=== PATIENT | female | born 1965 | race Caucasian/White ===

== ENCOUNTER 2017-05-19 14:23 | Emergency (ER) | payer MEDICAID, SELFPAY ==
[2017-05-19 14:25] VITALS: BP 160/91; PULSE 100; RESP 16; TEMP 36.6; O2SAT 95; BMI 36.3
--- NOTE | 2017-05-19 14:34 | CT_ITS ---
STUDY: CT ABDOMEN AND PELVIS WITHOUT CONTRAST REASON FOR EXAM: Female, 52 years old. Left flank pain RADIATION DOSAGE (If Supplied By Facility): CTDIvol = ( 21.59 ) mGy, DLP = ( 1208.35 ) mGycm TECHNIQUE: Transaxial images were obtained from the dome of the diaphragm to the symphysis pubis without oral contrast, and without intravenous contrast. Sagittal and coronal images were reconstructed. Individualized dose optimization techniques were used for this CT. COMPARISON: 12/04/2015 FINDINGS: The visualized lung bases are clear. The visualized portions of the heart and pericardium are within normal limits. Evaluation of the abdominal viscera is limited in the absence of intravenous contrast. The patient is status post cholecystectomy. The liver demonstrates an unremarkable unenhanced appearance. The spleen is normal in size. The pancreas demonstrates an unremarkable unenhanced appearance. The adrenal glands are within normal limits. There is a 6 mm stone in the left mid ureter with moderate left hydroureteronephrosis. There are additional bilateral subcentimeter nonobstructing collecting system stones, measuring up to 5 mm. There are no right ureteral stones. There is no hydronephrosis. Normal visualized stomach. There is no bowel obstruction or inflammation. The appendix is visualized and appears normal. The aorta is normal in caliber. There is no abdominal or pelvic free air, free fluid, fluid collection or lymphadenopathy. The patient is status post hysterectomy. There are no destructive osseous lesions. CT/Abdomen/Pelvis without Cont IMPRESSION: 6 mm stone in the left mid ureter with moderate left hydroureteronephrosis. Bilateral subcentimeter nonobstructing renal collecting system stones. No right ureteral stones. No right hydronephrosis. No bowel obstruction or inflammation. Normal appendix. Electronically Signed: José Barrera, at 15:31 EST Tel , Service support ,
[2017-05-19] MEDS: Ondansetron 4 MG/2 ML Vial IV (14:46)
--- NOTE | 2017-05-19 14:48 | ED.DCSUM_ITS ---
- ER Visit Summary Date of Service: 05/19/17 Chief Complaint: Left flank pain History of Present Illness: The patient is a 52 F presenting with left flank pain. She states she has a history of multiple kidney stones in the past and this feels similar. Pain started yesterday. She has had nausea vomiting. She has dysuria with no hematuria. Denies fever. She tried tramadol and Tylenol at home. He takes daily Macrodantin to suppress urine infections. She has had multiple procedures for kidney stone removal. Physical Examination: Vitals are stable. Patient is afebrile. Alert no acute distress. HEENT exam is unremarkable. Neck is supple. Lungs are clear and equal bilaterally. Heart is regular rate and rhythm. Abdomen is soft nontender nondistended. Back: left CVA tenderness Extremities are unremarkable. Skin is warm and dry. No focal neurologic deficit. Remainder of exam is unremarkable. Emergency Department Course and Treatment: Patient was given morphine, Zofran. CBC shows white count 16.7. Chemistries show BUN 36, creatinine 1.60. Urinalysis shows trace leukocytes, 5-10 white cells. Urine culture was sent. Lactic acid is 1.1. Patient was given Cipro IV. CT flank shows 6 mm stone left mid ureter with moderate left hydronephrosis. She continues to have pain despite multiple doses of pain medications. Patient states she is prone to sepsis. We currently have no urology coverage at [facility]. Patient's urologist is Dr. Alvarado at [facility]. Discussed with [facility] for transfer. Disposition: Transfer to [facility] Impression: Urolithiasis, leukocytosis This note was generated with [employer] dictation software. It may contain incorrect words, spelling, and punctuation that were not noted in review of the chart prior to signing ED Disposition - Plan for ED Patient: Chief Complaint: Flank Pain Referrals: Meg Meyer MD [Primary Care Provider] -
[2017-05-19 14:52] LABS: Mucous, Urine 0 SEEN /hpf (<or=2+); Red Blood Cells-Urine 0 SEEN /hpf (0-5)
[2017-05-19 15:01] LABS: Absolute Lymphocyte Count 2.15 X10^3/ul (0.83-4.51); Absolute Neutrophil Count 12.9 X10^3/uL (2.0-7.7); Basophil# 0.03 X10^3/uL; Basophil% 0.2 % (0-1); Hematocrit 43.5 % (37-47); Lymphocyte # 2.15 X10^3/ul (4.0); Lymphocyte % 12.9 % (19-41); Mean Corp Hgb Conc 34.5 g/gl (32-36); Mean Corpuscular Hgb 29.9 pg (27.0-32.0); Mean Corpuscular Volume 86.7 fL (81-99); Mean Platelet Vol. 8.9 fl (6.2-12.0); Monocyte# 1.61 X10^3/uL; Monocyte% 9.6 % (0-10); Neutrophil # 12.86 X10^3/uL (2.7-7.7); Neutrophil % 76.8 % (47-70); Platelet Count 346 K/mm3 (150-450); RBC Distribution Width CV 12.7 % (11.6-14.6); RBC Distribution Width SD 40.3 fl (35.1-43.9); Red Blood Count 5.02 M/mm3 (4.2-5.4); White Blood Count 16.7 K/mm3 (4.4-11.0)
[2017-05-19 15:02] LABS: Differential Indicated SCAN CRITERIA MET; POSITIVE COUNT NO; POSITIVE DIFFERENTIAL YES; POSITIVE MORPHOLOGY NO
[2017-05-19 15:04] LABS: Color, Urine Yellow (Yellow); Glucose, Dipstick Normal (Normal); Ketone-Dipstick Negative (Negative); Leukocyte Esterase-Dipstick 500 /ul (Negative); Nitrite-Dipstick Negative (Negative); Occult Blood-Urine 10 /ul (Negative); Protein-Dipstick 30 mg/dl (Negative); Specific Gravity, Urine 1.015 (1.002-1.030); Urine Bilirubin Dipstick Negative (Negative); Urine Clarity Clear (Clear); Urine Urobilinogen Normal (Normal)
[2017-05-19 15:10] LABS: Bacteria RARE /hpf (None Seen); Transitional Epithelial - Ur 0 SEEN /hpf (0-5); White Blood Cells 5-10 SEEN /hpf (0-5)
[2017-05-19 15:11] LABS: Squamous Epithelial Cells - UA 0-5 SEEN /hpf (5-10)
[2017-05-19 15:14] LABS: Anion Gap 10 (5-15); BUN 36 mg/dL (7-18); BUN/Creat Ratio 22.5 RATIO (10-20); Calcium,Total 8.8 mg/dL (8.5-10.1); Chloride 106 mmol/L (98-107); EST Glomerular Filtration Rate 36 mL/min (>60); Est Glom Filt Rate - Afr Amer 43 mL/min (>60); Estimated Creatinine Clearance 35.11 ml/min; Glucose 141 mg/dL (74-106); Sodium Level 137 mmol/L (136-145)
[2017-05-19 16:58] VITALS: BP 140/78; PULSE 77; RESP 17; O2SAT 98
[2017-05-19 16:59] LABS: Lactic Acid 1.1 mmol/L (0.4-2.0)
--- NOTE | 2017-05-19 17:25 | NURSING ---
CALLING [facility] FOR TRANSFER.
--- NOTE | 2017-05-19 18:10 | NURSING ---
[facility] 15 REPORT [phone]
[2017-05-19 18:37] VITALS: BP 146/92; PULSE 70; RESP 18; TEMP 36.6; O2SAT 96
[2017-05-19 18:50] VITALS: BP 146/92; PULSE 70; RESP 18; TEMP 36.6; O2SAT 96
== END 2017-05-19 19:30 | disposition short-term general hospital (02) ==
PROVIDERS: Emergency Provider Emergency Medicine; Family Provider Internal Medicine; PCP Internal Medicine
DX: N13.2 Hydronephrosis with renal and ureteral calculous obstruction (principal); R30.0 Dysuria; D72.829 Elevated white blood cell count, unspecified; Z79.82 Long term (current) use of aspirin; Z79.899 Other long term (current) drug therapy; Z87.442 Personal history of urinary calculi
CPT/HCPCS: 74176; 80048; 81001; 83605; 85025; 87086; 87088; 96365; 96375; 96376; 99284; J7030; J7050; A4216; J0744; J2405

== ENCOUNTER → 2017-07-25 06:17 | Outpatient (CLI) | payer MEDICAID, SELFPAY ==
--- NOTE | 2017-07-25 17:12 | STRESSREP ---
Stress Test Report Pharmacologic myocardial perfusion stress test. 52 year old lady with a history of tachycardia. Medications verapamil aspirin Vistaril and Demerol. Stress protocol: Resting EKG demonstrates normal sinus rhythm with a rate of 82 bpm normal intervals and noted resting blood pressure is 138/70 mmHg. 0.4 mg of regadenoson was infused per usual protocol followed by Intravenous saline flush injection. Continuous EKG monitoring was performed. The maximum heart rate attained was 112 bpm which was 67% of maximum predicted heart rate the maximum workload was 1 metabolic equivalent. At rest there were no ST or T-wave changes noted to suggest abnormal flow reserve at peak infusion no ST or T-wave changes were noted to suggest abnormal flow reserve. The resting blood pressure is 138/70 with a final blood pressure 122/82. Myocardial perfusion protocol. 12.0 mCi of technetium 99m sestamibi was injected at rest. 0.4 mg regadenoson was infused per usual protocol. At peak infusion 34.9 mCi of technetium 99m sestamibi was injected. Stress images were obtained stress and rest images were reconstructed and compared in the short axis vertical long and horizontal long axis. Gated images were also obtained. Perfusion SPECT analysis: Review of the stress images demonstrate normal uptake of tracer noted in all areas of the myocardium on the stress and resting images no areas of reversibility are noted and no previous infarct is noted. Gated SPECT analysis: The gated ejection fraction is noted to be 79%. Conclusion Normal pharmacologic myocardial perfusion stress test. Preserved ejection fraction.
== END ==
PROVIDERS: Family Provider Internal Medicine; PCP Internal Medicine; Visit Provider Internal Medicine Cardiovascular Disease
DX: I25.10 Atherosclerotic heart disease of native coronary artery without angina pectoris (principal); R06.09 Other forms of dyspnea
CPT/HCPCS: 78452; 93017; A9500; A4216; J2785

== ENCOUNTER 2017-08-07 14:08 | Emergency (ER) | payer MEDICAID, SELFPAY ==
[2017-08-07 14:09] VITALS: BP 159/97; PULSE 92; RESP 20; TEMP 36.5; O2SAT 97; BMI 38.0
[2017-08-07 15:33] LABS: Bacteria 0 SEEN /hpf (None Seen); Mucous, Urine 0 SEEN /hpf (<or=2+)
[2017-08-07 15:37] LABS: Color, Urine Yellow (Yellow); Glucose, Dipstick Normal (Normal); Ketone-Dipstick Negative (Negative); Leukocyte Esterase-Dipstick 25 /ul (Negative); Nitrite-Dipstick Negative (Negative); Occult Blood-Urine 25 /ul (Negative); Protein-Dipstick Negative (Negative); Specific Gravity, Urine 1.015 (1.002-1.030); Urine Bilirubin Dipstick Negative (Negative); Urine Clarity Sl. Cloudy (Clear); Urine Urobilinogen Normal (Normal)
--- NOTE | 2017-08-07 15:45 | CT_ITS ---
STUDY: CT ABDOMEN AND PELVIS WITHOUT CONTRAST REASON FOR EXAM: Female, 52 years old. Left flank pain RADIATION DOSAGE (If Supplied By Facility): CTDIvol = ( 20.72 ) mGy, DLP = ( 1097.27 ) mGycm TECHNIQUE: Transaxial images were obtained from the dome of the diaphragm to the symphysis pubis without oral contrast, and without intravenous contrast. Sagittal and coronal images were reconstructed. Individualized dose optimization techniques were used for this CT. COMPARISON: 05/19/2017 FINDINGS: Evaluation of the abdominal viscera is limited in the absence of intravenous contrast. The visualized lung bases are clear. The visualized portions of the heart and pericardium are within normal limits. The patient is status post cholecystectomy. The liver demonstrates an unremarkable unenhanced appearance. The spleen is normal in size. The pancreas demonstrates an unremarkable unenhanced appearance. The adrenal glands are within normal limits. There is a 3 mm stone in the left mid ureter with moderate left hydroureteronephrosis. There are additional bilateral subcentimeter nonobstructing renal collecting system stones, measuring up to 5 mm. There are no right ureteral stones. There is no right hydronephrosis. Normal visualized stomach. There is no bowel obstruction or inflammation. The appendix is visualized and appears normal. The aorta is normal in caliber. There is no abdominal or pelvic free air, free fluid, fluid collection or lymphadenopathy. There are no destructive osseous lesions. CT/Abdomen/Pelvis without Cont IMPRESSION: 3 mm stone in the left mid ureter with moderate left hydroureteronephrosis. Bilateral subcentimeter nonobstructing renal collecting system stones. No right ureteral stones. No right hydronephrosis. Electronically Signed: José Barrera, at 16:47 EDT Tel , Service support ,
[2017-08-07 15:50] LABS: Red Blood Cells-Urine 0-5 SEEN /hpf (0-5); Squamous Epithelial Cells - UA 0-5 SEEN /hpf (5-10); White Blood Cells 0-5 SEEN /hpf (0-5)
[2017-08-07] MEDS: 0.9% Normal Saline 1,000 ML 999 ML IV (16:05)
[2017-08-07] MEDS: Morphine 4 MG/ML Syringe IV (16:05)
[2017-08-07] MEDS: Ondansetron 4 MG/2 ML Vial IV (16:06)
[2017-08-07 16:21] LABS: Absolute Lymphocyte Count 2.16 X10^3/ul (0.83-4.51); Absolute Neutrophil Count 12.1 X10^3/uL (2.0-7.7); Basophil# 0.02 X10^3/uL; Basophil% 0.1 % (0-1); Eosinophil# 0.04 X10^3/uL; Eosinophils% 0.3 % (0-5); Hematocrit 43.3 % (37-47); Lymphocyte # 2.16 X10^3/ul (4.0); Mean Corp Hgb Conc 34.6 g/gl (32-36); Mean Corpuscular Hgb 30.5 pg (27.0-32.0); Mean Corpuscular Volume 88.2 fL (81-99); Mean Platelet Vol. 9.1 fl (6.2-12.0); Monocyte# 1.07 X10^3/uL; Monocyte% 6.9 % (0-10); Neutrophil # 12.07 X10^3/uL (2.7-7.7); Neutrophil % 78.1 % (47-70); Platelet Count 354 K/mm3 (150-450); RBC Distribution Width CV 14.2 % (11.6-14.6); RBC Distribution Width SD 45.1 fl (35.1-43.9); Red Blood Count 4.91 M/mm3 (4.2-5.4); White Blood Count 15.5 K/mm3 (4.4-11.0)
[2017-08-07 16:22] LABS: POSITIVE COUNT NO; POSITIVE DIFFERENTIAL NO; POSITIVE MORPHOLOGY NO
[2017-08-07 16:30] LABS: Anion Gap 10 (5-15); BUN 27 mg/dL (7-18); BUN/Creat Ratio 16.8 RATIO (10-20); Chloride 103 mmol/L (98-107); Creatinine, Serum 1.61 mg/dL (0.55-1.02); EST Glomerular Filtration Rate 36 mL/min (>60); Est Glom Filt Rate - Afr Amer 43 mL/min (>60); Glucose 112 mg/dL (74-106); Potassium 3.7 mmol/L (3.5-5.1); Sodium Level 138 mmol/L (136-145)
--- NOTE | 2017-08-07 17:07 | ED.DCSUM_ITS ---
- ER Visit Summary Date of Service: 08/07/17 Chief Complaint: Left flank pain History of Present Illness: The patient is a 52 F who presents with left flank pain. He began this morning. Sharp. It is severe. It does radiate to the left lower quadrant of the abdomen and has associated nausea. It feels similar to prior kidney stones. She went to the urgent care and was diagnosed with a UTI and put on Cipro. However she was still concern for kidney stone and ongoing pain so presented here. She denies vomiting. She denies fever. She has a history of multiple kidney stones requiring surgical intervention. She actually has an appointment with urology in 2 days as well. Physical Examination: Afebrile vitals are stable Moist mucous membranes Heart regular rate and rhythm Lungs are clear Abdomen soft nontender Alert Test Results: Laboratory studies notable for white blood cell count 15.5 BUN 27 creatinine 1.61. Urinalysis shows no pyuria hematuria or bacteria. CT of the flank shows a 3 mm mid left ureteral calculus with moderate hydroureteronephrosis. Emergency Department Course and Treatment: Patient was treated with IV fluids morphine Zofran here and does feel much better on reevaluation. She has an appointment with urology in 2 days. Although she does not have pyuria given leukocytosis I do feel continuing the antibiotics appropriate. She was also given a prescription for Percocet for pain control. She reports that she usually gets thrush when she is placed on antibiotics so she was given a prescription for nystatin. She understands to return for new or worsening symptoms and to otherwise follow-up with urology on her scheduled appointment was discharged home. Treatment Plan: [] Disposition: Discharge Impression: Ureterolithiasis This note was generated with [employer] dictation software. It may contain incorrect words, spelling, and punctuation that were not noted in review of the chart prior to signing ED Disposition - Plan for ED Patient: Chief Complaint: Flank Pain Referrals: Meg Meyer MD [Primary Care Provider] -
--- NOTE | 2017-08-07 17:07 | ED.DEP ---
ED Disposition - Plan for ED Patient: Chief Complaint: Flank Pain Instructions: ED Stone Renal W Colic Prescriptions: Oxycodone HCl/Acetaminophen [Percocet 5/325] 1 tab PO Q6H PRN PRN 3 Days #12 tab PRN Reason: Pain Nystatin 5 ml PO Q8H 5 Days oral.susp Referrals: Meg Meyer MD [Primary Care Provider] -
[2017-08-07 17:23] VITALS: BP 143/87; PULSE 76; RESP 16; O2SAT 96
== END 2017-08-07 17:23 | disposition home or self-care (01) ==
LOC: ED 15:54
PROVIDERS: Emergency Provider Emergency Medicine; Family Provider Internal Medicine; PCP Internal Medicine
DX: N13.2 Hydronephrosis with renal and ureteral calculous obstruction (principal); Z87.442 Personal history of urinary calculi; N39.0 Urinary tract infection, site not specified; Z79.899 Other long term (current) drug therapy; N18.9 Chronic kidney disease, unspecified; Z79.82 Long term (current) use of aspirin; F32.9 Major depressive disorder, single episode, unspecified
CPT/HCPCS: 74176; 80048; 81001; 85025; 96361; 96374; 96375; 99283; J7030; J2405

== ENCOUNTER → 2017-12-20 11:56 | Outpatient (CLI) | payer MEDICAID, SELFPAY ==
[2017-12-20 12:57] LABS: Amphetamine Urine VISTA NEGATIVE (<1000 ng/mL); Barbiturate Urine VISTA NEGATIVE (< 200 ng/mL); Benzodiazepine Urine VISTA POSITIVE (< 200 ng/mL); Cocaine Urine VISTA NEGATIVE (< 300 ng/mL); Ecstacy Urine VISTA POSITIVE (< 500 ng/mL); Methadone Urine VISTA NEGATIVE (< 300 ng/mL); PCP Urine VISTA NEGATIVE (< 25 ng/mL); THC Urine VISTA NEGATIVE (< 50 ng/mL); Vista UDS pH Range 5
== END ==
PROVIDERS: Family Provider Internal Medicine; PCP Internal Medicine; Referring Provider Anesthesiology Pain Medicine; Visit Provider Anesthesiology Pain Medicine
DX: F11.20 Opioid dependence, uncomplicated (principal)
CPT/HCPCS: 80307

== ENCOUNTER → 2018-07-30 10:59 | Outpatient (CLI) | payer MEDICAID, SELFPAY ==
--- NOTE | 2018-07-30 11:30 | MRI_ITS ---
STUDY: MRI LUMBAR SPINE WITHOUT CONTRAST REASON FOR EXAM: Female, 53 years old. Left flank pain. History of frequent kidney stones. TECHNIQUE: Standardized fat and water weighted pulse sequences were obtained in the sagittal and axial planes. COMPARISON: 07/16/2014. FINDINGS: T10-T11: (Sagittal only). Normal T10 inferior endplate. Minimal anterior wedging of T11 superior endplate without bone edematous presumably from remote injury. Minimal disc space height narrowing. No ventral extradural defect. Normal central canal and bilateral intervertebral neural foramina. T11-T12: (Sagittal only). Normal endplates. Minimal disc space height narrowing. Small posterior bulging disc. Normal central canal and bilateral intervertebral neural foramina. T12-L1: (Sagittal only). Normal endplates. Normal disc height and morphology. No ventral extradural defect. Normal central canal and bilateral intervertebral neural foramina. Normal lumbar lordosis. There is no substantial scoliosis. Normal conus medullaris that terminates at the lower T12 vertebral body level. L1-2: Normal endplates. Normal disc height, hydration and morphology. Normal bilateral facet joints. Normal central canal and bilateral lateral recesses. Normal bilateral intervertebral neural foramina. L2-3: Normal endplates. Normal disc height, hydration and morphology. Normal bilateral facet joints. Normal central canal and bilateral lateral recesses. Normal bilateral intervertebral neural foramina. L3-4: Normal endplates. Normal disc height and morphology. Mild central canal stenosis with an AP canal diameter of 10 mm. Mild dorsal epidural lipomatosis. Normal bilateral lateral recesses. Normal facet joints. Normal bilateral intervertebral neural foramina. L4-5: Normal endplates. Mild disc space height narrowing. Small left posterior disc protrusion (series 2 and 3, images 5-6; series 5, image 7). This is causing mild stenosis of the left lateral recess. Normal right lateral recess. Mild central canal stenosis with an AP canal diameter of 9 mm. Mild dorsal epidural lipomatosis. Normal facet joints. Normal bilateral intervertebral neural foramina. L5-S1: Normal endplates. Hypoplastic disc. Normal disc hydration and morphology. Mild central canal stenosis with an AP canal diameter of 9 mm. Normal hypoplastic facet joints. Normal bilateral intervertebral neural foramina. Normal visualized sacral ala. Normal visualized paraspinous soft tissue structures. MRI/Spine Lumbar (Routine) IMPRESSION: 1. Interval improvement of the previous severe central canal stenosis at L3 down to L5 due to interval resolution of the epidural air and or fluid possibly from previous epidural injection. 2. Small left L4-L5 posterior disc protrusion causing mild stenosis of the left lateral recess and mild central canal stenosis. 3. Mild central canal stenosis at L3-L4 and L5-S1 disc space levels. 4. No MRI evidence of lumbar extruded disc fragment. Electronically Signed: Venancio Zafar MD at 14:55 EDT , Service support ,
== END ==
PROVIDERS: Family Provider Internal Medicine; PCP Internal Medicine; Referring Provider Anesthesiology Pain Medicine; Visit Provider Anesthesiology Pain Medicine
DX: M54.9 Dorsalgia, unspecified (principal); M79.606 Pain in leg, unspecified
CPT/HCPCS: 72148

== ENCOUNTER → 2019-05-22 12:51 | Outpatient (CLI) | payer MEDICARE, MEDICAID, SELFPAY ==
[2019-05-22 13:45] LABS: Amphetamine Urine VISTA NEGATIVE (<1000 ng/mL); Barbiturate Urine VISTA NEGATIVE (< 200 ng/mL); Benzodiazepine Urine VISTA POSITIVE (< 200 ng/mL); Cocaine Urine VISTA NEGATIVE (< 300 ng/mL); Ecstacy Urine VISTA NEGATIVE (< 500 ng/mL); Methadone Urine VISTA NEGATIVE (< 300 ng/mL); PCP Urine VISTA NEGATIVE (< 25 ng/mL); THC Urine VISTA NEGATIVE (< 50 ng/mL); Vista UDS pH Range 6
== END ==
PROVIDERS: PCP Internal Medicine; Referring Provider Anesthesiology Pain Medicine; Visit Provider Anesthesiology Pain Medicine
DX: F11.20 Opioid dependence, uncomplicated (principal)
CPT/HCPCS: 80307

== ENCOUNTER → 2020-03-04 07:17 | Outpatient (CLI) | payer MEDICARE, MEDICAID, SELFPAY ==
--- NOTE | 2020-03-04 07:30 | MRI_ITS ---
STUDY: MRI LUMBAR SPINE WITHOUT CONTRAST REASON FOR EXAM: Female, 54 years old. low back pain radiates into L leg, no known trauma TECHNIQUE: Standardized fat and water weighted pulse sequences were obtained in the sagittal and axial planes. COMPARISON: 07/30/2018 FINDINGS: T12-L1: Normal endplates. Normal disc height, hydration and morphology. Normal bilateral facet joints. Normal central canal and bilateral lateral recesses. Normal bilateral intervertebral neural foramina. Normal lumbar lordosis. There is no substantial scoliosis. Normal conus medullaris that terminates at the T12/L1. L1-2: Normal endplates. Normal disc height, hydration and morphology. Normal bilateral facet joints. Normal central canal and bilateral lateral recesses. Normal bilateral intervertebral neural foramina. L2-3: Disc desiccation but no disc protrusion, spinal stenosis, or neural foraminal stenosis. L3-4: Mild bilateral facet hypertrophy and ligament flavum hypertrophy. No change in the mild bilobed disc protrusion which produces mild spinal stenosis and mild bilateral neural foraminal stenosis. L4-5: Mild bilateral facet hypertrophy and moderate ligament flavum hypertrophy. No change in the mild broad disc protrusion asymmetric to left which produces mild spinal stenosis, mild right lateral recess stenosis, moderate left lateral recess stenosis with abutment of the left L5 nerve root, mild right neural foraminal stenosis and and mild left neural foraminal stenosis. L5-S1: Normal endplates. Normal disc height, hydration and morphology. Normal bilateral facet joints. Normal central canal and bilateral lateral recesses. Normal bilateral intervertebral neural foramina. Normal visualized sacral ala. Normal visualized paraspinous soft tissue structures. MRI/Spine Lumbar (Routine) IMPRESSION: No change from 07/30/2018. Electronically Signed: Fernando Hill MD at 15:17 EST Tel , Service support ,
== END ==
PROVIDERS: PCP Internal Medicine; Referring Provider Anesthesiology Pain Medicine; Visit Provider Anesthesiology Pain Medicine
DX: M54.9 Dorsalgia, unspecified (principal); M79.606 Pain in leg, unspecified
CPT/HCPCS: 72148

== ENCOUNTER → 2020-07-01 11:57 | Outpatient (CLI) | payer MEDICARE, MEDICAID, SELFPAY ==
[2020-07-01 14:06] LABS: Amphetamine Urine VISTA NEGATIVE (<1000 ng/mL); Barbiturate Urine VISTA NEGATIVE (< 200 ng/mL); Benzodiazepine Urine VISTA NEGATIVE (< 200 ng/mL); Cocaine Urine VISTA NEGATIVE (< 300 ng/mL); Ecstacy Urine VISTA NEGATIVE (< 500 ng/mL); Methadone Urine VISTA NEGATIVE (< 300 ng/mL); PCP Urine VISTA NEGATIVE (< 25 ng/mL); THC Urine VISTA NEGATIVE (< 50 ng/mL); Vista UDS pH Range 7
== END ==
PROVIDERS: PCP Internal Medicine; Referring Provider Anesthesiology Pain Medicine; Visit Provider Anesthesiology Pain Medicine
DX: F11.20 Opioid dependence, uncomplicated (principal)
CPT/HCPCS: 80307

== ENCOUNTER 2020-11-21 18:44 | Emergency (ER) | payer MEDICARE, MEDICAID, SELFPAY ==
[2020-11-21 18:45] VITALS: BP 115/85; PULSE 132; RESP 16; TEMP 36.9; O2SAT 92; BMI 37.2
[2020-11-21 18:48] VITALS: BP 115/85; PULSE 132; RESP 16; TEMP 36.9; O2SAT 92
--- NOTE | 2020-11-21 19:11 | CT_ITS ---
INDICATION: left sided pain, ?abscess EXAMINATION: CT NECK WITH CONTRAST - CT Soft Tissue Neck W/ Contrast Injection TECHNIQUE: Helically acquired images were obtained of the neck following IV contrast. A radiation dose optimization technique was used for this scan. IV Contrast dosage and agent: 75 mL of [id number]. COMPARISON: Cervical spine x-rays 11/18/2014. FINDINGS: NASOPHARYNX: Unremarkable. SUPRAHYOID NECK: Unremarkable oropharynx, oral cavity, parapharyngeal space, and retropharyngeal space. INFRAHYOID NECK: Unremarkable larynx, hypopharynx, and supraglottis. THYROID: No focal lesions. SALIVARY GLANDS: Unremarkable. LYMPH NODES: There are 2, asymmetrically larger left, sided, level 2A lymph nodes measuring 6 and 7 mm in short axis. These are still within normal size limits. No other evidence of inflammatory changes. VASCULAR STRUCTURES: Unremarkable. VISUALIZED PORTIONS OF THE ORBITS, PARANASAL SINUSES, MASTOID AIR CELLS AND SKULL BASE: Unremarkable. BONES: Moderate degenerative changes cervical spine most also a C5-6 and C6-7 with associated uncovertebral joint arthropathy resulting in [id number] neural foraminal narrowing at these levels bilaterally. THORACIC INLET: Clear lung apices. CT/Soft Tissue Neck WITH Contrast IMPRESSION: Normal size, asymmetrically prominent, left-sided level 2A lymph nodes suggesting reactive lymph nodes. Normal pharyngeal mucosal space. No abscess. Electronically Signed: Luca Muniz DO at 21:13 EDT Tel , Service support ,
--- NOTE | 2020-11-21 19:12 | EKG12_ITS ---
Test Reason : DYSRYTHMIA Blood Pressure : / mmHG Vent. Rate : 109 BPM Atrial Rate : 109 BPM P-R Int : 142 ms QRS Dur : 086 ms QT Int : 324 ms P-R-T Axes : 020 004 005 degrees QTc Int : 436 ms Sinus tachycardia Nonspecific ST and T wave abnormality Abnormal ECG Confirmed by DESHAWN DOUGLAS, JAZMINE ([id number]), social media editor [facility] ([id number]) on 11/23/2020 8:39:07 AM Referred By: LINDSAY Confirmed By:JAZMINE HESS MD
--- NOTE | 2020-11-21 19:16 | EX.ED.DYSGE1 ---
HPI History of Present Illness Chief Complaint: Dental Informant: patient and spouse/S.O. Narrative Narrative: Patient presents with left-sided mouth and throat area pain. She states that for 5 days ago she started with some soreness in the ear. That got better. Over the last day or 2 she has developed more soreness in the left side of her mouth and into the throat. It hurts to swallow or drink. She is able to but it sore. She is still breathing well. She denies fevers or chills. She denies chest pain. She denies visible swelling. No trauma. Nothing makes her symptoms better. Swallowing makes it worse. She was treated for thrush recently but thought that has gotten better. Patient does have a history of breast cancer. She had surgery about 6 weeks ago. She got her first chemotherapy on Sunday. No other immune suppression. Past medical history is breast cancer, kidney stones, irritable bowel, fibromyalgia, tachycardia Medications include verapamil. She is due for verapamil in about 2-1/2 hours. She takes this to avoid tachycardia. Multiple allergies. She has about 26 listed. She states she is allergic to IVP dye. However, she had CTs with IV contrast for her breast cancer never had a problem. Surgeries include C-sections multiple kidney stone surgeries Lives with [facility] Medical History Breast cancer Home Medications diclofenac sodium [Voltaren] 2 g TP PRN PRN 05/02/15 [History Last Taken Unknown] albuterol sulfate [Ventolin HFA] 2 puff INHALATION Q6H PRN PRN 12/04/15 [History Last Taken Unknown] cholecalciferol (vitamin D3) [D3-2000] 2,000 unit PO DAILY 12/04/15 [History Last Taken Unknown] hydroxyzine pamoate 50 mg PO BID PRN 12/04/15 [History Last Taken 12/04/15 08:00] meclizine 12.5 mg PO TID PRN 12/04/15 [History Last Taken Unknown] melatonin-pyridoxine (vit B6) 10 mg PO QHS 12/04/15 [History Last Taken 12/03/15 22:00] oxybutynin chloride 5 mg PO TID PRN 12/04/15 [History Last Taken 12/04/15 09:00] aspirin 325 mg PO DAILY@0800 03/22/16 [History Last Taken Unknown] multivitamin [Multiple Vitamins] 1 ea PO DAILY 09/15/16 [History Last Taken Unknown] naphazoline-pheniramine [Naphcon-A Eye Drops] 1 drp OP DAILY 09/15/16 [History Last Taken Unknown] nitrofurantoin macrocrystal 50 mg PO QHS 09/15/16 [History Last Taken Unknown] ondansetron HCl [Zofran] 4 mg PO Q8 PRN 09/15/16 [History Last Taken Unknown] vilazodone [Viibryd] 40 mg PO DAILY 02/15/17 [History Last Taken Unknown] oxycodone-acetaminophen 1 tab PO Q6H PRN PRN 3 Days #12 tab 08/07/17 [Rx Last Taken Unknown] atorvastatin [Lipitor] 10 mg PO QHS 11/21/20 [History Last Taken Unknown] empagliflozin [Jardiance] 10 mg PO DAILY 11/21/20 [History Last Taken Unknown] lamotrigine [Lamictal] 150 mg PO DAILY 11/21/20 [History Last Taken Unknown] lurasidone [Latuda] 80 mg PO QHS 11/21/20 [History Last Taken Unknown] modafinil [Provigil] 250 mg PO DAILY 11/21/20 [History Last Taken Unknown] potassium citrate [Urocit-K 10] 10 meq PO TID 11/21/20 [History Last Taken Unknown] tramadol 50 mg PO BID 11/21/20 [History Last Taken Unknown] trihexyphenidyl [Artane] 2 mg PO BID 11/21/20 [History Last Taken Unknown] verapamil 120 mg PO BID 11/21/20 [History Last Taken Unknown] Allergy/AdvReac Type Severity Reaction Status Date / Time banana Allergy Hives Verified 11/21/20 18:49 brompheniramine Allergy Hives Verified 11/21/20 18:49 [From Dimetapp (brompheniramine-PPA)] cefuroxime Allergy Rash Verified 11/21/20 18:49 egg Allergy Itching Verified 11/21/20 18:49 kiwi Allergy Hives Verified 11/21/20 18:49 latex Allergy Anaphylaxis Verified 11/21/20 18:49 moxifloxacin HCl Allergy Hives Verified 11/21/20 18:49 [From Avelox] peach Allergy Hives Verified 11/21/20 18:49 phenylpropanolamine Allergy Hives Verified 11/21/20 18:49 [From Dimetapp (brompheniramine-PPA)] red dye Allergy Angioedema Verified 11/21/20 18:49 shellfish derived Allergy Anaphylaxis Verified 11/21/20 18:49 strawberry Allergy Hives Verified 11/21/20 18:49 Sulfa (Sulfonamide Allergy Rash Verified 11/21/20 18:49 Antibiotics) tetanus and diphtheria Allergy Anaphylaxis Verified 11/21/20 18:49 toxoids [tetanus & diphtheria toxoids] tetracycline Allergy Rash Verified 11/21/20 18:49 adhesive tape AdvReac Rash Verified 11/21/20 18:49 amoxicillin trihydrate AdvReac Nausea Verified 11/21/20 18:49 [From Augmentin] chlorpheniramine AdvReac Unknown Verified 11/21/20 18:49 doxycycline AdvReac Nausea Verified 11/21/20 18:49 eszopiclone [From Lunesta] AdvReac Unknown Verified 11/21/20 18:49 fluticasone [From Flonase] AdvReac Unknown Verified 11/21/20 18:49 paroxetine [From Paxil] AdvReac Nausea Verified 11/21/20 18:49 peanut AdvReac Nausea Verified 11/21/20 18:49 potassium clavulanate AdvReac Nausea Verified 11/21/20 18:49 [From Augmentin] procainamide AdvReac Unknown Verified 11/21/20 18:49 Social History Smoking Status: Never smoker ROS ROS ED Constitutional Constitutional ED: Denies chills, fever(s) or sweats Eyes Eyes: Denies blurry vision or diplopia ENT ENT ED: Reports ear pain and sore throat; Denies rhinorrhea Cardiovascular Cardiovascular: Reports palpitations; Denies chest pain Respiratory/Chest Respiratory/Chest: Denies cough or dyspnea Gastrointestinal Gastrointestinal: Denies nausea or vomiting Genitourinary Genitourinary ED: Denies dysuria or hematuria Musculoskeletal Musculoskeletal: Reports neck pain; Denies arthralgias or back pain Integumentary Denies abscess, Abrasions or rash Neurologic Neurologic: Denies headache(s) or weakness Psychiatric Psychiatric: Reports anxiety and depression Endocrine Endocrinology: Denies polyuria Allergic/Immunologic Allergic/Immunologic ED: Denies urticaria EXAM Physical Exam Const Vital Signs: 11/21/20 18:45 11/21/20 18:48 11/21/20 21:45 Temperature 98.5 F 98.5 F Temperature Source Oral Oral Pulse Rate 132 H 132 H 90 Respiratory Rate 16 16 28 H Blood Pressure 115/85 H 115/85 H 175/89 H Blood Pressure Mean 95 95 117 Pulse Ox 92 92 97 Oxygen Delivery Method Room Air Room Air Room Air Positive well nourished and well developed General Appearance ED: well developed and NAD HEENT HEENT Narrative: I do not see external swelling. She has many of the teeth missing in the back of the throat where she has discomfort. I do not see an abscess. She does not appear to have Ludewig's angina. I am not seeing elevation or asymmetry of the tongue. She has good motion preserved. I see no exudate. Clinically, I do not see a clear explanation for the symptoms she has. trauma Eyes PERRL and EOMs intact bilaterally Neck no lymphadenopathy and no JVD Neck Narrative: No mass. She does have some tenderness along the left side of the neck but I do not feel any abnormality. Resp normal respiratory effort and clear to auscultation bilaterally Cardio regular rhythm Rate: tachycardic GI normal to inspection, nondistended, normoactive bowel sounds and non-tender Palpation: soft Back/Spine no CVA tenderness Extremity normal to inspection Neuro oriented x3 Sensorium / Orientation: alert Psych mental status grossly normal Skin no rashes or lesions noted MDM MDM MDM Narrative Medical decision making narrative: Patient is labs show a very low white count and an essentially 0 absolute neutrophil count. Electrolytes are not showing any marked abnormalities. Troponin is negative. Lactate is negative. Her blood pressure is staying good. Her heart rate is come down to 90. She states her heart rate does go up and down she has a history of tachycardia. Normally the verapamil takes care of this for her. Her CT showed an enlarged lymph node on the left that was reactive but no sign of abscess or infection. I discussed the case with Dr. Moya. Patient does have an appointment tomorrow. He recommends antibiotic IV dose if we could. This patient has many allergies. She states she has taken Levaquin orally and IV without problems. She has an allergy to Avelox but it is only the pill and it something in the binder not the actual antibiotics. I will give her a dose of this. I will give her a few Percocet for pain. She will follow up in 12 hours. If she gets fevers chills or other concerning findings she should return. Lab Data Labs: Laboratory Results - last 24 hr 11/21/20 11/21/20 11/21/20 19:35 19:35 19:35 WBC 0.5 L* RBC 3.99 L Hgb 11.9 L Hct 37.2 MCV 93.2 MCH 29.8 MCHC 32.0 RDW Std Deviation 43.8 RDW Coeff of Maria Ines 12.8 Plt Count 264 MPV 9.5 Immature Gran % (Auto) 3.900 H Neut % (Auto) 5.9 L Lymph % (Auto) 66.7 H Granite % (Auto) 3.9 Eos % (Auto) 17.6 H Baso % (Auto) 2.0 H Absolute Neuts (auto) 0.0 L Absolute Lymphs (auto) 0.34 L Nucleated RBC % 0 Differential Comment SEE COMMENTS Diff Path Review May foll Platelet Estimate ADEQUATE RBC Morphology N CHROM Anisocytosis RARE Macrocytosis RARE Sodium 138 Potassium 4.0 Chloride 103 Carbon Dioxide 30.0 Anion Gap 5 BUN 12 Creatinine 1.23 H Estim Creat Clear Calc 44.10 Est GFR (MDRD) Af Amer 58 L Est GFR (MDRD) Non-Af 48 L BUN/Creatinine Ratio 9.8 L Glucose 129 H Lactic Acid 1.6 Calcium 9.7 Troponin I High Sens 4 Radiography Diagnostic Testing: Radiology Impression Soft Tissue Neck CT 11/21/20 19:11 IMPRESSION: Normal size, asymmetrically prominent, left-sided level 2A lymph nodes suggesting reactive lymph nodes. Normal pharyngeal mucosal space. No abscess. Electronically Signed: Luca Muniz DO at 21:13 EDT Tel , Service support , Discharge Plan Triage Chief Complaint: Dental ED Provider: Cedric Howard Dx/Rx/DC Orders Clinical Impression: Neck pain on left side, Neutropenia Instructions: Neutropenia Prescriptions: No Action diclofenac sodium [Voltaren] 100 GM gel 2 g TP PRN PRN (Reason: Mild-Mod Pain (1-5/10)) RF: 0 meclizine 12.5 MG tablet 12.5 mg PO TID PRN (Reason: Dizziness) RF: 0 melatonin-pyridoxine (vit B6) 1 EACH tablet 10 mg PO QHS RF: 0 albuterol sulfate [Ventolin HFA] 1 INHALER inhaler 2 puff inhalation Q6H PRN PRN (Reason: Shortness Of Breath) RF: 0 oxybutynin chloride 5 MG tablet 5 mg PO TID PRN (Reason: Pain) RF: 0 hydroxyzine pamoate 25 MG capsule 50 mg PO BID PRN (Reason: Allergies) RF: 0 cholecalciferol (vitamin D3) [D3-2000] 2,000 UNIT capsule 2,000 unit PO DAILY RF: 0 aspirin 325 MG tablet 325 mg PO DAILY@0800 RF: 0 multivitamin [Multiple Vitamins] 1 EACH tablet 1 ea PO DAILY RF: 0 nitrofurantoin macrocrystal 50 MG capsule 50 mg PO QHS RF: 0 ondansetron HCl [Zofran] 4 MG tablet 4 mg PO Q8 PRN (Reason: Nausea) RF: 0 Naphcon-A 15 ML drops 1 drp OP DAILY RF: 0 Viibryd 40 MG tablet 40 mg PO DAILY RF: 0 oxycodone-acetaminophen 1 TABLET tablet 1 tab PO Q6H PRN PRN (Reason: Pain) 3 Days Qty: 12 RF: 0 verapamil 120 mg Tablet 120 mg PO BID RF: 0 potassium citrate [Urocit-K 10] 10 mEq (1,080 mg) Tablet Extended Release 10 meq PO TID RF: 0 Latuda 80 mg Tablet 80 mg PO QHS RF: 0 Jardiance 10 mg Tablet 10 mg PO DAILY RF: 0 trihexyphenidyl [Artane] 2 mg Tablet 2 mg PO BID RF: 0 modafinil [Provigil] 100 mg Tablet 250 mg PO DAILY RF: 0 lamotrigine [Lamictal] 150 mg Tablet 150 mg PO DAILY RF: 0 atorvastatin [Lipitor] 10 mg Tablet 10 mg PO QHS RF: 0 tramadol 50 mg Tablet 50 mg PO BID RF: 0 Primary Care Provider: Meg Meyer Referrals: Mariam Coleman MD [STAFF PHYSICIAN] - 1 Day (tomorrow as scheduled) Meg Meyer MD [Primary Care Provider] - Disposition Disposition: Home, Self Care
[2020-11-21] MEDS: 0.9% Normal Saline 1,000 ML 1000 ML IV (19:41)
[2020-11-21] MEDS: HYDROmorphone 1 MG/ML Syringe 0.5 MG IV (19:42)
[2020-11-21 19:45] LABS: Absolute Lymphocyte Count 0.34 X10^3/uL (0.83-4.51); Basophil# 0.01 X10^3/uL; Eosinophil# 0.09 X10^3/uL; Eosinophils% 17.6 % (0-5); Hematocrit 37.2 % (37-47); Hemoglobin 11.9 g/dL (12.0-15.0); Lymphocyte # 0.34 X10^3/ul (0.83-4.51); Lymphocyte % 66.7 % (19-41); Mean Corpuscular Hgb 29.8 pg (27.0-32.0); Mean Corpuscular Volume 93.2 fL (81-99); Mean Platelet Vol. 9.5 fl (6.2-12.0); Monocyte# 0.02 X10^3/uL; Monocyte% 3.9 % (0-10); NRBC Flagged by Analyzer 0 % (0-5); Neutrophil # 0.03 X10^3/uL (2.7-7.7); Neutrophil % 5.9 % (47-70); POSITIVE COUNT YES; POSITIVE DIFFERENTIAL YES; POSITIVE MORPHOLOGY YES; Platelet Count 264 K/mm3 (150-450); RBC Distribution Width CV 12.8 % (11.6-14.6); RBC Distribution Width SD 43.8 fl (35.1-43.9); Red Blood Count 3.99 M/mm3 (4.2-5.4)
[2020-11-21 20:08] LABS: Anion Gap 5 (5-15); BUN 12 mg/dL (7-18); BUN/Creat Ratio 9.8 RATIO (10-20); Calcium,Total 9.7 mg/dL (8.5-10.1); Chloride 103 mmol/L (98-107); Creatinine, Serum 1.23 mg/dL (0.55-1.02); EST Glomerular Filtration Rate 48 mL/min (>60); Est Glom Filt Rate - Afr Amer 58 mL/min (>60); Glucose 129 mg/dL (74-106); Sodium Level 138 mmol/L (136-145); Troponin-I HS 4 pg/mL (3.0-54.0)
[2020-11-21 20:14] LABS: Lactic Acid 1.6 mmol/L (0.4-1.9)
[2020-11-21 20:53] LABS: White Blood Count 0.5 K/mm3 (4.4-11.0)
[2020-11-21 20:55] LABS: Anisocytosis RARE; Differential Comment SEE COMMENTS; Macrocytosis RARE; Platelet Estimate ADEQUATE (ADEQ); Red Cell Morphology N CHROM NORMAL (NORM C&C)
[2020-11-21 21:45] VITALS: BP 175/89; PULSE 90; RESP 28; O2SAT 97
[2020-11-21] MEDS: Ondansetron 4 MG/2 ML Vial IV (23:10)
[2020-11-21] MEDS: HYDROmorphone 0.5 MG/0.5 ML SYRINGE IV (23:13)
[2020-11-21] MEDS: levoFLOXacin IV 750 MG/150 ML BAG 100 MG IV (23:15)
[2020-11-21 23:20] VITALS: BP 153/84; PULSE 103; RESP 26; O2SAT 94
[2020-11-22 01:31] VITALS: PULSE 106; RESP 27; O2SAT 95
[2020-11-22 14:12] LABS: Pathologist Review Reviewed
== END 2020-11-22 01:32 | disposition home or self-care (01) ==
PROVIDERS: Emergency Provider Emergency Medicine; PCP Internal Medicine
DX: M54.2 Cervicalgia (principal); D70.9 Neutropenia, unspecified; R00.0 Tachycardia, unspecified; M79.7 Fibromyalgia; Z79.899 Other long term (current) drug therapy; Z79.82 Long term (current) use of aspirin
CPT/HCPCS: 70491; 80048; 83605; 84484; 85025; 87040; 87880; 93005; 96361; 96365; 96366; 96375; 96376; 99284; J7030; Q9967; A4216; J2405

== ENCOUNTER 2021-01-17 14:21 | Emergency (ER) | payer MEDICARE, MEDICAID, SELFPAY ==
[2021-01-17 14:22] VITALS: BP 129/84; PULSE 100; RESP 18; TEMP 36.3; O2SAT 100; BMI 35.5
--- NOTE | 2021-01-17 14:42 | EKG12_ITS ---
Test Reason : Blood Pressure : / mmHG Vent. Rate : 095 BPM Atrial Rate : 095 BPM P-R Int : 160 ms QRS Dur : 094 ms QT Int : 376 ms P-R-T Axes : 028 010 019 degrees QTc Int : 472 ms Normal sinus rhythm Normal ECG Confirmed by DESHAWN DOUGLAS, JAZMINE ([id number]), editor school photograph [employer] ([id number]) on 01/19/2021 1:51:44 PM Referred By: RALPH Confirmed By:JAZMINE HESS MD
--- NOTE | 2021-01-17 14:43 | EDS_ITS ---
HPI History of Present Illness Chief Complaint: General Illness Informant: patient and parent Onset/Context/Timing Onset: Weeks Context: Sudden Onset Timing: Continuous Quality: Generalized weakness, frequent falls, and orthostatic symptoms Location: Home Current Severity: Mild Maximum Severity: Severe Worsened by: According to she falls when she has a urinary tract infection. She Relieved by: Nothing Associated Symptoms Associated Symptoms: Per HPI Narrative Narrative: Patient is a 55-year-old woman with stage II breast cancer status postmastectomy on chemotherapy to start radiation therapy who presents with generalized weakness, diarrhea which may be due to the chemo or her IBS. She denies dysuria, frequency, urgency or hematuria. She denies fever or chills. She had several falls since last Sunday. She is not on an anticoagulant. She denies headache. Denies visual, ocular auditory symptoms. She denies cough or shortness of breath. She denies chest pain including pleuritic. She does report nausea without vomiting. She states she has several soft stools, which she calls diarrhea. Not watery. Patient denies any paresthesia, anesthesia me dics. Patient states her primary care physician is and her oncologist is Dr. Coleman Prior similar symptoms: Yes Recent Illness/Hospitalization: Yes PFSH [facility] Medical History Arthritis Asthma Breast cancer Hyperlipidemia IBS (irritable bowel syndrome) Kidney disease Home Medications diclofenac sodium [Voltaren] 2 g TP PRN PRN 05/02/15 [History Last Taken Unknow n] albuterol sulfate [Ventolin HFA] 2 puff INHALATION Q6H PRN PRN 12/04/15 [History Last Taken Unknown] cholecalciferol (vitamin D3) [D3-2000] 2,000 unit PO DAILY 12/04/15 [History Last Taken Unknown] hydroxyzine pamoate 50 mg PO BID PRN 12/04/15 [History Last Taken 12/04/15 08:00] meclizine 12.5 mg PO TID PRN 12/04/15 [History Last Taken Unknown] melatonin-pyridoxine (vit B6) 10 mg PO QHS 12/04/15 [History Last Taken 12/03/15 22:00] oxybutynin chloride 5 mg PO TID PRN 12/04/15 [History Last Taken 12/04/15 09:00] aspirin 325 mg PO DAILY@0800 03/22/16 [History Last Taken Unknown] multivitamin [Multiple Vitamins] 1 ea PO DAILY 09/15/16 [History Last Taken Unknown] naphazoline-pheniramine [Naphcon-A Eye Drops] 1 drp OP DAILY 09/15/16 [History Last Taken Unknown] nitrofurantoin macrocrystal 50 mg PO QHS 09/15/16 [History Last Taken Unknown] ondansetron HCl [Zofran] 4 mg PO Q8 PRN 09/15/16 [History Last Taken Unknown] vilazodone [Viibryd] 40 mg PO DAILY 02/15/17 [History Last Taken Unknown] oxycodone-acetaminophen 1 tab PO Q6H PRN PRN 3 Days #12 tab 08/07/17 [Rx Last Taken Unknown] atorvastatin [Lipitor] 10 mg PO QHS 11/21/20 [History Last Taken Unknown] empagliflozin [Jardiance] 10 mg PO DAILY 11/21/20 [History Last Taken Unknown] lamotrigine [Lamictal] 150 mg PO DAILY 11/21/20 [History Last Taken Unknown] lurasidone [Latuda] 80 mg PO QHS 11/21/20 [History Last Taken Unknown] modafinil [Provigil] 250 mg PO DAILY 11/21/20 [History Last Taken Unknown] oxycodone-acetaminophen [Percocet] 1 tab PO Q6H PRN 3 Days #12 tab 11/21/20 [Rx Last Taken Unknown] potassium citrate [Urocit-K 10] 10 meq PO TID 11/21/20 [History Last Taken Unknown] tramadol 50 mg PO BID 11/21/20 [History Last Taken Unknown] trihexyphenidyl [Artane] 2 mg PO BID 11/21/20 [History Last Taken Unknown] verapamil 120 mg PO BID 11/21/20 [History Last Taken Unknown] fluconazole [Diflucan] 200 mg PO DAILY #3 tab 01/17/21 [Rx Last Taken Unknown] Allergy/AdvReac Type Severity Reaction Status Date / Time banana Allergy Hives Verified 01/17/21 14:25 brompheniramine Allergy Hives Verified 01/17/21 14:25 [From Dimetapp (brompheniramine-PPA)] cefuroxime Allergy Rash Verified 10/25/21 14:25 kiwi Allergy Hives Verified 01/17/21 14:25 latex Allergy Anaphylaxis Verified 01/17/21 14:25 moxifloxacin HCl Allergy Hives Verified 01/17/21 14:25 [From Avelox] peach Allergy Hives Verified 01/17/21 14:25 phenylpropanolamine Allergy Hives Verified 01/17/21 14:25 [From Dimetapp (brompheniramine-PPA)] red dye Allergy Angioedema Verified 01/17/21 14:25 shellfish derived Allergy Anaphylaxis Verified 01/17/21 14:25 strawberry Allergy Hives Verified 01/17/21 14:25 Sulfa (Sulfonamide Allergy Rash Verified 01/17/21 14:25 Antibiotics) tetanus and diphtheria Allergy Anaphylaxis Verified 01/17/21 14:25 toxoids [tetanus & diphtheria toxoids] tetracycline Allergy Rash Verified 01/17/21 14:25 adhesive tape AdvReac Rash Verified 01/17/21 14:25 amoxicillin trihydrate AdvReac Nausea Verified 01/17/21 14:25 [From Augmentin] chlorpheniramine AdvReac Unknown Verified 01/17/21 14:25 doxycycline AdvReac Nausea Verified 01/17/21 14:25 eszopiclone [From Lunesta] AdvReac Unknown Verified 01/17/21 14:25 fluticasone [From Flonase] AdvReac Unknown Verified 01/17/21 14:25 paroxetine [From Paxil] AdvReac Nausea Verified 01/17/21 14:25 peanut AdvReac Nausea Verified 01/17/21 14:25 potassium clavulanate AdvReac Nausea Verified 01/17/21 14:25 [From Augmentin] procainamide AdvReac Unknown Verified 01/17/21 14:25 Surgical History History of cholecystectomy History of hysterectomy History of knee surgery History of lithotripsy Social History (Updated 01/17/21 @ 14:[address] Tashi Hartmann MD) household members: spouse housing: house Smoking Status: Never smoker alcohol intake: current alcohol intake frequency: other substance use type: does not use ROS ROS ED Constitutional Constitutional ED: Denies chills, fever(s), subjective, sweats or weight loss Eyes Eyes: Denies blurry vision, change in vision or diplopia ENT ENT ED: Denies ear pain, rhinorrhea or sore throat Cardiovascular Cardiovascular: Denies chest pain, orthopnea, palpitations, paroxysmal nocturnal dyspnea or racing heartbeat Respiratory/Chest Respiratory/Chest: Denies cough, dyspnea, dyspnea on exertion, orthopnea or paroxysmal nocturnal dyspnea Gastrointestinal Gastrointestinal: Reports diarrhea and nausea; Denies abdominal pain, constipation, melena or vomiting Genitourinary Genitourinary ED: Denies dysuria, hematuria or urinary frequency Musculoskeletal Musculoskeletal: Denies arthralgias, back pain, myalgias or neck pain Integumentary Reports other Details: Multiple bruises due to fall 1 week ago ; Denies abscess, Abrasions or rash Neurologic Neurologic: Reports weakness; Denies headache(s) or paresthesias Psychiatric Psychiatric: Reports depression Endocrine Endocrinology: Denies polydipsia, polyphagia or polyuria Allergic/Immunologic Allergic/Immunologic ED: Denies mouth swelling, tongue swelling or urticaria EXAM Physical Exam Const Vital Signs: 01/17/21 14:22 01/17/21 14:42 01/17/21 15:16 Temperature 97.4 F L Temperature Source Temporal Pulse Rate 100 Pulse Rate [Lying] 90 Pulse Rate [Sitting] 95 Pulse Rate [Standing] 114 H Respiratory Rate 18 Respiratory Effort Normal Respiratory Pattern Normal Blood Pressure 129/84 H Blood Pressure [Lying] 136/69 H Blood Pressure [Sitting] 137/79 H Blood Pressure [Standing] 149/114 H Blood Pressure Mean 99 Blood Pressure Mean [Lying] 91 Blood Pressure Mean [Sitting] 98 Blood Pressure Mean [Standing] 125 Pulse Ox 100 01/17/21 16:29 01/17/21 18:06 Temperature Temperature Source Pulse Rate 87 90 Pulse Rate [Lying] Pulse Rate [Sitting] Pulse Rate [Standing] Respiratory Rate 16 16 Respiratory Effort Respiratory Pattern Blood Pressure 133/78 H 130/71 H Blood Pressure [Lying] Blood Pressure [Sitting] Blood Pressure [Standing] Blood Pressure Mean 96 90 Blood Pressure Mean [Lying] Blood Pressure Mean [Sitting] Blood Pressure Mean [Standing] Pulse Ox 98 100 Positive well nourished, well developed and obese General Appearance ED: well developed and pallor; Negative for cyanotic, diaphoretic or NAD Nutritional Appearance: obese HEENT Reports moist mucous membranes HEENT Narrative: Uvula and line. No erythema or exudate. Head is atraumatic normocephalic. Eyes PERRL and EOMs intact bilaterally General Eye ED: Yes pale conjunctiva; Negative for scleral icterus Neck no lymphadenopathy, supple and no JVD General: Negative for tenderness Chest Wall inspection of chest normal Resp normal respiratory effort and clear to auscultation bilaterally Cardio regular rate, regular rhythm, S1 normal heart sound, S2 normal heart sound and no murmurs GI normal to inspection, nondistended, normoactive bowel sounds, non-tender and non-distended Palpation: soft Back/Spine General Back: CVA tenderness right Cervical Spine: Negative for cervical spine tenderness Thoracic Spine / Upper Back: Negative for thoracic spinal tenderness or paraspinal muscle tenderness Extremity normal to inspection Extremity Narrative: Bruises noted upper extremity General Extremety ED: Negative for edema or tenderness General Extremity: Negative for edema Neuro oriented x3 and CN's II-XII intact bilaterally Sensorium / Orientation: alert Motor Exam: strength 5/5 throughout Psych mental status grossly normal Skin no wounds General Skin Exam: pallor; Negative for jaundice MDM MDM MDM Narrative Medical decision making narrative: Patient does not appear well. She appears pale. This may be due to her chemo versus GI bleed. With her having frequent falls will assess for electrolyte normality, anemia, she has history of multiple urinary tract infections and apparently falls when she has urinary tract infections will obtain a UA. Also orthostatic vital signs were ordered. Patient states she is able to give a clean-catch specimen. Patient was reassessed at 1745. First liter of normal saline is still infusing. She states she feels better. 1 L of normal saline has infused. Patient does feel better. She is requesting Diflucan since she has throat pain. She got chemo today and develops esophageal candidiasis after chemo. Lab Data Attestation: I reviewed the patient's lab results. Lab results narrative: Patient is anemic compared to prior blood work. White count has improved. Lactate is normal. Creatinine is baseline for patient. Urine is remarkable ketones only. There is no evidence of infection. Labs: Laboratory Results - last 24 hr 01/17/21 01/17/21 01/17/21 14:48 14:48 14:48 WBC 5.2 RBC 3.09 L Hgb 9.2 L Hct 29.1 L MCV 94.2 MCH 29.8 MCHC 31.6 L RDW Std Deviation 66.4 H RDW Coeff of Maria Ines 20.3 H Plt Count 622 H MPV 8.2 Immature Gran % (Auto) 1.000 H Neut % (Auto) 92.8 H Lymph % (Auto) 5.4 L Bee % (Auto) 0.6 Eos % (Auto) 0.0 Baso % (Auto) 0.2 Absolute Neuts (auto) 4.9 Absolute Lymphs (auto) 0.28 L Nucleated RBC % 0 Differential Comment SCANNED Sodium 138 Potassium 4.8 Chloride 103 Carbon Dioxide 25.0 Anion Gap 10 BUN 20 H Creatinine 1.18 H Estim Creat Clear Calc 45.97 Est GFR (MDRD) Af Amer 61 Est GFR (MDRD) Non-Af 50 L BUN/Creatinine Ratio 16.9 Glucose 105 Lactic Acid 0.9 Calcium 9.2 Total Bilirubin 0.30 AST 13 L ALT 12 L Alkaline Phosphatase 103 Total Protein 6.1 L Albumin 2.5 L Globulin 3.6 Albumin/Globulin Ratio 0.7 L Urine Color Urine Clarity Urine pH Ur Specific [place] Urine Protein Urine Glucose (UA) Urine Ketones Urine Occult Blood Urine Nitrite Urine Bilirubin Urine Urobilinogen Ur Leukocyte Esterase Urine RBC Urine WBC Ur Squamous Epith Cells Urine Bacteria Urine Mucus 01/17/21 15:20 WBC RBC Hgb Hct MCV MCH MCHC RDW Std Deviation RDW Coeff of Maria Ines Plt Count MPV Immature Gran % (Auto) Neut % (Auto) Lymph % (Auto) Bee % (Auto) Eos % (Auto) Baso % (Auto) Absolute Neuts (auto) Absolute Lymphs (auto) Nucleated RBC % Differential Comment Sodium Potassium Chloride Carbon Dioxide Anion Gap BUN Creatinine Estim Creat Clear Calc Est GFR (MDRD) Af Amer Est GFR (MDRD) Non-Af BUN/Creatinine Ratio Glucose Lactic Acid Calcium Total Bilirubin AST ALT Alkaline Phosphatase Total Protein Albumin Globulin Albumin/Globulin Ratio Urine Color Yellow Urine Clarity Sl. Cloudy Urine pH 6.0 Ur Specific [place] 1.020 Urine Protein Negative Urine Glucose (UA) Normal Urine Ketones 150 A* Urine Occult Blood Negative Urine Nitrite Negative Urine Bilirubin Negative Urine Urobilinogen Normal Ur Leukocyte Esterase Negative Urine RBC 0 SEEN Urine WBC 0-5 SEEN Ur Squamous Epith Cells 5-10 SEEN Urine Bacteria 0 SEEN Urine Mucus 0 SEEN EKG Initial EKG: Attestation: I personally reviewed and interpreted this EKG as follows: Interpretation: Sinus Rhythm (Normal sinus rhythm with ventricular rate of 95. EKG is normal. NC interval 260 ms. QRS duration 94 ms. QT durations 176 ms. [place] is normal.) Discharge Plan Triage Chief Complaint: General Illness ED Provider: Tashi Hartmann Dx/Rx/DC Orders Clinical Impression: Falls frequently, Dehydration, moderate, Ketosis, Candidiasis of esophagus, Metastatic breast cancer Instructions: ED Dehydration (Adult), ED Esophagitis, Eleni Prescriptions: New fluconazole [Diflucan] 200 mg tablet 200 mg PO DAILY Qty: 3 RF: 0 No Action diclofenac sodium [Voltaren] 100 GM gel 2 g TP PRN PRN (Reason: Mild-Mod Pain (-08/02)) RF: 0 meclizine 12.5 MG tablet 12.5 mg PO TID PRN (Reason: Dizziness) RF: 0 melatonin-pyridoxine (vit B6) 1 EACH tablet 10 mg PO QHS RF: 0 albuterol sulfate [Ventolin HFA] 1 INHALER inhaler 2 puff inhalation Q6H PRN PRN (Reason: Shortness Of Breath) RF: 0 oxybutynin chloride 5 MG tablet 5 mg PO TID PRN (Reason: Pain) RF: 0 hydroxyzine pamoate 25 MG capsule 50 mg PO BID PRN (Reason: Allergies) RF: 0 cholecalciferol (vitamin D3) [D3-2000] 2,000 UNIT capsule 2,000 unit PO DAILY RF: 0 aspirin 325 MG tablet 325 mg PO DAILY@0800 RF: 0 multivitamin [Multiple Vitamins] 1 EACH tablet 1 ea PO DAILY RF: 0 nitrofurantoin macrocrystal 50 MG capsule 50 mg PO QHS RF: 0 ondansetron HCl [Zofran] 4 MG tablet 4 mg PO Q8 PRN (Reason: Nausea) RF: 0 Naphcon-A 15 ML drops 1 drp OP DAILY RF: 0 Viibryd 40 MG tablet 40 mg PO DAILY RF: 0 oxycodone-acetaminophen 1 TABLET tablet 1 tab PO Q6H PRN PRN (Reason: Pain) 3 Days Qty: 12 RF: 0 verapamil 120 mg Tablet 120 mg PO BID RF: 0 potassium citrate [Urocit-K 10] 10 mEq (1,080 mg) Tablet Extended Release 10 meq PO TID RF: 0 Latuda 80 mg Tablet 80 mg PO QHS RF: 0 Jardiance 10 mg Tablet 10 mg PO DAILY RF: 0 trihexyphenidyl [Artane] 2 mg Tablet 2 mg PO BID RF: 0 modafinil [Provigil] 100 mg Tablet 250 mg PO DAILY RF: 0 lamotrigine [Lamictal] 150 mg Tablet 150 mg PO DAILY RF: 0 atorvastatin [Lipitor] 10 mg Tablet 10 mg PO QHS RF: 0 tramadol 50 mg Tablet 50 mg PO BID RF: 0 oxycodone-acetaminophen [Percocet] 5-325 mg tablet 1 tab PO Q6H PRN (Reason: pain) 3 Days Qty: 12 RF: 0 Primary Care Provider: Meg Meyer Referrals: Meg Meyer MD [Primary Care Provider] - 3-5 Days if not improving Disposition Disposition: Home, Self Care
[2021-01-17 15:13] LABS: Absolute Lymphocyte Count 0.28 X10^3/uL (0.83-4.51); Absolute Neutrophil Count 4.9 X10^3/uL (2.0-7.7); Basophil# 0.01 X10^3/uL; Basophil% 0.2 % (0-1); Differential Indicated SCAN CRITERIA MET; Hematocrit 29.1 % (37-47); Hemoglobin 9.2 g/dL (12.0-15.0); Lymphocyte # 0.28 X10^3/ul (0.83-4.51); Lymphocyte % 5.4 % (19-41); Mean Corp Hgb Conc 31.6 g/dL (32-36); Mean Corpuscular Hgb 29.8 pg (27.0-32.0); Mean Corpuscular Volume 94.2 fL (81-99); Mean Platelet Vol. 8.2 fl (6.2-12.0); Monocyte# 0.03 X10^3/uL; Monocyte% 0.6 % (0-10); NRBC Flagged by Analyzer 0 % (0-5); Neutrophil # 4.86 X10^3/uL (2.7-7.7); Neutrophil % 92.8 % (47-70); POSITIVE DIFFERENTIAL YES; POSITIVE MORPHOLOGY YES; Platelet Count 622 K/mm3 (150-450); RBC Distribution Width CV 20.3 % (11.6-14.6); RBC Distribution Width SD 66.4 fl (35.1-43.9); Red Blood Count 3.09 M/mm3 (4.2-5.4); White Blood Count 5.2 K/mm3 (4.4-11.0)
[2021-01-17 15:16] VITALS: BP 136/69; BP 137/79; BP 149/114; PULSE 114; PULSE 90; PULSE 95
[2021-01-17 15:27] LABS: Bacteria 0 SEEN /hpf (None Seen); Mucous, Urine 0 SEEN /hpf (<or=2+); Red Blood Cells-Urine 0 SEEN /hpf (0-5)
[2021-01-17 15:30] LABS: ALB/GLOB Ratio 0.7 RATIO (0.9-2.4); AST(SGOT) 13 U/L (15-37); Alanine Aminotransfer ALT/SGPT 12 U/L (13-56); Albumin, Serum 2.5 g/dL (3.2-5.0); Alkaline Phosphatase 103 U/L (45-117); Anion Gap 10 (5-15); BUN 20 mg/dL (7-18); BUN/Creat Ratio 16.9 RATIO (10-20); Calcium,Total 9.2 mg/dL (8.5-10.1); Chloride 103 mmol/L (98-107); Creatinine, Serum 1.18 mg/dL (0.55-1.02); EST Glomerular Filtration Rate 50 mL/min (>60); Est Glom Filt Rate - Afr Amer 61 mL/min (>60); Estimated Creatinine Clearance 45.97 ml/min; Globulin 3.6 g/dL (2.2-4.2); Glucose 105 mg/dL (74-106); Potassium 4.8 mmol/L (3.5-5.1); Protein, Total 6.1 g/dL (6.4-8.2); Sodium Level 138 mmol/L (136-145)
[2021-01-17 15:32] LABS: Differential Comment SCANNED
[2021-01-17 15:33] LABS: Color, Urine Yellow (Yellow); Glucose, Dipstick Normal (Normal); Leukocyte Esterase-Dipstick Negative /ul (Negative); Nitrite-Dipstick Negative (Negative); Occult Blood-Urine Negative /ul (Negative); Protein-Dipstick Negative (Negative); Urine Bilirubin Dipstick Negative (Negative); Urine Clarity Sl. Cloudy (Clear); Urine Urobilinogen Normal (Normal)
[2021-01-17 15:37] LABS: Ketone-Dipstick 150 mg/dl (Negative)
[2021-01-17 15:46] LABS: Squamous Epithelial Cells - UA 5-10 SEEN /hpf (5-10); White Blood Cells 0-5 SEEN /hpf (0-5)
[2021-01-17 15:48] LABS: Lactic Acid 0.9 mmol/L (0.4-1.9)
[2021-01-17] MEDS: 0.9% Normal Saline 1,000 ML 1000 ML IV (16:28)
[2021-01-17 16:29] VITALS: BP 133/78; PULSE 87; RESP 16; O2SAT 98
[2021-01-17 18:06] VITALS: BP 130/71; PULSE 90; RESP 16; O2SAT 100
[2021-01-17] MEDS: oxyCODONE 5 MG Tablet PO (18:07)
[2021-01-17 20:15] VITALS: BP 131/72; PULSE 68; RESP 15; O2SAT 96
== END 2021-01-17 20:18 | disposition home or self-care (01) ==
PROVIDERS: Emergency Provider Emergency Medicine; PCP Internal Medicine
DX: E86.0 Dehydration (principal); E88.89 Other specified metabolic disorders; R29.6 Repeated falls; B37.81 Candidal esophagitis; C50.919 Malignant neoplasm of unspecified site of unspecified female breast; C79.9 Secondary malignant neoplasm of unspecified site; K58.0 Irritable bowel syndrome with diarrhea; J45.909 Unspecified asthma, uncomplicated; E78.5 Hyperlipidemia, unspecified; M19.90 Unspecified osteoarthritis, unspecified site; E66.9 Obesity, unspecified; Z79.82 Long term (current) use of aspirin; Z79.899 Other long term (current) drug therapy; Z87.440 Personal history of urinary (tract) infections
CPT/HCPCS: 36415; 80053; 81001; 83605; 85025; 87040; 93005; 96360; 96361; 99285; J7030; A4216

== ENCOUNTER 2021-01-20 16:43 | Inpatient (IN) | payer MEDICARE, MEDICAID, SELFPAY ==
[2021-01-20 16:48] VITALS: BP 140/66; PULSE 113; RESP 19; TEMP 36.6; O2SAT 94; BMI 37.0
--- NOTE | 2021-01-20 16:58 | RAD_ITS ---
STUDY: X-RAY CHEST REASON FOR EXAM: Female, 55 years old. Weakness TECHNIQUE: Single frontal view of the chest. COMPARISON: 08/22/2016. FINDINGS: The lungs are clear and expanded. There is no demonstrated pleural abnormality. Normal size heart. Normal mediastinum and breezy. Normal visualized pulmonary arteries. Normal visualized aortic arch and descending thoracic aorta. Normal visualized thoracic spine. Normal visualized ribs, clavicles, and shoulders. There is no demonstrated abnormality of the visualized soft tissue structures of the upper abdomen. RAD/Chest 1 View (Portable) IMPRESSION: Normal x-ray examination of the chest. Electronically Signed: Jasiel Puentes MD at 17:58 EDT Tel , Service support ,
--- NOTE | 2021-01-20 16:59 | EKG12_ITS ---
Test Reason : WEAKNESS Blood Pressure : / mmHG Vent. Rate : 105 BPM Atrial Rate : 105 BPM P-R Int : 150 ms QRS Dur : 088 ms QT Int : 322 ms P-R-T Axes : 032 014 023 degrees QTc Int : 425 ms Sinus tachycardia Otherwise normal ECG Confirmed by DONA DOUGLAS, MISAEL ([id number]), editor city [facility] ([id number]) on 01/21/2021 1:47:34 PM Referred By: [facility] Confirmed By:MISAEL CARCAMO MD
--- NOTE | 2021-01-20 17:09 | EX.ED.DYSGE1 ---
HPI History of Present Illness Chief Complaint: Weakness Narrative Narrative: 55-year-old female presenting for generalized weakness and inability to ambulate. Patient states she has stage II metastatic breast cancer status post mastectomy and is on chemotherapy. Her last chemotherapy was Sunday. She states she went on Sunday for Neulasta shot. She was seen in the ER a couple of days ago for generalized weakness and ultimately was discharged home. She states she was ambulatory until yesterday and now she cannot get up and walk around. She cannot care for herself. She denies chest pain, palpitations, shortness of breath, fever, chills, abdominal pain. She states she had diarrhea which has resolved. She denies urinary complaints. Patient had a lower hemoglobin than usual on her last visit but she denies any black or bloody stools. Patient does state that her lower extremities appeared more swollen than usual for her. She denies pain or trauma. [facility] Medical History Arthritis Asthma Breast cancer Hyperlipidemia IBS (irritable bowel syndrome) Kidney disease Home Medications diclofenac sodium [Voltaren] 2 g TP PRN PRN 05/02/15 [History Last Taken Unknown] albuterol sulfate [Ventolin HFA] 2 puff INHALATION Q6H PRN PRN 12/04/15 [History Last Taken Unknown] cholecalciferol (vitamin D3) [D3-2000] 2,000 unit PO DAILY 12/04/15 [History Last Taken Unknown] hydroxyzine pamoate 50 mg PO BID PRN 12/04/15 [History Last Taken 12/04/15 08:00] meclizine 12.5 mg PO TID PRN 12/04/15 [History Last Taken Unknown] melatonin-pyridoxine (vit B6) 10 mg PO QHS 12/04/15 [History Last Taken 12/03/15 22:00] oxybutynin chloride 5 mg PO TID PRN 12/04/15 [History Last Taken 12/04/15 09:00] aspirin 325 mg PO DAILY@0800 03/22/16 [History Last Taken Unknown] multivitamin [Multiple Vitamins] 1 ea PO DAILY 09/15/16 [History Last Taken Unknown] naphazoline-pheniramine [Naphcon-A Eye Drops] 1 drp OP DAILY 09/15/16 [History Last Taken Unknown] nitrofurantoin macrocrystal 50 mg PO QHS 09/15/16 [History Last Taken Unknown] ondansetron HCl [Zofran] 4 mg PO Q8 PRN 09/15/16 [History Last Taken Unknown] vilazodone [Viibryd] 40 mg PO DAILY 02/15/17 [History Last Taken Unknown] oxycodone-acetaminophen 1 tab PO Q6H PRN PRN 3 Days #12 tab 08/07/17 [Rx Last Taken Unknown] atorvastatin [Lipitor] 10 mg PO QHS 11/21/20 [History Last Taken Unknown] empagliflozin [Jardiance] 10 mg PO DAILY 11/21/20 [History Last Taken Unknown] lamotrigine [Lamictal] 150 mg PO DAILY 11/21/20 [History Last Taken Unknown] lurasidone [Latuda] 80 mg PO QHS 11/21/20 [History Last Taken Unknown] modafinil [Provigil] 250 mg PO DAILY 11/21/20 [History Last Taken Unknown] oxycodone-acetaminophen [Percocet] 1 tab PO Q6H PRN 3 Days #12 tab 11/21/20 [Rx Last Taken Unknown] potassium citrate [Urocit-K 10] 10 meq PO TID 11/21/20 [History Last Taken Unknown] tramadol 50 mg PO BID 11/21/20 [History Last Taken Unknown] trihexyphenidyl [Artane] 2 mg PO BID 11/21/20 [History Last Taken Unknown] verapamil 120 mg PO BID 11/21/20 [History Last Taken Unknown] fluconazole [Diflucan] 200 mg PO DAILY #3 tab 01/17/21 [Rx Last Taken Unknown] Allergy/AdvReac Type Severity Reaction Status Date / Time banana Allergy Hives Verified 01/17/21 14:25 brompheniramine Allergy Hives Verified 01/17/21 14:25 [From Dimetapp (brompheniramine-PPA)] cefuroxime Allergy Rash Verified 01/17/21 14:25 kiwi Allergy Hives Verified 01/17/21 14:25 latex Allergy Anaphylaxis Verified 01/17/21 14:25 moxifloxacin HCl Allergy Hives Verified 01/17/21 14:25 [From Avelox] peach Allergy Hives Verified 01/17/21 14:25 phenylpropanolamine Allergy Hives Verified 01/17/21 14:25 [From Dimetapp (brompheniramine-PPA)] red dye Allergy Angioedema Verified 01/17/21 14:25 shellfish derived Allergy Anaphylaxis Verified 01/17/21 14:25 strawberry Allergy Hives Verified 01/17/21 14:25 Sulfa (Sulfonamide Allergy Rash Verified 01/17/21 14:25 Antibiotics) tetanus and diphtheria Allergy Anaphylaxis Verified 01/17/21 14:25 toxoids [tetanus & diphtheria toxoids] tetracycline Allergy Rash Verified 01/17/21 14:25 adhesive tape AdvReac Rash Verified 01/17/21 14:25 amoxicillin trihydrate AdvReac Nausea Verified 01/17/21 14:25 [From Augmentin] chlorpheniramine AdvReac Unknown Verified 01/17/21 14:25 doxycycline AdvReac Nausea Verified 01/17/21 14:25 eszopiclone [From Lunesta] AdvReac Unknown Verified 01/17/21 14:25 fluticasone [From Flonase] AdvReac Unknown Verified 01/17/21 14:25 paroxetine [From Paxil] AdvReac Nausea Verified 01/17/21 14:25 peanut AdvReac Nausea Verified 01/17/21 14:25 potassium clavulanate AdvReac Nausea Verified 01/17/21 14:25 [From Augmentin] procainamide AdvReac Unknown Verified 01/17/21 14:25 Surgical History History of cholecystectomy History of hysterectomy History of knee surgery History of lithotripsy Social History (Updated 01/17/21 @ 14:[address] Tashi Hartmann MD) household members: spouse housing: house Smoking Status: Never smoker alcohol intake: current alcohol intake frequency: other substance use type: does not use ROS ROS ED Constitutional Constitutional ED: Denies chills or fever(s) Eyes Eyes: Denies blurry vision or diplopia ENT ENT ED: Reports sore throat; Denies rhinorrhea Cardiovascular Cardiovascular: Denies chest pain or palpitations Respiratory/Chest Respiratory/Chest: Denies cough or dyspnea Gastrointestinal Gastrointestinal: Denies abdominal pain, nausea or vomiting Genitourinary Genitourinary ED: Denies dysuria or hematuria Musculoskeletal Musculoskeletal: Denies arthralgias or myalgias Integumentary Denies rash Neurologic Neurologic: Denies headache(s) or paresthesias EXAM Physical Exam Const Vital Signs: 01/20/21 16:48 01/20/21 16:51 01/20/21 18:01 Temperature 98 F Temperature Source Oral Pulse Rate 113 H Pulse Rate [Lying] 106 H Pulse Rate [Sitting] 113 H Respiratory Rate 19 H Respiratory Effort Normal Non-Labored Respiratory Pattern Normal Blood Pressure 140/66 H Blood Pressure [Lying] 122/54 H Blood Pressure [Sitting] 118/70 Blood Pressure Mean 90 Blood Pressure Mean [Lying] 76 Blood Pressure Mean [Sitting] 86 Pulse Ox 94 Oxygen Delivery Method Room Air 01/20/21 18:05 01/20/21 19:40 01/20/21 19:41 Temperature 98.0 F Temperature Source Temporal Pulse Rate 107 H 98 Pulse Rate [Lying] Pulse Rate [Sitting] Respiratory Rate 23 H 17 Respiratory Effort Respiratory Pattern Blood Pressure 118/70 121/68 H 121/68 H Blood Pressure [Lying] Blood Pressure [Sitting] Blood Pressure Mean 86 85 85 Blood Pressure Mean [Lying] Blood Pressure Mean [Sitting] Pulse Ox 94 98 Oxygen Delivery Method Room Air Positive obese General Appearance ED: NAD and pallor Nutritional Appearance: obese HEENT Reports dry mucous membranes Negative for trauma Mouth ED: Yes dry mucous membranes Mouth: dry mucous membranes Eyes PERRL and EOMs intact bilaterally General Eye ED: Negative for pale conjunctiva or scleral icterus Neck No no lymphadenopathy and No supple Resp normal respiratory effort and clear to auscultation bilaterally Cardio regular rate and regular rhythm GI normal to inspection, nondistended, normoactive bowel sounds Extremity normal to inspection General Extremety ED: Negative for tenderness Neuro oriented x3 and CN's II-XII intact bilaterally Sensorium / Orientation: alert Psych mental status grossly normal Skin No no wounds General Skin Exam: pallor; Negative for jaundice MDM MDM MDM Narrative Medical decision making narrative: Patient presenting with generalized weakness that she is unable to care for herself. She has no new symptoms except for the inability to care for herself. Her vital signs are stable although she is a little tachycardic and tachypneic on her first set. Sepsis work-up was undergone. CBC shows a leukocytosis of 13.9. This may be due to her Neulasta shot. Hemoglobin is stable at 8.8 and is minimally changed. Patient denies any black or bloody stools. She is not on any blood thinners. Renal function and electrolytes are normal. LFTs are normal. Lactic acid is negative. Urinalysis is negative. Chest x-ray on my interpretation shows no acute cardiopulmonary process and the radiologist does agree. EKG on my interpretation shows a sinus tachycardia with a ventricular rate of 105 bpm without sign of ischemic change. Patient was pancultured. Patient given a liter of IV fluids and her heart rate is now 98. Since she is unable to care for herself at home I will admit her. I discussed this with the hospitalist. Impression: 1. Generalized weakness 2. History of stage II breast cancer Lab Data Labs: Laboratory Results - last 24 hr 01/20/21 01/20/21 01/20/21 17:00 17:00 17:00 WBC 13.9 H RBC 2.93 L Hgb 8.8 L Hct 27.6 L MCV 94.2 MCH 30.0 MCHC 31.9 L RDW Std Deviation 71.1 H RDW Coeff of Maria Ines 21.1 H Plt Count 371 MPV 8.5 Neut % (Auto) Not Reportable Absolute Neuts (auto) 13.7 H Absolute Lymphs (auto) 0.00 L Total Counted 100 Neutrophils % (Manual) 99 H Metamyelocytes % 1 Differential Comment MANUAL DIFF Diff Path Review May foll Anisocytosis 1+ Sodium 139 Potassium 4.2 Chloride 104 Carbon Dioxide 26.0 Anion Gap 9 BUN 22 H Creatinine 0.82 Estim Creat Clear Calc 66.15 Est GFR (MDRD) Af Amer 93 Est GFR (MDRD) Non-Af 77 BUN/Creatinine Ratio 27.0 H Glucose 83 Lactic Acid Calcium 8.6 Total Bilirubin 0.30 AST 11 L ALT 11 L Alkaline Phosphatase 106 Total Protein 5.9 L Albumin 2.6 L Globulin 3.3 Albumin/Globulin Ratio 0.8 L Urine Color Urine Clarity Urine pH Ur Specific [place] Urine Protein Urine Glucose (UA) Urine Ketones Urine Occult Blood Urine Nitrite Urine Bilirubin Urine Urobilinogen Ur Leukocyte Esterase Urine RBC Urine WBC Ur Squamous Epith Cells Urine Bacteria Urine Mucus Blood Type O POSITIVE Antibody Screen NEGATIVE 01/20/21 01/20/21 18:25 18:36 WBC RBC Hgb Hct MCV MCH MCHC RDW Std Deviation RDW Coeff of [place] Plt Count MPV Neut % (Auto) Absolute Neuts (auto) Absolute Lymphs (auto) Total Counted Neutrophils % (Manual) Metamyelocytes % Differential Comment Diff Path Review Anisocytosis Sodium Potassium Chloride Carbon Dioxide Anion Gap BUN Creatinine Estim Creat Clear Calc Est GFR (MDRD) Af Amer Est GFR (MDRD) Non-Af BUN/Creatinine Ratio Glucose Lactic Acid 0.8 Calcium Total Bilirubin AST ALT Alkaline Phosphatase Total Protein Albumin Globulin Albumin/Globulin Ratio Urine Color Yellow Urine Clarity Clear Urine pH 6.0 Ur Specific [place] 1.015 Urine Protein Negative Urine Glucose (UA) Normal Urine Ketones 15 H Urine Occult Blood Negative Urine Nitrite Negative Urine Bilirubin Negative Urine Urobilinogen Normal Ur Leukocyte Esterase Negative Urine RBC 0 SEEN Urine WBC 0-5 SEEN Ur Squamous Epith Cells 0 SEEN Urine Bacteria 0 SEEN Urine Mucus 0 SEEN Blood Type Antibody Screen Radiography Diagnostic Testing: Clinical Impression(s) from Imaging Studies Chest X-Ray 01/20/21 16:58 IMPRESSION: Normal x-ray examination of the chest. Electronically Signed: Jasiel Puentes MD at 17:58 EDT Tel , Service support , Discharge Plan Triage Chief Complaint: Weakness ED Provider: Elio Red Dx/Rx/DC Orders Prescriptions: No Action diclofenac sodium [Voltaren] 100 GM gel 2 g TP PRN PRN (Reason: Mild-Mod Pain (-08/02)) RF: 0 meclizine 12.5 MG tablet 12.5 mg PO TID PRN (Reason: Dizziness) RF: 0 melatonin-pyridoxine (vit B6) 1 EACH tablet 10 mg PO QHS RF: 0 albuterol sulfate [Ventolin HFA] 1 INHALER inhaler 2 puff inhalation Q6H PRN PRN (Reason: Shortness Of Breath) RF: 0 oxybutynin chloride 5 MG tablet 5 mg PO TID PRN (Reason: Pain) RF: 0 hydroxyzine pamoate 25 MG capsule 50 mg PO BID PRN (Reason: Allergies) RF: 0 cholecalciferol (vitamin D3) [D3-2000] 2,000 UNIT capsule 2,000 unit PO DAILY RF: 0 aspirin 325 MG tablet 325 mg PO DAILY@0800 RF: 0 multivitamin [Multiple Vitamins] 1 EACH tablet 1 ea PO DAILY RF: 0 nitrofurantoin macrocrystal 50 MG capsule 50 mg PO QHS RF: 0 ondansetron HCl [Zofran] 4 MG tablet 4 mg PO Q8 PRN (Reason: Nausea) RF: 0 Naphcon-A 15 ML drops 1 drp OP DAILY RF: 0 Viibryd 40 MG tablet 40 mg PO DAILY RF: 0 oxycodone-acetaminophen 1 TABLET tablet 1 tab PO Q6H PRN PRN (Reason: Pain) 3 Days Qty: 12 RF: 0 verapamil 120 mg Tablet 120 mg PO BID RF: 0 potassium citrate [Urocit-K 10] 10 mEq (1,080 mg) Tablet Extended Release 10 meq PO TID RF: 0 Latuda 80 mg Tablet 80 mg PO QHS RF: 0 Jardiance 10 mg Tablet 10 mg PO DAILY RF: 0 trihexyphenidyl [Artane] 2 mg Tablet 2 mg PO BID RF: 0 modafinil [Provigil] 100 mg Tablet 250 mg PO DAILY RF: 0 lamotrigine [Lamictal] 150 mg Tablet 150 mg PO DAILY RF: 0 atorvastatin [Lipitor] 10 mg Tablet 10 mg PO QHS RF: 0 tramadol 50 mg Tablet 50 mg PO BID RF: 0 oxycodone-acetaminophen [Percocet] 5-325 mg tablet 1 tab PO Q6H PRN (Reason: pain) 3 Days Qty: 12 RF: 0 fluconazole [Diflucan] 200 mg tablet 200 mg PO DAILY Qty: 3 RF: 0 Primary Care Provider: Meg Meyer
[2021-01-20 17:28] LABS: Hematocrit 27.6 % (37-47); Hemoglobin 8.8 g/dL (12.0-15.0); Mean Corp Hgb Conc 31.9 g/dL (32-36); Mean Corpuscular Volume 94.2 fL (81-99); Mean Platelet Vol. 8.5 fl (6.2-12.0); POSITIVE COUNT YES; POSITIVE DIFFERENTIAL YES; POSITIVE MORPHOLOGY YES; Platelet Count 371 K/mm3 (150-450); RBC Distribution Width CV 21.1 % (11.6-14.6); RBC Distribution Width SD 71.1 fl (35.1-43.9); Red Blood Count 2.93 M/mm3 (4.2-5.4); White Blood Count 13.9 K/mm3 (4.4-11.0)
[2021-01-20 17:41] LABS: Differential Indicated MANUAL DIFF
[2021-01-20 17:42] LABS: ALB/GLOB Ratio 0.8 RATIO (0.9-2.4); AST(SGOT) 11 U/L (15-37); Alanine Aminotransfer ALT/SGPT 11 U/L (13-56); Albumin, Serum 2.6 g/dL (3.2-5.0); Alkaline Phosphatase 106 U/L (45-117); Anion Gap 9 (5-15); BUN 22 mg/dL (7-18); Calcium,Total 8.6 mg/dL (8.5-10.1); Chloride 104 mmol/L (98-107); Creatinine, Serum 0.82 mg/dL (0.55-1.02); EST Glomerular Filtration Rate 77 mL/min (>60); Est Glom Filt Rate - Afr Amer 93 mL/min (>60); Estimated Creatinine Clearance 66.15 ml/min; Globulin 3.3 g/dL (2.2-4.2); Glucose 83 mg/dL (74-106); Potassium 4.2 mmol/L (3.5-5.1); Protein, Total 5.9 g/dL (6.4-8.2); Sodium Level 139 mmol/L (136-145)
[2021-01-20 18:01] VITALS: BP 118/70; BP 122/54; PULSE 106; PULSE 113
[2021-01-20 18:05] VITALS: BP 118/70; PULSE 107; RESP 23; O2SAT 94
[2021-01-20 18:16] LABS: Metamyelocyte 1 % (0-1); Neutrophil-Segmented 99 % (47-70); Total Cells Counted 100 (MANUAL DIFF)
[2021-01-20 18:21] LABS: Absolute Neutrophil Count 13.7 X10^3/uL (2.0-7.7); Differential Comment MANUAL DIFF
[2021-01-20 18:22] LABS: Anisocytosis 1+
[2021-01-20] MEDS: 0.9% Normal Saline 1,000 ML 999 ML IV (18:27)
[2021-01-20 18:44] LABS: Bacteria 0 SEEN /hpf (None Seen); Mucous, Urine 0 SEEN /hpf (<or=2+); Red Blood Cells-Urine 0 SEEN /hpf (0-5); Squamous Epithelial Cells - UA 0 SEEN /hpf (5-10)
[2021-01-20 19:04] LABS: Color, Urine Yellow (Yellow); Glucose, Dipstick Normal (Normal); Ketone-Dipstick 15 mg/dl (Negative); Leukocyte Esterase-Dipstick Negative /ul (Negative); Nitrite-Dipstick Negative (Negative); Occult Blood-Urine Negative /ul (Negative); Protein-Dipstick Negative (Negative); Specific Gravity, Urine 1.015 (1.002-1.030); Urine Bilirubin Dipstick Negative (Negative); Urine Clarity Clear (Clear); Urine Urobilinogen Normal (Normal)
[2021-01-20] MEDS: oxyCODONE 5 MG Tablet PO (19:04)
[2021-01-20 19:11] LABS: White Blood Cells 0-5 SEEN /hpf (0-5)
[2021-01-20 19:14] LABS: Lactic Acid 0.8 mmol/L (0.4-1.9)
[2021-01-20 19:40] VITALS: BP 121/68; PULSE 98; RESP 17; TEMP 36.7; O2SAT 98
[2021-01-20 19:41] VITALS: BP 121/68
--- NOTE | 2021-01-20 19:49 | PCM.HP.STD ---
HPI - General General Date of Admission: 01/20/21 Date of Service: 01/20/21 Chief Complaint: Weakness HPI Narrative KELLIE CORTÉS, is a 55 F with a significant history of chronic pain syndrome; stage II left breast cancer who presents at the emergency department with 6-week history of progressively worsening weakness. On the day of presentation patient was too weak that she could not stand or use the commode. Her last chemotherapy was 2 days ago. Also she received Neulasta 2 days ago. Associated with her symptoms is nausea and vomiting. Also she has anorexia and shortness of breath. She had diarrhea which has since resolved. Further she reports of a bilateral leg swelling that started 2 days ago. She was at a hospital 2 days ago because of multiple falls. Patient and reports that her oncology advised them that if patient continues to be weak she may need a blood transfusion. COVID-19 vaccination status: Patient received 2 doses of moderna vaccination in May and June 2020. [facility] Medical History Arthritis Asthma Breast cancer Hyperlipidemia IBS (irritable bowel syndrome) Kidney disease Home Medications diclofenac sodium [Voltaren] 2 g TP PRN PRN 05/02/15 [History Last Taken Unknown] albuterol sulfate [Ventolin HFA] 2 puff INHALATION Q6H PRN PRN 12/04/15 [History Last Taken Unknown] cholecalciferol (vitamin D3) [D3-2000] 2,000 unit PO DAILY 12/04/15 [History Last Taken Unknown] hydroxyzine pamoate 50 mg PO BID PRN 12/04/15 [History Last Taken 12/04/15 08:00] meclizine 12.5 mg PO TID PRN 12/04/15 [History Last Taken Unknown] melatonin-pyridoxine (vit B6) 10 mg PO QHS 12/04/15 [History Last Taken 12/03/15 22:00] oxybutynin chloride 5 mg PO TID PRN 12/04/15 [History Last Taken 12/04/15 09:00] aspirin 325 mg PO DAILY@0800 03/22/16 [History Last Taken Unknown] multivitamin [Multiple Vitamins] 1 ea PO DAILY 09/15/16 [History Last Taken Unknown] naphazoline-pheniramine [Naphcon-A Eye Drops] 1 drp OP DAILY 09/15/16 [History Last Taken Unknown] nitrofurantoin macrocrystal 50 mg PO QHS 09/15/16 [History Last Taken Unknown] ondansetron HCl [Zofran] 4 mg PO Q8 PRN 09/15/16 [History Last Taken Unknown] vilazodone [Viibryd] 40 mg PO DAILY 02/15/17 [History Last Taken Unknown] oxycodone-acetaminophen 1 tab PO Q6H PRN PRN 3 Days #12 tab 08/07/17 [Rx Last Taken Unknown] atorvastatin [Lipitor] 10 mg PO QHS 11/21/20 [History Last Taken Unknown] empagliflozin [Jardiance] 10 mg PO DAILY 11/21/20 [History Last Taken Unknown] lamotrigine [Lamictal] 150 mg PO DAILY 11/21/20 [History Last Taken Unknown] lurasidone [Latuda] 80 mg PO QHS 11/21/20 [History Last Taken Unknown] modafinil [Provigil] 250 mg PO DAILY 11/21/20 [History Last Taken Unknown] oxycodone-acetaminophen [Percocet] 1 tab PO Q6H PRN 3 Days #12 tab 11/21/20 [Rx Last Taken Unknown] potassium citrate [Urocit-K 10] 10 meq PO TID 11/21/20 [History Last Taken Unknown] tramadol 50 mg PO BID 11/21/20 [History Last Taken Unknown] trihexyphenidyl [Artane] 2 mg PO BID 11/21/20 [History Last Taken Unknown] verapamil 120 mg PO BID 11/21/20 [History Last Taken Unknown] fluconazole [Diflucan] 200 mg PO DAILY #3 tab 01/17/21 [Rx Last Taken Unknown] Allergy/AdvReac Type Severity Reaction Status Date / Time banana Allergy Hives Verified 01/17/21 14:25 brompheniramine Allergy Hives Verified 01/17/21 14:25 [From Dimetapp (brompheniramine-PPA)] cefuroxime Allergy Rash Verified 01/17/21 14:25 kiwi Allergy Hives Verified 01/17/21 14:25 latex Allergy Anaphylaxis Verified 01/17/21 14:25 moxifloxacin HCl Allergy Hives Verified 01/17/21 14:25 [From Avelox] peach Allergy Hives Verified 01/17/21 14:25 phenylpropanolamine Allergy Hives Verified 01/17/21 14:25 [From Dimetapp (brompheniramine-PPA)] red dye Allergy Angioedema Verified 01/17/21 14:25 shellfish derived Allergy Anaphylaxis Verified 01/17/21 14:25 strawberry Allergy Hives Verified 01/17/21 14:25 Sulfa (Sulfonamide Allergy Rash Verified 01/17/21 14:25 Antibiotics) tetanus and diphtheria Allergy Anaphylaxis Verified 01/17/21 14:25 toxoids [tetanus & diphtheria toxoids] tetracycline Allergy Rash Verified 01/17/21 14:25 adhesive tape AdvReac Rash Verified 01/17/21 14:25 amoxicillin trihydrate AdvReac Nausea Verified 01/17/21 14:25 [From Augmentin] chlorpheniramine AdvReac Unknown Verified 01/17/21 14:25 doxycycline AdvReac Nausea Verified 01/17/21 14:25 eszopiclone [From Lunesta] AdvReac Unknown Verified 01/17/21 14:25 fluticasone [From Flonase] AdvReac Unknown Verified 01/17/21 14:25 paroxetine [From Paxil] AdvReac Nausea Verified 01/17/21 14:25 peanut AdvReac Nausea Verified 01/17/21 14:25 potassium clavulanate AdvReac Nausea Verified 01/17/21 14:25 [From Augmentin] procainamide AdvReac Unknown Verified 01/17/21 14:25 Family History Other Cancer Surgical History History of cholecystectomy History of hysterectomy History of knee surgery History of lithotripsy Social History household members: spouse housing: house Smoking Status: Never smoker alcohol intake: current alcohol intake frequency: other substance use type: does not use ROS ROS Narrative Constitutional: Reports fatigue and anorexia. Denies fever, chills, and change in weight Eyes: Denies blurry vision, change in eye color, change in vision, discharge from eye(s), double vision, erythema, eye pain, loss of vision or other HEENT: Denies abnormal hearing, dysphagia, ear pain, epistaxis, headache(s), hearing loss, nasal congestion, nasal discharge, post nasal drip, sinus pressure, sore throat or other Cardiovascular: Denies chest pain or palpitations. Respiratory/Chest: Reports shortness of breath. Denies cough, excessive phlegm production, and wheezing Gastrointestinal: Reports nausea and vomiting. Denies abdominal pain, coffee ground emesis, constipation, dyspepsia, hematemesis, hematochezia, loose stools, melena, or other Genitourinary: Denies burning urination, difficulty urinating, dysuria, hematuria, nocturia, urinary frequency, urinary hesitancy, urinary incontinence, urinary urgency or other Musculoskeletal: Denies arthralgias, back pain, joint pain, joint stiffness, joint swelling, myalgias, neck pain or other Neurologic: Denies abnormal gait, abnormal speech, confusion, disequilibrium, dizziness, focal weakness, headache(s), numbness, paresthesias, seizure-like activity, seizures, syncope, tingling, tremor(s) or other Psychiatric: Denies anxiety, depression, homicidal ideation, suicidal ideation or other Endocrinology: Denies change in body appearance, cold intolerance, excessive sweating, heat intolerance, polydipsia, polyuria or other Hematologic/Lymphatic: Denies easy bleeding, easy bruising, lymphadenopathy or other Integumentary: Denies rashes Allergic/Immunologic: Denies rhinitis, hives, eczema, asthma or other Vital Signs Vital Signs Vital Signs: 01/20/21 16:48 01/20/21 16:51 01/20/21 18:01 Temperature 98 F Temperature Source Oral Pulse Rate 113 H Pulse Rate [Lying] 106 H Pulse Rate [Sitting] 113 H Respiratory Rate 19 H Respiratory Effort Normal Non-Labored Respiratory Pattern Normal Blood Pressure 140/66 H Blood Pressure [Lying] 122/54 H Blood Pressure [Sitting] 118/70 Blood Pressure Mean 90 Blood Pressure Mean [Lying] 76 Blood Pressure Mean [Sitting] 86 Pulse Ox 94 Oxygen Delivery Method Room Air 01/20/21 18:05 01/20/21 19:40 01/20/21 19:41 Temperature 98.0 F Temperature Source Temporal Pulse Rate 107 H 98 Pulse Rate [Lying] Pulse Rate [Sitting] Respiratory Rate 23 H 17 Respiratory Effort Respiratory Pattern Blood Pressure 118/70 121/68 H 121/68 H Blood Pressure [Lying] Blood Pressure [Sitting] Blood Pressure Mean 86 85 85 Blood Pressure Mean [Lying] Blood Pressure Mean [Sitting] Pulse Ox 94 98 Oxygen Delivery Method Room Air Weight Weight: 98 kg Body Mass Index (BMI) 37.0 Physical Exam Narrative Physical exam: General: Well-nourished, well-developed. Head: Normocephalic, atraumatic, no tenderness Eyes: PERRLA, EOMI ENT, no trauma, moist mucous membranes, no rhinorrhea Neck: Nontender, full range of motion, no spinal tenderness, deformities, step-off CVS: Regular rate and rhythm. S1-S2 present. No murmur, gallop or rub. Respiratory : clear to auscultation bilaterally, chest wall nontender, no wheezing Abdomen: Soft, nontender, nondistended, normal bowel sounds, no masses : Deferred Back: Nontender, no CVA tenderness, no midline spinal tenderness, deformities, step-offs Extremities: Bilateral legs and feet swelling. Nontender full range of motion, no trauma Skin: Pale, no trauma, abrasions Neuro: Alert, oriented, cranial nerves II through XII grossly intact. Psychiatry: Monotonic speech. Appears depressed. Not anxious. Results Lab / Micro Data Result Diagrams: 01/20/21 17:00 01/20/21 17:00 Labs: Laboratory Results - last 24 hr 01/20/21 17:00: WBC 13.9 H, RBC 2.93 L, Hgb 8.8 L, Hct 27.6 L, MCV 94.2, MCH 30.0, MCHC 31.9 L, RDW Std Deviation 71.1 H, RDW Coeff of Maria Ines 21.1 H, Plt Count 371, MPV 8.5, Neut % (Auto) Not Reportable, Absolute Neuts (auto) 13.7 H, Absolute Lymphs (auto) 0.00 L, Total Counted 100, Neutrophils % (Manual) 99 H, Metamyelocytes % 1, Differential Comment MANUAL DIFF, Diff Path Review May foll, Anisocytosis 1+ 01/20/21 17:00: Sodium 139, Potassium 4.2, Chloride 104, Carbon Dioxide 26.0, Anion Gap 9, BUN 22 H, Creatinine 0.82, Estim Creat Clear Calc 66.15, Est GFR (MDRD) Af Amer 93, Est GFR (MDRD) Non-Af 77, BUN/Creatinine Ratio 27.0 H, Glucose 83, Calcium 8.6, Total Bilirubin 0.30, AST 11 L, ALT 11 L, Alkaline Phosphatase 106, Total Protein 5.9 L, Albumin 2.6 L, Globulin 3.3, Albumin/Globulin Ratio 0.8 L 01/20/21 17:00: Blood Type O POSITIVE, Antibody Screen NEGATIVE 01/20/21 18:25: Lactic Acid 0.8 01/20/21 18:36: Urine Color Yellow, Urine Clarity Clear, Urine pH 6.0, Ur Specific [place] 1.015, Urine Protein Negative, Urine Glucose (UA) Normal, Urine Ketones 15 H, Urine Occult Blood Negative, Urine Nitrite Negative, Urine Bilirubin Negative, Urine Urobilinogen Normal, Ur Leukocyte Esterase Negative, Urine RBC 0 SEEN, Urine WBC 0-5 SEEN, Ur Squamous Epith Cells 0 SEEN, Urine Bacteria 0 SEEN, Urine Mucus 0 SEEN Radiology Impression Chest X-Ray 01/20/21 16:58 IMPRESSION: Normal x-ray examination of the chest. Electronically Signed: Jasiel Puentes MD at 17:58 EDT Tel , Service support , Assessment & Plan Assessment/Plan (1) Generalized weakness: PLAN: Generalized weakness Chest x-ray image was independently interpreted and I agree radiologist interpretation above. PT and OT to work with patient. Check vitamin D and TSH. Gentle IV hydration. Case management consult for disposition. Bilateral leg swelling: The setting of cancer and chemotherapy duplex ultrasound of bilateral legs ordered. Leukocytosis: Review of ED labs showed white count of 13.9. Like secondary to Neulasta use. Trend CBC. Acute normocytic anemia: Review of ED labs showed hemoglobin of 8.8 and a hematocrit of 27.6. MCV is normal. Likely secondary to chemotherapy, trend. DVT prophylaxis: SCD ordered. Charges/Coding Visit Charges OBSV E&M: 86228 Initial observation care L2
[2021-01-20 20:28] VITALS: BMI 35.4
[2021-01-20 20:29] VITALS: BP 120/50; PULSE 104; RESP 18; TEMP 36.9; O2SAT 95
--- NOTE | 2021-01-20 21:23 | VDLE_ITS ---
Reason For Study: Swelling RIGHT LEFT GSV is normal. GSV is normal. CFV is compressible, spontaneous, phasic, CFV is compressible, spontaneous, phasic, competent and demonstrates normal competent, and demonstrates normal augmentation. augmentation. FV is compressible, spontaneous, phasic, FV is compressible, spontaneous, phasic, competent and demonstrates normal competent and demonstrates normal augmentation. augmentation. POP V is compressible, spontaneous, phasic, POP V is compressible, spontaneous, phasic, competent and demonstrates normal competent and demonstrates normal augmentation. augmentation. T/P Trunk is compressible. T/P Trunk is compressible. PTV is compressible. PTV is compressible. RT PerV is compressible. LT PerV is compressible. Procedure This is a venous duplex using B-mode, color flow and spectral Doppler. Exam performed portable in patient room. A preliminary report was called and/or faxed to Judy KAHN. VL/Venous Duplex US - Natanael Extrem Interpretation Summary No evidence for acute deep venous thrombosis bilateral lower extremities with p atent and compressible bilateral great saphenous veins. Ordering Physician: Lennox Graff Referring Physician: Meg Fajardo Performed By: Opal Rodrigues, ABIGAIL, RVT
[2021-01-20] MEDS: 0.9% Saline Lock 10 ML Syringe IV (21:34)
[2021-01-20] MEDS: 0.9% Normal Saline 1,000 ML 75 ML IV (21:36)
[2021-01-20] MEDS: Ondansetron 4 MG/2 ML Vial IV (21:42)
--- NOTE | 2021-01-21 00:17 | PCS.PANDOC ---
PANDEMIC DOCUMENTATION INITIATED: Date: 01/20/21 Time: 2199
[2021-01-21] MEDS: MELATONIN 10 MG TABLET PO ×2 (00:50→21:25)
[2021-01-21] MEDS: Atorvastatin Calcium 10 MG Tablet PO ×2 (00:50→21:24)
[2021-01-21] MEDS: Nitrofurantoin Macrocrystals 100 MG Capsule PO ×2 (00:50→21:24)
--- NOTE | 2021-01-21 01:14 | NURSING ---
New prescribed medication of oxy 5mg q 6 PRN flagged medication reaction for red dye and diflucan. Called pharmacy and talked to Ang in and he clarified it was safe to administer medication.
[2021-01-21] MEDS: oxyCODONE 5 MG Tablet PO ×3 (01:20→15:18)
[2021-01-21 03:26] VITALS: BP 135/66; PULSE 101; RESP 18; TEMP 36.6; O2SAT 92
[2021-01-21 06:26] LABS: Absolute Lymphocyte Count 0.15 X10^3/uL (0.83-4.51); Absolute Neutrophil Count 4.2 X10^3/uL (2.0-7.7); Basophil% 1.8 % (0-1); Eosinophil# 0.02 X10^3/uL; Eosinophils% 0.4 % (0-5); Hematocrit 23.2 % (37-47); Hemoglobin 7.3 g/dL (12.0-15.0); Lymphocyte # 0.15 X10^3/ul (0.83-4.51); Lymphocyte % 2.7 % (19-41); Mean Corp Hgb Conc 31.5 g/dL (32-36); Mean Corpuscular Hgb 30.2 pg (27.0-32.0); Mean Corpuscular Volume 95.9 fL (81-99); Mean Platelet Vol. 8.7 fl (6.2-12.0); Monocyte# 0.04 X10^3/uL; Monocyte% 0.7 % (0-10); NRBC Flagged by Analyzer 0 % (0-5); Neutrophil # 4.22 X10^3/uL (2.7-7.7); Neutrophil % 75.3 % (47-70); POSITIVE COUNT YES; POSITIVE DIFFERENTIAL YES; POSITIVE MORPHOLOGY YES; Platelet Count 260 K/mm3 (150-450); RBC Distribution Width CV 21.1 % (11.6-14.6); Red Blood Count 2.42 M/mm3 (4.2-5.4); White Blood Count 5.6 K/mm3 (4.4-11.0)
[2021-01-21 06:35] LABS: Differential Indicated SCAN CRITERIA MET
[2021-01-21 07:06] LABS: Anion Gap 7 (5-15); BUN 19 mg/dL (7-18); BUN/Creat Ratio 27.9 RATIO (10-20); Chloride 107 mmol/L (98-107); Creatinine, Serum 0.68 mg/dL (0.55-1.02); EST Glomerular Filtration Rate 95 mL/min (>60); Est Glom Filt Rate - Afr Amer 115 mL/min (>60); Estimated Creatinine Clearance 79.77 ml/min; Glucose 93 mg/dL (74-106); Potassium 3.8 mmol/L (3.5-5.1); Sodium Level 139 mmol/L (136-145); Thyroid Stim Hormone (TSH) 0.83 uIU/mL (0.358-3.74)
[2021-01-21 07:20] LABS: Anisocytosis 2+; Differential Comment SCANNED
[2021-01-21 07:34] LABS: Vitamin D,25 Hydroxy 51.2 ng/mL
[2021-01-21 09:15] VITALS: BP 146/67; PULSE 95; RESP 18; TEMP 36.6; O2SAT 100
[2021-01-21] MEDS: Potassium Chloride Oral Tablet 20 MEQ PO ×2 (09:28→17:37)
[2021-01-21] MEDS: Verapamil 120 MG Tablet PO ×2 (09:28→21:23)
[2021-01-21] MEDS: lamoTRIgine 150 MG Tablet PO (09:29)
[2021-01-21] MEDS: Fluconazole 100 MG Tablet 200 MG PO (09:29)
[2021-01-21] MEDS: Enoxaparin 40 MG/0.4 ML Syringe SC (09:29)
[2021-01-21] MEDS: Cholecalciferol (VIT D3) 25 MCG TABLET (1,000 UNITS) 50 MCG PO (09:30)
[2021-01-21] MEDS: VILAZODONE HYDROCHLORIDE 10 MG TABLET 40 MG PO (09:30)
[2021-01-21] MEDS: 0.9% Normal Saline 1,000 ML 75 ML IV ×2 (09:40→21:22)
--- NOTE | 2021-01-21 10:45 | CASEMGMT ---
RN CM Face to Face with patient for initial transition planning/care coordination assessment. RN CM introduced self and role at [facility]. Patient lying in bed, alert and oriented. Patient willing to participate in assessment and is able to answer all questions appropriately. Care providers, pharmacy, and demographics verified. Patient wishes to discharge to TCU if therapy is recommended. Patient states he has no further needs or concerns at this time. DOMONIQUE Morales updated regarding request for TCU at discharge. CM to follow for discharge planning needs that may arise. PCP: Mitch Specialists: Jared, oncologist; Elio, Radiologist; Mihai, powdered sugar pulverizer operator Preferred Pharmacy: [facility] Insurance: [id number] Prescription Benefit: yes Living Will/HPOA: yes, Elvin Randolph LNOK: , MIL Living Arrangements: Patient lives with and mother in law in a basement with 9 steps to enter. Patient was independent at home but has gotten progressively weaker. Transportation: DME/HHC: Patient states she has shower chair, crutches, walker, and bipap at home. Patient denies previous HHC or SNF. Disposition Plan: TCU pending acceptance Concetta IBARRA, RN, CM
--- NOTE | 2021-01-21 11:47 | CASEMGMT ---
Social Work Received referral from BRYANT Sanchez that pt is requesting to go to TCU. Per pts, last Chemo treatment was 2 days ago and radiation will not start until pt gets stronger. RNCM updated pt that she cannot go to TCU while on Chemo and radiation and she is agreeable. SW left VM with Giselle in TCU regarding referral. Will await determination if they can accept pt. JOCELINE Laws
[2021-01-21 13:22] LABS: Pathologist Review Reviewed
[2021-01-21 13:46] LABS: Hematocrit 23.9 % (37-47); Hemoglobin 7.5 g/dL (12.0-15.0)
[2021-01-21] MEDS: Ondansetron 4 MG/2 ML Vial IV (14:26)
--- NOTE | 2021-01-21 14:51 | CASEMGMT ---
Addendum entered by Sravani Morales 01/21/21 15:12: Discharge Plan: Pt to be reassessed on Sunday by Rehab unit physician. If physician accepts pt at that time, pt can transfer to Inpatient Rehab and precert is not needed. JOCELINE Laws Original Note: Social Work Return call from Giselle in TCU. After review they are unable to accept pt. SW inquired about Inpatient Rehab. After consideration, pt will be reviewed again on Sunday for appropriateness for RU. SW met with pt and in room and explained that TCU cannot accept and the rehab would reconsider on Sunday. SW also provided list of SNFs and Rehab facilities including quality and resource use data and consistent with the patient's preferred geographic region, medical needs, and insurance network. SW explained difference between SNF and Rehab and need to participate in 3 hours of therapy a day in rehab. Pt and spouse would like to be considered for inpatient rehab. Dr. Denton updated on current status with discharge plan. DOMONIQUE will continue to follow for discharge planning. JOCELINE Laws
--- NOTE | 2021-01-21 16:00 | NURSING ---
Text sent to Dr. Denton wanted to speak to him.
[2021-01-21 16:51] VITALS: BP 129/62; PULSE 100; RESP 18; TEMP 36.9; O2SAT 97
--- NOTE | 2021-01-21 18:06 | PCM.PN.HOSP ---
Subjective Subjective Continues to be a little bit weak. No new issues overnight. She does have some sores in her mouth secondary to thrush and her hemoglobin is low at around 7.3, will recheck. Objective Data Objective Data Vital Signs: Vital Signs Temp Pulse Resp BP Pulse Ox 98.5 F 100 18 129/62 H 97 01/21/21 16:51 01/21/21 16:51 01/21/21 16:51 01/21/21 16:51 01/21/21 16:51 Oxygen Flow Rate (L/min) 2 Oxygen Delivery Method Room Air Weight: 206 lb 2.115 oz Body Mass Index (BMI) 35.4 Intake & Output: Intake and Output for Last 24 Hours 01/20/21 01/21/21 01/22/21 03:59 03:59 03:59 Intake Total 1800 / 1800 1665 / 1665 Output Total 1000 / 1000 0 / 0 Balance 800 / 800 1665 / 1665 Medical Nutrition Assessment Dietitian: Malnutrition Criteria Met Start: 01/21/21 15:40 Freq: Status: Active Protocol: Document 01/21/21 17:55 RMA (Rec: 01/21/21 17:55 RMA [id number]) Nutrition Malnutrition Evidence of Malnutrition Exists Yes Malnutrition (severe): Acute Illness/Injury Evidenced By Suboptimal Energy Intake ( Severe),Weight Loss (Severe) Clinical Problem Acute Disease or Injury Related Malnutrition Etiology Severe protein/calorie malnutrition in the context of acute illness related to inadequate oral intake, altered GI function (nausea/ vomiting) and difficulty swallowing/thrush Signs/Symptoms as evidenced by ~8% wt loss x past 8-9 weeks and PO meeting less than 50% estimated nutrition needs Status Active Problem Recommendation Dietitian Recommendations/Changes Continue regular diet as tolerated. Will add 1 eli ensure compact (120ml) and 240ml apple ensure clear TID w/ meals for additional calories/protein. Will continue ensure enlive 4 times per day w/medpass as ordered. Will adjust ONS as needed and continue regular diet to optimize oral intake as tolerated. Lab / Micro Data Result Diagrams: 01/22/21 07:18 01/22/21 07:18 Labs: Laboratory Results - last 24 hr 01/20/21 17:00: Absolute Neuts (auto) 13.7 H, Absolute Lymphs (auto) 0.00 L, Total Counted 100, Neutrophils % (Manual) 99 H, Metamyelocytes % 1, Differential Comment MANUAL DIFF, Diff Path Review Reviewed, Anisocytosis 1+ 01/20/21 17:00: Blood Type O POSITIVE, Antibody Screen NEGATIVE 01/20/21 18:25: Lactic Acid 0.8 01/20/21 18:36: Urine Color Yellow, Urine Clarity Clear, Urine pH 6.0, Ur Specific [place] 1.015, Urine Protein Negative, Urine Glucose (UA) Normal, Urine Ketones 15 H, Urine Occult Blood Negative, Urine Nitrite Negative, Urine Bilirubin Negative, Urine Urobilinogen Normal, Ur Leukocyte Esterase Negative, Urine RBC 0 SEEN, Urine WBC 0-5 SEEN, Ur Squamous Epith Cells 0 SEEN, Urine Bacteria 0 SEEN, Urine Mucus 0 SEEN 01/21/21 05:49: WBC 5.6, RBC 2.42 L, Hgb 7.3 L, Hct 23.2 L, MCV 95.9, MCH 30.2, MCHC 31.5 L, RDW Std Deviation 72.0 H, RDW Coeff of Maria Ines 21.1 H, Plt Count 260, MPV 8.7, Immature Gran % (Auto) 19.100 H, Neut % (Auto) 75.3 H, Lymph % (Auto) 2.7 L, [place] % (Auto) 0.7, Eos % (Auto) 0.4, Baso % (Auto) 1.8 H, Absolute Neuts (auto) 4.2, Absolute Lymphs (auto) 0.15 L, Nucleated RBC % 0, Differential Comment SCANNED, Anisocytosis 2+ 01/21/21 05:49: Sodium 139, Potassium 3.8, Chloride 107, Carbon Dioxide 25.0, Anion Gap 7, BUN 19 H, Creatinine 0.68, Estim Creat Clear Calc 79.77, Est GFR (MDRD) Af Amer 115, Est GFR (MDRD) Non-Af 95, BUN/Creatinine Ratio 27.9 H, Glucose 93, Calcium 8.0 L, TSH 0.83 01/21/21 05:49: Vitamin D 25-Hydroxy 51.2 01/21/21 13:30: Hgb 7.5 L, Hct 23.9 L Radiography Diagnostic Testing: Radiology Impression Venous Doppler Study 01/20/21 21:23 Interpretation Summary No evidence for acute deep venous thrombosis bilateral lower extremities with patent and compressible bilateral great saphenous veins. Ordering Physician: Lennox Graff Referring Physician: Meg Fajardo Performed By: Opal Rodrigues, ABIGAIL, RVT Physical Exam Const alert, oriented x3 and no apparent distress General Appearance: cooperative HEENT normocephalic HEENT Narrative: Thrush Mouth: dry mucous membranes Eyes PERRL, EOMs intact bilaterally and conjunctivae normal Neck supple and no JVD Resp normal respiratory effort, no retractions, no use of accessory muscles and clear to auscultation bilaterally Auscultation: Negative for crackles, rales, rhonchi or wheezes Cardio regular rate, regular rhythm, S1 normal heart sound, S2 normal heart sound and no murmurs GI soft to palpation, non-tender and non-distended; Negative for hepatosplenomegaly Extremity General Extremity: edema; Negative for clubbing or cyanosis Skin no rashes or lesions noted Neuro no focal motor deficits and no sensory deficits noted Psych affect normal Appearance: appropriate Assessment & Plan Assessment/Plan (1) Generalized weakness: PLAN: 1. Generalized weakness secondary to chemotherapy for stage II breast cancer/anemia/thrush 8 -Her dose of chemo was on Sunday and she had a Neulasta shot on Sunday -Currently her white blood cell count is stable we will continue with PT/OT -Anemia is likely secondary to her chemotherapy, will monitor but currently does not need a transfusion -Continue with IV fluids as well as medications to help with her thrush 2. Bilateral lower extremity edema -Duplex ordered and was negative 3. Anxiety/depression -She is on Viibryd and Latuda as well as Lamictal -These can be continued 4. HTN/HLD -Continue with verapamil and statin -Blood pressure stable DVT: SCDs Charges/Coding Visit Charges Inpatient E&M: 39263 Subs Hosp L2
[2021-01-21 20:53] VITALS: BP 115/63; PULSE 102; RESP 16; TEMP 36.6; O2SAT 98
[2021-01-21] MEDS: LURASIDONE HCL 80 MG TABLET PO (21:24)
[2021-01-21] MEDS: traMADol 50 MG Tablet PO (21:25)
[2021-01-21] MEDS: Diphenoxylate/Atrop 1 Tablet PO (21:25)
[2021-01-21] MEDS: TRIHEXYPHENIDYL HCL 2 MG TABLET 4 MG PO (21:25)
[2021-01-22] MEDS: oxyCODONE 5 MG Tablet PO ×4 (02:25→22:46)
[2021-01-22 02:30] VITALS: BP 153/72; PULSE 97; RESP 16; TEMP 36.1; O2SAT 95
[2021-01-22 07:46] LABS: Absolute Neutrophil Count 0.3 X10^3/uL (2.0-7.7); Basophil# 0.05 X10^3/uL; Basophil% 6.3 % (0-1); Eosinophil# 0.02 X10^3/uL; Eosinophils% 2.5 % (0-5); Hematocrit 24.2 % (37-47); Hemoglobin 7.6 g/dL (12.0-15.0); Lymphocyte % 12.7 % (19-41); Mean Corp Hgb Conc 31.4 g/dL (32-36); Mean Corpuscular Hgb 30.4 pg (27.0-32.0); Mean Corpuscular Volume 96.8 fL (81-99); Mean Platelet Vol. 9.1 fl (6.2-12.0); Monocyte# 0.01 X10^3/uL; Monocyte% 1.3 % (0-10); NRBC Flagged by Analyzer 0 % (0-5); Neutrophil # 0.32 X10^3/uL (2.7-7.7); Neutrophil % 40.5 % (47-70); POSITIVE COUNT YES; POSITIVE DIFFERENTIAL YES; POSITIVE MORPHOLOGY YES; Platelet Count 178 K/mm3 (150-450); RBC Distribution Width CV 20.9 % (11.6-14.6)
[2021-01-22 07:51] LABS: White Blood Count 0.8 K/mm3 (4.4-11.0)
[2021-01-22 07:52] LABS: Differential Indicated SCAN CRITERIA MET
[2021-01-22 08:04] VITALS: BP 145/72; PULSE 99; RESP 18; TEMP 36.7; O2SAT 98
[2021-01-22 08:04] LABS: Anion Gap 8 (5-15); BUN 14 mg/dL (7-18); BUN/Creat Ratio 22.8 RATIO (10-20); Calcium,Total 8.3 mg/dL (8.5-10.1); Chloride 108 mmol/L (98-107); Creatinine, Serum 0.61 mg/dL (0.55-1.02); EST Glomerular Filtration Rate 107 mL/min (>60); Est Glom Filt Rate - Afr Amer 129 mL/min (>60); Estimated Creatinine Clearance 88.92 ml/min; Glucose 106 mg/dL (74-106); Potassium 4.1 mmol/L (3.5-5.1); Sodium Level 143 mmol/L (136-145)
[2021-01-22 08:25] LABS: Anisocytosis 1+; Hypochromasia 2+; Platelet Estimate ADEQUATE (ADEQ)
[2021-01-22 08:26] LABS: Differential Comment SCANNED
--- NOTE | 2021-01-22 09:34 | PN.HOSP_ITS ---
Subjective Subjective Feels a little bit better today, unfortunately Viscous Lidocaine did not seem to help her sore mouth Objective Data Objective Data Vital Signs: Vital Signs Temp Pulse Resp BP Pulse Ox 98.0 F 99 18 145/72 H 98 01/22/21 08:04 01/22/21 08:04 01/22/21 08:04 01/22/21 08:04 01/22/21 08:04 Oxygen Flow Rate (L/min) 2 Oxygen Delivery Method Nasal Cannula Weight: 206 lb 2.115 oz Body Mass Index (BMI) 35.4 Intake & Output: Intake and Output for Last 24 Hours 01/21/21 01/22/21 01/23/21 03:59 03:59 03:59 Intake Total 1800 / 1800 2892.5 / 2892.5 Output Total 1000 / 1000 0 / 0 Balance 800 / 800 2892.5 / 2892.5 Medical Nutrition Assessment Dietitian: Malnutrition Criteria Met Start: 01/21/21 15:40 Freq: Status: Active Protocol: Document 01/21/21 17:55 RMA (Rec: 01/21/21 17:55 RMA [id number]) Nutrition Malnutrition Evidence of Malnutrition Exists Yes Malnutrition (severe): Acute Illness/Injury Evidenced By Suboptimal Energy Intake ( Severe),Weight Loss (Severe) Clinical Problem Acute Disease or Injury Related Malnutrition Etiology Severe protein/calorie malnutrition in the context of acute illness related to inadequate oral intake, altered GI function (nausea/ vomiting) and difficulty swallowing/thrush Signs/Symptoms as evidenced by ~8% wt loss x past 8-9 weeks and PO meeting less than 50% estimated nutrition needs Status Active Problem Recommendation Dietitian Recommendations/Changes Continue regular diet as tolerated. Will add 1 eli ensure compact (120ml) and 240ml apple ensure clear TID w/ meals for additional calories/protein. Will continue ensure enlive 4 times per day w/medpass as ordered. Will adjust ONS as needed and continue regular diet to optimize oral intake as tolerated. Lab / Micro Data Result Diagrams: 01/22/21 07:18 01/22/21 07:18 Labs: Laboratory Results - last 24 hr 01/20/21 17:00: Diff Path Review Reviewed 01/21/21 13:30: Hgb 7.5 L, Hct 23.9 L 01/22/21 07:18: WBC 0.8 L*, RBC 2.50 L, Hgb 7.6 L, Hct 24.2 L, MCV 96.8, MCH 30.4, MCHC 31.4 L, RDW Std Deviation 72.0 H, RDW Coeff of Maria Ines 20.9 H, Plt Count 178, MPV 9.1, Immature Gran % (Auto) 36.700 H, Neut % (Auto) 40.5 L, Lymph % (A uto) 12.7 L, [place] % (Auto) 1.3, Eos % (Auto) 2.5, Baso % (Auto) 6.3 H, Absolute Neuts (auto) 0.3 L, Absolute Lymphs (auto) 0.10 L, Nucleated RBC % 0, Differential Comment SCANNED, Diff Path Review July, Platelet Estimate ADEQUATE, Hypochromasia 2+, Anisocytosis 1+ 01/22/21 07:18: Sodium 143, Potassium 4.1, Chloride 108 H, Carbon Dioxide 27.0, Anion Gap 8, BUN 14, Creatinine 0.61, Estim Creat Clear Calc 88.92, Est GFR (MDRD) Af Amer 129, Est GFR (MDRD) Non-Af 107, BUN/Creatinine Ratio 22.8 H, Glucose 106, Calcium 8.3 L Radiography Diagnostic Testing: Radiology Impression Venous Doppler Study 01/20/21 21:23 Interpretation Summary No evidence for acute deep venous thrombosis bilateral lower extremities with patent and compressible bilateral great saphenous veins. Ordering Physician: Lennox Graff Referring Physician: Meg Fajardo Performed By: Opal Rodrigues, ABIGAIL, RVT Physical Exam Const alert, oriented x3 and no apparent distress General Appearance: cooperative HEENT normocephalic HEENT Narrative: Thrush Eyes PERRL, EOMs intact bilaterally and conjunctivae normal Neck supple and no JVD Resp normal respiratory effort, no retractions, no use of accessory muscles and clear to auscultation bilaterally Auscultation: Negative for crackles, rales, rhonchi or wheezes Cardio regular rate, regular rhythm, S1 normal heart sound, S2 normal heart sound and no murmurs GI soft to palpation, non-tender and non-distended; Negative for hepatosplenomegaly Extremity General Extremity: edema; Negative for clubbing or cyanosis Skin no rashes or lesions noted Neuro no focal motor deficits and no sensory deficits noted Psych affect normal Appearance: appropriate Assessment & Plan Assessment/Plan (1) Generalized weakness: PLAN: 1. Generalized weakness secondary to chemotherapy for stage II breast cancer/anemia and neutropenia/thrush -Her dose of chemo was on Sunday and she had a Neulasta shot on Sunday -Currently neutropenic, she did receive Neulasta however will start Granix -Anemia is likely secondary to her chemotherapy, will monitor but currently does not need a transfusion -Continue with IV fluids as well as medications to help with her thrush 2. Bilateral lower extremity edema -Duplex ordered and was negative 3. Anxiety/depression -She is on Viibryd and Latuda as well as Lamictal -These can be continued 4. HTN/HLD -Continue with verapamil and statin -Blood pressure stable DVT: SCDs Charges/Coding Visit Charges Inpatient E&M: 11275 Subs Hosp L2
[2021-01-22] MEDS: Enoxaparin 40 MG/0.4 ML Syringe SC (09:45)
[2021-01-22] MEDS: Verapamil 120 MG Tablet PO ×2 (09:46→21:17)
[2021-01-22] MEDS: lamoTRIgine 150 MG Tablet PO (09:46)
[2021-01-22] MEDS: Potassium Chloride Oral Tablet 20 MEQ PO ×2 (09:46→17:38)
[2021-01-22] MEDS: Cholecalciferol (VIT D3) 25 MCG TABLET (1,000 UNITS) 50 MCG PO (09:46)
[2021-01-22] MEDS: VILAZODONE HYDROCHLORIDE 10 MG TABLET 40 MG PO (09:46)
[2021-01-22] MEDS: TRIHEXYPHENIDYL HCL 2 MG TABLET 4 MG PO ×2 (09:47→21:18)
[2021-01-22] MEDS: 0.9% Normal Saline 1,000 ML 75 ML IV (09:47)
[2021-01-22] MEDS: Fluconazole 100 MG Tablet 200 MG PO (09:47)
[2021-01-22] MEDS: TBO-FILGRASTIM 300 MCG/0.5 ML ML SC (12:15)
[2021-01-22] MEDS: traMADol 50 MG Tablet PO (13:05)
[2021-01-22] MEDS: Acetaminophen 325 MG Tablet 650 MG PO ×2 (13:05→22:46)
[2021-01-22 14:01] VITALS: BP 130/57; PULSE 106; RESP 18; TEMP 36.8; O2SAT 94
[2021-01-22 21:00] VITALS: O2SAT 90
[2021-01-22 21:07] VITALS: BP 136/68; PULSE 111; RESP 18; TEMP 36.6; O2SAT 93
[2021-01-22] MEDS: LURASIDONE HCL 80 MG TABLET PO (21:16)
[2021-01-22] MEDS: Nitrofurantoin Macrocrystals 100 MG Capsule PO (21:17)
[2021-01-22] MEDS: MELATONIN 10 MG TABLET PO (21:17)
[2021-01-22] MEDS: Atorvastatin Calcium 10 MG Tablet PO (21:17)
[2021-01-22 22:42] VITALS: BP 131/68; PULSE 108; RESP 18; TEMP 37.1; O2SAT 93
[2021-01-23] VITALS (10 sets, daily range): BP systolic 112–139; BP diastolic 45–78; PULSE 97–107; RESP 15–19; TEMP 36.4–37.7; O2SAT 92–97
[2021-01-23] MEDS: 0.9% Normal Saline 1,000 ML 75 ML IV (00:53)
[2021-01-23] MEDS: traMADol 50 MG Tablet PO ×2 (04:27→15:19)
[2021-01-23 07:04] LABS: Absolute Lymphocyte Count 0.07 X10^3/uL (0.83-4.51); Basophil# 0.01 X10^3/uL; Basophil% 6.7 % (0-1); Eosinophil# 0.01 X10^3/uL; Eosinophils% 6.7 % (0-5); Lymphocyte # 0.07 X10^3/ul (0.83-4.51); Lymphocyte % 46.7 % (19-41); Mean Corp Hgb Conc 30.4 g/dL (32-36); Mean Corpuscular Hgb 29.3 pg (27.0-32.0); Mean Corpuscular Volume 96.2 fL (81-99); Mean Platelet Vol. 9.1 fl (6.2-12.0); Monocyte# 0.03 X10^3/uL; NRBC Flagged by Analyzer 0 % (0-5); Neutrophil # 0.02 X10^3/uL (2.7-7.7); Neutrophil % 13.2 % (47-70); POSITIVE COUNT YES; POSITIVE DIFFERENTIAL YES; POSITIVE MORPHOLOGY YES; Platelet Count 121 K/mm3 (150-450); RBC Distribution Width CV 20.7 % (11.6-14.6); RBC Distribution Width SD 71.8 fl (35.1-43.9); Red Blood Count 2.39 M/mm3 (4.2-5.4); White Blood Count 0.2 K/mm3 (4.4-11.0)
[2021-01-23 07:07] LABS: Differential Indicated SCAN CRITERIA MET
[2021-01-23 07:29] LABS: ALB/GLOB Ratio 0.5 RATIO (0.9-2.4); AST(SGOT) 6 U/L (15-37); Alanine Aminotransfer ALT/SGPT 8 U/L (13-56); Albumin, Serum 1.8 g/dL (3.2-5.0); Alkaline Phosphatase 72 U/L (45-117); Anion Gap 5 (5-15); BUN 9 mg/dL (7-18); BUN/Creat Ratio 15.8 RATIO (10-20); Calcium,Total 8.3 mg/dL (8.5-10.1); Chloride 108 mmol/L (98-107); Creatinine, Serum 0.57 mg/dL (0.55-1.02); EST Glomerular Filtration Rate 117 mL/min (>60); Est Glom Filt Rate - Afr Amer 141 mL/min (>60); Estimated Creatinine Clearance 95.17 ml/min; Globulin 3.3 g/dL (2.2-4.2); Glucose 103 mg/dL (74-106); Potassium 3.6 mmol/L (3.5-5.1); Protein, Total 5.1 g/dL (6.4-8.2); Sodium Level 141 mmol/L (136-145)
[2021-01-23 07:32] LABS: Anisocytosis 2+; Platelet Estimate SLT DEC (ADEQ); Tear Drop Cell 1+
[2021-01-23] MEDS: Enoxaparin 40 MG/0.4 ML Syringe SC (09:12)
[2021-01-23] MEDS: TBO-FILGRASTIM 300 MCG/0.5 ML ML SC (09:12)
[2021-01-23] MEDS: Verapamil 120 MG Tablet PO ×2 (10:16→21:07)
[2021-01-23] MEDS: Fluconazole 100 MG Tablet 200 MG PO (10:16)
[2021-01-23] MEDS: Cholecalciferol (VIT D3) 25 MCG TABLET (1,000 UNITS) 50 MCG PO (10:16)
[2021-01-23] MEDS: TRIHEXYPHENIDYL HCL 2 MG TABLET 4 MG PO ×2 (10:16→21:06)
[2021-01-23] MEDS: lamoTRIgine 150 MG Tablet PO (10:16)
[2021-01-23] MEDS: VILAZODONE HYDROCHLORIDE 10 MG TABLET 40 MG PO (10:16)
[2021-01-23] MEDS: Potassium Chloride Oral Tablet 20 MEQ PO ×2 (10:16→16:51)
[2021-01-23] MEDS: Acetaminophen 325 MG Tablet 650 MG PO ×2 (10:23→16:54)
[2021-01-23] MEDS: oxyCODONE 5 MG Tablet PO ×2 (10:23→16:55)
--- NOTE | 2021-01-23 11:28 | PCM.PN.HOSP ---
Subjective Subjective States that she is feeling a little bit better today. She is having worsening in her white blood cell count as well as her platelet count and her anemia. No issues overnight Objective Data Objective Data Vital Signs: Vital Signs Temp Pulse Resp BP Pulse Ox 97.6 F L 107 H 18 139/78 H 95 01/23/21 04:07 01/23/21 04:07 01/23/21 04:07 01/23/21 04:07 01/23/21 04:07 Oxygen Flow Rate (L/min) 3 Oxygen Delivery Method Venturi Mask Weight: 206 lb 2.115 oz Body Mass Index (BMI) 35.4 Intake & Output: Intake and Output for Last 24 Hours 01/22/21 01/23/21 01/24/21 03:59 03:59 03:59 Intake Total 2892.5 / 2892.5 2881.25 / 2881.25 676.25 / 676.25 Output Total 0 / 0 400 / 400 Balance 2892.5 / 2892.5 2481.25 / 2481.25 676.25 / 676.25 Medical Nutrition Assessment Dietitian: Malnutrition Criteria Met Start: 01/21/21 15:40 Freq: Status: Active Protocol: Document 01/21/21 17:55 RMA (Rec: 01/21/21 17:55 RMA [id number]) Nutrition Malnutrition Evidence of Malnutrition Exists Yes Malnutrition (severe): Acute Illness/Injury Evidenced By Suboptimal Energy Intake ( Severe),Weight Loss (Severe) Clinical Problem Acute Disease or Injury Related Malnutrition Etiology Severe protein/calorie malnutrition in the context of acute illness related to inadequate oral intake, altered GI function (nausea/ vomiting) and difficulty swallowing/thrush Signs/Symptoms as evidenced by ~8% wt loss x past 8-9 weeks and PO meeting less than 50% estimated nutrition needs Status Active Problem Recommendation Dietitian Recommendations/Changes Continue regular diet as tolerated. Will add 1 eli ensure compact (120ml) and 240ml apple ensure clear TID w/ meals for additional calories/protein. Will continue ensure enlive 4 times per day w/medpass as ordered. Will adjust ONS as needed and continue regular diet to optimize oral intake as tolerated. Lab / Micro Data Result Diagrams: 01/23/21 06:50 01/23/21 06:50 Labs: Laboratory Results - last 24 hr 01/23/21 06:50: WBC 0.2 L*, RBC 2.39 L, Hgb 7.0 L, Hct 23.0 L, MCV 96.2, MCH 29.3, MCHC 30.4 L, RDW Std Deviation 71.8 H, RDW Coeff of Maria Ines 20.7 H, Plt Count 121 L, MPV 9.1, Immature Gran % (Auto) 6.700 H, Neut % (Auto) 13.2 L, Lymph % (Auto) 46.7 H, [place] % (Auto) 20.0 H, Eos % (Auto) 6.7 H, Baso % (Auto) 6.7 H, Absolute Neuts (auto) 0.0 L, Absolute Lymphs (auto) 0.07 L, Nucleated RBC % 0, Diff Path Review July, Platelet Estimate SLT DEC, Anisocytosis 2+, Tear Drop Cells 1+ 01/23/21 06:50: Sodium 141, Potassium 3.6, Chloride 108 H, Carbon Dioxide 28.0, Anion Gap 5, BUN 9, Creatinine 0.57, Estim Creat Clear Calc 95.17, Est GFR (MDRD) Af Amer 141, Est GFR (MDRD) Non-Af 117, BUN/Creatinine Ratio 15.8, Glucose 103, Calcium 8.3 L, Total Bilirubin 0.20, AST 6 L, ALT 8 L, Alkaline Phosphatase 72, Total Protein 5.1 L, Albumin 1.8 L, Globulin 3.3, Albumin/Globulin Ratio 0.5 L Micro: Microbiology 01/20/21 18:36 Urine, Catheterized Urine Culture - Final Culture exhibits no growth. 01/20/21 18:50 Blood Culture (Wb) - Venous Blood Culture - Preliminary No growth in 48 hours. 01/20/21 18:25 Blood Culture (Wb) - Anticubital Right Blood Culture - Preliminary No growth in 48 hours. Physical Exam Narrative Const alert, oriented x3 and no apparent distress General Appearance: cooperative HEENT normocephalic HEENT Narrative: Thrush Mouth: dry mucous membranes Eyes PERRL, EOMs intact bilaterally and conjunctivae normal Neck supple and no JVD Resp normal respiratory effort, no retractions, no use of accessory muscles and clear to auscultation bilaterally Auscultation: Negative for crackles, rales, rhonchi or wheezes Cardio regular rate, regular rhythm, S1 normal heart sound, S2 normal heart sound and no murmurs GI soft to palpation, non-tender and non-distended; Negative for hepatosplenomegaly Extremity General Extremity: edema; Negative for clubbing or cyanosis Skin no rashes or lesions noted Neuro no focal motor deficits and no sensory deficits noted Psych Appearance: appropriate Mood & Affect: flat affect Assessment & Plan Assessment/Plan (1) Generalized weakness: PLAN: 1. Generalized weakness secondary to chemotherapy for stage II breast cancer/pancytopenia/thrush -Her dose of chemo was on Sunday and she had a Neulasta shot on Sunday -Currently neutropenic, she did receive Neulasta however will start Granix -Anemia is likely secondary to her chemotherapy, will monitor but currently does not need a transfusion -We will discontinue her IV fluids as she is currently on nonrebreather and will provide her with Lasix with her blood transfusion today -Highest temperature has been is 99.8, will continue with cefepime, blood cultures and urine cultures on admission were negative -Continue with PT/OT 2. Bilateral lower extremity edema -Duplex ordered and was negative 3. Anxiety/depression -She is on Viibryd and Latuda as well as Lamictal -These can be continued 4. HTN/HLD -Continue with verapamil and statin -Blood pressure stable DVT: SCDs Charges/Coding Visit Charges Inpatient E&M: 61509 Subs Hosp L2
[2021-01-23] MEDS: Ondansetron 4 MG/2 ML Vial IV (12:23)
[2021-01-23] MEDS: 0.9% Saline Lock 10 ML Syringe IV ×2 (12:23→16:51)
[2021-01-23] MEDS: LURASIDONE HCL 80 MG TABLET PO (21:06)
[2021-01-23] MEDS: MELATONIN 10 MG TABLET PO (21:07)
[2021-01-23] MEDS: Nitrofurantoin Macrocrystals 100 MG Capsule PO (21:08)
[2021-01-23] MEDS: Atorvastatin Calcium 10 MG Tablet PO (21:08)
[2021-01-23] MEDS: Diphenoxylate/Atrop 1 Tablet PO (21:10)
[2021-01-24] VITALS (7 sets, daily range): BP systolic 115–128; BP diastolic 52–72; PULSE 97–111; RESP 16–18; TEMP 36.6–36.8; O2SAT 94–98
[2021-01-24] MEDS: oxyCODONE 5 MG Tablet PO ×4 (00:06→23:30)
[2021-01-24] MEDS: Acetaminophen 325 MG Tablet 650 MG PO ×4 (00:06→23:30)
[2021-01-24 06:58] LABS: Absolute Lymphocyte Count 0.14 X10^3/uL (0.83-4.51); Absolute Neutrophil Count 0.1 X10^3/uL (2.0-7.7); Basophil# 0.01 X10^3/uL; Basophil% 2.9 % (0-1); Eosinophil# 0.01 X10^3/uL; Eosinophils% 2.9 % (0-5); Hematocrit 24.8 % (37-47); Hemoglobin 8.2 g/dL (12.0-15.0); Lymphocyte # 0.14 X10^3/ul (0.83-4.51); Lymphocyte % 41.2 % (19-41); Mean Corp Hgb Conc 33.1 g/dL (32-36); Mean Corpuscular Hgb 30.3 pg (27.0-32.0); Mean Corpuscular Volume 91.5 fL (81-99); Mean Platelet Vol. 9.5 fl (6.2-12.0); Monocyte# 0.13 X10^3/uL; Monocyte% 38.2 % (0-10); NRBC Flagged by Analyzer 0 % (0-5); Neutrophil # 0.05 X10^3/uL (2.7-7.7); Neutrophil % 14.8 % (47-70); POSITIVE COUNT YES; POSITIVE DIFFERENTIAL YES; POSITIVE MORPHOLOGY YES; Platelet Count 113 K/mm3 (150-450); RBC Distribution Width CV 19.9 % (11.6-14.6); RBC Distribution Width SD 65.3 fl (35.1-43.9); Red Blood Count 2.71 M/mm3 (4.2-5.4); White Blood Count 0.3 K/mm3 (4.4-11.0)
[2021-01-24 07:14] LABS: Differential Indicated SCAN CRITERIA MET
[2021-01-24 07:26] LABS: Anion Gap 3 (5-15); BUN 7 mg/dL (7-18); BUN/Creat Ratio 14.5 RATIO (10-20); Calcium,Total 8.4 mg/dL (8.5-10.1); Chloride 110 mmol/L (98-107); Creatinine, Serum 0.48 mg/dL (0.55-1.02); EST Glomerular Filtration Rate 140 mL/min (>60); Est Glom Filt Rate - Afr Amer 170 mL/min (>60); Estimated Creatinine Clearance 113.01 ml/min; Glucose 95 mg/dL (74-106); Potassium 3.6 mmol/L (3.5-5.1); Sodium Level 140 mmol/L (136-145)
[2021-01-24] MEDS: Ondansetron 4 MG/2 ML Vial IV (07:41)
[2021-01-24] MEDS: 0.9% Saline Lock 10 ML Syringe IV ×3 (07:41→12:15)
[2021-01-24 07:42] LABS: Anisocytosis 2+
--- NOTE | 2021-01-24 08:14 | PN.HOSP_ITS ---
Subjective Subjective Patient is a 55-year-old lady with history of stage III breast cancer admitted with progressive generalized weakness. Patient was found to be neutropenic and anemic with mild thrombocytopenia admitted to regular nursing floor for further management Objective Data Objective Data Vital Signs: Vital Signs Temp Pulse Resp BP Pulse Ox 98.2 F 108 H 18 118/61 95 01/24/21 07:33 01/24/21 07:33 01/24/21 07:33 01/24/21 07:33 01/24/21 07:33 Oxygen Flow Rate (L/min) 2 Oxygen Delivery Method Nasal Cannula Weight: 93.5 kg Body Mass Index (BMI) 35.4 Intake & Output: Intake and Output for Last 24 Hours 01/22/21 01/23/21 01/24/21 23:59 23:59 23:59 Intake Total 2701.25 / 2701.25 3194.75 / 3194.75 Output Total 400 / 400 450 / 450 Balance 2301.25 / 2301.25 2744.75 / 2744.75 Medical Nutrition Assessment Dietitian: Malnutrition Criteria Met Start: 01/21/21 15:40 Freq: Status: Active Protocol: Document 01/21/21 17:55 RMA (Rec: 01/21/21 17:55 RMA [id number]) Nutrition Malnutrition Evidence of Malnutrition Exists Yes Malnutrition (severe): Acute Illness/Injury Evidenced By Suboptimal Energy Intake ( Severe),Weight Loss (Severe) Clinical Problem Acute Disease or Injury Related Malnutrition Etiology Severe protein/calorie malnutrition in the context of acute illness related to inadequate oral intake, altered GI function (nausea/ vomiting) and difficulty swallowing/thrush Signs/Symptoms as evidenced by ~8% wt loss x past 8-9 weeks and PO meeting less than 50% estimated nutrition needs Status Active Problem Recommendation Dietitian Recommendations/Changes Continue regular diet as tolerated. Will add 1 eli ensure compact (120ml) and 240ml apple ensure clear TID w/ meals for additional calories/protein. Will continue ensure enlive 4 times per day w/medpass as ordered. Will adjust ONS as needed and continue regular diet to optimize oral intake as tolerated. Lab / Micro Data Result Diagrams: 01/24/21 06:30 01/24/21 06:30 Labs: Laboratory Results - last 24 hr 01/23/21 11:50: Blood Type O POSITIVE, Antibody Screen NEGATIVE, Crossmatch See Detail 01/24/21 06:30: WBC 0.3 L*, RBC 2.71 L, Hgb 8.2 L, Hct 24.8 L, MCV 91.5, MCH 30.3, MCHC 33.1 D, RDW Std Deviation 65.3 H, RDW Coeff of Maria Ines 19.9 H, Plt Count 113 L, MPV 9.5, Immature Gran % (Auto) 0.000, Neut % (Auto) 14.8 L, Lymph % (Auto) 41.2 H, [place] % (Auto) 38.2 H, Eos % (Auto) 2.9, Baso % (Auto) 2.9 H, Absolute Neuts (auto) 0.1 L, Absolute Lymphs (auto) 0.14 L, Nucleated RBC % 0, Diff Path Review May foll, Anisocytosis 2+ 01/24/21 06:30: Sodium 140, Potassium 3.6, Chloride 110 H, Carbon Dioxide 27.0, Anion Gap 3 L, BUN 7, Creatinine 0.48 L, Estim Creat Clear Calc 113.01, Est GFR (MDRD) Af Amer 170, Est GFR (MDRD) Non-Af 140, BUN/Creatinine Ratio 14.5, Glucose 95, Calcium 8.4 L Micro: Microbiology 01/20/21 18:36 Urine, Catheterized Urine Culture - Final Culture exhibits no growth. 01/20/21 18:50 Blood Culture (Wb) - Venous Blood Culture - Preliminary No growth in 48 hours. 01/20/21 18:25 Blood Culture (Wb) - Anticubital Right Blood Culture - Preliminary No growth in 48 hours. Physical Exam Narrative GENERAL: Patient appears ill looking HEENT: Atraumatic; EYES; Anicteric, Normal Conjunctiva NECK; supple, normal thyroid, RESPIRATORY: Diminished to auscultation CARDIOVASCULAR: Regular S1 S2, GI: soft, normoactive bowel sounds, : No Renal angle tenderness; EXTREMITIES: No edema, no clubbing, MUSCULOSKELETAL: no muscle waisting NEURO: Awake; no lateralizing signs. SKIN: No Rash PSYCH; Flat affect Assessment & Plan Assessment/Plan (1) Generalized weakness: PLAN: Patient is a 55-year-old lady with history of stage III breast cancer admitted with progressive generalized weakness. Patient was found to be neutropenic and anemic with mild thrombocytopenia admitted to regular nursing floor for further management 1. Physical deconditioning - Requested for PT OT eval and director of social media marketing to assist with discharge planning 2. Chemo induced pancytopenia ?Patient is currently anemic with hemoglobin of 8.2, WBC count is 0.3 with platelet count of 113. Currently being monitored with daily CBC with differential. Patient did receive Neulasta was started on Granix. Patient was found to have low-grade fever on admission with temperature of 99.8 was started on cefepime and blood cultures sent. Cultures have so far remained negative to date 3. Stage II Left breast CA ?Currently on chemo as outpatient 4. Depression with anxiety ?Patient is on Viibryd Latuda as well as Lamictal continue 5. Essential hypertension ?Patient is on verapamil continue 6. Dyslipidemia -Patient is on statin therapy, continued at home dose 7. Irritable bowel syndrome ?Per history 8. Obesity with BMI of 35.4 ?Weight loss advised 9. DVT prophylaxis ?SCDs for now Charges/Coding Visit Charges Inpatient E&M: 10445 Subs Hosp L3
--- NOTE | 2021-01-24 08:30 | CASEMGMT ---
Addendum entered by Concetta Calvin 01/24/21 11:13: SW received message from Giselle with [facility] stating [facility] is not able to accept. SW in to speak with pt. SW introduced self and role at [facility]. SW updated pt that [facility] is not able to accept. SW discussed SNF options with pt. Pt states her KEHINDE works as a cook at [employer], asked for a referral be sent there. SW asked for other options in the event [facility] is not able to accept, pt states she has none. SW reviewed SNF in [place] with pt. Pt unable to state additional SNF at this time. SW informed pt that this worker will send referral to [facility] and then let pt know their decision and go from there. Pt states understanding. SW placed a call to [facility] and spoke with Cristine in admissions and provided referral. SW faxed referral. SW is aware that pt is reporting to be depressed. SW will address this with pt too. Plan: SNF pending acceptance Original Note: Social Work Note DOMONIQUE placed a call to [facility] with [facility] to inquire if [facility] is able to accept pt. Giselle to discuss with [facility] physician then call this worker back. Plan: [facility] pending acceptance Concetta Calvin SERVICE CASHIER, MARINE SPECIALIST
[2021-01-24] MEDS: Potassium Chloride Oral Tablet 20 MEQ PO ×2 (09:58→16:39)
[2021-01-24] MEDS: Enoxaparin 40 MG/0.4 ML Syringe SC (09:58)
[2021-01-24] MEDS: Cholecalciferol (VIT D3) 25 MCG TABLET (1,000 UNITS) 50 MCG PO (09:58)
[2021-01-24] MEDS: Verapamil 120 MG Tablet PO ×2 (09:59→20:54)
[2021-01-24] MEDS: Fluconazole 100 MG Tablet 200 MG PO (09:59)
[2021-01-24] MEDS: TRIHEXYPHENIDYL HCL 2 MG TABLET 4 MG PO ×2 (10:00→20:50)
[2021-01-24] MEDS: lamoTRIgine 150 MG Tablet PO (10:00)
[2021-01-24] MEDS: TBO-FILGRASTIM 300 MCG/0.5 ML ML SC (10:07)
[2021-01-24] MEDS: VILAZODONE HYDROCHLORIDE 10 MG TABLET 40 MG PO (12:15)
--- NOTE | 2021-01-24 12:17 | NURSING ---
out of 250cc NS flush bags so had to use 500cc flush bag
[2021-01-24] MEDS: traMADol 50 MG Tablet PO ×2 (12:22→21:08)
[2021-01-24 12:27] LABS: Pathologist Review Reviewed
[2021-01-24 12:28] LABS: Pathologist Review Reviewed
[2021-01-24 12:45] LABS: Pathologist Review Reviewed
--- NOTE | 2021-01-24 14:56 | CASEMGMT ---
Addendum entered by Concetta Calvin 01/24/21 15:17: SW in to speak with pt. SW updated pt that [facility] is not able to accept pt, asked for other options. Pt states try any halfway in [place]. SW informed pt that this worker will start with the SNF rated 4 stars and go from there. Pt states that if no SNF in [place] can accept, this worker can try [facility] in [place]. SW asked pt about her depression. Pt states that her depression is currently well managed, states they found medications that work. Pt denied any history of suicidal thoughts/plans/ideations. Pt denied any current suicidal thoughts/plans/ideations. Pt states that she was in counseling about 6-7 months ago through the [facility]. Pt denied any current counseling. SW asked pt if she wanted any counseling resources and pt denied. DOMONIQUE placed a call to Mily at [facility] (both facilities are rated 4 stars) and provided referral. SW faxed referral to Mily. Plan: SNF pending acceptance Original Note: Social Work Note SW received message from Cristine at [facility] stating they are not able to accept pt. SW will speak with pt about different SNF options. PT currently in room will pt. Concetta Calvin COMMUNITY MUSIC THERAPIST, STATE INSPECTOR
[2021-01-24] MEDS: LURASIDONE HCL 80 MG TABLET PO (20:49)
[2021-01-24] MEDS: MELATONIN 10 MG TABLET PO (20:51)
[2021-01-24] MEDS: Atorvastatin Calcium 10 MG Tablet PO (20:52)
[2021-01-24] MEDS: Nitrofurantoin Macrocrystals 100 MG Capsule PO (20:52)
[2021-01-25 03:47] VITALS: BP 125/64; PULSE 91; RESP 18; TEMP 36.1; O2SAT 98
[2021-01-25] MEDS: Acetaminophen 325 MG Tablet 650 MG PO ×2 (06:44→13:45)
[2021-01-25] MEDS: oxyCODONE 5 MG Tablet PO ×2 (06:44→13:46)
[2021-01-25 07:26] LABS: Absolute Lymphocyte Count 0.29 X10^3/uL (0.83-4.51); Absolute Neutrophil Count 1.1 X10^3/uL (2.0-7.7); Basophil# 0.05 X10^3/uL; Basophil% 2.7 % (0-1); Eosinophil# 0.06 X10^3/uL; Eosinophils% 3.2 % (0-5); Hematocrit 27.9 % (37-47); Hemoglobin 8.8 g/dL (12.0-15.0); Lymphocyte # 0.29 X10^3/ul (0.83-4.51); Lymphocyte % 15.6 % (19-41); Mean Corp Hgb Conc 31.5 g/dL (32-36); Mean Corpuscular Hgb 29.7 pg (27.0-32.0); Mean Corpuscular Volume 94.3 fL (81-99); Mean Platelet Vol. 9.6 fl (6.2-12.0); Monocyte# 0.33 X10^3/uL; Monocyte% 17.7 % (0-10); NRBC Flagged by Analyzer 0 % (0-5); Neutrophil % 59.2 % (47-70); POSITIVE DIFFERENTIAL YES; POSITIVE MORPHOLOGY YES; Platelet Count 102 K/mm3 (150-450); RBC Distribution Width CV 19.9 % (11.6-14.6); RBC Distribution Width SD 68.1 fl (35.1-43.9); Red Blood Count 2.96 M/mm3 (4.2-5.4); White Blood Count 1.9 K/mm3 (4.4-11.0)
--- NOTE | 2021-01-25 07:28 | PCM.PN.HOSP ---
Subjective Subjective Patient seen improving clinically. Her WBC count is up. Plan is for patient to be DC to ECF pending insurance precertification Objective Data Objective Data Vital Signs: Vital Signs Temp Pulse Resp BP Pulse Ox 97.0 F L 91 18 125/64 H 98 01/25/21 03:47 01/25/21 03:47 01/25/21 03:47 01/25/21 03:47 01/25/21 03:47 Oxygen Flow Rate (L/min) 2 Oxygen Delivery Method Nasal Cannula Weight: 93.5 kg Body Mass Index (BMI) 35.4 Intake & Output: Intake and Output for Last 24 Hours 01/23/21 01/24/21 01/25/21 23:59 23:59 23:59 Intake Total 3194.75 / 3194.75 244.75 / 244.75 600 / 600 Output Total 450 / 450 Balance 2744.75 / 2744.75 244.75 / 244.75 600 / 600 Medical Nutrition Assessment Dietitian: Malnutrition Criteria Met Start: 01/21/21 15:40 Freq: Status: Active Protocol: Document 01/21/21 17:55 RMA (Rec: 01/21/21 17:55 RMA [id number]) Nutrition Malnutrition Evidence of Malnutrition Exists Yes Malnutrition (severe): Acute Illness/Injury Evidenced By Suboptimal Energy Intake ( Severe),Weight Loss (Severe) Clinical Problem Acute Disease or Injury Related Malnutrition Etiology Severe protein/calorie malnutrition in the context of acute illness related to inadequate oral intake, altered GI function (nausea/ vomiting) and difficulty swallowing/thrush Signs/Symptoms as evidenced by ~8% wt loss x past 8-9 weeks and PO meeting less than 50% estimated nutrition needs Status Active Problem Recommendation Dietitian Recommendations/Changes Continue regular diet as tolerated. Will add 1 eli ensure compact (120ml) and 240ml apple ensure clear TID w/ meals for additional calories/protein. Will continue ensure enlive 4 times per day w/medpass as ordered. Will adjust ONS as needed and continue regular diet to optimize oral intake as tolerated. Lab / Micro Data Result Diagrams: 01/25/21 06:45 01/25/21 06:45 Labs: Laboratory Results - last 24 hr 01/22/21 07:18: Diff Path Review Reviewed 01/23/21 06:50: Diff Path Review Reviewed 01/24/21 06:30: Diff Path Review Reviewed, Anisocytosis 2+ Micro: Microbiology 01/20/21 18:36 Urine, Catheterized Urine Culture - Final Culture exhibits no growth. 01/20/21 18:50 Blood Culture (Wb) - Venous Blood Culture - Preliminary No growth in 48 hours. 01/20/21 18:25 Blood Culture (Wb) - Anticubital Right Blood Culture - Preliminary No growth in 48 hours. Physical Exam Narrative GENERAL: Patient appears ill looking HEENT: Atraumatic; EYES; Anicteric, Normal Conjunctiva NECK; supple, normal thyroid, RESPIRATORY: Diminished to auscultation CARDIOVASCULAR: Regular S1 S2, GI: soft, normoactive bowel sounds, : No Renal angle tenderness; EXTREMITIES: No edema, no clubbing, MUSCULOSKELETAL: no muscle waisting NEURO: Awake; no lateralizing signs. SKIN: No Rash PSYCH; Flat affect Assessment & Plan Assessment/Plan (1) Generalized weakness: PLAN: Patient is a 55-year-old lady with history of stage III breast cancer admitted with progressive generalized weakness. Patient was found to be neutropenic and anemic with mild thrombocytopenia admitted to regular nursing floor for further management 1. Physical deconditioning - Requested for PT OT eval and psychosocial rehabilitation counselor to assist with discharge planning 2. Chemo induced pancytopenia ?Patient is currently anemic with hemoglobin of 8.2, WBC count is 0.3 with platelet count of 113. Currently being monitored with daily CBC with differential. Patient did receive Neulasta was started on Granix. Patient was found to have low-grade fever on admission with temperature of 99.8 was started on cefepime and blood cultures sent. Cultures have so far remained negative to date -01/25/2021; Patient seen improving clinically. Her WBC count is up. Plan is for patient to be DC to ECF pending insurance precertification 3. Stage II Left breast CA ?Currently on chemo as outpatient 4. Depression with anxiety ?Patient is on Viibryd Latuda as well as Lamictal continue 5. Essential hypertension ?Patient is on verapamil continue 6. Dyslipidemia -Patient is on statin therapy, continued at home dose 7. Irritable bowel syndrome ?Per history 8. Obesity with BMI of 35.4 ?Weight loss advised 9. DVT prophylaxis ?SCDs for now Charges/Coding Visit Charges Inpatient E&M: 43578 Subs Hosp L2
[2021-01-25 07:46] LABS: Differential Indicated SCAN CRITERIA MET
[2021-01-25 07:48] VITALS: BP 118/75; PULSE 94; RESP 18; TEMP 36.9; O2SAT 97
[2021-01-25 07:55] VITALS: O2SAT 96
[2021-01-25] MEDS: traMADol 50 MG Tablet PO (07:55)
[2021-01-25] MEDS: TBO-FILGRASTIM 300 MCG/0.5 ML ML SC (07:55)
[2021-01-25] MEDS: VILAZODONE HYDROCHLORIDE 10 MG TABLET 40 MG PO (07:56)
[2021-01-25] MEDS: Potassium Chloride Oral Tablet 20 MEQ PO (07:56)
[2021-01-25] MEDS: Cholecalciferol (VIT D3) 25 MCG TABLET (1,000 UNITS) 50 MCG PO (07:56)
[2021-01-25] MEDS: Fluconazole 100 MG Tablet 200 MG PO (07:57)
[2021-01-25] MEDS: Verapamil 120 MG Tablet PO (07:57)
[2021-01-25] MEDS: lamoTRIgine 150 MG Tablet PO (07:58)
[2021-01-25 07:59] LABS: Anion Gap 1 (5-15); BUN 5 mg/dL (7-18); Chloride 108 mmol/L (98-107); Creatinine, Serum 0.55 mg/dL (0.55-1.02); EST Glomerular Filtration Rate 120 mL/min (>60); Est Glom Filt Rate - Afr Amer 145 mL/min (>60); Estimated Creatinine Clearance 98.63 ml/min; Glucose 84 mg/dL (74-106); Magnesium 1.6 mg/dL (1.6-2.6); Potassium 3.6 mmol/L (3.5-5.1); Sodium Level 139 mmol/L (136-145)
[2021-01-25] MEDS: TRIHEXYPHENIDYL HCL 2 MG TABLET 4 MG PO (07:59)
[2021-01-25 09:15] LABS: Anisocytosis 2+; Differential Comment SCANNED; Macrocytosis 1+; Microcytosis 1+
--- NOTE | 2021-01-25 09:36 | CASEMGMT ---
Social Work Note DOMONIQUE received call from Mily at [facility] stating [facility] is able to accept pt. Pt likely ready for discharge today to SNF, DOMONIQUE updated Mily. DOMONIQUE in to speak with pt. DOMONIQUE updated pt that [facility], [facility] in [place], is able to accept pt. Pt states understanding. DOMONIQUE updated physician. Plan: [facility] when medically cleared. Concetta Calvin TOP STITCHER, SUPERVISOR PRINTING AND STAMPING
[2021-01-25] MEDS: Enoxaparin 40 MG/0.4 ML Syringe SC (09:38)
--- NOTE | 2021-01-25 12:09 | PCM.TXEXTCAR ---
Diet 01/20/21 21:23 Diet: Regular - General Food consistency:: Regular Liquid Consistency:: Regular/Thin Dietary Modifications:: Neutropenic Type of Dietary Supplement:: Ensure Clear Diet Comments: *apple ES clear & *eli ES compact both Q meal; multiple food allergies Routine Orders/Code Status Code Status: Full Code Wound(s) Right elbow: Wound Type: Abrasion Therapies Physical Therapy: Eval and Treat Occupational Therapy: Eval and Treat Problem/Diagnosis (1) Generalized weakness: Status: Acute Allergies/Procedures Done in Hospital Allergies banana Allergy (Verified 01/17/21 14:25) Hives brompheniramine [From Dimetapp (brompheniramine-PPA)] Allergy (Verified 01/17/21 14:25) Hives cefuroxime Allergy (Verified 01/17/21 14:25) Rash kiwi Allergy (Verified 01/17/21 14:25) Hives latex Allergy (Verified 01/17/21 14:25) Anaphylaxis moxifloxacin HCl [From Avelox] Allergy (Verified 01/17/21 14:25) Hives peach Allergy (Verified 01/17/21 14:25) Hives phenylpropanolamine [From Dimetapp (brompheniramine-PPA)] Allergy (Verified 01/17/21 14:25) Hives red dye Allergy (Verified 01/17/21 14:25) Angioedema shellfish derived Allergy (Verified 01/17/21 14:25) Anaphylaxis strawberry Allergy (Verified 01/17/21 14:25) Hives Sulfa (Sulfonamide Antibiotics) Allergy (Verified 01/17/21 14:25) Rash tetanus and diphtheria toxoids [tetanus & diphtheria toxoids] Allergy (Verified 01/17/21 14:25) Anaphylaxis tetracycline Allergy (Verified 01/17/21 14:25) Rash adhesive tape Adverse Reaction (Verified 01/17/21 14:25) Rash amoxicillin trihydrate [From Augmentin] Adverse Reaction (Verified 01/17/21 14:25) Nausea chlorpheniramine Adverse Reaction (Verified 01/17/21 14:25) Unknown doxycycline Adverse Reaction (Verified 01/17/21 14:25) Nausea eszopiclone [From Lunesta] Adverse Reaction (Verified 01/17/21 14:25) Unknown fluticasone [From Flonase] Adverse Reaction (Verified 01/17/21 14:25) Unknown paroxetine [From Paxil] Adverse Reaction (Verified 01/17/21 14:25) Nausea peanut Adverse Reaction (Verified 01/17/21 14:25) Nausea potassium clavulanate [From Augmentin] Adverse Reaction (Verified 01/17/21 14:25) Nausea procainamide Adverse Reaction (Verified 01/17/21 14:25) Unknown Type of Care/Length of Stay Estimated LOS: Convalescent Care Less Than 30 days Type of Care Needed: Skilled Rehab Potential: Good Prognosis: Good Additional Orders/Day of Discharge Day of Discharge: 01/25/21 Dietary and Speech Recommendations Dietitian Recommendations/Changes: Continue regular diet as tolerated. Will add 1 eli ensure compact (120ml) and 240ml apple ensure clear TID w/ meals for additional calories/protein. Will continue ensure enlive 4 times per day w/medpass as ordered. Will adjust ONS as needed and continue regular diet to optimize oral intake as tolerated. Discharge Plan Admission Admit Date/Time: 01/21/21 14:15 Attending Provider: Gary Owens Primary Care Provider: Meg Meyer Discharge Orders/Prescriptions Prescriptions: New acetaminophen [Tylenol] 325 mg Tablet 650 mg PO Q6H PRN PRN (Reason: Pain 1-10 Or Fever) Qty: 0 RF: 0 lidocaine HCl [Lidocaine Viscous] 2 % Solution 5 ml PO Q3H PRN (Reason: mouth/throat pain) Qty: 0 RF: 0 oxycodone 5 mg Tablet 5 mg PO Q6H PRN 3 Days Qty: 12 RF: 0 Continued diclofenac sodium [Voltaren] 100 GM gel 2 g TP PRN PRN (Reason: Mild-Mod Pain (1-5/10)) RF: 0 meclizine 12.5 MG tablet 12.5 mg PO TID PRN (Reason: Dizziness) RF: 0 albuterol sulfate [Ventolin HFA] 1 INHALER inhaler 2 puff inhalation Q6H PRN PRN (Reason: Shortness Of Breath) RF: 0 oxybutynin chloride 5 MG tablet 5 mg PO TID PRN (Reason: Pain) RF: 0 hydroxyzine pamoate 25 MG capsule 50 mg PO BID PRN (Reason: Allergies) RF: 0 cholecalciferol (vitamin D3) [D3-2000] 2,000 UNIT capsule 2,000 unit PO DAILY RF: 0 nitrofurantoin macrocrystal 50 MG capsule 50 mg PO QHS RF: 0 ondansetron HCl [Zofran] 4 MG tablet 4 mg PO Q8 PRN (Reason: Nausea) RF: 0 Naphcon-A 15 ML drops 1 drp OP PRN PRN (Reason: allergies) RF: 0 Viibryd 40 MG tablet 40 mg PO DAILY RF: 0 verapamil 120 mg Tablet 120 mg PO BID RF: 0 Latuda 80 mg Tablet 80 mg PO QHS RF: 0 trihexyphenidyl 2 mg Tablet 4 mg PO BID RF: 0 modafinil [Provigil] 100 mg Tablet 250 mg PO DAILY RF: 0 lamotrigine [Lamictal] 150 mg Tablet 150 mg PO DAILY RF: 0 atorvastatin [Lipitor] 10 mg Tablet 10 mg PO QHS RF: 0 fluconazole [Diflucan] 200 mg tablet 200 mg PO DAILY Qty: 3 RF: 0 potassium chloride 10 mEq capsule, extended release 20 meq PO BID RF: 0 melatonin 10 mg Tablet 10 mg PO QHS RF: 0 diphenoxylate-atropine 2.5-0.025 mg tablet 1 tab PO TID PRN (Reason: Diarrhea) RF: 0 Discontinued oxycodone-acetaminophen 1 TABLET tablet 1 tab PO Q6H PRN PRN (Reason: Pain) 3 Days Qty: 12 RF: 0 oxycodone-acetaminophen [Percocet] 5-325 mg tablet 1 tab PO Q6H PRN (Reason: pain) 3 Days Qty: 12 RF: 0 tramadol 50 mg tablet 50 mg PO BID PRN (Reason: Pain) RF: 0 Referrals / Follow Up: Meg Meyer MD [Primary Care Provider] - Within 2 Weeks Disposition Disposition (needs filled in before D/C Order can be placed): Senior Living Facility
--- NOTE | 2021-01-25 12:20 | PCM.DC.SUM ---
Providers Date of Admission: 01/21/21 Primary Care Physician: Dr. Meg Meyer MD Reason For Visit: GENERALIZED WEAKNESS Diagnosis Discharge Diagnosis (1) Generalized weakness: Status: Acute Code(s): R53.1 - Weakness Medications at Discharge Home Medications diclofenac sodium [Voltaren] 2 g TP PRN PRN 05/02/15 albuterol sulfate [Ventolin HFA] 2 puff INHALATION Q6H PRN PRN 12/04/15 cholecalciferol (vitamin D3) [D3-2000] 2,000 unit PO DAILY 12/04/15 hydroxyzine pamoate 50 mg PO BID PRN 12/04/15 meclizine 12.5 mg PO TID PRN 12/04/15 oxybutynin chloride 5 mg PO TID PRN 12/04/15 Naphcon-A 1 drp OP PRN PRN 09/15/16 nitrofurantoin macrocrystal 50 mg PO QHS 09/15/16 ondansetron HCl [Zofran] 4 mg PO Q8 PRN 09/15/16 Viibryd 40 mg PO DAILY 02/15/17 Latuda 80 mg PO QHS 11/21/20 atorvastatin [Lipitor] 10 mg PO QHS 11/21/20 lamotrigine [Lamictal] 150 mg PO DAILY 11/21/20 modafinil [Provigil] 250 mg PO DAILY 11/21/20 trihexyphenidyl 4 mg PO BID 11/21/20 verapamil 120 mg PO BID 11/21/20 fluconazole [Diflucan] 200 mg PO DAILY #3 tab 01/17/21 melatonin 10 mg PO QHS 01/20/21 potassium chloride 20 meq PO BID 01/20/21 diphenoxylate-atropine 1 tab PO TID PRN 01/21/21 acetaminophen [Tylenol] 650 mg PO Q6H PRN PRN #0 tab 01/25/21 lidocaine HCl [Lidocaine Viscous] 5 ml PO Q3H PRN #0 ml 01/25/21 oxycodone 5 mg PO Q6H PRN 3 Days #12 tab 01/25/21 Hospital Course Summary of Care Provided Minutes Spent on Discharge: 35 Hospital Course: Patient is a 55-year-old lady with history of stage III breast cancer admitted with progressive generalized weakness. Patient was found to be neutropenic and anemic with mild thrombocytopenia admitted to regular nursing floor for further management 1. Physical deconditioning - Requested for PT OT eval and social services technician to assist with discharge planning 2. Chemo induced pancytopenia ?Patient is currently anemic with hemoglobin of 8.2, WBC count is 0.3 with platelet count of 113. Currently being monitored with daily CBC with differential. Patient did receive Neulasta was started on Granix. Patient was found to have low-grade fever on admission with temperature of 99.8 was started on cefepime and blood cultures sent. Cultures have so far remained negative to date -01/25/2021; Patient seen improving clinically. Her WBC count is up. Plan is for patient to be DC to ECF pending insurance precertification 3. Stage II Left breast CA ?Currently on chemo as outpatient 4. Depression with anxiety ?Patient is on Viibryd Latuda as well as Lamictal continue 5. Essential hypertension ?Patient is on verapamil continue 6. Dyslipidemia -Patient is on statin therapy, continued at home dose 7. Irritable bowel syndrome ?Per history 8. Obesity with BMI of 35.4 ?Weight loss advised 9. DVT prophylaxis ?SCDs for now Physical Exam Narrative GENERAL: Cooperative HEENT: Atraumatic; EYES; Anicteric, Normal Conjunctiva NECK; supple, normal thyroid, RESPIRATORY: Diminished to auscultation CARDIOVASCULAR: Regular S1 S2, GI: soft, normoactive bowel sounds, : No Renal angle tenderness; EXTREMITIES: No edema, no clubbing, MUSCULOSKELETAL: no muscle waisting NEURO: Awake; no lateralizing signs. SKIN: No Rash PSYCH; Flat affect Medical Records Data Medical Nutrition Assessment Dietitian: Malnutrition Criteria Met Start: 01/21/21 15:40 Freq: Status: Active Protocol: Document 01/21/21 17:55 RMA (Rec: 01/21/21 17:55 RMA [id number]) Nutrition Malnutrition Evidence of Malnutrition Exists Yes Malnutrition (severe): Acute Illness/Injury Evidenced By Suboptimal Energy Intake ( Severe),Weight Loss (Severe) Clinical Problem Acute Disease or Injury Related Malnutrition Etiology Severe protein/calorie malnutrition in the context of acute illness related to inadequate oral intake, altered GI function (nausea/ vomiting) and difficulty swallowing/thrush Signs/Symptoms as evidenced by ~8% wt loss x past 8-9 weeks and PO meeting less than 50% estimated nutrition needs Status Active Problem Recommendation Dietitian Recommendations/Changes Continue regular diet as tolerated. Will add 1 eli ensure compact (120ml) and 240ml apple ensure clear TID w/ meals for additional calories/protein. Will continue ensure enlive 4 times per day w/medpass as ordered. Will adjust ONS as needed and continue regular diet to optimize oral intake as tolerated. Weight / BMI Weight Weight: 93.5 kg Body Mass Index (BMI) 35.4 ABG / Lab / Microbiology Data Result Diagrams: 01/25/21 06:45 01/25/21 06:45 Laboratory: Laboratory Results - last 24 hr 01/22/21 07:18: Diff Path Review Reviewed 01/23/21 06:50: Diff Path Review Reviewed 01/24/21 06:30: Diff Path Review Reviewed 01/25/21 06:45: WBC 1.9 L, RBC 2.96 L, Hgb 8.8 L, Hct 27.9 L, MCV 94.3, MCH 29.7, MCHC 31.5 L, RDW Std Deviation 68.1 H, RDW Coeff of Maria Ines 19.9 H, Plt Count 102 L, MPV 9.6, Immature Gran % (Auto) 1.600 H, Neut % (Auto) 59.2, Lymph % (Auto) 15.6 L, [place] % (Auto) 17.7 H, Eos % (Auto) 3.2, Baso % (Auto) 2.7 H, Absolute Neuts (auto) 1.1 L, Absolute Lymphs (auto) 0.29 L, Nucleated RBC % 0, Differential Comment SCANNED, Diff Path Review May foll, Anisocytosis 2+, Microcytosis 1+, Macrocytosis 1+ 01/25/21 06:45: Sodium 139, Potassium 3.6, Chloride 108 H, Carbon Dioxide 30.0, Anion Gap 1 L, BUN 5 L, Creatinine 0.55, Estim Creat Clear Calc 98.63, Est GFR (MDRD) Af Amer 145, Est GFR (MDRD) Non-Af 120, BUN/Creatinine Ratio 9.0 L, Glucose 84, Calcium 9.0, Magnesium 1.6 Microbiology: Microbiology 01/20/21 18:36 Urine, Catheterized Urine Culture - Final Culture exhibits no growth. 01/20/21 18:50 Blood Culture (Wb) - Venous Blood Culture - Preliminary No growth in 48 hours. 01/20/21 18:25 Blood Culture (Wb) - Anticubital Right Blood Culture - Preliminary No growth in 48 hours. D/C Instructions Discharge Diet: No restrictions Discharge Activity: Return to Normal Activity Call your doctor if you observe: Fever of 101 or Higher, Shortness of breath, Fainting spells and Chest pain Meaningful Use Info Meaningful Use Diagnoses (Choose all that apply): None applicable Discharge Plan Admission Admit Date/Time: 01/21/21 14:15 Attending Provider: Gary Owens Primary Care Provider: Meg Meyer Discharge Orders/Prescriptions Prescriptions: New acetaminophen [Tylenol] 325 mg Tablet 650 mg PO Q6H PRN PRN (Reason: Pain 1-10 Or Fever) Qty: 0 RF: 0 lidocaine HCl [Lidocaine Viscous] 2 % Solution 5 ml PO Q3H PRN (Reason: mouth/throat pain) Qty: 0 RF: 0 oxycodone 5 mg Tablet 5 mg PO Q6H PRN 3 Days Qty: 12 RF: 0 Continued diclofenac sodium [Voltaren] 100 GM gel 2 g TP PRN PRN (Reason: Mild-Mod Pain (1-510)) RF: 0 meclizine 12.5 MG tablet 12.5 mg PO TID PRN (Reason: Dizziness) RF: 0 albuterol sulfate [Ventolin HFA] 1 INHALER inhaler 2 puff inhalation Q6H PRN PRN (Reason: Shortness Of Breath) RF: 0 oxybutynin chloride 5 MG tablet 5 mg PO TID PRN (Reason: Pain) RF: 0 hydroxyzine pamoate 25 MG capsule 50 mg PO BID PRN (Reason: Allergies) RF: 0 cholecalciferol (vitamin D3) [D3-2000] 2,000 UNIT capsule 2,000 unit PO DAILY RF: 0 nitrofurantoin macrocrystal 50 MG capsule 50 mg PO QHS RF: 0 ondansetron HCl [Zofran] 4 MG tablet 4 mg PO Q8 PRN (Reason: Nausea) RF: 0 Naphcon-A 15 ML drops 1 drp OP PRN PRN (Reason: allergies) RF: 0 Viibryd 40 MG tablet 40 mg PO DAILY RF: 0 verapamil 120 mg Tablet 120 mg PO BID RF: 0 Latuda 80 mg Tablet 80 mg PO QHS RF: 0 trihexyphenidyl 2 mg Tablet 4 mg PO BID RF: 0 modafinil [Provigil] 100 mg Tablet 250 mg PO DAILY RF: 0 lamotrigine [Lamictal] 150 mg Tablet 150 mg PO DAILY RF: 0 atorvastatin [Lipitor] 10 mg Tablet 10 mg PO QHS RF: 0 fluconazole [Diflucan] 200 mg tablet 200 mg PO DAILY Qty: 3 RF: 0 potassium chloride 10 mEq capsule, extended release 20 meq PO BID RF: 0 melatonin 10 mg Tablet 10 mg PO QHS RF: 0 diphenoxylate-atropine 2.5-0.025 mg tablet 1 tab PO TID PRN (Reason: Diarrhea) RF: 0 Discontinued oxycodone-acetaminophen 1 TABLET tablet 1 tab PO Q6H PRN PRN (Reason: Pain) 3 Days Qty: 12 RF: 0 oxycodone-acetaminophen [Percocet] 5-325 mg tablet 1 tab PO Q6H PRN (Reason: pain) 3 Days Qty: 12 RF: 0 tramadol 50 mg tablet 50 mg PO BID PRN (Reason: Pain) RF: 0 Referrals / Follow Up: Meg Meyer MD [Primary Care Provider] - Within 2 Weeks Disposition Disposition (needs filled in before D/C Order can be placed): [facility] Facility Charges/Coding Visit Charges Inpatient E&M: 55627 Disch Hosp
[2021-01-25 13:44] VITALS: BP 118/62; PULSE 100; RESP 18; TEMP 36.7; O2SAT 99
[2021-01-25 13:46] LABS: Pathologist Review Reviewed
--- NOTE | 2021-01-25 14:00 | CASEMGMT ---
Social Work Note Pt to discharge to [facility] today. DOMONIQUE faxed completed discharge paperwork to [facility] including transfer to extended care facility, signed medication list, any scripts, COVID test/tool and [facility]. Original in SNF folder and copy on pt's chart. DOMONIQUE completed [facility] in [facility]. Original in SNF folder and copy on pt's chart. DOMONIQUE spoke with RN, pt to transport via wheelchair van. DOMONIQUE accessed trip assist and arranged transportation via wheelchair van for 3:00pm. Transportation form completed and placed on SNF folder and copy on pt's chart. DOMONIQUE updated RN on transportation time. DOMONIQUE placed a call to Mily at [facility] and updated her on transportation time. Plan: [facility] skilled under convalescent level of care with [facility] transporting pt via wheelchair van at 3:00pm Concetta Calvin MSW, [employer]
== END 2021-01-25 15:00 | disposition skilled nursing facility (03) | DRG 809 ==
LOC: ED 19:46 → MS2 19:58 → MS3 01-22 14:29
PROVIDERS: Family Medicine; Admitting Provider Hospitalist; Emergency Provider Student in an Organized Health Care Education/Training Program; PCP Internal Medicine; Visit Provider Internal Medicine
DX: D61.810 Antineoplastic chemotherapy induced pancytopenia (principal); B37.0 Candidal stomatitis; R53.1 Weakness; C50.912 Malignant neoplasm of unspecified site of left female breast; T45.1X5A Adverse effect of antineoplastic and immunosuppressive drugs, initial encounter; M79.89 Other specified soft tissue disorders; D70.9 Neutropenia, unspecified; M19.90 Unspecified osteoarthritis, unspecified site; R29.6 Repeated falls; I10 Essential (primary) hypertension; E78.5 Hyperlipidemia, unspecified; J45.909 Unspecified asthma, uncomplicated; K58.9 Irritable bowel syndrome, unspecified; G89.4 Chronic pain syndrome; F32.A Depression, unspecified; F41.9 Anxiety disorder, unspecified; E66.9 Obesity, unspecified; Z68.37 Body mass index [BMI] 37.0-37.9, adult; Z79.84 Long term (current) use of oral hypoglycemic drugs; Z79.899 Other long term (current) drug therapy; Z90.10 Acquired absence of unspecified breast and nipple
CPT/HCPCS: 36415; 71045; 80048; 80053; 81001; 82306; 83605; 83735; 84443; 85014; 85018; 85025; 86850; 86900; 86901; 86920; 86922; 87040; 87086; 87426; 93005; 93970; 97163; 97166; 97530; 97535; 97802; 99285; J7030; J7040; P9016; A4216; J1447; J2405

== ENCOUNTER 2021-04-04 18:22 | Emergency (ER) | payer MEDICARE, MEDICAID, SELFPAY ==
[2021-04-04 18:22] VITALS: BP 156/89; PULSE 99; RESP 18; TEMP 36; O2SAT 98; BMI 32.2
[2021-04-04 20:03] VITALS: BP 140/54; PULSE 98; RESP 24; TEMP 36.7; O2SAT 98
--- NOTE | 2021-04-04 20:16 | EKG12_ITS ---
Test Reason : N/V Blood Pressure : / mmHG Vent. Rate : 100 BPM Atrial Rate : 100 BPM P-R Int : 162 ms QRS Dur : 088 ms QT Int : 376 ms P-R-T Axes : 019 -01 018 degrees QTc Int : 485 ms Normal sinus rhythm Prolonged QT Abnormal ECG Confirmed by DONA DOUGLAS, MISAEL ([id number]), features editor BARBARA ODONNELL ([id number]) on 04/05/2021 2:15:53 PM Referred By: DILAN Confirmed By:MISAEL CARCAMO MD
--- NOTE | 2021-04-04 20:19 | EDS_ITS ---
HPI HPI - GI History of Present Illness Chief Complaint: Nausea/Vomiting Narrative Narrative: Patient with past medical history of nonmetastatic breast carcinoma, hysterectomy, chronic pain syndrome for which she sees pain management presents with 1 month of nausea, vomiting, and diarrhea. She states that she was not hospitalized for 5 days and went to [facility] for rehab for 6 weeks. She has been home for a month. She and her relate history that they think that she was exposed to something by her roommate which is causing her to have green, liquid stools along with vomiting. She can go days without vomiting, but over the last 30 hours has been unable to take any of her medications or keep any food or water down. She had a headache which is resolving. She denies any abdominal pain but states that she feels weak, and tired and is unable to eat anything. She vomited 6 or 7 times in the last 24 hours without any blood in her emesis. She denies fevers or chills. She is not currently on chemotherapy as she finished that, but is supposed to have radiation therapy this week. [facility] Medical History Arthritis Asthma BiPAP (biphasic positive airway pressure) dependence Breast cancer Cancer Chronic pain GERD (gastroesophageal reflux disease) Hyperlipidemia IBS (irritable bowel syndrome) Kidney disease Rheumatoid arthritis Schizo affective schizophrenia Sleep apnea Tardive dyskinesia Home Medications diclofenac sodium [Voltaren] 2 g TP PRN PRN 05/02/15 [History Last Taken Unknown] albuterol sulfate [Ventolin HFA] 2 puff INHALATION Q6H PRN PRN 12/04/15 [History Last Taken Unknown] hydroxyzine pamoate 50 mg PO BID PRN 12/04/15 [History Last Taken 12/04/15 08:00] meclizine 12.5 mg PO TID PRN 12/04/15 [History Last Taken Unknown] oxybutynin chloride 5 mg PO TID PRN 12/04/15 [History Last Taken 12/04/15 09:00] Naphcon-A 1 drp OP PRN PRN 09/15/16 [History Last Taken Unknown] nitrofurantoin macrocrystal 50 mg PO QHS 09/15/16 [History Last Taken 01/19/21] ondansetron HCl [Zofran] 4 mg PO Q8 PRN 09/15/16 [History Last Taken Unknown] Viibryd 40 mg PO DAILY 02/15/17 [History Last Taken 01/20/21] Latuda 80 mg PO QHS 11/21/20 [History Last Taken 01/19/21] atorvastatin [Lipitor] 10 mg PO QHS 11/21/20 [History Last Taken 01/19/21] lamotrigine [Lamictal] 150 mg PO BID 11/21/20 [History Last Taken 01/20/21] modafinil [Provigil] 250 mg PO DAILY 11/21/20 [History Last Taken 01/20/21] trihexyphenidyl 2 mg PO BID 11/21/20 [History Last Taken 01/20/21] verapamil 120 mg PO BID 11/21/20 [History Last Taken 01/20/21] melatonin 10 mg PO QHS 01/20/21 [History Last Taken 01/19/21] potassium chloride 20 meq PO BID 01/20/21 [History Last Taken 01/20/21] diphenoxylate-atropine 1 tab PO TID PRN 01/21/21 [History Last Taken Unknown] acetaminophen [Tylenol] 650 mg PO Q6H PRN PRN #0 tab 01/25/21 [Rx Last Taken Unknown] deutetrabenazine [Austedo] 9 mg PO BID 04/04/21 [History Last Taken Unknown] promethazine 25 mg OK Q6H PRN #6 ea 04/04/21 [Rx Last Taken Unknown] tramadol 50 mg PO TID 04/04/21 [History Last Taken Unknown] Allergy/AdvReac Type Severity Reaction Status Date / Time banana Allergy Hives Verified 04/04/21 18:25 brompheniramine Allergy Hives Verified 04/04/21 18:25 [From Dimetapp (brompheniramine-PPA)] cefuroxime Allergy Rash Verified 04/04/21 18:25 kiwi Allergy Hives Verified 04/04/21 18:25 latex Allergy Anaphylaxis Verified 04/04/21 18:25 moxifloxacin HCl Allergy Hives Verified 04/04/21 18:25 [From Avelox] peach Allergy Hives Verified 04/04/21 18:25 phenylpropanolamine Allergy Hives Verified 04/04/21 18:25 [From Dimetapp (brompheniramine-PPA)] red dye Allergy Angioedema Verified 04/04/21 18:25 shellfish derived Allergy Anaphylaxis Verified 04/04/21 18:25 strawberry Allergy Hives Verified 04/04/21 18:25 Sulfa (Sulfonamide Allergy Rash Verified 04/04/21 18:25 Antibiotics) tetanus and diphtheria Allergy Anaphylaxis Verified 04/04/21 18:25 toxoids [tetanus & diphtheria toxoids] tetracycline Allergy Rash Verified 04/04/21 18:25 adhesive tape AdvReac Rash Verified 04/04/21 18:25 amoxicillin trihydrate AdvReac Nausea Verified 04/04/21 18:25 [From Augmentin] chlorpheniramine AdvReac Unknown Verified 04/04/21 18:25 doxycycline AdvReac Nausea Verified 04/04/21 18:25 eszopiclone [From Lunesta] AdvReac Unknown Verified 04/04/21 18:25 fluticasone [From Flonase] AdvReac Unknown Verified 04/04/21 18:25 paroxetine [From Paxil] AdvReac Nausea Verified 04/04/21 18:25 peanut AdvReac Nausea Verified 04/04/21 18:25 potassium clavulanate AdvReac Nausea Verified 04/04/21 18:25 [From Augmentin] procainamide AdvReac Unknown Verified 04/04/21 18:25 Family History Other Cancer Surgical History History of cholecystectomy History of hysterectomy History of knee surgery History of lithotripsy Social History household members: spouse housing: house Smoking Status: Never smoker alcohol intake: current alcohol intake frequency: other substance use type: does not use ROS ROS ED ROS Narrative Constitutional: No fever, no chills. HEENT: No sore throat. No neck pain. No loss of vision. No rhinorrhea. Cardiovascular: No chest pain. No palpitations. No pedal edema. Respiratory: No cough, no shortness of breath. Abdominal: No abdominal pain. Positive nausea. Positive vomiting. Diarrhea, green in color. Genitourinary: No dysuria. No hematuria. Musculoskeletal: No myalgias. No arthralgias. Neurologic: No headaches. No dizziness. No lightheadedness. Skin: No rash. No change in color. Psychiatric: No depression. No anxiety. EXAM Physical Exam Narrative Exam Narrative: Afebrile. Vital signs noted. HEENT: Normocephalic. Atraumatic. PERRL, EOMI. Neck soft and supple. No point tenderness or step off. Cardiovascular: Regular rate and rhythm. No murmurs, rubs, or gallops appreciated. Respiratory: No tachypnea. Lungs clear to auscultation bilaterally. Gastrointestinal: Abdomen soft, nontender, with normoactive bowel sounds. No rebound or guarding. Neurological: Awake. Alert. Nonfocal, nonlateralizing. Skin: No rash. Normal color. No pallor. Musculoskeletal: No pedal edema. Full range of motion extremities. Const Vital Signs: 04/04/21 18:22 04/04/21 20:03 04/04/21 20:33 Temperature 96.8 F L 98.1 F Temperature Source Temporal Temporal Pulse Rate 99 98 92 Respiratory Rate 18 24 H 16 Blood Pressure 156/89 H 140/54 H 156/60 H Blood Pressure Mean 111 82 92 Pulse Ox 98 98 99 Oxygen Delivery Method Room Air Room Air Room Air MDM MDM MDM Narrative Medical decision making narrative: Comprehensive work-up was pursued. She was bolus normal saline 1 L intravenously. She was administered ondansetron for her nausea and reported vomiting. I am concerned about dehydration. Additionally, she has had prior surgeries, although she has history of irritable bowel syndrome. I will check a CBC, CMP, and lipase additionally. I do feel that imaging is indicated given her complex history. EKG demonstrates normal sinus rhythm at 100 bpm without ectopy or acute ST changes. She has a normal white count of 5.6, hemoglobin stable at 13.6. Platelet count normal at 329. CMP shows alk phos slightly elevated at 134 which I think is nonspecific. Creatinine elevated to 1.15 with a BUN of 18. Lipase is low at 58. Her urinalysis shows 5 ketones but 0-5 WBCs, negative nitrites. I do not feel antibiotics are indicated. CT of the abdomen and pelvis shows no evidence of colitis or obstruction. At this point in time, after a bolus of IV fluids and intravenous ondansetron, patient states that she feels mildly improved. She has oral Zofran and Phenergan at home. I am hesitant to add Reglan as she states that she has IBS-D and at times has to take Imodium and Lomotil. She was given a prescription for 6 Phenergan suppositories to use as needed. At this point in time, I feel she can be discharged safely home with follow-up. Return instructions to the emergency department were reviewed. Disposition is discharged home in stable condition. Lab Data Attestation: I reviewed the patient's lab results. Labs: Laboratory Results - last 24 hr 04/04/21 04/04/21 04/04/21 19:45 19:45 19:45 WBC 5.6 RBC 4.16 L Hgb 13.6 Hct 41.6 MCV 100.0 H MCH 32.7 H MCHC 32.7 RDW Std Deviation 48.1 H RDW Coeff of Maria Ines 13.1 Plt Count 329 MPV 8.8 Immature Gran % (Auto) 0.000 Neut % (Auto) 79.3 H Lymph % (Auto) 12.0 L [place] % (Auto) 7.0 Eos % (Auto) 1.3 Baso % (Auto) 0.4 Absolute Neuts (auto) 4.5 Absolute Lymphs (auto) 0.67 L Nucleated RBC % 0 Sodium 140 Potassium 4.2 Chloride 103 Carbon Dioxide 24.0 Anion Gap 13 BUN 18 Creatinine 1.15 H Estim Creat Clear Calc 47.17 Est GFR (MDRD) Af Amer 63 Est GFR (MDRD) Non-Af 52 L BUN/Creatinine Ratio 15.7 Glucose 88 Calcium 10.0 Total Bilirubin 0.20 AST 15 ALT 15 Alkaline Phosphatase 134 H Total Protein 7.3 Albumin 3.3 Globulin 4.0 Albumin/Globulin Ratio 0.8 L Lipase 58 L Urine Color Yellow Urine Clarity Clear Urine pH 6.5 Ur Specific [place] 1.015 Urine Protein 15 H Urine Glucose (UA) Normal Urine Ketones 5 H Urine Occult Blood 50 H Urine Nitrite Negative Urine Bilirubin Negative Urine Urobilinogen Normal Ur Leukocyte Esterase 100 H Urine RBC 10-25 SEEN Urine WBC 0-5 SEEN Ur Squamous Epith Cells 0 SEEN Urine Bacteria RARE Urine Mucus 0 SEEN Radiography Diagnostic Testing: Clinical Impression(s) from Imaging Studies Abdomen/Pelvis CT 04/04/21 21:00 Discharge Plan Triage Chief Complaint: Nausea/Vomiting ED Provider: Venancio Miller Dx/Rx/DC Orders Clinical Impression: Nausea vomiting and diarrhea, Dehydration Instructions: Nausea Vomit Control, ED Dehydration (Adult), ED Vomiting (Adult) Prescriptions: New promethazine 25 mg suppository 25 mg OK Q6H PRN (Reason: nausea and vomiting) Qty: 6 RF: 0 No Action diclofenac sodium [Voltaren] 100 GM gel 2 g TP PRN PRN (Reason: Mild-Mod Pain (1-510)) RF: 0 meclizine 12.5 MG tablet 12.5 mg PO TID PRN (Reason: Dizziness) RF: 0 albuterol sulfate [Ventolin HFA] 1 INHALER inhaler 2 puff inhalation Q6H PRN PRN (Reason: Shortness Of Breath) RF: 0 oxybutynin chloride 5 MG tablet 5 mg PO TID PRN (Reason: Pain) RF: 0 hydroxyzine pamoate 25 MG capsule 50 mg PO BID PRN (Reason: Allergies) RF: 0 nitrofurantoin macrocrystal 50 MG capsule 50 mg PO QHS RF: 0 ondansetron HCl [Zofran] 4 MG tablet 4 mg PO Q8 PRN (Reason: Nausea) RF: 0 Naphcon-A 15 ML drops 1 drp OP PRN PRN (Reason: allergies) RF: 0 Viibryd 40 MG tablet 40 mg PO DAILY RF: 0 verapamil 120 mg Tablet 120 mg PO BID RF: 0 Latuda 80 mg Tablet 80 mg PO QHS RF: 0 trihexyphenidyl 2 mg Tablet 2 mg PO BID RF: 0 modafinil [Provigil] 100 mg Tablet 250 mg PO DAILY RF: 0 lamotrigine [Lamictal] 150 mg Tablet 150 mg PO BID RF: 0 atorvastatin [Lipitor] 10 mg Tablet 10 mg PO QHS RF: 0 potassium chloride 10 mEq capsule, extended release 20 meq PO BID RF: 0 melatonin 10 mg Tablet 10 mg PO QHS RF: 0 diphenoxylate-atropine 2.5-0.025 mg tablet 1 tab PO TID PRN (Reason: Diarrhea) RF: 0 acetaminophen [Tylenol] 325 mg Tablet 650 mg PO Q6H PRN PRN (Reason: Pain 1-10 Or Fever) Qty: 0 RF: 0 tramadol 50 mg tablet 50 mg PO TID RF: 0 [place] 9 mg tablet 9 mg PO BID RF: 0 Primary Care Provider: Meg Meyer Referrals: Meg Meyer MD [Primary Care Provider] - 04/06/21 Disposition Disposition: Home, Self Care
[2021-04-04 20:28] LABS: Mucous, Urine 0 SEEN /hpf (<or=2+); Squamous Epithelial Cells - UA 0 SEEN /hpf (5-10)
[2021-04-04] MEDS: 0.9% Normal Saline 1,000 ML 1000 ML IV (20:30)
[2021-04-04] MEDS: Ondansetron 4 MG/2 ML Vial IV (20:30)
[2021-04-04 20:32] LABS: Absolute Lymphocyte Count 0.67 X10^3/uL (0.83-4.51); Absolute Neutrophil Count 4.5 X10^3/uL (2.0-7.7); Basophil# 0.02 X10^3/uL; Basophil% 0.4 % (0-1); Eosinophil# 0.07 X10^3/uL; Eosinophils% 1.3 % (0-5); Hematocrit 41.6 % (37-47); Hemoglobin 13.6 g/dL (12.0-15.0); Lymphocyte # 0.67 X10^3/ul (0.83-4.51); Mean Corp Hgb Conc 32.7 g/dL (32-36); Mean Corpuscular Hgb 32.7 pg (27.0-32.0); Mean Platelet Vol. 8.8 fl (6.2-12.0); Monocyte# 0.39 X10^3/uL; NRBC Flagged by Analyzer 0 % (0-5); Neutrophil # 4.45 X10^3/uL (2.7-7.7); Neutrophil % 79.3 % (47-70); Platelet Count 329 K/mm3 (150-450); RBC Distribution Width CV 13.1 % (11.6-14.6); RBC Distribution Width SD 48.1 fl (35.1-43.9); Red Blood Count 4.16 M/mm3 (4.2-5.4); White Blood Count 5.6 K/mm3 (4.4-11.0)
[2021-04-04 20:33] VITALS: BP 156/60; PULSE 92; RESP 16; O2SAT 99
[2021-04-04 20:37] LABS: Color, Urine Yellow (Yellow); Glucose, Dipstick Normal (Normal); Ketone-Dipstick 5 mg/dl (Negative); Leukocyte Esterase-Dipstick 100 /ul (Negative); Nitrite-Dipstick Negative (Negative); Occult Blood-Urine 50 /ul (Negative); Protein-Dipstick 15 mg/dl (Negative); Specific Gravity, Urine 1.015 (1.002-1.030); Urine Bilirubin Dipstick Negative (Negative); Urine Clarity Clear (Clear); Urine Urobilinogen Normal (Normal); Urine pH 6.5 (5.0 - 8.0)
[2021-04-04 20:46] LABS: ALB/GLOB Ratio 0.8 RATIO (0.9-2.4); AST(SGOT) 15 U/L (15-37); Alanine Aminotransfer ALT/SGPT 15 U/L (13-56); Albumin, Serum 3.3 g/dL (3.2-5.0); Alkaline Phosphatase 134 U/L (45-117); Anion Gap 13 (5-15); BUN 18 mg/dL (7-18); BUN/Creat Ratio 15.7 RATIO (10-20); Chloride 103 mmol/L (98-107); Creatinine, Serum 1.15 mg/dL (0.55-1.02); EST Glomerular Filtration Rate 52 mL/min (>60); Est Glom Filt Rate - Afr Amer 63 mL/min (>60); Estimated Creatinine Clearance 47.17 ml/min; Glucose 88 mg/dL (74-106); Lipase 58 U/L (73-393); Potassium 4.2 mmol/L (3.5-5.1); Protein, Total 7.3 g/dL (6.4-8.2); Sodium Level 140 mmol/L (136-145)
[2021-04-04 20:48] LABS: Red Blood Cells-Urine 10-25 SEEN /hpf (0-5); White Blood Cells 0-5 SEEN /hpf (0-5)
[2021-04-04 20:49] LABS: Bacteria RARE /hpf (None Seen)
--- NOTE | 2021-04-04 21:00 | CT_ITS ---
STUDY: CT Abdomen And Pelvis W/ Contrast Injection 04/04/2021 9:16 PM REASON FOR EXAM: Female, 55 years old. ABDOMINAL PAIN nausea and vomiting TECHNIQUE: Transaxial images were obtained without oral contrast, and with IV 100mL Isovue-370 intravenous contrast. Individualized dose optimization techniques were used for this CT. COMPARISON: 08.07.17 FINDINGS: The visualized lung bases are unremarkable. The visualized portions of the heart are within normal limits. Normal liver. There are surgical clips in the gallbladder fossa consistent with a prior cholecystectomy. Normal spleen. Normal pancreas. Normal bilateral adrenal glands. Non obstructive 1 to 2 mm right renal parenchymal stones. Non obstructive 4 to 6mm left renal parenchymal stones. Normal visualized stomach. Normal small intestine. Stool throughout the colon. The appendix is visualized and appears normal. There are no acute findings of the abdominal aorta. Normal inferior vena cava. Subcentimeter mesenteric lymph nodes. Normal urinary bladder. There is absence of the uterus consistent with a prior hysterectomy. There is an umbilical hernia containing fat. There are diffuse degenerative changes of the visualized lumbar spine. IMPRESSION: (NOT LISTED IN ORDER OF SIGNIFICANCE) There are bilateral renal calculi. There is no evidence for an obstruction. There is no hydronephrosis. Hysterectomy. Other findings as above. Electronically Signed: Christiano Skelton MD at 21:18 EST , Service support , CT/Abdomen/Pelvis W IV Cont ONLY
[2021-04-04 23:20] VITALS: BP 131/80; PULSE 102; RESP 19; O2SAT 96
== END 2021-04-04 23:21 | disposition home or self-care (01) ==
PROVIDERS: Emergency Provider Emergency Medicine; PCP Internal Medicine; Visit Provider Emergency Medicine
DX: R11.2 Nausea with vomiting, unspecified (principal); F25.9 Schizoaffective disorder, unspecified; M06.9 Rheumatoid arthritis, unspecified; C50.919 Malignant neoplasm of unspecified site of unspecified female breast; R19.7 Diarrhea, unspecified; E78.5 Hyperlipidemia, unspecified; E86.0 Dehydration; M19.90 Unspecified osteoarthritis, unspecified site; K58.0 Irritable bowel syndrome with diarrhea; G89.4 Chronic pain syndrome; K21.9 Gastro-esophageal reflux disease without esophagitis; Z79.899 Other long term (current) drug therapy
CPT/HCPCS: 74177; 80053; 81001; 83690; 85025; 93005; 96361; 96374; 99284; Q9967; J2405

== ENCOUNTER → 2021-10-24 | Outpatient (CLI) | payer MEDICARE, MEDICAID, SELFPAY ==
[2021-10-24 15:42] LABS: Amphetamine Urine VISTA NEGATIVE (<1000 ng/mL); Barbiturate Urine VISTA NEGATIVE (< 200 ng/mL); Benzodiazepine Urine VISTA NEGATIVE (< 200 ng/mL); Cocaine Urine VISTA NEGATIVE (< 300 ng/mL); Ecstacy Urine VISTA NEGATIVE (< 500 ng/mL); Methadone Urine VISTA NEGATIVE (< 300 ng/mL); PCP Urine VISTA NEGATIVE (< 25 ng/mL); THC Urine VISTA NEGATIVE (< 50 ng/mL); Vista UDS pH Range 4
== END | disposition home or self-care (01) ==
PROVIDERS: PCP Internal Medicine; Referring Provider Anesthesiology Pain Medicine; Visit Provider Anesthesiology Pain Medicine
DX: F11.20 Opioid dependence, uncomplicated (principal)
CPT/HCPCS: 80307

== ENCOUNTER 2022-07-10 10:30 | Outpatient (RCR) | payer MEDICARE, MEDICAID, SELFPAY ==
--- NOTE | 2022-03-23 15:35 | HP.OTEVAL ---
Patient's Visit Information KELLIE CORTÉS is a 56 year old F, referred to Occupational Therapy by Dr. Rell Sullivan DO, with a diagnosis of left UE lymphedema. Date of Evaluation: 03/23/22 Occupational Therapist: Bryanna Simon, WALTERR/Brandon, CHT - Subjective This 56 year old female was seen for OT eval with dx of left UE lymphedema. pt states she has struggled with lymphedema since Mar- 2021- started when she got radiation (25 session). 3 lymph node removed-. pt states she ordered her new compression sleeve and noticed more swelling. pt states she wears her compression garment for about 6-7 hours. pt states hand swelling in her arm in the mornings -swelling does not appear to move-. pt arrives with poorly placed compression sleeve with rolled ends both distal and proximal. pt had recent fall and could not get herself up- will get PT to help increase her leg strength. - Lymphedema (Circumferential Measure) MCP: right 18.5cm left 19.5cm Wrist: right 15.5cm left 16cm Lower forearm: right 22cm left 27cm Largest forearm: right 30cm left 32cm Elbow: right 30.5cm left 33cm Largest humerus: right 41cm left 43cm Axcillary: right 40cm left 42.5cm - Quick DASH-Disab of Arm,Shoulder& Hand Quick DASH Score: 43.1800 - Goals Demonstrate a 20% reduction in edema by d/c: Yes Demonstrate adequate knowledge of self-massage by 2nd week: Yes Demonstrate adequate knowledge skin care/prec by 2nd week: Yes Demonstrate adequate knowledge therapeutic exercises by d/c: Yes Select approp compression garment w/donning/care/wear by d/c: Yes Voice need to replace compression garment every 4-6mo by dc: Yes - Rehabilitation General Assessment: pt demo with stage II lymphedema in left UE. pt demo a need for skilled OT services 1x week for 3-4weeks to ed. pt on life long mtg of lymphedema. Pt ed. on lymph stim ex. and self manual lymph massage and use of compression garment. Therapist advised using velco closure compression garment to mtg flair in swelling to get compression sleeve on. pt demo understanding. pt has been using compression sleeve since August and no changes- as pt has struggled mtg. lymphedema with conservative method, pt would benefit from flexithouch vaso pneumatic pump with chest component to mt. lymphedema. pt demo understanding and agree to POC. Rehabilitation Potential: Good - Anticipated Interventions Education re assistive Equipment, Education re Diagnosis, Education re Life-long lymphedema Management, Education re Self-Bandaging Techniques, Education re Skin Care and Precautions, Education re Self Massage Techniques, Education re Correct Donning Tech,Care&Wearing Sched Comp Garments, Caregiver Training, Home Program - Visit Plan Frequency: 1x/Week Duration: 4 Weeks TEXT: Thank you for the opportunity to evaluate your patient. For Medicare and Medicare HMO plans, please review the plan of care and approve it. It will need to be FAXED BACK to us at [phone] for Medicare purposes. Please let me know if there are questions or concerns regarding this plan of care. Physician Signature: Date:
--- NOTE | 2022-03-30 13:41 | HP.PTEVAL ---
Patient's Visit Information KELLIE CORTÉS is a 56 year old F referred to Physical Therapy by Dr. Rell Sullivan DO with a diagnosis of frequent falls and weakness. Date of Evaluation: 03/30/22 Physical Therapist: MANUEL Bundy - Visit Plan Frequency: 2x /Week Duration: 2 Months Plan: 2X/ week for 8 weeks for LE strength, balance, weight bearing strength exercises to carry to [facility] for osteoporosis, with HEP - Subjective Pt reports that she had chemo over a year ago and it wiped her out and was in rehab at [facility] and then rehab at home and then [facility] PT for 6 months. She fell in [place] a week ago Sunday and it took her and another dre to get her back up cause her legs are weak. She also has osteoporosis as well and wants to do the weight bearing exercises. She did more balance stuff at [facility] instead of strength. She was in a WC, rollator and then a cane. Now she only used the cane when it is wet out or where there will be sidewalks. She reports that she does not have trouble getting out of a chair or out of bed.. (she has to go slow due to bad back). She sees Dr Madden for that. She drives. She is cancer free at this point. 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 She is not DM. Stairs: she has them at home with one railing and she goes up and down recip. [facility] - Pain Back pain Pain Intensity (Out of 10): 2 Comment: She took Tramadol before she came here today. - Objective Gait: Walks with decreased ability to leaf size picker her feet at times. LE MMT: R hip flex 7.2# and L hip flex 5.2#. R knee ext 9.5# and L 10.1#. R knee flex 7# and L 6.9#. FGA: 14. Standing heel and toe raises: pt is able to raise toes and heels with UE support about 1/2 the normal ROM. Tight B gastroc. Stairs: up and down recip with 2 hand rails with slow controlled motion. Sit to stand: Pt is able to stand up with much weakness noted without her UE X1 but it was a struggle for her. - Balance/Special Test Scores Functional Gait Assessment Score: 14 % Disability: 53.3400 Lower Extremity Functional Score: 30 - Goals Goal 1:: I HEP Goal Time Frame: 6-8 Weeks Goal 2:: Increase LE strength (at time of the eval: R hip flex 7.2# and L hip flex 5.2#. R knee ext 9.5# and L 10.1#. R knee flex 7# and L 6.9#). Goal Time Frame: 6-8 Weeks Goal 3:: Be able to get up out of a chair X 5 in a row without UE support or signs of weakness Goal Time Frame: 6-8 Weeks Goal 4:: Increase balance score on FGA (at time of the eval score was 14) Goal Time Frame: 6-8 Weeks - Rehabilitation Potential Rehabilitation Potential: Good - Anticipated Interventions Patient/Client Instruction: Educate patient on: Condition, Plan of Care For the Purpose of:: To improve muscle performance and motor function, To improve ability to perform ADL's, To increase tolerance to activity/condition/position, To improve performance and independence with ADL's, To decrease level of supervision to perform tasks, To improve ability of physical actions for home/community/work/leisure, To improve gait and locomotor functions, To improve health of tissue, To improve endurance, To improve balance, To improve safety with gait Therapeutic Exercise to Include: Strength training, Endurance training, Balance training, Body mechanics, Postural training, Gait and locomotor training, Neuromotor development, Passive ROM, Active ROM For the Purpose of:: To improve muscle performance and motor function, To improve ability to perform ADL's, To increase tolerance to activity/condition/position, To improve performance and independence with ADL's, To decrease level of supervision to perform tasks, To improve ability of physical actions for home/community/work/leisure, To improve gait and locomotor functions, To improve health of tissue, To increase flexibility/ROM, To improve endurance, To improve balance, To improve safety with gait Functional Training to Include: Gait training For the Purpose of:: To improve gait and locomotor functions, To improve safety with gait Manual Therapy Techniques to Include: Passive ROM For the Purpose of:: To increase ROM, To improve gait and locomotor functions, To improve health of tissue, To decrease soft tissue restriction, To increase flexibility/ROM Thank you for the opportunity to evaluate your patient. For Medicare and Medicare HMO plans, please review the plan of care and approve it. It will need to be FAXED BACK to us at [phone] for Medicare purposes. For Medicare only, by signing this I certify the plan of care. Please let me know if there are questions or concerns regarding this plan of care. Physician Signature: Date:
--- NOTE | 2022-04-05 11:38 | OTREVAL_ITS ---
Dr. Rell Sullivan, DO, It has been my pleasure to treat KELLIE CORTÉS over the last 2 visits for left UE lymphedema. Please see the progress note below for an update on the occupational therapy plan of care! Subjective: pt arrives 2 weeks from her initial eval. pt has been using a compression sleeve since June 2021 and has been faithfully wearing daily along with performing her HEP. pt did initiate self manual massage but feels she has not made good gains at this time. Arm still feels heavy and swelling continues as her sleeve is tighter on her arm. Objective/Function: MCP: right 18.5cm left 19.5cm current 20.5cm a increase. Wrist: right 15.5cm left 16cm current 16.5cm a increase. Lower forearm: right 22cm left 27cm current 26cm a decrease. Largest forearm: right 30cm left 32cm current 33cm a increase. Elbow: right 30.5cm left 33cm current 33cm same as eval. Largest humerus: right 41cm left 43cm current 41cm a decrease. Axcillary: right 40cm left 42.5cm current 41cm a decrease. with all pt is doing to assist herself in mtg. her left UE lymphedema pt continues to struggle with results- pt would benefit from a flexitouch compression devices with truncal portions to stimulate circulation and assist in decreasing pts lymphedema and supporting life long mtg. Plan Frequency: 1x/Week Duration: 4 Weeks Plan: Due to limited decrease in edema pt going to use vlecro closer compression device, as compression sleeve continues to roll down. Goals - Goals Demonstrate a 20% reduction in edema by d/c: Yes Demonstrate adequate knowledge of self-massage by 2nd week: Yes Demonstrate adequate knowledge skin care/prec by 2nd week: Yes Demonstrate adequate knowledge therapeutic exercises by d/c: Yes Select approp compression garment w/donning/care/wear by d/c: Yes Voice need to replace compression garment every 4-6mo by dc: Yes Patient Goals: Learn how to Manage Lymphedema, Learn how to Apply Compression Stockings Anticipated Interventions Anticipated Interventions: Education re assistive Equipment, Education re Diagnosis, Education re Life-long lymphedema Management, Education re Self- Bandaging Techniques, Education re Skin Care and Precautions, Education re Self Massage Techniques, Education re Correct Donning Tech,Care&Wearing Sched Comp Garments, Caregiver Training, Home Program Please do not hesitate to contact me at [phone] by phone or if you have questions or concerns regarding this new plan of care! Sincerely, Bryanna Simon, OTR/L, CHT
--- NOTE | 2022-05-05 10:19 | OTREVAL_ITS ---
Dr. Rell Sullivan, DO, It has been my pleasure to treat KELLIE CORTÉS over the last 3 visits for left UE lymphedema. Please see the progress note below for an update on the occupational therapy plan of care! Subjective: pt has been performing conservative treatment for left UE lymphedema- pt using elevation, lymph stimulation exercise, self manual lymph massage and using compression. pt states she is doing ok but feels arm continues to feel heavy. Objective/Function: left MCP from 20.5cm current 19cm. left wrist from 16.5 current 18cm. left lower forearm left 31cm increase from 27cm. left forearm 34cm increase from 27. left elbow 32cm increase from 33cm. left hum. 40cm decrease from 41cm. left axill 42cm increase from 41cm. pt continues to demo difficulty with mtg. left UE lymphedema and conservative methods have not made change in limb size. with all pt is doing to assist herself in mtg. her left UE lymphedema pt continues to struggle with results- pt would benefit from a flexitouch compression devices with truncal portions to stimulate circulation and assist in decreasing pts lymphedema and supporting life long mtg. Plan Plan: Due to limited decrease in edema pt going to use vlecro closer compression device, as compression sleeve continues to roll down. pts conservative treatment for lymphedema making limited gains pt demo need for home compression flexitouch unit for life long mtg. of lymphedema. will have pt call when she gets flexitouch unit Goals - Goals Demonstrate a 20% reduction in edema by d/c: Yes Demonstrate adequate knowledge of self-massage by 2nd week: Yes Demonstrate adequate knowledge skin care/prec by 2nd week: Yes Demonstrate adequate knowledge therapeutic exercises by d/c: Yes Select approp compression garment w/donning/care/wear by d/c: Yes Voice need to replace compression garment every 4-6mo by dc: Yes Patient Goals: Learn how to Manage Lymphedema, Learn how to Apply Compression Stockings Anticipated Interventions Anticipated Interventions: Education re assistive Equipment, Education re Diagnosis, Education re Life-long lymphedema Management, Education re Self- Bandaging Techniques, Education re Skin Care and Precautions, Education re Self Massage Techniques, Education re Correct Donning Tech,Care&Wearing Sched Comp Garments, Caregiver Training, Home Program Please do not hesitate to contact me at [phone] by phone or Fax: if you have questions or concerns regarding this new plan of care! Sincerely, Bryanna Simon OTR/L, CHT
--- NOTE | 2022-05-11 09:00 | HP.PTREVAL_ITS ---
Dr. Rell Sullivan, DO, It has been my pleasure to treat KELLIE CORTÉS over the last 10 visits for frequent falls and weakness. Please see the progress note below for an update on the physical therapy plan of care! Subjective: Pt feels tired today cause she hung all her clothes on the line cause she has no gas in her house until tomm. Pt feels that she has more endurance and strength. Pt would like to continue to see how much more improvement she can get. Objective/Function: FGA (at time of the eval score was 14) 19. Stairs: up and down recip with 2 hand rails with a lot of effort to go up the stairs (Pt reports it is an endurance issue but also looks to be a little weakness present as well). LE MMT: R hip flex 8.8# and L hip flex 9.5#. R knee ext 13.7# and L 16.1#. R knee flex 7.7# and L 9.9#). Sit to stand: X5 with the use of her arms on her thighs and not a smooth motion Plan Plan: Focus on slowly transitioning to the H&W machines as pt would like to begin a rountine when she is done with us here. May still do higher level // bars, sit to stand exercises. 2X/ week for 8 weeks for LE strength, balance, weight bearing strength exercises to carry to HEP for osteoporosis, with HEP Balance/Gait/Functional tests - Balance/Special Test Scores Functional Gait Assessment Score: 19 % Disability: 36.6700 Lower Extremity Functional Score: 41 Goals Goal 1:: I HEP Goal Time Frame: 6-8 Weeks Goal 2:: Increase LE strength (at time of the eval: R hip flex 7.2# and L hip flex 5.2#. R knee ext 9.5# and L 10.1#. R knee flex 7# and L 6.9#). Goal Time Frame: 6-8 Weeks Goal 3:: Be able to get up out of a chair X 5 in a row without UE support or signs of weakness Goal Time Frame: 6-8 Weeks Goal 4:: Increase balance score on FGA (at time of the eval score was 14) Goal Time Frame: 6-8 Weeks Goal 5:: Be able to get up from the floor with a chair or surface to push up on with SBA Goal Time Frame: 2-4 Weeks Anticipated Interventions Patient/Client Instruction: Educate patient on: Condition, Plan of Care For the Purpose of:: To improve muscle performance and motor function, To improve ability to perform ADL's, To increase tolerance to activity/condition/position, To improve performance and independence with ADL's, To decrease level of supervision to perform tasks, To improve ability of physical actions for home/community/work/leisure, To improve gait and locomotor functions, To improve health of tissue, To improve endurance, To improve balance, To improve safety with gait Therapeutic Exercise to Include: Strength training, Endurance training, Balance training, Body mechanics, Postural training, Gait and locomotor training, Neuromotor development, Passive ROM, Active ROM For the Purpose of:: To improve muscle performance and motor function, To impr ove ability to perform ADL's, To increase tolerance to activity/condition/position, To improve performance and independence with ADL's, To decrease level of supervision to perform tasks, To improve ability of physical actions for home/community/work/leisure, To improve gait and locomotor functions, To improve health of tissue, To increase flexibility/ROM, To improve endurance, To improve balance, To improve safety with gait Functional Training to Include: Gait training For the Purpose of:: To improve gait and locomotor functions, To improve safety with gait Manual Therapy Techniques to Include: Passive ROM For the Purpose of:: To increase ROM, To improve gait and locomotor functions, To improve health of tissue, To decrease soft tissue restriction, To increase flexibility/ROM Please do not hesitate to contact me at [phone] by phone or if you have questions or concerns regarding this new plan of care! Sincerely, Selene Pitts MPT
--- NOTE | 2022-06-12 10:57 | HP.PTREVAL ---
Dr. Rell Sullivan, DO, It has been my pleasure to treat KELLIE CORTÉS over the last 19 visits for frequent falls and weakness. Please see the progress note below for an update on the physical therapy plan of care! Subjective: She wants to continue working with PT for another month. She feels that going up and down the stairs does fatigue her for a while. She was able to get up off the floor yesterday using the coffee table. Objective/Function: Sit to stand: still uses arms on thighs to get up out of a chair. FGA:23. R hip flex 8.7# and L hip flex 7.4#. R knee ext 10.7# and L 11.5#. R knee flex 11.8# and L 11.3#). Plan Plan: 2X/ week for 3 weeks to Focus on slowly transitioning to the H&W machines as pt would like to begin a rountine when she is done with us here. May still do higher level // bars, sit to stand exercises. Balance/Gait/Functional tests - Balance/Special Test Scores Functional Gait Assessment Score: 24 % Disability: 20.0000 Lower Extremity Functional Score: 36 Goals Goal 1:: I HEP and gym routine Goal Time Frame: 6-8 Weeks Goal 2:: Increase LE strength (at time of the eval: R hip flex 7.2# and L hip flex 5.2#. R knee ext 9.5# and L 10.1#. R knee flex 7# and L 6.9#). Goal Time Frame: 6-8 Weeks Goal Progress: Goal Met Goal 3:: Be able to get up out of a chair X 5 in a row without UE support or signs of weakness Goal Time Frame: 6-8 Weeks Goal Progress: Progressing Goal 4:: Increase balance score on FGA (at time of the eval score was 14) Goal Time Frame: 6-8 Weeks Goal Progress: Goal Met Goal 5:: Be able to get up from the floor with a chair or surface to push up on with SBA Goal Time Frame: 2-4 Weeks Goal Progress: Goal Met Anticipated Interventions Patient/Client Instruction: Educate patient on: Condition, Plan of Care For the Purpose of:: To improve muscle performance and motor function, To improve ability to perform ADL's, To increase tolerance to activity/condition/position, To improve performance and independence with ADL's, To decrease level of supervision to perform tasks, To improve ability of physical actions for home/community/work/leisure, To improve gait and locomotor functions, To improve health of tissue, To improve endurance, To improve balance, To improve safety with gait Therapeutic Exercise to Include: Strength training, Endurance training, Balance training, Body mechanics, Postural training, Gait and locomotor training, Neuromotor development, Passive ROM, Active ROM For the Purpose of:: To improve muscle performance and motor function, To improve ability to perform ADL's, To increase tolerance to activity/condition/position, To improve performance and independence with ADL's, To decrease level of supervision to perform tasks, To improve ability of physical actions for home/community/work/leisure, To improve gait and locomotor functions, To improve health of tissue, To increase flexibility/ROM, To improve endurance, To improve balance, To improve safety with gait Functional Training to Include: Gait training For the Purpose of:: To improve gait and locomotor functions, To improve safety with gait Manual Therapy Techniques to Include: Passive ROM For the Purpose of:: To increase ROM, To improve gait and locomotor functions, To improve health of tissue, To decrease soft tissue restriction, To increase flexibility/ROM Please do not hesitate to contact me at [phone] by phone or if you have questions or concerns regarding this new plan of care! Sincerely, MANUEL Bundy
--- NOTE | 2022-07-04 11:07 | HP.PTDCSUM ---
It has been my pleasure to treat KELLIE CORTÉS referred by Dr. Rell Sullivan DO, with the diagnosis of frequent falls and weakness for a total of 24 visit(s). Discharge Date: 07/04/22 Please see the following information for a summary of their discharge status. Subjective: She is a little nervous about setting up the machines. She has a nodule on her thyroid and not sure if it is cancer or not and will find out August 03. Pt had a back injection last week but her back feels better. Back pain Pain Intensity (Out of 10): 4 R hip pain Pain Intensity (Out of 10): 4 % Improvement: 80 Objective/Function: Did well with exercises today. States she felt a workout today. Goal 1:: I HEP and gym routine Goal Progress: Goal Met Goal 2:: Increase LE strength (at time of the eval: R hip flex 7.2# and L hip flex 5.2#. R knee ext 9.5# and L 10.1#. R knee flex 7# and L 6.9#). Goal Progress: Goal Met Goal 3:: Be able to get up out of a chair X 5 in a row without UE support or signs of weakness Goal Progress: Goal Met Goal 4:: Increase balance score on FGA (at time of the eval score was 14) Goal Progress: Goal Met Goal 5:: Be able to get up from the floor with a chair or surface to push up on with SBA Goal Progress: Goal Met Plan: DC PT to I H&W routine Discharge Comments: DC PT to I gym routine If there are questions or concerns regarding this patient's physical therapy, please feel free to call me at [phone]. Thank you for the referral of this patient. Sincerely, Selene Pitts, MPT Balance/Gait/Functional tests - Balance/Special Test Scores Functional Gait Assessment Score: 24 % Disability: 20.0000 Lower Extremity Functional Score: 41
--- NOTE | 2022-07-10 10:56 | HP.OTDCSUM ---
It has been my pleasure to treat KELLIE CORTÉS under orders from Dr. Rell Sullivan DO, for the diagnosis of left UE lymphedema for a total of 4 visit(s). Please see the following information for a summary of their discharge status. % Improvement: 50 Objective/Function: left MCP from 20.5cm current 19cm. left wrist from 16.5 current 18cm. left lower forearm left 31cm increase from 27cm. left forearm 34cm increase from 27. left elbow 32cm increase from 33cm. left hum. 40cm decrease from 41cm. left axill 42cm increase from 41cm. pt continues to demo difficulty with mtg. left UE lymphedema and conservative methods have not made change in limb size. with all pt is doing to assist herself in mtg. her left UE lymphedema pt continues to struggle with results- pt would benefit from a flexitouch compression devices with truncal portions to stimulate circulation and assist in decreasing pts lymphedema and supporting life long mtg. Patient Goals: Learn how to Manage Lymphedema, Learn how to Apply Compression Stockings Demonstrate a 20% reduction in edema by d/c: Yes Demonstrate adequate knowledge of self-massage by 2nd week: Yes Demonstrate adequate knowledge skin care/prec by 2nd week: Yes Demonstrate adequate knowledge therapeutic exercises by d/c: Yes Select approp compression garment w/donning/care/wear by d/c: Yes Voice need to replace compression garment every 4-6mo by dc: Yes Plan: pt is mtg her left UE lymphedema on her own and his happy with the ability to purchase her compression sleeves online. Discharge Comments: pt has met OT goals and now has her home compression pump to assist with her Lymphedema mtg. pt is also initiating health and wellness program. pt agrees with d.c. If there are questions or concerns regarding this patient's occupational therapy, please fell free to call me at [phone]. Thank you for the referral of this patient. Sincerely, Bryanna Simon, OTR/L, CHT
== END 2022-07-10 13:36 | disposition home or self-care (01) ==
LOC: OT 10:30
PROVIDERS: PCP Internal Medicine; Referring Provider Student in an Organized Health Care Education/Training Program; Visit Provider Student in an Organized Health Care Education/Training Program
DX: I89.0 Lymphedema, not elsewhere classified (principal); M81.0 Age-related osteoporosis without current pathological fracture; R29.6 Repeated falls; R53.1 Weakness
CPT/HCPCS: 97110; 97161; 97166; 97530

== ENCOUNTER → 2022-07-31 | Outpatient (CLI) | payer MEDICARE, MEDICAID, SELFPAY ==
[2022-07-31 13:35] LABS: Amphetamine Urine VISTA NEGATIVE (<1000 ng/mL); Barbiturate Urine VISTA NEGATIVE (< 200 ng/mL); Benzodiazepine Urine VISTA NEGATIVE (< 200 ng/mL); Cocaine Urine VISTA NEGATIVE (< 300 ng/mL); Ecstacy Urine VISTA NEGATIVE (< 500 ng/mL); Methadone Urine VISTA NEGATIVE (< 300 ng/mL); PCP Urine VISTA NEGATIVE (< 25 ng/mL); THC Urine VISTA NEGATIVE (< 50 ng/mL); Vista UDS pH Range 5
== END | disposition home or self-care (01) ==
PROVIDERS: PCP Student in an Organized Health Care Education/Training Program; Referring Provider Anesthesiology Pain Medicine; Visit Provider Anesthesiology Pain Medicine
DX: F11.20 Opioid dependence, uncomplicated (principal)
CPT/HCPCS: 80307

== ENCOUNTER → 2022-09-30 | Outpatient (CLI) | payer MEDICARE, MEDICAID, SELFPAY ==
--- NOTE | 2022-09-30 09:57 | MRI_ITS ---
STUDY: MRI LUMBAR SPINE WITHOUT CONTRAST REASON FOR EXAM: Female, 57 years old. herniated disc L5/S1 Bertolotti syndrome, LBP TECHNIQUE: Standardized fat and water weighted pulse sequences were obtained in the sagittal and axial planes. COMPARISON: 03/04/2020 FINDINGS: T12-L1: Normal endplates. Normal disc height, hydration and morphology. Normal bilateral facet joints. Normal central canal and bilateral lateral recesses. Normal bilateral intervertebral neural foramina. Normal lumbar lordosis. There is no substantial scoliosis. Normal conus medullaris that terminates at the T12. L1-2: Normal endplates. Normal disc height, hydration and morphology. Normal bilateral facet joints. Normal central canal and bilateral lateral recesses. Normal bilateral intervertebral neural foramina. L2-3: Normal endplates. Normal disc height, hydration and morphology. Normal bilateral facet joints. Normal central canal and bilateral lateral recesses. Normal bilateral intervertebral neural foramina. L3-4: Mild bilateral facet hypertrophy and ligament flavum hypertrophy. No change in the mild bilobed disc protrusion produces mild spinal stenosis and mild bilateral neural foraminal stenosis. L4-5: Mild bilateral facet hypertrophy and moderate ligament flavum hypertrophy. No change in a mild broad disc protrusion asymmetric left which produces mild spinal stenosis, mild right lateral recess stenosis, moderate left lateral recess stenosis with abutment of the left L5 nerve root and mild bilateral neural foraminal stenosis. L5-S1: Normal endplates. Normal disc height, hydration and morphology. Normal bilateral facet joints. Normal central canal and bilateral lateral recesses. Normal bilateral intervertebral neural foramina. Normal visualized sacral ala. Mild fracture related edema in the posterior subcutaneous fat. MRI/Spine Lumbar (Routine) IMPRESSION: No change from 03/04/2020 Electronically Signed: Fernando Hill MD at 23:36 EDT ,
== END | disposition home or self-care (01) ==
PROVIDERS: PCP Student in an Organized Health Care Education/Training Program; Referring Provider Orthopaedic Surgery; Visit Provider Orthopaedic Surgery
DX: Q76.49 Other congenital malformations of spine, not associated with scoliosis (principal)
CPT/HCPCS: 72148

== ENCOUNTER 2023-04-24 09:57 | Day surgery (SDC) | payer MEDICARE, MEDICAID, SELFPAY ==
[2023-04-17 11:29] LABS: Absolute Lymphocyte Count 1.28 X10^3/uL (0.83-4.51); Absolute Neutrophil Count 3.8 X10^3/uL (2.0-7.7); Basophil# 0.05 X10^3/uL; Basophil% 0.9 % (0-1); Eosinophil# 0.19 X10^3/uL; Eosinophils% 3.3 % (0-5); Hematocrit 40.1 % (37-47); Hemoglobin 12.8 g/dL (12.0-15.0); Lymphocyte # 1.28 X10^3/ul (0.83-4.51); Mean Corp Hgb Conc 31.9 g/dL (32-36); Mean Corpuscular Hgb 30.5 pg (27.0-32.0); Mean Corpuscular Volume 95.5 fL (81-99); Mean Platelet Vol. 8.7 fl (6.2-12.0); Monocyte% 8.6 % (0-10); NRBC Flagged by Analyzer 0 % (0-5); Neutrophil # 3.75 X10^3/uL (2.7-7.7); Neutrophil % 64.5 % (47-70); Platelet Count 291 K/mm3 (150-450); RBC Distribution Width CV 13.7 % (11.6-14.6); RBC Distribution Width SD 48.1 fl (35.1-43.9); White Blood Count 5.8 K/mm3 (4.4-11.0)
[2023-04-17 11:52] LABS: Anion Gap 5 (5-15); BUN 22 mg/dL (7-18); BUN/Creat Ratio 15.5 RATIO (10-20); Calcium,Total 9.4 mg/dL (8.5-10.1); Chloride 108 mmol/L (98-107); Creatinine, Serum 1.42 mg/dL (0.55-1.02); EST Glomerular Filtration Rate 40 mL/min (>60); Est Glom Filt Rate - Afr Amer 49 mL/min (>60); Glucose 109 mg/dL (74-106); Sodium Level 142 mmol/L (136-145)
[2023-04-17 11:56] LABS: Magnesium 2.3 mg/dL (1.6-2.6)
[2023-04-17 12:32] LABS: HIV - WCH Non-Reactive (Nonreactive); Hepatitis B Surface Antibody Non-Reactive; Hepatitis C Antibody Non-Reactive (Nonreactive)
[2023-04-18 07:09] LABS: Hepatitis A AB, Total Negative (Negative)
[2023-04-24] VITALS (8 sets, daily range): BP systolic 133–154; BP diastolic 67–88; PULSE 75–91; RESP 14–18; TEMP 36–36.3; O2SAT 95–100; BMI 39.7
[2023-04-24] MEDS: Acetaminophen 500 MG Tablet 1000 MG PO (10:28)
[2023-04-24] MEDS: Lactated Ringers 1,000 ML 15 ML IV (10:28)
--- NOTE | 2023-04-24 10:30 | RAD_ITS ---
EXAM: XR THORACIC SPINE, 2 VIEWS CLINICAL INDICATION: LAMINOTOMY VS LAMINECTOMY TECHNIQUE: Frontal and lateral views of the thoracic spine. COMPARISON: No relevant prior studies available. FINDINGS: Frontal and lateral fluoroscopic images of the lower thoracic spine obtained in the OR. Subsequent placement of intraspinal stimulator wire at the lower thoracic level. See operative note for additional information. RAD/Thoracic Spine 2 Views IMPRESSION: As above. Electronically Signed: Sampson Moeller MD at 16:31 EST ,
--- OUTSIDE RECORDS SUMMARY | 2023-04-24 10:34 | XMS RPT_ITS | CCD ---
Author Name Unknown Address [address] [place] [address] Organization [facility] Care Team Providers Care Leather Tacker Name Role Phone HAILEE GAINES Unavailable Unavailable TALAMPAS, JUAN M Unavailable Unavailable TALAMPAS, JUAN M Unavailable Unavailable HAILEE GAINES Unavailable Unavailable HAILEE GAINES Unavailable Unavailable TALAMPAS, JUAN M Unavailable Unavailable YASMINE DOUGLAS, DR MCGOWAN Primary Care Physician ROMAR DO, DR VALIENTE Primary Care Physician [phone] STEFFANIE SULLIVAN Primary Care Unavailable SELMA HAWK Attending Unavailable BRANDEN MILLIGAN Attending Unavailable STEFFANIE SULLIVAN Primary Care Unavailable STEFFANIE SULLIVAN Primary Care Unavailable SELMA HAWK Attending Unavailable ROMSTEFFANIE KONG Primary Care Unavailable SELMA HAWK Attending Unavailable STEFFANIE SULLIVAN Primary Care Unavailable JAK MEDINA Attending Unavailabl e SIMONAARSTEFFANIE Primary Care Unavailable SELMA HAWK Attending Unavailable STEFFANIE SULLIVAN Primary Care Unavailable SELMA HAWK Attending Unavailable ROMAR DO, DR VALIENTE Attending Unavailable ROMAR DO, DR VALIENTE Primary Care Unavailable ROMAR DO, DR VALIENTE Primary Care Unavailable ROMAR DO, DR VALIENTE Attending Unavailable ROMAR DO, DR VALIENTE Primary Care Unavailable ROMAR DO, DR VALIENTE Attending Unavailable ROMAR DO, DR VALIENTE Primary Care Unavailable ROMAR DO, DR VALIENTE Attending Unavailable ROMAR DO, DR VALIENTE Primary Care Unavailable CHRISTIAN DOUGLAS, DR GOTTI Attending Unavailab caden GONZALES MD, DR GOTTI Attending Unavailab le ROMAR DO, DR VALIENTE Primary Care Unavailable ROMAR DO, DR VALIENTE Primary Care Unavailable CHRISTIAN DOUGLAS, DR GOTTI Attending Unavailab le ROMAR DO, DR VALIENTE Attending Unavailable ROMAR DO, DR VALIENTE Primary Care Unavailable ROMAR DO, DR VALIENTE Attending Unavailable ROMAR DO, DR VALIENTE Primary Care Unavailable ROMAR DO, DR VALIENTE Primary Care Unavailable CHRISTIAN DOUGLAS, DR GOTTI Attending Unavailab le ROMAR, STEFFANIE Primary Care Unavailable OLVIN BILLINGSLEY Referring Unavailable ROMAR, STEFFANIE Primary Care Unavailable HOLM, AMITKUMAR Referring Unavailable HOSCHEIT, BRITTANY Referring Unavailable ROMAR, STEFFANIE Primary Care Unavailable HOSCHEIT, BRITTANY Referring Unavailable ROMAR, STEFFANIE Primary Care Unavailable CHRISTINA RODRIGUEZ Attending Unavailable ROMAR, STEFFANIE Primary Care Unavailable ROMAR, STEFFANIE Referring Unavailable ROMAR, STEFFANIE Primary Care Unavailable MONIKA, NANCYMAN Referring Unavailable ROMAR, STEFFANIE Primary Care Unavailable HOLM, ROGELIO Referring Unavailable ROMAR, STEFFANIE Primary Care Unavailable QUINTON DIAZ Attending Unavailable ROMAR, STEFFANIE Primary Care Unavailable NAVIN GORDON Attending Unavailable ROMAR, STEFFANIE Primary Care Unavailable MONIKA, ISMAEL Referring Unavailable ROMAR, STEFFANIE Primary Care Unavailable QUINTON DIAZ Attending Unavailable ROMAR, STEFFANIE Primary Care Unavailable ROMAR, STEFFANIE Primary Care Unavailable ROMAR, STEFFANIE Referring Unavailable GHANY, SHIRLENEMED Referring Unavailable ROMAR, STEFFANIE Primary Care Unavailable ROMAR, STEFFANIE Primary Care Unavailable BRANDEN MILLIGAN Referring Unavailable BRANDEN MILLIGAN Attending Unavailable ROMAR, STEFFANIE Primary Care Unavailable MONIKA, NANCYMAN Referring Unavailable ROMAR, STEFFANIE Primary Care Unavailable GHANY, SHIRLENEMED Referring Unavailable ROMAR, STEFFANIE Primary Care Unavailable ROMAR, STEFFANIE Primary Care Unavailable JAK MEDINA Referring Unavailabl e ROMAR, STEFFANIE Primary Care Unavailable HEIDI, NAVIN Referring Unavailable AURELIA GEORGE Attending Unavailable ROMAR, STEFFANIE Primary Care Unavailable MONIKA, NANCYMAN Referring Unavailable ROMAR, STEFFANIE Primary Care Unavailable HOLM, ROGELIO Referring Unavailable ROMAR, STEFFANIE Primary Care Unavailable BRANDEN MILLIGAN Attending Unavailable Allergies Allergy Classification Reported Allergen(s) Allergy Type Date of Onset Reaction(s) Facility (3 sources) Adhesive agent; Translations: [ADHESIVE] Propensity to adverse reactions (disorder) 1 [facility] Repository (3 sources) Adhesive Tape; Translations: [ADHESIVE TAPE (ROSINS)] Propensity to adverse reactions (disorder) 4 [facility] Repository (12 sources) cefuroxime; Translations: [CEFUROXIME] Drug Allergy 3 Eruption of skin (disorder) [facility] Repository (3 sources) Contrast media; Translations: [CONTRAST DYE] Propensity to adverse reactions (disorder) 1 [facility] Repository (12 sources) Contrast media; Translations: [RED DYE] Propensity to adverse reactions (disorder) 4 [facility] Repository (12 sources) doxycycline; Translations: [DOXYCYCLINE] Drug Allergy 3 Abdominal pain (finding) [facility] Repository (1 source) egg extract; Translations: [EGG] Drug Allergy [facility] Repository (12 sources) eszopiclone; Translations: [ESZOPICLONE] Drug Allergy 2 Unknown [facility] Repository Medications Current Medications Medication Drug Class(es) Dates Sig (Normalized) Sig (Original) Tylenol (1 source) Start: 01-09-2023 Tylenol Oral, PRN as needed for pain, 0 Refill(s) Start Date: 01/09/23 Status: Ordered Albuterol (7 sources) beta2-Adrenergic Agonist Start: 2023 End: 10-09-2023 take 2 puff(s) by inhalation every four hours as needed for wheezing Ventolin HFA MDI (90 mcg/inh) inhalation aerosol 2 puff(s), Inhalation, q4h, PRN Shortness of breath or wheezing, use with spacer chamber. PHARMACY PLEASE DISPENSE SPACER. Okay to substitute alternative brand if needed for insurance., # 1 EA, 5 Refill(s), [facility]: [id number], 165, cm, 04/12/23 13:37:00 EST, Height, kg, 04/12/23 13:37:00 EST, Dosing Weight Start Date: 04/12/23 Stop Date: 10/09/23 Status: Ordered Completed/Discontinued Medications Medication Drug Class(es) Dates Sig (Normalized) Sig (Original) modafinil (9 sources) Sympathomimetic-lik e Agent Start: 01-20-2022 modafinil Dose : 100 mg =, Oral, qAM, 0 Refill(s), 85.7 Start Date: 01/20/22 Status: Ordered Problems Active Problems Problem Classification Problem Date Documented Da te Episodic/Chronic Abdominal hernia (7 sources) Hernia of anterior abdominal wall 02-21-2022 Episodic Acquired foot deformities (3 sources) Toeing-in 10-06-2022 Episodic Allergic reactions (1 source) Allergy to drug 01-09-2023 Episodic Anxiety disorders (1 source) Generalized anxiety disorder; Translations: [DYLAN (generalized anxiety disorder)] Onset: 06-27-2022 Chronic Cancer of breast (3 sources) Malignant neoplasm of unspecified site of left female breast; Translations: [Intraductal carcinoma in situ of left breast] Onset: 10-21-2020 Chronic Cancer of breast (7 sources) History of malignant neoplasm of breast 05-04-2022 Episodic Cardiac dysrhythmias (16 sources) Tachycardia; Translations: [Palpitations] 05-04-2020 Episodic Past or Other Problems Problem Classification Problem Date Documented Da te Episodic/Chronic Calculus of urinary tract (8 sources) Recurrent kidney stone; Translations: [Calculus of kidney] Onset: 03-21-2005 02-21-2022 Episodic Deficiency and other anemia (1 source) Anemia, unspecified; Translations: [Anemia, unspecified type] Onset: 05-17-2022 Episodic Genitourinary symptoms and ill-defined conditions (5 sources) Blood in urine; Translations: [Other proteinuria] Onset: 11-10-2022 11-09-2022 Episodic Malaise and fatigue (1 source) Other fatigue; Translations: [Fatigue due to depression] Onset: 06-27-2022 Episodic Other bone disease and musculoskeletal deformities (1 source) Disorder of bone, unspecified; Translations: [Chronic kidney disease-mineral and bone disorder] Onset: 11-20-2022 Episodic Other hereditary and degenerative nervous system conditions (2 sources) Drug induced subacute dyskinesia; Translations: [Dyskinesia, tardive] Onset: 06-27-2022 Episodic Other screening for suspected conditions (not mental disorders or infectious disease) (1 source) Encounter for screening mammogram for malignant neoplasm of breast; Translations: [Encounter for screening mammogram for malignant neoplasm of breast] Onset: 08-23-2022 Episodic Residual codes; unclassified (1 source) Estrogen receptor positive status [ER+]; Translations: [Malignant neoplasm of areola of left breast in female, estrogen receptor positive (HCC)] Onset: 05-17-2022 Episodic Substance-related disorders (1 source) Other psychoactive substance use, unspecified with psychoactive substance-induced sleep disorder; Translations: [Drug-induced insomnia (HCC)] Onset: 11-16-2005 Episodic Urinary tract infections (3 sources) Urinary tract infection, site not specified; Translations: [Urinary tract infection, site not specified] Onset: 11-09-2022 Episodic Results Test Name Value Interpretation Reference Range Facil ity Encounters Encounter Date Encounter Type Care Provider Facility Start: 04-20-2023 End: 04-20-2023 ambulatory STEFFANIE SULLIVAN Facility:[facility] Start: 2023 End: 04-13-[address] STEFFANIE SULLIVAN DO Facility: Start: 2023 End: [address] STEFFANIE SULLIVAN DO [facility] Start: 2023 End: 04-13-2023 ambulatory STEFFANIE SULLIVAN Facility:[facility] Start: 04-02-2023 End: 04-02-2023 ambulatory STEFFANIE SULLIVAN [facility] Start: 03-09-2023 End: 03-09-2023 ambulatory STEFFANIE SULLIVAN Facility:[facility] Start: 02-12-2023 End: 02-12-2023 ambulatory STEFFANIE SULLIVAN [facility] Start: 02-07-2023 End: 02-07-2023 ambulatory STEFFANIE SULLIVAN Facility:[facility] Start: 01-22-2023 End: 01-23-2023 ambulatory STEFFANIE SULLIVAN Facility:[facility] Start: 01-10-2023 End: 01-10-2023 ambulatory STEFFANIE SULLIVAN Facility:[facility] Start: 01-08-2023 End: 01-09-2023 ambulatory AURELIA GEORGE Facility:[facility] Start: 01-04-2023 End: 01-05-2023 ambulatory STEFFANIE SULLIVAN Facility:[facility] Start: 12-25-2022 End: 12-25-2022 ambulatory STEFFANIE SULLIVAN [facility] Start: 12-15-2022 End: 12-15-2022 ambulatory STEFFANIE SULLIVAN Facility:[facility] Start: 12-13-2022 End: 12-14-2022 ambulatory STEFFANEI SULLIVAN Facility:[facility] Start: 11-29-2022 End: 11-30-[address] STEFFANIE SULLIVAN DO Facility:A Start: 11-29-2022 End: 11-29-[address] STEFFANIE SULLIVAN DO [facility] Start: 11-22-2022 End: 11-22-2022 ambulatory STEFFANIE SULLIVAN Facility:[facility] Start: 11-20-2022 End: 11-21-2022 ambulatory STEFFANIE SULLIVAN Facility:[facility] Start: 11-10-2022 End: 11-11-2022 ambulatory STEFFANIE SULLIVAN Facility:[facility] Start: 11-09-2022 End: 11-14-[address] STEFFANIE SULLIVAN DO Facility:[facility] Start: 11-09-2022 End: 11-13-[address] STEFFANIE SULLIVAN DO [facility] Start: 11-04-2022 End: 11-04-2022 ambulatory STEFFANIE SULLIVAN Facility:[facility] Start: 10-02-2022 End: 10-03-2022 ambulatory STEFFANIE SULLIVAN Facility:[facility] Start: 08-23-2022 End: 08-24-[address] STEFFANIE SULLIVAN DO Facility:[facility] Start: 08-23-2022 End: 08-23-[address] ANA MARÍA GONZALES MD [facility] Start: 08-23-2022 End: 08-23-2022 ambulatory AURELIA GEORGE Facility:[facility] Start: 08-17-2022 End: 08-18-[address] ANA MARÍA GONZALES MD Facility:[facility] Start: 08-04-2022 End: 08-05-2022 ambulatory BRTITANY MASON Facility:[facility] Start: 08-03-2022 End: 08-03-2022 ambulatory CHRISTINA RODRIGUEZ Facility:[facility] Start: 07-26-2022 End: 07-27-[address] STEFFANIE SULLIVAN DO Facility:[facility] Start: 07-26-2022 End: 07-26-[address] ANA MARÍA GONZALES MD [facility] Start: 07-10-[address] STEFFANIE Fitzgeraldi ty:B Start: 07-07-2022 End: 07-08-2022 ambulatory STEFFANIE SULLIVAN Facility:[facility] Start: 06-27-2022 End: 06-28-2022 ambulatory STEFFANIE SULLIVAN Facility:[facility] Start: 06-14-2022 End: 06-14-2022 ambulatory BRANDEN MILLIGAN Facility:[facility] Start: 06-08-2022 End: 06-09-[address] STEFFANIE SULLIVAN DO Facility:[facility] Start: 05-20-2022 End: 05-21-[address] STEFFANIE SULLIVAN DO Facility:[facility] Start: 05-20-2022 End: 05-20-[address] STEFFANIE SULLIVAN DO [facility] Start: 05-18-2022 End: 05-19-[address] STEFFANIE SULLIVAN DO Facility:[facility] Start: 05-18-2022 End: 05-18-[address] STEFFANIE SULLIVAN DO [facility] Start: 05-18-2022 End: 05-18-2022 Well adult monitoring check done DR STEFFANIE SULLIVAN DO [facility] Start: 05-17-2022 End: 05-18-2022 ambulatory STEFFANIE SULLIVAN Facility:[facility] Start: 05-02-2022 End: 05-02-2022 ambulatory STEFFANIE SULLIVAN Facility:[facility] Start: 05-25-2021 End: 05-25-[address] ANA MARÍA GONZALES MD [facility] Start: 05-13-2021 End: 05-13-[address] ANA MARÍA GONZALES MD [facility] Start: 11-08-2017 Ambulatory [facility] Facility :[facility] Start: 04-25-2017 End: 04-25-2017 Ambulatory [facility] Facility:[facility] Procedures Date Procedure Procedure Detail Performing Clinician Start: 07-26-[address] SHLOMO GONZALES MD Immunizations Immunization Date Immunization Notes Care Provider [facility] 01-08-2023 SARS-CoV-2 (COVID-19 ) [id number] DR STEFFANIE SULLIVAN DO [facility] 12-12-2022 influenza virus vaccine, unspecified formulation DR STEFFANIE SULLIVAN DO [facility] 07-07-[address] STEFFANIE SULLIVAN DO [facility] 03-10-[address] STEFFANIE SULLIVAN DO [facility] 01-03-2022 influenza virus vaccine, unspecified formulation DR STEFFANIE SULLIVAN DO [facility] 09-29-2021 SARS-CoV-2 (COVID-19 ) mRNA-[address] STEFFANIE SULLIVAN DO [facility] 03-21-2021 SARS-CoV-2 (COVID-19 ) mRNA-[address] STEFFANIE SULLIVAN DO [facility] 01-14-2021 influenza virus vaccine, unspecified formulation DR STEFFANIE SULLIVAN DO [facility] 07-21-2020 SARS-CoV-2 (COVID-19 ) [id number] STEFFANIE SULLIVAN DO [facility] Payers Date Payer Category Payer Private Health Insurance [id number] 2021 Medicaid [id number] 2017 Medicare [id number] 1965 Unknown [id number] 2.16.8 [id number] 1965 Unknown [id number] 2.16.8 [id number] 1964 Unknown [id number] 2.16.8 [id number] 1964 Unknown [id number] 2.16.8 [id number] 1964 Unknown [id number] 2.16.8 [id number] 1964 Unknown [id number] 2.16.8 [id number] 1964 Unknown [id number] 2.16.8 [id number] 1964 Unknown [id number] 2.16.8 [id number] 1964 Unknown [id number] 2.16.8 [id number] 1965 Unknown [id number] 2.16.8 [id number] Medicaid [id number] Social History Date Type Detail Facility Start: 05-04-2020 Never smoked t obacco (finding) [facility] Sex Assigned At [facility] Clinical Notes 11-04-2020 to 04-02-2023 LaboratoryLaboratoryLaboratoryRadiologyLaboratoryRadiologyLaboratoryLaboratoryLa boratoryLaboratoryRadiologyLaboratoryRadiology Note Date & Type Note Facility 04-02-2023 Note HNO ID: [id number] Author: SELMA HAWK APRN.TREY Service: ? Author Type: Nurse Practitioner Type: Progress Notes Filed: 04/04/2023 11:29 Note Text: [facility] (Green Office) PROGRESS NOTE-VIRTUAL VISIT PATIENT: Clare Randolph MRD: [id number] DATE: April 02, 2023 IDENTIFYING INFORMATION: Patient was first identified by full name AND date of . This is a virtual visit. It required patient/provider interaction for medical decision-making as documented below. This visit was performed via EVault video.AND/or phone conversation, in the event that there are technical difficulties or patient does not have access to tele-health technology. I have communicated my name and active licensure. The patient's identity and physical location were verified at the time of this visit. Either the patient or their legal wire rope sales representative has been informed of the risks and benefits of -- and alternatives to -- treatment through a remote evaluation and consents to proceed with the evaluation remotely. CHIEF COMPLAINT: I am doing good. SUBJECTIVE: Patient is available on video platform at time of visit. States her son got at Halloween time and it was very fun. She reports mood is good without depression. Her anxiety is improved with the increase of Austedo and now is getting used to the higher dose. Her neurologist increased it due to some increase tongue movements noted. States those have stopped. States that since the increase of Latuda, that she is no longer seeing shadows or hearing the buzzing that she gets with her hallucinations. She has been approved for the back stimulator for her low back pain, not sure when she will get it inserted. Is still waiting on decision for parathyroid surgery. Sees endocrine soon for follow up. Reports her sleep is good and she sometimes takes the 0.5 mg Klonopin in the day for anxiety while getting used to the increased dose of Austedo. Denies napping during the day AND feels rested. adds that she seems to be doing things that she has not done in a long time, like cross stitch and waiting on him with snacks, etc. He notices that she is feeling better. Denies SI/HI. Screening Tools: Generalized Anxiety Disorder Scale (DYLAN-7) DYLAN - 7 SCORES 12/12/2022 03/07/2023 03/31/2023 DYLAN-7 Score 0 2 4 (0-4) minimal anxiety, (5-9) mild anxiety, (10-14) moderate anxiety, (15-21) severe anxiety Patient Health Questionnaire (PHQ-9) PHQ-9 12/22/2022 03/07/2023 03/31/2023 Score 2 3 2 (0-4) minimal depression, (5-9) mild depression, (10-14) moderate depression, (15-19) moderately severe depression, (20-27) severe depression ROS: Review of Systems Constitutional: Negative for chills, fatigue and fever. HENT: Negative for congestion and sore throat. Respiratory: Negative for cough, chest tightness and shortness of breath. Cardiovascular: Negative for chest pain. Musculoskeletal: Negative. Neurological: Negative for dizziness and headaches. All other systems reviewed and are negative. VITAL SIGNS: Unable to do due to current Covid 19 precautions/policies. Last menstrual period: post-menopausal ALLERGIES Allergen Reactions Latex Rash, Swelling swelling of throat Adhesive Rash Adhesive Tape (Love* Other: See Comments Band-aid adhesive Amoxicillin Trihydr* Rash Avelox [Moxifloxaci* Hives Received Cipro 03/22/2012. dizziness and some shortness of breath Cefuroxime Rash Chlorpheniramine Al* Other: See Comments sneeze Dimetapp [Brompheni* Hives Diphtheria-Tetanus-* Anaphylaxis Almost as a child can only have tetnus part Doxycycline GI Upset Flonase [Fluticason* Other: See Comments Soreness inside nose. Hair [place] Shortness of Breath Tongue swelling and numbness, plus throat swells. Iodine [Contrast Dy* Hives Lunesta [Eszopiclon* Other: See Comments Had odd dreams and bad taste in her mouth Neurontin [Gabapent* Intolerance Novacaine [Procaina* hypersensitive Paxil [Paroxetine H* GI Upset Nausea Peanuts GI Upset Red Dye Other: See Comments AND pink dye Seasonal Allergies Other: See Comments Specifically, environmental: Cats, Dogs, Dust Mites, Trees, Grass, [place], Ragweed Shellfish Hives Sulfa (Sulfonamide * Rash Tetracycline Rash Zoloft [Sertraline * Intolerance Dizzy, Lightheaded Current Outpatient Medications on File Prior to Visit Medication Sig oxybutynin ER (DITROPAN XL) 10 mg 24 hr tablet Take 1 tablet by mouth once daily. clonazePAM orally disintegrating (KLONOPIN WAFER) 0.5 mg disintegrating tablet Take 1 tablet by mouth two times a day as needed for up to 30 days. deutetrabenazine (AUSTEDO) 9 mg tab Take 1 tablet (9 mg) by mouth two times a day with meals. deutetrabenazine (AUSTEDO) 6 mg tab Take 1 tablet (6 mg) by mouth two times a day with meals. vilazodone (VIIBRYD) 40 mg tablet Take 1 tablet by mouth daily with breakfast. (more content not included)... [facility] 02-12-2023 Note HNO ID: [id number] Author: Jak Medina MD Service: ? Author Type: Physician Type: Progress Notes Filed: 02/12/2023 5:49 PM Note Text: PATIENT OFFICE VISIT/virtual visit Consent for this telehealth visit obtained from the patient prior to initiation of the encounter. The patient acknowledges the limitations of telehealth and agrees to proceed. The patient understands that this visit will be documented in the medical record as any other patient encounter. PATIENT INFO: Clare Randolph 57 year old HPI 02/12/2023 ----VV Pt CC: stone Has the oxybutynin but just takes as needed and remains on Urocit-K 2 tablets twice daily; still follows with nephrology Has history of many stone surgeries Saw endocrinology and blood calciums have gone high occasionally and they plan on parathyroid surgery in the future KUB shows some stone and in retrospect present KUB consistent with what is seen on CT in 2020 She will watch those Follow-up with virtual visit with KUB prior in 12 months per patient Refilled Urocit-K Past Uology History: 02/13/2022 ----VV Pt CC: stone VOIDING SYMPTOMS: Still with some overactive bladder and needs refill of oxybutynin which I sent in KUB shows no significant change and has not been passing any stones or flank pain and doing well She is just on potassium now and I see prescribed in October and she thinks from petrography teacher Not taking Urocit-K and discussed the fact that that also has potassium and could be good to keep stones weight Sent in prescription for Urocit-K and she will approve with petrography teacher when she sees him in about 2-3 weeks She just wants follow-up with KUB 12 months December 13, 2022-seen by endocrinology- hypercalcemia and intermittently elevated PTH level. Unclear from previous workup whether hypercalcemia primarily driven by supplementation vs. If she may truly have primary hyperparathyroidism. We did also discuss that a mildly elevated PTH is often seen in CKD and is considered a compensatory finding rather than true parathyroid overactivity. I did clarify with pt and her that hyperparathyroidism is usually unrelated to any history of malignancy and that parathyroid carcinoma is exceedingly rare. Thyroid nodules are usually also benign, though we will keep her radiation history in mind when interpreting ultrasound monitoring findings and deciding whether or not she requires an FNA. E83.52 Hypercalcemia (primary encounter diagnosis) E04.2 Multiple thyroid nodules - Asked her to have her PCP send us records of recent scan- unsure if this was a CT scan that would have simply visualized her known thyroid nodules, vs. If this would have been a Sestamibi scan specifically looking at parathyroid overactivity - Repeat bloodwork ordered today to get a better sense of baseline off of any supplements and further out from Prolia injection as this can also affect levels - I will advise them based on review of updated scan from PCP and bloodwork today regarding next steps, I.e. need for an FNA or urine calcium studies 04/18/2021 ----VV Pt CC: stone Patient in the process of chemotherapy treatments Remains on Urocit-K and just takes oxybutynin if needed KUB does not show obvious evidence of left kidney stones but suspect probably sitting over the left rib and just a few small right kidney stones noted previously on CAT scan so no obvious growth She will just watch the stones with KUB 6 months and virtual visit in 6 months 07/20/2020 CC: stone Patient has chronic right back pain and sciatic nerve pain Had CAT scan which showed no obstructing ureteral stones or hydronephrosis so pain would not be urologic cause There is upper pole left renal calculus and she just wants to follow that She has history of bilateral ureteral strictures she says and has had the longest interval since seeing Dr. Alvarado of not having intervention for stones Urinalysis today-negative She is on Urocit-K and sees nephrology/Dr. Holm who manages medication She needs refill of oxybutynin which she takes as needed for occasional urgency frequency issues She is comfortable just following up 6 months with KUB to monitor/evaluate upper pole left renal calculus for growth July 13, 2020-saw Tracey Marie- 55 year old female who presents today for a follow up for Patient presents with: Kidney Stones: possible UTI Flank Pain: right side CC: right kidney hurts, urinating all the time 55 year old female with a history of recurrent nephrolithiasis presents today for complaints of right kidney pain 6/10 that began about 3 weeks ago, she is taking tramadol and Tylenol that is prescribed pain management that is prescribed for sciatic nerve pain. She reports voiding hourly during the day, this began 2 weeks ago, +urgency in the morning. NTF 0 Denies fever, chills, nausea. dysuria Currently taking macrodantin 50 mg daily (more content not included)... [facility] 01-31-2023 Note HNO ID: [id number] Author: Selma Hawk APRN.CLEANING TECHNICIAN Service: ? Author Type: Nurse Practitioner Type: Progress Notes Filed: 01/31/2023 2:04 PM Note Text: Patient's Latuda increased to 120 mg/day. Insurance was not wanting to pay for the 1.5 tablets of 20 mgs to be taken with the 80 mg dose. Patient states she is still having some mild ear buzzing, which is how her hallucinations have begun in the past. [facility] 01-10-2023 Note HNO ID: [id number] Author: Shanika Bocanegra RT(R) Service: Radiology Author Type: Technologist Type: Progress Notes Filed: 01/10/2023 2:15 PM Note Text: Radiology Service Progress Note PATIENT NAME: Clare Randolph DATE OF SERVICE: January 10, 2023 TIME: 2:05 PM PATIENT IDENTITY VERIFICATION COMPLETED USING TWO (2) IDENTIFIERS: Name and Date of confirmed by patient verbally. FALL SCREENING: Has the patient had 2 falls in the last year or 1 fall with injury or currently using an Ambulatory Assistive Device (Walker, Cane, Wheelchair, Crutches, etc.)? No PATIENT GENDER DATA: Female. status: : No status: NO. PATIENT RELEVANT IMPLANT DATA REVIEWED: Yes RADIOLOGY DEPARTMENT: General X-ray: Exam(s) Completed: Abdomen X-Ray: Abdomen PERIPHERAL IV DATA: Not applicable SIGNED BY: Shanika Bocanegra RT(R) January 10, 2023 2:05 PM [facility] 01-09-2023 Note HNO ID: [id number] Author: Erica Leal Service: ? Author Type: ? Type: Progress Notes Filed: 01/11/2023 3:40 PM Note Text: [facility] Specialty Refill Assessment Medication(s): Austedo Patient's current medication list and adherence status to current therapy were reviewed by Specialty Pharmacy clinical pharmacist to identify any new drug interactions or non-compliance to therapy. Therapy continues to be appropriate for disease, patient response, and medical condition. Verification of therapeutic benefit and effectiveness with current therapy was completed. Adverse events, barriers in adherence, and side effects were assessed and addressed if applicable. Will proceed with refill with no changes in therapy - patient progressing towards achieving therapeutic goals based on medication-specific laboratory parameters, disease state markers and outcomes. Christiano Benavides, SergioD Pharmacist, [facility] Specialty Hydrogeology Professor Assessment Patient confirmed: Yes Med/dose confirmed: Yes Supplies needed: No supplies needed Missed doses: No Estimated days supply on hand: 8 Copay amount: 0 Payment confirmed: Yes Delivery method: FedEx Signature required: Waived on patient request Delivery address: [address] [place] [address], [id number] Delivery date: 01/15/23 Questions or concerns for the pharmacist?: No [facility] Specialty Pharmacy Visit Assessment - Neurology: Assessment to use: Refill Vaccination Assessment: Date of influenza vaccination reminder: 12/13/2022 Date of most recent vaccination assessment: 12/13/2022 Refill Assessment: Assessment of injection issues or necrosis at injection sites: N/A Screening for infection: Yes Adverse reactions and mitigation: Yes Drug specific assessments, as appropriate: Yes Erica Leal [facility] 12-25-2022 Note HNO ID: [id number] Author: Selma Hawk APRN.CLEANING TECHNICIAN Service: ? Author Type: Nurse Practitioner Type: Progress Notes Filed: 12/27/2022 2:48 PM Note Text: [facility] ([facility]) PROGRESS NOTE-VIRTUAL VISIT PATIENT: Clare Randolph MRD: [id number] DATE: December 25, 2022 IDENTIFYING INFORMATION: Patient was first identified by full name AND date of . This is a virtual visit. It required patient/provider interaction for medical decision-making as documented below. This visit was performed via EVault video.AND/or phone conversation, in the event that there are technical difficulties or patient does not have access to tele-health technology. I have communicated my name and active licensure. The patient's identity and physical location were verified at the time of this visit. Either the patient or their legal wire rope sales representative has been informed of the risks and benefits of -- and alternatives to -- treatment through a remote evaluation and consents to proceed with the evaluation remotely. CHIEF COMPLAINT: My mood is good. The increase in the medicine has helped. SUBJECTIVE: Patient is available on video platform at time of visit. She is in the car with her at his doctors office. States that she is now taking the Latuda 130 mg/day, since the EVault message about the ear buzzing was sent. Reports that her hallucinations start with ear buzzing and then typically, she has then started seeing shadows AND gets more agitated. This have not happened since the Latuda was increased. She has not noticed any increase facial or extremities movements with this increase. Recently saw her neurologist and informed him of the dose increase. States her mood is good and her sleep in better and gets 7-8 hours/night. Denies any brain fog , from tito chemo treatment and states she feels like she is shaper. Her also endorses this. States she was recently told that she has a small parathyroid mass AND is seeing oncology. Her weight is down to 221 lbs. Is excited for her son's wedding at the end of the month. Is seeing pain management and is to have a stimulator implanted for her low back pain. Denies mood concerns at this time. Denies SI/HI. Screening Tools: Generalized Anxiety Disorder Scale (DYLAN-7) DYLAN - 7 SCORES 06/24/2022 09/30/2022 12/12/2022 DYLAN-7 Score 0 1 0 (0-4) minimal anxiety, (5-9) mild anxiety, (10-14) moderate anxiety, (15-21) severe anxiety Patient Health Questionnaire (PHQ-9) PHQ-9 09/30/2022 12/12/2022 12/22/2022 Score 3 3 2 (0-4) minimal depression, (5-9) mild depression, (10-14) moderate depression, (15-19) moderately severe depression, (20-27) severe depression ROS: Review of Systems Constitutional: Negative for chills, fatigue and fever. HENT: Negative. Negative for congestion and sore throat. Respiratory: Negative for cough, chest tightness and shortness of breath. Cardiovascular: Negative for chest pain. Musculoskeletal: Positive for back pain. Neurological: Negative for dizziness and headaches. All other systems reviewed and are negative. VITAL SIGNS: Unable to do due to current Covid 19 precautions/policies. Reported weight: 221 lbs, was 233 lbs Last menstrual period: post-menopausal AIMS: no noted oral, facial or upper extremitiy movement noted on video. ALLERGIES Allergen Reactions Latex Rash, Swelling swelling of throat Adhesive Rash Adhesive Tape (Love* Other: See Comments Band-aid adhesive Amoxicillin Trihydr* Rash Avelox [Moxifloxaci* Hives Received Cipro 03/22/2012. dizziness and some shortness of breath Cefuroxime Rash Chlorpheniramine Al* Other: See Comments sneeze Dimetapp [Brompheni* Hives Diphtheria-Tetanus-* Anaphylaxis Almost as a child can only have tetnus part Doxycycline GI Upset Flonase [Fluticason* Other: See Comments Soreness inside nose. Hair [place] Shortness of Breath Tongue swelling and numbness, plus throat swells. Iodine [Contrast Dy* Hives Lunesta [Eszopiclon* Other: See Comments Had odd dreams and bad taste in her mouth Neurontin [Gabapent* Intolerance Novacaine [Procaina* hypersensitive Paxil [Paroxetine H* GI Upset Nausea Peanuts GI Upset Red Dye Other: See Comments AND pink dye Seasonal Allergies Other: See Comments Specifically, environmental: Cats, Dogs, Dust Mites, Trees, Grass, [place], Ragweed Shellfish Hives Sulfa (Sulfonamide * Rash Tetracycline Rash Zoloft [Sertraline * Intolerance Dizzy, Lightheaded Current Outpatient Medications on File Prior to Visit Medication Sig lurasidone (LATUDA) 20 mg tablet Take 1.5 tablets by mouth once daily. Take with Latuda 80mg/day JARDIANCE 10 mg tablet take 1 tablet by mouth daily every morning WITH BREAKFAST clonazePAM orally disintegrating (KLONOPIN WAFER) 1 mg disintegrating tablet Take 1 tablet by mouth at bedtime as needed for up to 60 days. modafin (more content not included)... [facility] 12-19-2022 Note HNO ID: [id number] Author: Lisa Nickerson RN Service: ? Author Type: Registered Nurse Type: Progress Notes Filed: 12/19/2022 1:14 PM Note Text: LVM to check the medical centert or to call us back [facility] 12-19-2022 Note HNO ID: [id number] Author: Navin Gordon MD Service: ? Author Type: Physician Type: Progress Notes Filed: 12/19/2022 1:00 PM Note Text: Would you mind calling Ms. Randolph to let her know that I am currently reviewing her scan results with some of my colleagues and will get back to her with recommendations. I do think it would be helpful for her to do a 24 hour urine collection to help us figure out if she's having parathyroid overactivity. I have just placed these orders, and she can curing pickling packer the collection kit from any [facility] lab. I had also placed follow up labwork orders to be done 01/13 or later (can be done at her nephrology appt on 01/17). I'd like her to get the urine collection done the day before and then get her blood drawn the day after when she drops off the collection kit. The instructions for a 24hr urine collection are below and we can also forward them to her on [facility], I'd just appreciate if we could also give her a call so there's no confusion about the timing of the urine and bloodwork. Thanks! The following are the instructions for a 24 hr urine collection 1.Please urinate before 8 a.m. on the day you want to start the urine collection.Discard/flush any urine prior to 8AM. 2.Starting at 8AM onwards collect every drop of urine after that in the container which you can get from the lab. Collect urine throughout the day and overnight 3.Keep the jar in the refrigerator in summer and outside the backdoor in winter. 4.The next day, continue collecting urine in the morning before 8AM. STOP your urine collection at 8AM. 5.Drop off the jar that day at the lab and then get bloodwork done. [facility] 12-15-2022 Note HNO ID: [id number] Author: Branden Milligan MD Service: ? Author Type: Physician Type: Progress Notes Filed: 12/15/2022 1:10 PM Note Text: [facility] - FOLLOW UP EVALUATION - VIRTUAL VISIT Steffanie Sullivan DO [address] [facility] [address] Dear Steffanie Sullivan DO: I had the pleasure of seeing Ms. Randolph for follow-up today. As you know she is a 57 year old right-handed female with a history of tardive dyskinesia and jaw dystonia since 2020. We had a visit using: [facility] I have communicated my name and active licensure. The patient's identity and physical location were verified at the time of this visit. Either the patient or their legal wire rope sales representative has been informed of the risks and benefits of -- and alternatives to -- treatment through a remote evaluation and consents to proceed with the evaluation remotely. Subjective During her previous visit the following plan was made: Previous plan-06/14/2022 Visit: tardive dyskinesia - Stable. Continue Austedo as below. Interval History Movement Disorders Medications Schedule - as of the start of the visit: Medications AM PM Austedo 12 mg 1 1 ALLERGIES Allergen Reactions Latex Rash, Swelling swelling of throat Adhesive Rash Adhesive Tape (Love* Other: See Comments Band-aid adhesive Amoxicillin Trihydr* Rash Avelox [Moxifloxaci* Hives Received Cipro 03/22/2012. dizziness and some shortness of breath Cefuroxime Rash Chlorpheniramine Al* Other: See Comments sneeze Dimetapp [Brompheni* Hives Diphtheria-Tetanus-* Anaphylaxis Almost as a child can only have tetnus part Doxycycline GI Upset Flonase [Fluticason* Other: See Comments Soreness inside nose. Hair [place] Shortness of Breath Tongue swelling and numbness, plus throat swells. Iodine [Contrast Dy* Hives Lunesta [Eszopiclon* Other: See Comments Had odd dreams and bad taste in her mouth Neurontin [Gabapent* Intolerance Novacaine [Procaina* hypersensitive Paxil [Paroxetine H* GI Upset Nausea Peanuts GI Upset Red Dye Other: See Comments AND pink dye Seasonal Allergies Other: See Comments Specifically, environmental: Cats, Dogs, Dust Mites, Trees, Grass, [place], Ragweed Shellfish Hives Sulfa (Sulfonamide * Rash Tetracycline Rash Zoloft [Sertraline * Intolerance Dizzy, Lightheaded Current Outpatient Medications Medication Sig lurasidone (LATUDA) 20 mg tablet Take 1.5 tablets by mouth once daily. Take with Latuda 80mg/day JARDIANCE 10 mg tablet take 1 tablet by mouth daily every morning WITH BREAKFAST clonazePAM orally disintegrating (KLONOPIN WAFER) 1 mg disintegrating tablet Take 1 tablet by mouth at bedtime as needed for up to 60 days. modafinil (PROVIGIL) 100 mg tablet Take 1.5 tablets by mouth once daily for 90 days. deutetrabenazine (AUSTEDO) 12 mg tab Take 1 tablet (12 mg) by mouth twice daily with meals. clonazePAM (KLONOPIN) 0.5 mg tablet Take 0.5 mg as needed during the day for severe anxiety lamoTRIgine (LAMICTAL) 25 mg tablet Take 3 tablets by mouth once daily. lurasidone (LATUDA) 80 mg tablet Take 1 tablet by mouth once daily. Take with Latuda 20 mg/day vilazodone (VIIBRYD) 40 mg tablet Take 1 tablet by mouth daily with breakfast. anastrozole (ARIMIDEX) 1 mg tablet take 1 tablet by mouth once daily nitrofurantoin macrocrystal (MACRODANTIN) 50 mg capsule Take 1 capsule by mouth daily at bedtime. cyclobenzaprine (FLEXERIL) 10 mg tablet Take 10 mg by mouth twice daily as needed. VENTOLIN HFA 90 mcg/actuation inhaler inhale 2 puffs every 4 hours if needed for shortness of breath or wheezing oxybutynin ER (DITROPAN XL) 10 mg 24 hr tablet Take 1 tablet by mouth once daily. potassium citrate ER (UROCIT-K) 10 mEq (1,080 mg) Take 2 tablets by mouth twice daily. hydrOXYzine pamoate (VISTARIL) 50 mg capsule Take 1 capsule by mouth three times daily. aspirin 325 mg tablet Take 325 mg by mouth once daily. L.acidoph,plant/B.animal,long (PROBIOTIC ACIDOPHILUS BEADS ORAL) Take 1 tablet by mouth once daily. EPINEPHrine (EPIPEN) 0.3 mg/0.3 mL auto-injector Use as directed for allergic reaction to latex and associated food allergies atorvastatin (LIPITOR) 40 mg tablet Take 1 tablet by mouth daily at bedtime. For cholesterol. diclofenac (VOLTAREN) 1 % topical gel Apply 2 g to affected area four times daily as needed. For shoulder pain traMADol (ULTRAM) 50 mg tablet Take 50 mg by mouth every 6 hours as needed for pain. melatonin 10 mg tab Take 1 tablet by mouth daily at bedtime. CPAP Mask refit, Lifetime supplies, opt [place], G47.33. CPAP Supplies: suitable mask per pt preference, chin strap, head gear, humidity, tubing, lifetime supplies. G47.33 YAHAIRA Please send 30 day download on 06/06/18 to [phone] attn: Sweta verapamil SR (CALAN SR, ISOPTIN SR) 120 mg CR tablet Take 1 tablet by mouth twice daily. No current facility-administered medications for this visit. Qu (more content not included)... [facility] 12-13-2022 Note HNO ID: [id number] Author: Navin Gordon MD Service: ? Author Type: Physician Type: Progress Notes Filed: 12/13/2022 2:12 PM Note Text: Endocrinology Clinic Visit Clinical Care Team: -Referring Provider for today's visit: Self -Primary Care Provider: Steffanie Sullivan DO History of Present Illness: Patient presents with: Thyroid Nodule: Parathyroid tumor Clare Randolph is a 57 year old female with breast cancer s/p mastectomy and chemoradiation (2020), osteoporosis, chronic diastolic CHF, HTN, HLD, CKD stage 3a, recurrent nephrolithiasis, diabetes, who presents today for evaluation of possible parathyroid adenoma. Patient presents as a new consultation from Self. Last seen by Dr. Mason 07/2022. My final recommendations will be communicated back to the PCP by way of a copy of today's office notes. Here today with her . Her PCP palpated a nodule in neck area and obtained neck US. Initially when seen in endocrinology clinic July 2022 they did not have the ultrasound results available. A follow up US was ordered at [facility] noting two thyroid nodules, which were benign appearing and did not meet size criteria for FNA. Ms. Randolph doesn't recall having seen [facility] notification regarding the ultrasound results and recommendation. In the meantime her other evaluating physicians had been concerned about ongoing hypercalcemia and abnormalities in kidney labs, as well as potential relationship of hyperparathyroidism with her breast cancer history. She recalls having a neck scan done with an injection very recently locally (?Sestamibi vs. A different scan), had asked that results be sent to us however we have not received anything yet. Overall And Mrs. Randolph have been very concerned regarding potential parathyroid/thyroid malignancy risk based on her imaging and the risk of further kidney damage. Has history of recurrent nephrolithiasis since age 19 needing multiple procedures, kidney disease has been attributed to this as well as NSAID use in the past. History of osteoporosis on Prolia since 2011, last shot 07/2022. Was put on calcium supplements originally as part of treatment several years ago. History of hospitalization for hypercalcemia in 2019 requiring IVF, workup at the time was concerning for hypercalcemia from supplements so calcium was stopped at that time. Chlorthalidone and calcitriol recently stopped by her petrography teacher due to hypercalcemia and SORAYA. Fh notable for hypothyroidism and kidney stones in her son. She has had radiation to the chest. Review of Systems: As per HPI No neck lump sensation or dysphagia No confusion or other mental status changes All other systems reviewed and found to be negative except those mentioned in HPI I have reviewed her medical, surgical, family and social history and have updated medication and allergy information in the computerized patient record. PAST MEDICAL HISTORY Diagnosis Date Allergic rhinitis, cause unspecified 03/21/2005 Asthma 03/21/2005 Benign neoplasm of scalp and skin of neck 01/20/2014 Cardiomegaly as a child. None with imaging as an adult Chronic diastolic heart failure (HCC) 07/19/2022 Degeneration of intervertebral disc, site unspecified Depressive disorder, not elsewhere classified 04/08/2007 She has a provider, and is currently taking medication Diabetes mellitus with nephropathy (HCC) 07/19/2022 Displacement of lumbar intervertebral disc without myelopathy Esophageal reflux 03/21/2005 Essential hypertension 02/08/2017 Feeling of incomplete bladder emptying 04/15/2015 Fibromyalgia 03/21/2005 History of recurrent kidney stones 03/21/2005 since 1985. Mainly Ca Ox, but Ca Phos at least once. Hyperlipidemia Irritable bowel syndrome 03/21/2005 Malignant neoplasm of lower-outer quadrant of left female breast (HCC) 09/23/2020 Myalgia and myositis 03/21/2005 Myalgia and myositis, unspecified currently working with pain management Obstructive sleep apnea DME DASCO for AutoPAP Oral mass salivary stone, benign Other abnormal heart sounds Stable she has it her whole life. Functional murmur, asymptomatic Renal insufficiency Ulcerative colitis (HCC) Ulcerative colitis, she has had clear colonoscopys without signs of colitis and is not treated for irritable bowel Ventral hernia 06/24/2009 PAST SURGICAL HISTORY Procedure Laterality Date ARTHROSCOPY KNEE DIAGNOSTIC W/WO SYNOVIAL BX SPX 03/26/1982 Arthroscopy, knee, right patellar tendon repair CHOLECYSTECTOMY 03/26/1993 Dr. Parra COLONOSCOPY FLX DX W/COLLJ SPEC WHEN PFRMD 1996 2001 Colonoscopy COLONOSCOPY FLX DX W/COLLJ SPEC WHEN PFRMD 05/06/2014 Colonoscopy COLONOSCOPY SCREENING 11/02/2021 repeat colonoscopy in 3 years in 2024 COLONOSCOPY W/BIOPSY SINGLE/MULTIPLE 05/17/2011 Repeat in 2 years CURETTAGE 03/26/1995 CYSTOURETHROSCOPY 04/03/2012 Cystoscopy procedure; Dr. Rick Harley- (more content not included)... [facility] 12-05-2022 Note HNO ID: [id number] Author: Romaine (Violin Maker Hand)Fartun Service: ? Author Type: ? Type: Progress Notes Filed: 12/13/2022 12:27 PM Note Text: [facility] Specialty Refill Assessment Medication(s): Austedo Patient's current medication list and adherence status to current therapy were reviewed by Specialty Pharmacy clinical pharmacist to identify any new drug interactions or non-compliance to therapy. Therapy continues to be appropriate for disease, patient response, and medical condition. Verification of therapeutic benefit and effectiveness with current therapy was completed. Adverse events, barriers in adherence, and side effects were assessed and addressed if applicable. Will proceed with refill with no changes in therapy - patient progressing towards achieving therapeutic goals based on medication-specific laboratory parameters, disease state markers and outcomes. Truck Driver Helper Assessment Patient confirmed: Yes Med/dose confirmed: Yes Supplies needed: No supplies needed Missed doses: No Estimated days supply on hand: 14 Copay amount: 0 Payment confirmed: Yes Delivery method: FedEx Signature required: No Delivery address: [address] [place] [address] [id number] Delivery date: 12/15/22 Questions or concerns for the pharmacist?: No [facility] Specialty Pharmacy Visit Assessment - Neurology: Assessment to use: Refill Vaccination Assessment: Annual influenza vaccination reminder: Yes Date of influenza vaccination reminder: 12/13/2022 Vaccination assessment completed: Yes Date of most recent vaccination assessment: 12/13/2022 Refill Assessment: Assessment of injection issues or necrosis at injection sites: N/A Screening for infection: Yes Adverse reactions and mitigation: Yes Drug specific assessments, as appropriate: Yes Fartun Gavin (Violin Maker Hand) Paolo Myrick, SergioD, DEVIN - Turret Lathe Operator, Specialty Pharmacy [facility] - [address] [facility] [place] [address] - Email: [facility] 11-29-2022 Note ORIGINAL EXAMINATION: PARATHYROID SCINTIGRAPHY11/29/2022 3:42 pm TECHNIQUE: The patient received an intravenous injection of 33.2 mCi of Tc-99m sestamibi. Early and delayed high resolution images of the anterior neck and upper thorax were then acquired. Emission tomographic (SPECT) images were also acquired in the delayed phase. Low dose CT was acquired for attenuation correction and localization. COMPARISON: Thyroid ultrasound 06/08/2022 HISTORY: ORDERING SYSTEM PROVIDED HISTORY: Reason for Exam: hyperparathyroidism, hypercalcemia, parathyroid neoplasm on ultrasound FINDINGS: There is a focal region of radiopharmaceutical accumulation abutting the inferior pole of the left thyroid lobe. This persists on delayed phase imaging. This can be questionably correlated with a 0.8 cm hypodense soft tissue density inferior to the left thyroid lobe. Coronary artery atherosclerosis. Regions of pleuroparenchymal scarring and atelectasis in the lungs bilaterally. Degenerative changes are seen in the visualized spine. IMPRESSION: Focal delayed radiopharmaceutical accumulation inferior to the left thyroid lobe is suspicious for a parathyroid adenoma. This can be questionably correlated with a 0.8 cm hypodense soft tissue density. I have personally reviewed the images of this examination and agree with the resident's findings and interpretation. Interpreted by: Gary Ruiz DO Preliminary Report By: Jacoby Zamudio Electronically signed By Gary Ruiz DO Dictated Date: 11/29/2022 3:59:02 PM Prelim Date: 11/29/2022 4:20:35 PM Sign Date: 11/29/2022 4:20:35 PM Ordering Provider: [facility] [place] 11-22-2022 Note HNO ID: [id number] Author: Quinton Diaz MD Service: ? Author Type: Physician Type: Progress Notes Filed: 11/24/2022 2:43 PM Note Text: HISTORY OF PRESENT ILLNESS: Clare Randolph is a 57 year old female had an abnormal screening mammogram on 08/16/20. There was possible asymmetry in the right breast anterior depth superior region. The possible architectural distortion in the left breast upper inner aspect anterior depth is indeterminate. Diagnostic bilateral mammogram on 08/25/20 showed, area of interest in the right breast on prior exam is not reproduced and presumably represents superimposed breast tissue . But there was an irregular mass in the left breast and US of the left breast showed a 4.2 cm x 1.5 cm x 1.2 cm irregular mass with an angular margin in the left breast at 12 o'clock anterior depth. No abnormalities were seen sonographically in the left axilla. US guided core biopsy of the left breast lesion on 09/07/20 showed grade 2 invasive ductal carcinoma and focal DCIS. It's ER positive (>95%, strong), CO positive (80%) and Her2/romel 2+, FISH negative. MRI breasts on 09/29/20 showed a 3.7 x 1.7 x 2.2 cm irregular mass in the superior aspect of the left central breast. There is enhancement seen extending to the left nipple with associated nipple retraction. There is a left axillary lymph node showing focal cortical thickening of 8mm. She underwent left breast simple mastectomy and sentinel node biopsy on 10/08/20. 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 The closest margin was 4 mm from the superior radial margin. Skin and nipple were not involved. Equivocal LVI. There was grade 2 DCIS. Two out of three sentinel nodes were positive for macrometastases measuring 10 mm with extranodal extension <= 2mm. Her staging PET CT scan showed no evidence of metastatic disease. Adjuvant chemotherapy: docetaxel /cyclophosphamide ( 11/15/2020 - 02/06/2021 ) Radiation therapy: Left chest wall/IM/SC/axilla 5000 cGy in 25 fractions ( 04/05/21 - 05/11/21 ) Current treatment: Anastrozole 1mg once daily since May 2021 Also prolia every 6 months, next due January 2023 CLINICAL IMPRESSION: Breast cancer as above RECOMMENDATION/PLAN: 1. Dxa as scheduled 2. Mammogram as scheduled 3. Anastrozole through May 2026 Written and verbal health teaching given to patient, patient verbalizes understanding and agrees with treatment plan. PAST MEDICAL HISTORY Diagnosis Date Allergic rhinitis, cause unspecified 03/21/2005 Asthma 03/21/2005 Benign neoplasm of scalp and skin of neck 01/20/2014 Cardiomegaly as a child. None with imaging as an adult Chronic diastolic heart failure (HCC) 07/19/2022 Degeneration of intervertebral disc, site unspecified Depressive disorder, not elsewhere classified 04/08/2007 She has a provider, and is currently taking medication Diabetes mellitus with nephropathy (HCC) 07/19/2022 Displacement of lumbar intervertebral disc without myelopathy Esophageal reflux 03/21/2005 Essential hypertension 02/08/2017 Feeling of incomplete bladder emptying 04/15/2015 Fibromyalgia 03/21/2005 History of recurrent kidney stones 03/21/2005 since 1985. Mainly Ca Ox, but Ca Phos at least once. Hyperlipidemia Irritable bowel syndrome 03/21/2005 Malignant neoplasm of lower-outer quadrant of left female breast (HCC) 09/23/2020 Myalgia and myositis 03/21/2005 Myalgia and myositis, unspecified currently working with pain management Obstructive sleep apnea DME DASCO for AutoPAP Oral mass salivary stone, benign Other abnormal heart sounds Stable she has it her whole life. Functional murmur, asymptomatic Renal insufficiency Ulcerative colitis (HCC) Ulcerative colitis, she has had clear colonoscopys without signs of colitis and is not treated for irritable bowel Ventral hernia 06/24/2009 PAST SURGICAL HISTORY Procedure Laterality Date ARTHROSCOPY KNEE DIAGNOSTIC W/WO SYNOVIAL BX SPX 03/26/1982 Arthroscopy, knee, right patellar tendon repair CHOLECYSTECTOMY 03/26/1993 Dr. Parra COLONOSCOPY FLX DX W/COLLJ SPEC WHEN PFRMD 1996 2001 Colonoscopy COLONOSCOPY FLX DX W/COLLJ SPEC WHEN PFRMD 05/06/2014 Colonoscopy COLONOSCOPY SCREENING 11/02/2021 repeat colonoscopy in 3 years in 2024 COLONOSCOPY W/BIOPSY SINGLE/MULTIPLE 05/17/2011 Repeat in 2 years CURETTAGE 03/26/1995 CYSTOURETHROSCOPY 04/03/2012 Cystoscopy procedure; Dr. Rick Caballero. CYSTOURETHROSCOPY 05/08/2012 Cystoscopy with J-Stent Removal. Dr. Rick Caballero. CYSTOURETHROSCOPY 08/28/2013 Cystoscopy/Stent Removal; Dr. Harley EXC/DSTRJ LINGUAL TONSIL ANY METHOD SPX 12/24/1970 LAPS SURG CHOLECYSTECTOMY W/CHOLANGIOGRAPHY 03/26/2002 at [facility] LIG/TRNSXJ FLP TUBE ABDL/VAG APPR UNI/BI Tubal ligation LITHOTRIPSY XTRCORP SHOCK WAVE 11/28,09/26,08/26, Lithotripsy OOPHOREC (more content not included)... [facility] 11-11-2022 Note . MICRO - Microbiology PROCEDURE: Urine Culture [*1] SOURCE: Urine BODY SITE: COLLECTED DATE/TIME: 11/09/2022 16:24 EDT RECEIVED DATE/TIME: 11/09/2022 19:20 EDT START DATE/TIME: 11/09/2022 19:21 EDT FREE TEXT SOURCE: FINAL REPORTS Final Report [] Verified Date/Time/Personnel: 11/11/2022 07:45 EDT <10,000 cfu/ml. No Significant growth. Sensitivity not indicated. PRELIMINARY REPORTS Preliminary Report [] Verified Date/Time/Personnel: 11/10/2022 09:56 EDT No growth to date Performing Locations *1: This test was performed at: [facility], [address] [place] [address], [facility] , [facility] ([place]) 11-04-2022 Note HNO ID: [id number] Author: Chandrakant Rodriguez APRN.CLEANING TECHNICIAN Service: ? Author Type: Nurse Practitioner Type: Progress Notes Filed: 11/04/2022 12:02 PM Note Text: Subjective HPI Nontoxic-appearing female presents urgent care chief complaint finger infection. Duration of symptoms 1 day. Associated symptoms pain and swelling. Additionally wants to be checked for UTI. Has had urinary frequency last 4 days. Has not used any OTC medications. Denies any significant pain currently. States she does have some pain if she pushes over her finger. Overall feels well. Denies any fever body aches chills productive cough chest pain shortness of breath pleuritic pain hemoptysis nausea vomiting abdominal pain change in bowel or bladder habits. Past medical history prescription medication use and allergies reviewed. .Patient presents with: Derm Problem: L ring finger infection x1 day Low Back Pain: With urinary urgency, possible UTI x4 days PAST MEDICAL HISTORY Diagnosis Date Allergic rhinitis, cause unspecified 03/21/2005 Asthma 03/21/2005 Benign neoplasm of scalp and skin of neck 01/20/2014 Cardiomegaly as a child. None with imaging as an adult Chronic diastolic heart failure (HCC) 07/19/2022 Degeneration of intervertebral disc, site unspecified Depressive disorder, not elsewhere classified 04/08/2007 She has a provider, and is currently taking medication Diabetes mellitus with nephropathy ([facility]) 07/19/2022 Displacement of lumbar intervertebral disc without myelopathy Esophageal reflux 03/21/2005 Essential hypertension 02/08/2017 Feeling of incomplete bladder emptying 04/15/2015 Fibromyalgia 03/21/2005 History of recurrent kidney stones 03/21/2005 since 1985. Mainly Ca Ox, but Ca Phos at least once. Hyperlipidemia Irritable bowel syndrome 03/21/2005 Malignant neoplasm of lower-outer quadrant of left female breast (HCC) 09/23/2020 Myalgia and myositis 03/21/2005 Myalgia and myositis, unspecified currently working with pain management Obstructive sleep apnea DME DASCO for AutoPAP Oral mass salivary stone, benign Other abnormal heart sounds Stable she has it her whole life. Functional murmur, asymptomatic Renal insufficiency Ulcerative colitis (HCC) Ulcerative colitis, she has had clear colonoscopys without signs of colitis and is not treated for irritable bowel Ventral hernia 06/24/2009 PAST SURGICAL HISTORY Procedure Laterality Date ARTHROSCOPY KNEE DIAGNOSTIC W/WO SYNOVIAL BX SPX 03/26/1982 Arthroscopy, knee, right patellar tendon repair CHOLECYSTECTOMY 03/26/1993 Dr. Parra COLONOSCOPY FLX DX W/COLLJ SPEC WHEN PFRMD 1996 2001 Colonoscopy COLONOSCOPY FLX DX W/COLLJ SPEC WHEN PFRMD 05/06/2014 Colonoscopy COLONOSCOPY SCREENING 11/02/2021 repeat colonoscopy in 3 years in 2024 COLONOSCOPY W/BIOPSY SINGLE/MULTIPLE 05/17/2011 Repeat in 2 years CURETTAGE 03/26/1995 CYSTOURETHROSCOPY 04/03/2012 Cystoscopy procedure; Dr. Rick Caballero. CYSTOURETHROSCOPY 05/08/2012 Cystoscopy with J-Stent Removal. Dr. Rick Caballero. CYSTOURETHROSCOPY 08/28/2013 Cystoscopy/Stent Removal; Dr. Harley EXC/DSTRJ LINGUAL TONSIL ANY METHOD SPX 12/24/1970 LAPS SURG CHOLECYSTECTOMY W/CHOLANGIOGRAPHY 03/26/2002 at [facility] LIG/TRNSXJ FLP TUBE ABDL/VAG APPR UNI/BI Tubal ligation LITHOTRIPSY XTRCORP SHOCK WAVE 11/28,09/26,08/26, Lithotripsy OOPHORECTOMY PARTIAL/TOTAL UNI/BI 01/26/2003 Dr. Burrows PAST SURGICAL HISTORY OF 06/22/2004 lithotripsy left kidney stent PAST SURGICAL HISTORY OF 09/23/1984 basket extraction kidney stone PAST SURGICAL HISTORY OF 08/24/2010 right kidney stones laser fragmentation, stent PAST SURGICAL HISTORY OF 09/23/2010 Laser Lithotripsy x 3 PAST SURGICAL HISTORY OF lumbar and cervical pain injections- many PAST SURGICAL HISTORY OF last bilateral URS 05/2015 SALPINGO-OOPHORECTOMY COMPL/PRTL UNI/BI SPX 03/26/2002 BREAST NEEDLE CORE BIOPSY LT Left 08/2020 VAGINAL HYSTERECTOMY 03/26/1997 VAGINAL HYSTERECTOMY UTERUS 250 GM/< 03/11/1998 Dr. Saba ALLERGIES Latex, Adhesive, Adhesive Tape (Rosins), Amoxicillin Trihydrate, Avelox [Moxifloxacin Hcl], Cefuroxime, Chlorpheniramine Allergy, Dimetapp [Brompheniramine-Pseudoephedrin], Dfzzftdwaq-Nortrnt-Iqghggm Vac, Doxycycline, Flonase [Fluticasone Propionate], Hair [place], Iodine [Contrast Dye], Lunesta [Eszopiclone], Neurontin [Gabapentin], Novacaine [Procainamide], Paxil [Paroxetine Hcl], Peanuts, Red Dye, Seasonal Allergies, Shellfish, Sulfa (Sulfonamide Antibiotics), Tetracycline, and Zoloft [Sertraline Hcl] MEDICATIONS clonazePAM orally disintegrating (KLONOPIN WAFER) 1 mg disintegrating tablet Take 1 tablet by mouth at bedtime as needed for up to 60 days. modafinil (PROVIGIL) 100 mg tablet Take 1.5 tablets by mouth once daily for 90 days. deutetrabenazine (AUSTEDO) 12 mg tab Take 1 tablet (12 mg) by mouth twice daily with meals. clon (more content not included)... [facility] 10-31-2022 Note HNO ID: [id number] Author: Romaine PadillaLicenseStream)Fartun Service: ? Author Type: ? Type: Progress Notes Filed: 11/08/2022 3:39 PM Note Text: [facility] Specialty Refill Assessment Medication(s): Austedo Patient's current medication list and adherence status to current therapy were reviewed by Specialty Pharmacy clinical pharmacist to identify any new drug interactions or non-compliance to therapy. Therapy continues to be appropriate for disease, patient response, and medical condition. Verification of therapeutic benefit and effectiveness with current therapy was completed. Adverse events, barriers in adherence, and side effects were assessed and addressed if applicable. Will proceed with refill with no changes in therapy - patient progressing towards achieving therapeutic goals based on medication-specific laboratory parameters, disease state markers and outcomes. Christiano Benavides, SergioD Pharmacist, [facility] Specialty Hydrogeology Professor Assessment Patient confirmed: Yes Med/dose confirmed: Yes Supplies needed: No supplies needed Missed doses: No Estimated days supply on hand: 12 Copay amount: 0 Payment confirmed: Yes Delivery method: FedEx Signature required: No Delivery address: [address] [place] [id number] Delivery date: 11/10/22 [facility] Specialty Pharmacy Visit Assessment - Neurology: Assessment to use: Refill Vaccination Assessment: Date of influenza vaccination reminder: 12/01/2021 Date of most recent vaccination assessment: 12/01/2021 Refill Assessment: Assessment of injection issues or necrosis at injection sites: N/A Screening for infection: Yes Adverse reactions and mitigation: Yes Drug specific assessments, as appropriate: Yes Fartun PadillaLicenseStream) [facility] 10-02-2022 Note HNO ID: [id number] Author: Selma Hawk APRN.TREY Service: ? Author Type: Nurse Practitioner Type: Progress Notes Filed: 10/02/2022 2:48 PM Note Text: [facility] ([facility]) PROGRESS NOTE-VIRTUAL VISIT PATIENT: Clare Randolph MRD: [id number] DATE: October 02, 2022 IDENTIFYING INFORMATION: Patient was first identified by full name AND date of . This is a virtual visit. It required patient/provider interaction for medical decision-making as documented below. This visit was performed via EVault video.AND/or phone conversation, in the event that there are technical difficulties or patient does not have access to tele-health technology. I have communicated my name and active licensure. The patient's identity and physical location were verified at the time of this visit. Either the patient or their legal wire rope sales representative has been informed of the risks and benefits of -- and alternatives to -- treatment through a remote evaluation and consents to proceed with the evaluation remotely. CHIEF COMPLAINT: Mentally things are going really well. SUBJECTIVE: Patient unable to connect to video, so assessment performed over the telephone. Patient talkative and cooperative. Denies feelings of anxiety, depression or irritability. Denies feelings of highs/lows. States her appetite is adequate, losing weight by following a low/no sugar diet. Reports a 7# weight loss over the past month. Reports current weight at 227 #. States she is sleeping well since taking Klonopin 1mg every night. Taking medications as directed and states I'm in a good place now, I feel very stable . Denies any TD movements and agreed. Seeing neurologist for management and patient reports she is doing well. Denies falls recently. Denies alcohol/drug use. Denies stressors except for today's situational stressor with the qa tester fixing her toilet today. Patient reports physically she is having low back pain, because of a spine deterioration. Seeing surgeon next week, and is taking Tramadol for pain relief. Will follow up in 3 months, on 12/25/22 at 1:00 pm virtually. Patient stable on current medication regimen. Denies SI/HI/AVH. Screening Tools: Generalized Anxiety Disorder Scale (DYLAN-7) DYLAN - 7 SCORES 06/08/2022 06/24/2022 09/30/2022 DYLAN-7 Score 1 0 1 (0-4) minimal anxiety, (5-9) mild anxiety, (10-14) moderate anxiety, (15-21) severe anxiety Patient Health Questionnaire (PHQ-9) PHQ-9 06/08/2022 06/24/2022 09/30/2022 Score 4 3 3 (0-4) minimal depression, (5-9) mild depression, (10-14) moderate depression, (15-19) moderately severe depression, (20-27) severe depression ROS: Review of Systems Constitutional: Negative for chills, fatigue and fever. HENT: Negative. Negative for congestion and sore throat. Respiratory: Negative for cough, chest tightness and shortness of breath. Cardiovascular: Negative for chest pain. Musculoskeletal: Positive for back pain. Neurological: Negative for dizziness and headaches. All other systems reviewed and are negative. VITAL SIGNS: Unable to do due to virtual assessment. Reported weight: 227# Reported height: Last menstrual period: post-menopausal ALLERGIES Allergen Reactions Latex Rash, Swelling swelling of throat Adhesive Rash Adhesive Tape (Love* Other: See Comments Band-aid adhesive Amoxicillin Trihydr* Rash Avelox [Moxifloxaci* Hives Received Cipro 03/22/2012. dizziness and some shortness of breath Cefuroxime Rash Chlorpheniramine Al* Other: See Comments sneeze Dimetapp [Brompheni* Hives Diphtheria-Tetanus-* Anaphylaxis Almost as a child can only have tetnus part Doxycycline GI Upset Flonase [Fluticason* Other: See Comments Soreness inside nose. Hair [place] Shortness of Breath Tongue swelling and numbness, plus throat swells. Iodine [Contrast Dy* Hives Lunesta [Eszopiclon* Other: See Comments Had odd dreams and bad taste in her mouth Neurontin [Gabapent* Intolerance Novacaine [Procaina* hypersensitive Paxil [Paroxetine H* GI Upset Nausea Peanuts GI Upset Red Dye Other: See Comments AND pink dye Seasonal Allergies Other: See Comments Specifically, environmental: Cats, Dogs, Dust Mites, Trees, Grass, [place], Ragweed Shellfish Hives Sulfa (Sulfonamide * Rash Tetracycline Rash Zoloft [Sertraline * Intolerance Dizzy, Lightheaded Current Outpatient Medications on File Prior to Visit Medication Sig calcitriol (ROCALTROL) 0.25 mcg capsule take 1 capsule by mouth every Sunday, Sunday, and Sunday clonazePAM orally disintegrating (KLONOPIN WAFER) 0.5 mg disintegrating tablet Take 1-2 tablets at bedtime, as needed for sleep. Do not start before September 22, 2022. lamoTRIgine (LAMICTAL) 25 mg tablet Take 3 tablets by mouth once daily. chlorthalidone (HYGROTON) 25 mg tablet Take 1 tablet by mouth once daily. modafinil (PROVIGIL) 100 mg tablet Take 1.5 tablets b (more content not included)... [facility] 10-02-2022 Note HNO ID: [id number] Author: Romaine (LicenseStream)Fartun Service: ? Author Type: ? Type: Progress Notes Filed: 10/11/2022 5:02 PM Note Text: [facility] Specialty Refill Assessment Medication(s): Austedo Patient's current medication list and adherence status to current therapy were reviewed by Specialty Pharmacy clinical pharmacist to identify any new drug interactions or non-compliance to therapy. Therapy continues to be appropriate for disease, patient response, and medical condition. Verification of therapeutic benefit and effectiveness with current therapy was completed. Adverse events, barriers in adherence, and side effects were assessed and addressed if applicable. Will proceed with refill with no changes in therapy - patient progressing towards achieving therapeutic goals based on medication-specific laboratory parameters, disease state markers and outcomes. Christiano Bneavides, PharmD Pharmacist, [facility] Specialty Hydrogeology Professor Assessment Patient confirmed: Yes Med/dose confirmed: Yes Supplies needed: No supplies needed Missed doses: No Estimated days supply on hand: 12 Copay amount: 0 Payment confirmed: Yes Delivery method: FedEx Signature required: No Delivery address: [address] [place] [id number] Delivery date: 10/13/22 Questions or concerns for the pharmacist?: No [facility] Specialty Pharmacy Visit Assessment - Neurology: Assessment to use: Refill Vaccination Assessment: Date of influenza vaccination reminder: 12/01/2021 Date of most recent vaccination assessment: 12/01/2021 Refill Assessment: Assessment of injection issues or necrosis at injection sites: N/A Screening for infection: Yes Adverse reactions and mitigation: Yes Drug specific assessments, as appropriate: Yes Fartun Gavin (LicenseStream) [facility] 08-23-2022 Note HNO ID: [id number] Author: Tessie Ortiz RT(R) Service: ? Author Type: Truck Driver Helper Type: Progress Notes Filed: 08/23/2022 11:17 AM Note Text: Radiology Service Progress Note PATIENT NAME: Clare Randolph DATE OF SERVICE: August 23, 2022 TIME: 11:16 AM PATIENT IDENTITY VERIFICATION COMPLETED USING TWO (2) IDENTIFIERS: Name and Date of confirmed by patient verbally. FALL SCREENING: Has the patient had 2 falls in the last year or 1 fall with injury or currently using an Ambulatory Assistive Device (Walker, Cane, Wheelchair, Crutches, etc.)? No PATIENT GENDER DATA: Female. status: : No status: NO. PATIENT RELEVANT IMPLANT DATA REVIEWED: Not Applicable RADIOLOGY DEPARTMENT: Mammography PERIPHERAL IV DATA: Not applicable SIGNED BY: RT Juan(R) August 23, 2022 11:16 AM [facility] 08-17-2022 Note HNO ID: [id number] Author: Fartun Gavin (Violin Maker Hand) Service: ? Author Type: ? Type: Progress Notes Filed: 09/06/2022 11:58 AM Note Text: [facility] Specialty Refill Assessment Medication(s): Austedo Patient's current medication list and adherence status to current therapy were reviewed by Specialty Pharmacy clinical pharmacist to identify any new drug interactions or non-compliance to therapy. Therapy continues to be appropriate for disease, patient response, and medical condition. Verification of therapeutic benefit and effectiveness with current therapy was completed. Adverse events, barriers in adherence, and side effects were assessed and addressed if applicable. Will proceed with refill with no changes in therapy - patient progressing towards achieving therapeutic goals based on medication-specific laboratory parameters, disease state markers and outcomes. Christiano Benavides, PharmD Pharmacist, [facility] Specialty Hydrogeology Professor Assessment Patient confirmed: Yes Med/dose confirmed: Yes Supplies needed: No supplies needed Missed doses: No Estimated days supply on hand: 7 Copay amount: 0 Payment confirmed: Yes Delivery method: FedEx Signature required: No Delivery address: [address] [place] [id number] Delivery date: 09/07/22 Questions or concerns for the pharmacist?: No [facility] Specialty Pharmacy Visit Assessment - Neurology: Assessment to use: Refill Vaccination Assessment: Date of influenza vaccination reminder: 12/01/2021 Date of most recent vaccination assessment: 12/01/2021 Refill Assessment: Assessment of injection issues or necrosis at injection sites: N/A Screening for infection: Yes Adverse reactions and mitigation: Yes Drug specific assessments, as appropriate: Yes Fartun Gavin (Violin Maker Hand) [facility] 08-04-2022 Note HNO ID: [id number] Author: Lauren Dolan RDMS Service: ? Author Type: Mail Opener Type: Progress Notes Filed: 08/04/2022 3:35 PM Note Text: Radiology Service Progress Note PATIENT NAME: Clare Randolph DATE OF SERVICE: August 04, 2022 TIME: 3:35 PM PATIENT IDENTITY VERIFICATION COMPLETED USING TWO (2) IDENTIFIERS: Name and Date of confirmed by patient verbally. FALL SCREENING: Has the patient had 2 falls in the last year or 1 fall with injury or currently using an Ambulatory Assistive Device (Walker, Cane, Wheelchair, Crutches, etc.)? No PATIENT GENDER DATA: Female. status: : No status: NO. PATIENT RELEVANT IMPLANT DATA REVIEWED: Not Applicable RADIOLOGY DEPARTMENT: Ultrasound PERIPHERAL IV DATA: Not applicable SIGNED BY: Lauren Dolan RDMS RVT August 04, 2022 3:35 PM [facility] [facility] 08-03-2022 Note HNO ID: [id number] Author: Brittany Mason MD Service: ? Author Type: Physician Type: Progress Notes Filed: 08/03/2022 12:46 PM Note Text: [facility] CC: Thyroid nodules HISTORY OF PRESENT ILLNESS: Clare Randolph is a 57 year old female with a medical history of breast cancer s/p mastectomy and chemo/radiation (2020), CKD stage III with nephrolithiasis, depression, APLS, presenting today for evaluation of possibly thyroid nodules. Her PCP was doing a physical exam and felt a nodule in the neck. Ordered an ultrasound, however the radiologist was unsure if they saw a thyroid nodule or a parathyroid nodule. She did not remember to bring the exam with her today. Of note 3 years ago, she had an episode of hypercalcemia requiring hospitalization for IVF, after taking calcium supplementation. She says this is when she was diagnosed with kidney disease, but that she also has a very long history of nephrolithiasis (s/p 17 urological interventions since age 19). She follows with urology and nephrology. She is on calcitriol 0.25 mcg MWF. Her last elevated calcium was 11.4 while she was on 2 calcium tabs a day. She has since stopped this. No PTH checked at that time, but calcium has since normalized. She broke her leg in 2011, without any trauma (fall from standing height). At this time she was diagnosed with osteopenia, but was not started on any medications. No other fractures. 1 year ago she was diagnosed with osteoporosis. She was started on Prolia last year, and has her 3rd injection due soon. 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 None with imaging as an adult Chronic diastolic heart failure (HCC) 07/19/2022 Degeneration of intervertebral disc, site unspecified Depressive disorder, not elsewhere classified 04/08/2007 She has a provider, and is currently taking medication Diabetes mellitus with nephropathy (HCC) 07/19/2022 Displacement of lumbar intervertebral disc without myelopathy Esophageal reflux 03/21/2005 Essential hypertension 02/08/2017 Feeling of incomplete bladder emptying 04/15/2015 Fibromyalgia 03/21/2005 History of recurrent kidney stones 03/21/2005 since 1985. Mainly Ca Ox, but Ca Phos at least once. Hyperlipidemia Irritable bowel syndrome 03/21/2005 Malignant neoplasm of lower-outer quadrant of left female breast (HCC) 09/23/2020 Myalgia and myositis 03/21/2005 Myalgia and myositis, unspecified currently working with pain management Obstructive sleep apnea DME DASCO for AutoPAP Oral mass salivary stone, benign Other abnormal heart sounds Stable she has it her whole life. Functional murmur, asymptomatic Renal insufficiency Ulcerative colitis (HCC) Ulcerative colitis, she has had clear colonoscopys without signs of colitis and is not treated for irritable bowel Ventral hernia 06/24/2009 PAST SURGICAL HISTORY Procedure Laterality Date ARTHROSCOPY KNEE DIAGNOSTIC W/WO SYNOVIAL BX SPX 03/26/1982 Arthroscopy, knee, right patellar tendon repair CHOLECYSTECTOMY 03/26/1993 Dr. Parra COLONOSCOPY FLX DX W/COLLJ SPEC WHEN PFRMD 1996 2001 Colonoscopy COLONOSCOPY FLX DX W/COLLJ SPEC WHEN PFRMD 05/06/2014 Colonoscopy COLONOSCOPY SCREENING 11/02/2021 repeat colonoscopy in 3 years in 2024 COLONOSCOPY W/BIOPSY SINGLE/MULTIPLE 05/17/2011 Repeat in 2 years CURETTAGE 03/26/1995 CYSTOURETHROSCOPY 04/03/2012 Cystoscopy procedure; Dr. Rick Caballero. CYSTOURETHROSCOPY 05/08/2012 Cystoscopy with J-Stent Removal. Dr. Rick Caballero. CYSTOURETHROSCOPY 08/28/2013 Cystoscopy/Stent Removal; Dr. Harley EXC/DSTRJ LINGUAL TONSIL ANY METHOD SPX 12/24/1970 LAPS SURG CHOLECYSTECTOMY W/CHOLANGIOGRAPHY 03/26/2002 at [facility] LIG/TRNSXJ FLP TUBE ABDL/VAG APPR UNI/BI Tubal ligation LITHOTRIPSY XTRCORP SHOCK WAVE 11/28,09/26,08/26, Lithotripsy OOPHORECTOMY PARTIAL/TOTAL UNI/BI 01/26/2003 Dr. Burrows PAST SURGICAL HISTORY OF 06/22/2004 lithotripsy left kidney stent PAST SURGICAL HISTORY OF 09/23/1984 basket extraction kidney stone PAST SURGICAL HISTORY OF 08/24/2010 right kidney stones laser fragmentation, stent PAST SURGICAL HISTORY OF 09/23/2010 Laser Lithotripsy x 3 PAST SURGICAL HISTORY OF lumbar and cervical pain injections- many PAST SURGICAL HISTORY OF last bilateral URS 05/2015 SALPINGO-OOPHORECTOMY COMPL/PRTL UNI/BI SPX 01 (more content not included)... [facility] 07-18-2022 Note HNO ID: [id number] Author: Fartun Gavin (Violin Maker Hand) Service: ? Author Type: ? Type: Progress Notes Filed: 07/26/2022 1:40 PM Note Text: [facility] Specialty Refill Assessment Medication(s): Austedo Patient's current medication list and adherence status to current therapy were reviewed by Specialty Pharmacy clinical pharmacist to identify any new drug interactions or non-compliance to therapy. Therapy continues to be appropriate for disease, patient response, and medical condition. Verification of therapeutic benefit and effectiveness with current therapy was completed. Adverse events, barriers in adherence, and side effects were assessed and addressed if applicable. Will proceed with refill with no changes in therapy - patient progressing towards achieving therapeutic goals based on medication-specific laboratory parameters, disease state markers and outcomes. Sergio MotleyD Pharmacist, [facility] Specialty Hydrogeology Professor Assessment Patient confirmed: Yes Med/dose confirmed: Yes Supplies needed: No supplies needed Missed doses: No Estimated days supply on hand: 14 Copay amount: 0 Payment confirmed: Yes Delivery method: FedEx Signature required: No Delivery address: [address] [place] [id number] Delivery date: 07/28/22 Questions or concerns for the pharmacist?: No [facility] Specialty Pharmacy Visit Assessment - Neurology: Ivent complete: No Assessment to use: Refill Vaccination Assessment: Date of influenza vaccination reminder: 12/01/2021 Date of most recent vaccination assessment: 12/01/2021 Refill Assessment: Assessment of injection issues or necrosis at injection sites: N/A Screening for infection: Yes Adverse reactions and mitigation: Yes Drug specific assessments, as appropriate: Yes Additional Assessment: S/Sx of relapse: N/A S/Sx of progression to secondary progressive disease: N/A Assessment of disease effect on daily activities: N/A Fartun Gavin (Violin Maker Hand) [facility] 06-27-2022 Note HNO ID: [id number] Author: Selma Hawk APRN.CLEANING TECHNICIAN Service: ? Author Type: Nurse Practitioner Type: Progress Notes Filed: 06/27/2022 3:54 PM Note Text: [facility] FOLLOW UP VIRTUAL VISIT PROGRESS NOTE PATIENT: Clare Randolph MRD: [id number] DATE: June 27, 2022 IDENTIFYING INFORMATION: Patient was first identified by full name AND date of . This is a virtual visit. It required patient/provider interaction for medical decision-making as documented below. This visit was performed via American Board of Addiction Medicine (ABAM)t video.AND/or phone conversation, in the event that there are technical difficulties or patient does not have access to tele-health technology. I have communicated my name and active licensure. The patient's identity and physical location were verified at the time of this visit. Either the patient or their legal wire rope sales representative has been informed of the risks and benefits of -- and alternatives to -- treatment through a remote evaluation and consents to proceed with the evaluation remotely. CHIEF COMPLAINT: Presents today for a follow up for chemical dependency. SUBJECTIVE: Called patient due to not showing up on [employer]. States she was signed in and was ready. Instructed that from my end it is showing her not on, so will conduct this visit by phone call. Patient reports her mood is good and denies any high/lows or anxiety symptoms. States she was recently told that she has a thyroid nodule and may be on her parathyroid. Is waiting to see upcoming hot bread baker. Sleep is good at 8-9 hours/night and the Armidex does not seem to be interfering as it was before. States she feels rested during the day and suggested that we decrease to Modafinil more, she wished to wait until she sees what is going on with her thyroid. Has been having back pain and due for an injection. Takes both Clonopin before bedtime each night. Denies noticing any abnormal facial/extremity movements and recently saw Dr. Andre. Still on Austedo. Denies any SI/HI/AVH. Screening Tools: Generalized Anxiety Disorder Scale (DYLAN-7) DYLAN - 7 SCORES 04/27/2022 06/08/2022 06/24/2022 DYLAN-7 Score 2 1 0 (0-4) minimal anxiety, (5-9) mild anxiety, (10-14) moderate anxiety, (15-21) severe anxiety Patient Health Questionnaire (PHQ-9) PHQ-9 04/25/2022 06/08/2022 06/24/2022 Score 4 4 3 (0-4) minimal depression, (5-9) mild depression, (10-14) moderate depression, (15-19) moderately severe depression, (20-27) severe depression OBJECTIVE: Vital Signs: Unable to do due to current Covid 19 precautions/policies. Last menstrual period: post-menopausal Review of Systems: Review of Systems Constitutional: Negative for chills, fatigue and fever. HENT: Negative. Negative for congestion and sore throat. Respiratory: Negative for cough, chest tightness and shortness of breath. Cardiovascular: Negative for chest pain. Musculoskeletal: Negative. Neurological: Negative for dizziness and headaches. All other systems reviewed and are negative. Medication review: done. Side effects: as above Medical concerns/ changes: as above PHYSICAL EXAMINATION: Video Examination: if completed/performed via video-enabled technology Voice is clear without noted cough throughout interview. No audible wheezing. Speaking in full sentences. MENTAL STATUS EXAMINATION: (may be limited due to virtual platform) Mental Status Exam: General/Sensorium: Alert and AND interactive - Demeanor: Appropriately interactive and Cooperative - Speech: Appropriate and Articulate with appropriate rhythm and volume - Mood: Denies mood concerns - Affect: Euthymic and Congruent with mood - Thought Process: Linear, logical, and goal-directed - Associations: Normal - Thought Content: Appropriate with no SI/HI/AVH and Talking about future goals or plans - Perceptions: The patient does not appear internally stimulated - Cognition: Appears intact in regards to memory, attention/concentration, fund of knowledge and language skills - Insight: Good - Judgment: Good - Suicide Risk Assessment: Patient's suicide risk has been evaluated. He is currently judged to be at low suicide risk, after weighing his risk factors (none) against his protective factors (no current SI, no current suicide plan, no recent initiation or increase in substance ue, good insight about condition, good support system, no isolation at home, presence of dependents, presence of meaningful daily activities, active [employer]ar[employer] pear[employer], belief that treatment can help with negative feelings, and medication compliance in the past) and also reviewing his age (highest risk > 65 yrs), gender (higher risk in males), marital status, ethnicity (highest risk in Caucasians) and sexual orientation. ALLERGIES Allergen Reactions Latex Rash, Swelling swelling of throat Adhesive Rash Adhesive Tape (Love* Other: See Comments Band-aid adhesive Amoxicill (more content not included)... [facility] 06-20-2022 Note HNO ID: [id number] Author: Fartun Gavin (Violin Maker Hand) Service: ? Author Type: ? Type: Progress Notes Filed: 06/23/2022 4:48 PM Note Text: [facility] Specialty Refill Assessment Medication(s): Austedo Patient's current medication list and adherence status to current therapy were reviewed by Specialty Pharmacy clinical pharmacist to identify any new drug interactions or non-compliance to therapy. Therapy continues to be appropriate for disease, patient response, and medical condition. Verification of therapeutic benefit and effectiveness with current therapy was completed. Adverse events, barriers in adherence, and side effects were assessed and addressed if applicable. Will proceed with refill with no changes in therapy - patient progressing towards achieving therapeutic goals based on medication-specific laboratory parameters, disease state markers and outcomes. Christiano Benavides, PharmD Pharmacist, [facility] Specialty Hydrogeology Professor Assessment Patient confirmed: Yes Med/dose confirmed: Yes Supplies needed: No supplies needed Missed doses: No Estimated days supply on hand: 12 Copay amount: 0 Payment confirmed: Yes Delivery method: FedEx Signature required: No Delivery address: [address] [place] [id number] Delivery date: 06/27/22 Questions or concerns for the pharmacist?: No [facility] Specialty Pharmacy Visit Assessment - Neurology: Ivent complete: No Assessment to use: Refill Vaccination Assessment: Date of influenza vaccination reminder: 12/01/2021 Date of most recent vaccination assessment: 12/01/2021 Refill Assessment: Assessment of injection issues or necrosis at injection sites: N/A Screening for infection: Yes Adverse reactions and mitigation: Yes Drug specific assessments, as appropriate: Yes Additional Assessment: S/Sx of relapse: N/A S/Sx of progression to secondary progressive disease: N/A Assessment of disease effect on daily activities: N/A Fartun Gavin (Violin Maker Hand) [facility] 06-14-2022 Note HNO ID: [id number] Author: Branden Milligan MD Service: ? Author Type: Physician Type: Progress Notes Filed: 06/14/2022 4:08 PM Note Text: [facility] - FOLLOW UP EVALUATION - VIRTUAL VISIT Steffanie Sullivan DO [address] [facility] [address] Dear Steffanie Sullivan DO: I had the pleasure of seeing Ms. Randolph for follow-up today. As you know she is a 57 year old right-handed female with a history of tardive dyskinesia and jaw dystonia since 2020. She is seen alone. We had a visit using: [facility] I received consent from the patient to perform the visit using this platform. Subjective During her previous visit the following plan was made: Previous plan-Stage II left breast infiltrating ductal carcinoma status postmastectomy followed by TC chemotherapy. Currently on Arimidex. Significant risk with osteoporosis. Discussed tamoxifen; however with documented phospholipid antibody syndrome I would not recommend tamoxifen unless we add an anticoagulant which would be too much for the patient. I believe continuing with Arimidex with the hope for protection from Prolia is extremely adequate. She will need bone density in 2023. We will schedule her for mammogram in July 2022 and see her in 6 months. We will continue with Prolia every 6 months The patient was able to ask questions and these were answered in detail. Aurelia George MD cc: Ismael Sullivan, DO Interval History She has been doing well. She has a little tongue movement but not much. Her mental health is good as well. She has not tremors or fatigue. She has a thyroid nodule and will be evaluated for that, otherwise no new medical problems. Movement Disorders Medications Schedule - as of the start of the visit: Medications AM PM Austedo 12 mg 1 1 ALLERGIES Allergen Reactions - Latex Rash, Swelling swelling of throat - Adhesive Rash - Adhesive Tape (Love* Other: See Comments Band-aid adhesive - Amoxicillin Trihydr* Rash - Avelox [Moxifloxaci* Hives Received Cipro 03/22/2012. dizziness and some shortness of breath - Cefuroxime Rash - Chlorpheniramine Al* Other: See Comments sneeze - Dimetapp [Brompheni* Hives - Diphtheria-Tetanus-* Anaphylaxis Almost as a child can only have tetnus part - Doxycycline GI Upset - Flonase [Fluticason* Other: See Comments Soreness inside nose. - Hair [place] Shortness of Breath Tongue swelling and numbness, plus throat swells. - Iodine [Contrast Dy* Hives - Lunesta [Eszopiclon* Other: See Comments Had odd dreams and bad taste in her mouth - Neurontin [Gabapent* Intolerance - Novacaine [Procaina* hypersensitive - Paxil [Paroxetine H* GI Upset Nausea - Peanuts GI Upset - Red Dye Other: See Comments AND pink dye - Seasonal Allergies Other: See Comments Specifically, environmental: Cats, Dogs, Dust Mites, Trees, Grass, [place], Ragweed - Shellfish Hives - Sulfa (Sulfonamide * Rash - Tetracycline Rash - Zoloft [Sertraline * Intolerance Dizzy, Lightheaded Current Outpatient Medications Medication Sig - vilazodone (VIIBRYD) 40 mg tablet take 1 tablet by mouth EVERY MORNING WITH BREAKFAST - anastrozole (ARIMIDEX) 1 mg tablet take 1 tablet by mouth once daily - clonazePAM orally disintegrating (KLONOPIN WAFER) 0.5 mg disintegrating tablet Take 1-2 tablets at bedtime, as needed for sleep. - lurasidone (LATUDA) 20 mg tablet Take 1 tablet by mouth once daily. Total daily dose is 100 mg/day. - lurasidone (LATUDA) 80 mg tablet Take 1 tablet by mouth once daily. Total daily dose is 100 mg/day. - modafinil (PROVIGIL) 100 mg tablet Take 1.5 tablets by mouth once daily for 90 days. - nitrofurantoin macrocrystal (MACRODANTIN) 50 mg capsule Take 1 capsule by mouth daily at bedtime. - JARDIANCE 10 mg tablet take 1 tablet by mouth daily every morning WITH BREAKFAST - cyclobenzaprine (FLEXERIL) 10 mg tablet Take 10 mg by mouth twice daily as needed. - calcitriol (ROCALTROL) 0.25 mcg capsule Take 1 capsule by mouth every Sunday,Sunday,Sunday. - VENTOLIN HFA 90 mcg/actuation inhaler inhale 2 puffs every 4 hours if needed for shortness of breath or wheezing - lamoTRIgine (LAMICTAL) 150 mg tablet Take 0.5 tablets by mouth once daily. - oxybutynin ER (DITROPAN XL) 10 mg 24 hr tablet Take 1 tablet by mouth once daily. - potassium citrate ER (UROCIT-K) 10 mEq (1,080 mg) Take 2 tablets by mouth twice daily. - deutetrabenazine (AUSTEDO) 12 mg tab Take 1 tablet (12 mg) by mouth twice daily with meals. - hydrOXYzine pamoate (VISTARIL) 50 mg capsule Take 1 capsule by mouth three times daily. - aspirin 325 mg tablet Take 325 mg by mouth once daily. - L.acidoph,plant/B.animal,long (PROBIOTIC ACIDOPHILUS BEADS ORAL) Take 1 tablet by mouth once daily. - potassium chloride SR (MICRO-K) 10 mEq CR capsule START WITH 2 capsules by mouth twice a day , THEN INCREASE TO three times a day - EPINEPHrine (EPIPEN) 0.3 mg/0.3 mL (more content not included)... [facility] 05-29-2022 Note HNO ID: [id number] Author: Unique Pascal Service: ? Author Type: ? Type: Progress Notes Filed: 05/30/2022 3:31 PM Note Text: [facility] Specialty Refill Assessment Medication(s): Kvngtedo Patient's current medication list and adherence status to current therapy were reviewed by Specialty Pharmacy clinical pharmacist to identify any new drug interactions or non-compliance to therapy. Therapy continues to be appropriate for disease, patient response, and medical condition. Verification of therapeutic benefit and effectiveness with current therapy was completed. Adverse events, barriers in adherence, and side effects were assessed and addressed if applicable. Will proceed with refill with no changes in therapy - patient progressing towards achieving therapeutic goals based on medication-specific laboratory parameters, disease state markers and outcomes. Christiano Benavides, PharmD Pharmacist, [facility] Specialty Hydrogeology Professor Assessment Patient confirmed: Yes Med/dose confirmed: Yes Supplies needed: No supplies needed Missed doses: No Estimated days supply on hand: 7 Next cycle/dose due: 05/29/22 Copay amount: 0 Payment confirmed: Yes Delivery method: FedEx Signature required: No Delivery address: [address] [place] [address] Delivery date: 06/01/22 Questions or concerns for the pharmacist?: No [facility] Specialty Pharmacy Visit Assessment - Neurology: Ivent complete: No Assessment to use: Refill Vaccination Assessment: Date of influenza vaccination reminder: 12/01/2021 Date of most recent vaccination assessment: 12/01/2021 Refill Assessment: Assessment of injection issues or necrosis at injection sites: N/A Screening for infection: Yes Adverse reactions and mitigation: Yes Drug specific assessments, as appropriate: Yes Additional Assessment: S/Sx of relapse: N/A S/Sx of progression to secondary progressive disease: N/A Assessment of disease effect on daily activities: N/A Unique Pascal CPhT [facility] Pharm[facility] 05-17-2022 Note HNO ID: [id number] Author: Aurelia George MD Service: ? Author Type: Physician Type: Progress Notes Filed: 05/17/2022 5:26 PM Note Text: SERVICE DATE: May 17, 2022 CHIEF COMPLAINT: Claer Randolph is a 57 year old female returning today for follow up of her left breast cancer INTERVAL HISTORY: Very pleasant 57-year-old white lady with left breast cancer with lymph node metastasis and extracapsular extension. Was strongly positive ER/CO and no overexpression of HER2/romel oncogene. She had TC adjuvant chemotherapy following mastectomy and has been on Arimidex. She has osteoporosis but has been receiving Prolia thus far 2 doses Diagnostic Studies: Reviewed CURRENT MEDICATIONS: clonazePAM orally disintegrating (KLONOPIN WAFER) 0.5 mg disintegrating tablet Take 1-2 tablets at bedtime, as needed for sleep. vilazodone (VIIBRYD) 40 mg tablet Take 1 tablet by mouth daily with breakfast. lurasidone (LATUDA) 20 mg tablet Take 1 tablet by mouth once daily. Total daily dose is 100 mg/day. lurasidone (LATUDA) 80 mg tablet Take 1 tablet by mouth once daily. Total daily dose is 100 mg/day. modafinil (PROVIGIL) 100 mg tablet Take 1.5 tablets by mouth once daily for 90 days. nitrofurantoin macrocrystal (MACRODANTIN) 50 mg capsule Take 1 capsule by mouth daily at bedtime. JARDIANCE 10 mg tablet take 1 tablet by mouth daily every morning WITH BREAKFAST cyclobenzaprine (FLEXERIL) 10 mg tablet Take 10 mg by mouth twice daily as needed. calcitriol (ROCALTROL) 0.25 mcg capsule Take 1 capsule by mouth every Sunday,Sunday,Sunday. VENTOLIN HFA 90 mcg/actuation inhaler inhale 2 puffs every 4 hours if needed for shortness of breath or wheezing lamoTRIgine (LAMICTAL) 150 mg tablet Take 0.5 tablets by mouth once daily. oxybutynin ER (DITROPAN XL) 10 mg 24 hr tablet Take 1 tablet by mouth once daily. potassium citrate ER (UROCIT-K) 10 mEq (1,080 mg) Take 2 tablets by mouth twice daily. anastrozole (ARIMIDEX) 1 mg tablet take 1 tablet by mouth once daily deutetrabenazine (AUSTEDO) 12 mg tab Take 1 tablet (12 mg) by mouth twice daily with meals. hydrOXYzine pamoate (VISTARIL) 50 mg capsule Take 1 capsule by mouth three times daily. aspirin 325 mg tablet Take 325 mg by mouth once daily. LAndersacidoscar,plant/B.animal,long (PROBIOTIC ACIDOPHILUS BEADS ORAL) Take 1 tablet by mouth once daily. EPINEPHrine (EPIPEN) 0.3 mg/0.3 mL auto-injector Use as directed for allergic reaction to latex and associated food allergies atorvastatin (LIPITOR) 40 mg tablet Take 1 tablet by mouth daily at bedtime. For cholesterol. diclofenac (VOLTAREN) 1 % topical gel Apply 2 g to affected area four times daily as needed. For shoulder pain traMADol (ULTRAM) 50 mg tablet Take 50 mg by mouth every 8 hours as needed for pain. melatonin 10 mg tab Take 1 tablet by mouth daily at bedtime. niacin (NIACIN) 100 mg tablet Take 100 mg by mouth daily with breakfast. CPAP Mask refit, [employer] supplies, opt [employer], G47.33. CPAP Supplies: suitable mask per pt preference, chin strap, head gear, humidity, tubing, lifetime supplies. G47.33 YAHAIRA Please send 30 day download on 06/06/18 to [phone] attn: Sweta verapamil SR (CALAN SR, ISOPTIN SR) 120 mg CR tablet Take 1 tablet by mouth twice daily. potassium chloride SR (MICRO-K) 10 mEq CR capsule START WITH 2 capsules by mouth twice a day , THEN INCREASE TO three times a day ALLERGIES/INTOLERANCES: ALLERGIES Allergen Reactions Latex Rash, Swelling swelling of throat Adhesive Rash Adhesive Tape (Love* Other: See Comments Band-aid adhesive Amoxicillin Trihydr* Rash Avelox [Moxifloxaci* Hives Received Cipro 03/22/2012. dizziness and some shortness of breath Cefuroxime Rash Chlorpheniramine Al* Other: See Comments sneeze Dimetapp [Brompheni* Hives Diphtheria-Tetanus-* Anaphylaxis Almost as a child can only have tetnus part Doxycycline GI Upset Flonase [Fluticason* Other: See Comments Soreness inside nose. Hair [place] Shortness of Breath Tongue swelling and numbness, plus throat swells. Iodine [Contrast Dy* Hives Lunesta [Eszopiclon* Other: See Comments Had odd dreams and bad taste in her mouth Neurontin [Gabapent* Intolerance Novacaine [Procaina* hypersensitive Paxil [Paroxetine H* GI Upset Nausea Peanuts GI Upset Red Dye Other: See Comments AND pink dye Seasonal Allergies Other: See Comments Specifically, environmental: Cats, Dogs, Dust Mites, Trees, Grass, [place], Ragweed Shellfish Hives Sulfa (Sulfonamide * Rash Tetracycline Rash Zoloft [Sertraline * Intolerance Dizzy, Lightheaded ROS: Denies increased hot flashes and no fever night sweats or weight loss Denies bone pain or symptoms that suggest impending cord compression Denies unusual headaches diplopia ataxia or symptoms that suggest BOOK RETAILER metastasis Denies abdominal pain nausea vomiting hematochezia melena or significant alteration of bowel hab (more content not included)... [facility] 05-02-2022 Note HNO ID: [id number] Author: Selma Hawk APRN.CLEANING TECHNICIAN Service: ? Author Type: Nurse Practitioner Type: Progress Notes Filed: 05/03/2022 12:40 PM Note Text: [facility] PROGRESS NOTE-VIRTUAL VISIT PATIENT: Clare Randolph MRD: [id number] DATE: May 02, 2022 This is a virtual visit. It requires patient/provider interaction for medical decision-making as documented below. The patient is first identified by full name and date of . Visit was done per [employer]ault video platform. Patient states they are currently at home in [place]. They are accompanied by in the room. IDENTIFYING INFORMATION: Clare is a 57 year old white female . CHIEF COMPLAINT: here for medication managment SUBJECTIVE: Patient is available on video platform at time of visit. She states that things are going pretty good . States that she has restarted physical therapy due to needing to strengthen her legs. Reports she recently had a fall at the grocery store. She slipped on ice in the parking lot. Did not hit her head or break anything. Reports she is working on weight bearing also do her to her osteoporosis. She states her appetite is good and she has gained some weight. Reports she has not noticed a change in her mood or behavior with the lower dose of Lamictal. Patient agrees to wean to DC this medication. Reports she is sleeping better at night. She has an appointment with her primary care provider to evaluate her CPAP. Reports she wears it nightly and sleeps approximately 8 hours. She takes the Klonopin x2, 1 mg total, prior to going to bed. Reports that she did use the good Rx coupon for her modafinil refill and feels this is helping her stay awake during the day. Discussed that many of her medications can be sedating and this may be contributing to her daytime fatigue. Discussed needing to decrease some of her medications. Patient states she does not want to decrease the Viibryd as she had not taking it for several days and notices a difference in her mood. Denies any SI/HI/AVH. Denies any delusions. Screening Tools: Generalized Anxiety Disorder Scale (DYLAN-7) DYLAN - 7 SCORES 12/19/2021 02/10/2022 04/27/2022 DYLAN-7 Score 4 2 2 (0-4) minimal anxiety, (5-9) mild anxiety, (10-14) moderate anxiety, (15-21) severe anxiety Patient Health Questionnaire (PHQ-9) PHQ-9 12/19/2021 02/10/2022 04/25/2022 Score 5 4 4 (0-4) minimal depression, (5-9) mild depression, (10-14) moderate depression, (15-19) moderately severe depression, (20-27) severe depression ROS: Review of Systems Constitutional: Negative for chills, fatigue and fever. HENT: Negative. Negative for congestion and sore throat. Respiratory: Negative for cough, chest tightness and shortness of breath. Cardiovascular: Negative for chest pain. Musculoskeletal: Negative. Neurological: Negative for dizziness and headaches. All other systems reviewed and are negative. VITAL SIGNS: Unable to do due to current Covid 19 precautions/policies. Last menstrual period: post-menopausal ALLERGIES Allergen Reactions Latex Rash, Swelling swelling of throat Adhesive Rash Adhesive Tape (Love* Other: See Comments Band-aid adhesive Amoxicillin Trihydr* Rash Avelox [Moxifloxaci* Hives Received Cipro 03/22/2012. dizziness and some shortness of breath Cefuroxime Rash Chlorpheniramine Al* Other: See Comments sneeze Dimetapp [Brompheni* Hives Diphtheria-Tetanus-* Anaphylaxis Almost as a child can only have tetnus part Doxycycline GI Upset Flonase [Fluticason* Other: See Comments Soreness inside nose. Hair [place] Shortness of Breath Tongue swelling and numbness, plus throat swells. Iodine [Contrast Dy* Hives Lunesta [Eszopiclon* Other: See Comments Had odd dreams and bad taste in her mouth Neurontin [Gabapent* Intolerance Novacaine [Procaina* hypersensitive Paxil [Paroxetine H* GI Upset Nausea Peanuts GI Upset Red Dye Other: See Comments AND pink dye Seasonal Allergies Other: See Comments Specifically, environmental: Cats, Dogs, Dust Mites, Trees, Grass, [place], Ragweed Shellfish Hives Sulfa (Sulfonamide * Rash Tetracycline Rash Zoloft [Sertraline * Intolerance Dizzy, Lightheaded Current Outpatient Medications on File Prior to Visit Medication Sig modafinil (PROVIGIL) 100 mg tablet Take 1.5 tablets by mouth once daily for 90 days. nitrofurantoin macrocrystal (MACRODANTIN) 50 mg capsule Take 1 capsule by mouth daily at bedtime. JARDIANCE 10 mg tablet take 1 tablet by mouth daily every morning WITH BREAKFAST cyclobenzaprine (FLEXERIL) 10 mg tablet Take 10 mg by mouth twice daily as needed. calcitriol (ROCALTROL) 0.25 mcg capsule Take 1 capsule by mouth every Sunday,Sunday,Sunday. VENTOLIN HFA 90 mcg/actuation inhaler inhale 2 puffs every 4 hours if needed for shortness of breath or wheezing clonazePAM orally disintegrating (KLONOPIN WAFER) 0.5 m (more content not included)... [facility] 04-24-2022 Note HNO ID: [id number] Author: Fartun Gavin (LicenseStream) Service: ? Author Type: ? Type: Progress Notes Filed: 04/27/2022 4:28 PM Note Text: PA was approved with details listed below. Plan Name [facility] Medication Name: Dex TERRY reference number: [id number] Approval Dates: 04/24/22 until further notice Prescriptions will now be processed through [facility] for determination of next steps. Fartun Gavin CPhT (Dee) [facility], Neurology/Cardiology/Hepatology/In flammatory P: F: [facility] 04-24-2022 Note HNO ID: [id number] Author: Fartun Gavin (Violin Maker Hand) Service: ? Author Type: ? Type: Progress Notes Filed: 04/24/2022 5:49 PM Note Text: Benefits investigation was conducted, indicating that a prior authorization renewal is required for [place] by pt's new plan with [facility]. Note will be updated once prior authorization has been submitted. Fartun Gavin CPhT (Dee) [facility], Neurology/Cardiology/Hepatology/In flammatory P: F: [facility] 04-24-2022 Note HNO ID: [id number] Author: Fartun Gavin (Violin Maker Hand) Service: ? Author Type: ? Type: Progress Notes Filed: 04/26/2022 3:58 PM Note Text: [facility] Refill Assessment Medication(s): [place] Patient's current medication list and adherence status to current therapy were reviewed by Specialty Pharmacy clinical pharmacist to identify any new drug interactions or non-compliance to therapy. Therapy continues to be appropriate for disease, patient response, and medical condition. Verification of therapeutic benefit and effectiveness with current therapy was completed. Adverse events, barriers in adherence, and side effects were assessed and addressed if applicable. Will proceed with refill with no changes in therapy - patient progressing towards achieving therapeutic goals based on medication-specific laboratory parameters, disease state markers and outcomes. Christiano Benavides, PharmD Pharmacist, [facility] Hydrogeology Professor Assessment Patient confirmed: Yes Med/dose confirmed: Yes Supplies needed: No supplies needed Estimated days supply on hand: 8 Copay amount: 10.35 (ok to use cc on file) Copay form of payment: Credit card on file Payment confirmed: Yes Delivery method: FedEx Signature required: No Delivery address: [address] [place] [address] Delivery date: 04/28/22 [facility] Visit Assessment - Neurology: Ivent complete: No Assessment to use: Refill Vaccination Assessment: Date of influenza vaccination reminder: 12/01/2021 Date of most recent vaccination assessment: 12/01/2021 Refill Assessment: Assessment of injection issues or necrosis at injection sites: N/A Screening for infection: Yes Adverse reactions and mitigation: Yes Drug specific assessments, as appropriate: Yes Additional Assessment: S/Sx of relapse: N/A S/Sx of progression to secondary progressive disease: N/A Assessment of disease effect on daily activities: N/A Fartun Gavin (Violin Maker Hand) [facility] 11-04-2020 Evaluation + Plan note Future Scheduled TestsBasic Metabolic Panel 8/03/15N-Terminal proBNP 8/18/22N-Terminal proBNP 11/04/20Lipid Profile 11/04/20 [facility] Evaluation + Plan note Future Appointments Appointment Date:05/25/2021 09:00:00 AM Scheduled Provider: Location:[facility] Appointment Type:CV Procedure - AOH Echo Future Scheduled TestsBasic Metabolic Panel 11/04/20N-Terminal proBNP 8/18/22N-Terminal proBNP 11/04/20Lipid Profile 11/04/20 [facility] Evaluation + Plan note Future Appointments Appointment Date:06/08/2022 01:30:00 PM Scheduled Provider: Location:[facility] Appointment Type:US Thyroid Appointment Date:11/09/2022 01:30:00 PM Scheduled Provider:STEFFANIE SULLIVAN DO Location:[facility] Appointment Type:PC OV Diagnostic Tests PendingHepatitis C Antibody IgG 05/18/22 Future Scheduled TestsHepatic Function Panel 02/21/22Thyroid Stimulating Hormone 02/22/22N-Terminal proBNP 8/18/22N-Terminal proBNP 07/21/US Thyroid 06/08/22 [facility] Evaluation + Plan note Future Appointments Appointment Date:06/08/2022 01:30:00 PM Scheduled Provider: Location:[facility] Appointment Type:US Thyroid Appointment Date:11/09/2022 01:30:00 PM Scheduled Provider:STEFFANIE SULLIVAN DO Location:[facility] Appointment Type:PC OV Future Scheduled TestsN-Terminal proBNP 8/18/22N-Terminal proBNP 07/21/22US Thyroid 06/08/22 [facility] Evaluation + Plan note Future Appointments Appointment Date:08/09/2022 10:45:00 AM Scheduled Provider: Location:[facility] Appointment Type:CV OV Appointment Date:11/09/2022 01:30:00 PM Scheduled Provider:STEFFANIE SULLIVAN DO Location:[facility] Appointment Type:PC OV Future Scheduled TestsUrine Culture 07/18/22N-Terminal proBNP 8/18/22N-Terminal proBNP 07/21/22 [facility] Evaluation + Plan note Future Appointments Appointment Date:11/09/2022 01:30:00 PM Scheduled Provider:STEFFANIE SULLIVAN DO Location:[facility] Appointment Type:PC OV Future Scheduled TestsUrine Culture 07/18/N-Terminal proBNP 11/10/N-Terminal proBNP 07/21/22 [facility] Evaluation + Plan note Future Appointments Appointment Date:01/09/2023 02:00:00 PM Scheduled Provider:STEFFANIE SULLIVAN DO Location:[facility] Appointment Type:PC OV Future Scheduled TestsBasic Metabolic Panel 11/09/22Helicobacter Pylori Antibody 8/PTH, Intact 8/17/23N-Terminal proBNP 07/21/22 [facility] Evaluation + Plan note Future Appointments Appointment Date:01/09/2023 02:00:00 PM Scheduled Provider:STEFFANIE SULLIVAN DO Location:[facility] Appointment Type:PC OV Future Scheduled TestsBasic Metabolic Panel 11/09/22Helicobacter Pylori Antibody 11/09/PTH, Intact 8/17/23N-Terminal proBNP 07/21/NM Parathyroid Study 11/22/22 [facility] Evaluation + Plan note Future Appointments Appointment Date:06/12/2023 01:30:00 PM Scheduled Provider:STEFFANIE SULLIVAN DO Location:[facility] Appointment Type:PC OV Future Scheduled TestsBasic Metabolic Panel 11/09/22Helicobacter Pylori Antibody 01/09/23Helicobacter Pylori Antibody 8/23PTH, Intact 8/17/23N-Terminal proBNP 07/21/22NM Parathyroid Study 11/22/22 [facility] Hospital course Narrative No data available for this section [facility] Hospital Discharge instructions No data available for this section [facility] Note JOHN GONZALES MD: SIGN, VERIFY Event Display: Echocardiogram Complete w/Strain (AOH) Authored Date: [id number] [facility] Progress note No data available for this section [facility] Summary Purpose Family History No Family History Records FoundNo Family History Records Found No data available for this section No data available for this section No Family History Records Found No data available for this section No Family History Records FoundNo Family History Records Found Advance Directives No Advanced Directives Records FoundNo Advanced Directives Records FoundNo Advanced Directives Records FoundNo Advanced Directives Records FoundNo Advanced Directives Records Found Additional Source Comments INFORMATION SOURCE (unrecogn ized section and content) DATE CREATED AUTHOR AUTHOR'S ORGANIZ ATION 11/18/2021 [facility] DATE CREATED AUTHOR AUTHOR'S ORGANIZ ATION 04/05/2023 [facility] DATE CREATED AUTHOR AUTHOR'S ORGANIZ ATION 04/14/2023 [facility] ([place] DATE CREATED AUTHOR AUTHOR'S ORGANIZ ATION 04/21/2023 [facility] Care Team (unrecognized sect ion and content) Care Team Personnel Name: STEFFANIE SULLIVAN DO Position: P4 Physician - Primary Care Member Role: Primary Care Physician Address: Address: [address] [place] [address]- Care Team Related Persons Name: FIORELLA RANDOLPH Care Team Personnel Name: Rogelio Holm Member Role: Carton Maker Name: STEFFANIE SULLIVAN DO Position: P4 Physician - Primary Care Member Role: Primary Care Physician Address: Address: [address] [place] [address]- Care Team Related Persons Name: FIORELLA RANDOLPH Patient Care team informatio n (unrecognized section and content) Care Team Personnel Name: Rogelio Holm Member Role: Carton Maker Name: STEFFANIE SULLIVAN DO Position: P4 Physician - Primary Care Member Role: Primary Care Physician Address: Address: [address] [place] [address]- Care Team Related Persons Name: FIORELLA RANDOLPH Care Team Personnel Name: Rogelio Holm Member Role: Carton Maker Name: STEFFANIE SULLIVAN DO Position: P4 Physician - Primary Care Member Role: Primary Care Physician Address: Address: [address] [place] [address] Care Team Related Persons Name: FIORELLA RANDOLPH Care Team Personnel Name: Rogelio Holm Member Role: Carton Maker Name: STEFFANIE SULLIVAN DO Position: P4 Physician - Primary Care Member Role: Primary Care Physician Address: Address: [address] [place] [address] Care Team Related Persons Name: FIORELLA RANDOLPH Care Team Personnel Name: Rogelio Holm Member Role: Carton Maker Name: STEFFANIE SULLIVAN DO Position: P4 Physician - Primary Care Member Role: Primary Care Physician Address: Address: [address] [place] [address] Care Team Related Persons Name: FIORELLA RANDOLPH Care Team Personnel Name: Rogelio Holm Member Role: Carton Maker Name: STEFFANIE SULLIVAN DO Position: P4 Physician - Primary Care Member Role: Primary Care Physician Address: Address: [address] [place] [address] Care Team Related Persons Name: FIORELLA RANDOLPH FOR RECORDS PERTAINING TO PATIENTS WHO ARE OR HAVE BEEN ENROLLED IN A CHEMICAL DEPENDENCY/SUBSTANCEABUSE PROGRAM, SOME INFORMATION MAY BE OMITTED. This clinical summary was aggregated from multiple sources. Caution should be exercised in using it in the provision of clinical care. This summary normalizes information from multiple sources, and as a consequence, information in this document may materially change the coding, format and clinical context of patient data. In addition, data may be omitted in some cases. CLINICAL DECISIONS SHOULD BE BASED ON THE PRIMARY CLINICAL RECORDS. [facility] [employer] provides no warranty or guarantee of the accuracy or completeness of information in this document.
[2023-04-24] MEDS: Magnesium 1 GM over 15 mins IV (10:36)
--- NOTE | 2023-04-24 11:17 | HP.PCM_ITS ---
History and Physical MR#: [id number] Acct: [id number] Name: KELLIE CORTÉS Rep #: [id number] : 1965 Provider: Dr. Hayes Browne MD Age/Sex: 58/F Location: [facility] – [place], [place] Status: Signed Intake Vital Signs 03/29/2413:09 Height 5 ft 4 in Weight: 232 lb 4 oz BMI 39.9 Intake Visit Reasons: thoracic spine Chief Complaint: low back pain Is patient in pain?: Yes Pain scale (1-10): 9 Allergies cephalexin [From Keflex] Allergy (Mild, Verified 04/17/23 13:09) Itchingbanana Allergy (Verified 04/17/23 13:09) Hivesbrompheniramine [From Dimetapp (brompheniramine-PPA)] Allergy (Verified 04/17/23 13:09) Hivescefuroxime Allergy (Verified 04/17/23 13:09) Rashkiwi Allergy (Verified 04/17/23 13:09) Hiveslatex Allergy (Verified 04/17/23 13:09) Anaphylaxismoxifloxacin HCl [From Avelox] Allergy (Verified 04/17/23 13:09) Hivespeach Allergy (Verified 04/17/23 13:09) Hivesphenylpropanolamine [From Dimetapp (brompheniramine-PPA)] Allergy (Verified 04/17/23 13:09) Hivesred dye Allergy (Verified 04/17/23 13:09) Angioedemashellfish derived Allergy (Verified 04/17/23 13:09) Anaphylaxisstrawberry Allergy (Verified 04/17/23 13:09) HivesSulfa (Sulfonamide Antibiotics) Allergy (Verified 04/17/23 13:09) Rashtetanus and diphtheria toxoids [tetanus & diphtheria toxoids] Allergy (Verified 04/17/23 13:09) Anaphylaxistetracycline Allergy (Verified 04/17/23 13:09) Rashadhesive tape Adverse Reaction (Verified 04/17/23 13:09) Rashamoxicillin trihydrate [From Augmentin] Adverse Reaction (Verified 04/17/23 13:09) Nauseachlorpheniramine Adverse Reaction (Verified 04/17/23 13:09) Unknowndoxycycline Adverse Reaction (Verified 04/17/23 13:09) Nauseaeszopiclone [From Lunesta] Adverse Reaction (Verified 04/17/23 13:09) Unknownfluticasone [From Flonase] Adverse Reaction (Verified 04/17/23 13:09) Unknownparoxetine [From Paxil] Adverse Reaction (Verified 04/17/23 13:09) Nauseapeanut Adverse Reaction (Verified 04/17/23 13:09) Nauseapotassium clavulanate [From Augmentin] Adverse Reaction (Verified 04/17/23 13:09) Nauseaprocainamide Adverse Reaction (Verified 04/17/23 13:09) Unknown Medications diclofenac sodium 1 % topical gel (Voltaren) 2 g TP PRN PRN Mild-Mod Pain (1- 510) 05/02/15 [History Confirmed 04/17/23] albuterol sulfate 90 mcg/actuation aerosol inhaler (Ventolin HFA) 2 puff inhalation Q6H PRN PRN Shortness Of Breath 12/04/15 [History Confirmed 04/17/23] naphazoline 0.025 %-pheniramine 0.3 % eye drops (Naphcon-A) 1 drp OP PRN PRN allergies 09/15/16 [History Confirmed 04/17/23] atorvastatin 10 mg tablet (Lipitor) 10 mg PO QHS 11/21/20 [History Confirmed 04/17/23] lamotrigine 150 mg tablet (Lamictal) 75 mg PO DAILY 11/21/20 [History Confirmed 04/17/23] modafinil 100 mg tablet (Provigil) 150 mg PO DAILY 11/21/20 [History Confirmed 04/17/23] verapamil 120 mg tablet 120 mg PO BID 11/21/20 [History Confirmed 04/17/23] melatonin 10 mg tablet 10 mg PO QHS 01/20/21 [History Confirmed 04/17/23] potassium chloride 10 mEq capsule,extended release 20 meq PO BID 01/20/21 [History Confirmed 04/17/23] acetaminophen 325 mg tablet (Tylenol) 650 mg (2 x 325 mg) PO Q6H PRN PRN Pain 1- 10 Or Fever #0 tabs 01/25/21 [Rx Confirmed 04/17/23] anastrozole 1 mg tablet 1 mg PO DAILY 09/20/22 [History Confirmed 04/17/23] aspirin 325 mg tablet,delayed release 325 mg PO DAILY 09/20/22 [History Confirmed 04/17/23] cholecalciferol (vitamin D3) 250 mcg (10,000 unit) capsule 250 mcg PO DAILY 09/20/22 [History Confirmed 04/17/23] cyclobenzaprine 10 mg tablet 10 mg PO BID 09/20/22 [History Confirmed 04/17/23] denosumab 60 mg/mL subcutaneous syringe (Prolia) 60 mg subcut [id number] 09/20/22 [History Confirmed 04/17/23] hydroxyzine pamoate 50 mg capsule (Vistaril) 50 mg PO TID PRN ALLERGIES 09/20/22 [History Confirmed 04/17/23] clonazepam 0.5 mg tablet 0.5 mg PO QHS 10/25/22 [History Confirmed 04/17/23] deutetrabenazine 9 mg tablet (Austedo) 15 mg PO BID 03/29/23 [History Confirmed 04/17/23] lurasidone 80 mg tablet (Latuda) 120 mg PO QHS 03/29/23 [History Confirmed 04/17/23] oxybutynin chloride 10 mg tablet,extended release 24 hr 10 mg PO DAILY 03/29/23 [History Confirmed 04/17/23] coenzyme Q10 100 mg capsule (CoQ-10) 200 mg PO DAILY 04/13/23 [History Confirmed 04/17/23] multivitamin (Daily Multi-Vitamin tablet) 1 tab PO DAILY 04/13/23 [History Confirmed 04/17/23] nitrofurantoin macrocrystal 50 mg capsule 50 mg PO QHS 04/13/23 [History Confirmed 04/17/23] omeprazole 40 mg capsule,delayed release 40 mg PO DAILY 04/13/23 [History Confirmed 04/17/23] vitamin B12 1,000 mcg-folic acid 400 mcg sublingual lozenge 1,000 mark sublingual DAILY 04/13/23 [History Confirmed 04/17/23] hydrocodone-acetaminophen 5-325mg 5mg-325mg 1 tab PO 04/17/23 [History Confirmed 04/17/23] [facility] Medical History (Updated 04/13/23 @ 14:44 by Yaritza Davidson) Antiphospholipid antibody syndrome Anxiety Arthritis Asthma BiPAP (biphasic positive airway pressure) dependence Bladder disease Breast cancer Cancer Cardiology follow-up encounter Chronic pain Depression GERD (gastroesophageal reflux disease) History of echocardiogram History of hiatal hernia History of pain when walking History of renal disease History of stress test Hyperlipidemia IBS (irritable bowel syndrome) Leg cramps Migraine headache Non-smoker Post-menopausal Rheumatoid arthritis Schizo affective schizophrenia Stroke Tachycardia Tardive dyskinesia Thyroid disease Wears glasses Surgical History (Updated 04/13/23 @ 14:44 by Yaritza Davidson) History of cholecystectomy History of hysterectomy History of knee surgery History of lithotripsy Hx of bilateral oophorectomy Family History Other Cancer Social History household members: spouse housing: house Smoking Status: Never smoker alcohol intake: current alcohol intake frequency: other substance use type: does not use HPI thoracic spine Details: This documentation accurately reflects the service provided and the decisions made by me, Dr. Hayes Browne MD 04/17/23 1304. Part of today?s visit was documented by [ ], acting as scribe. KELLIE CORTÉS is a 58 year old F here today for her preop appointment for a pain stimulator. She states that her pain is worsening. She is taking norco for pain by Dr Madden. Patient notes that that Dr Madden said that she can have pain medication for 3 days after her surgery prescribed by our office. Kellie continues to be in significant low back pain radiating down to both lower extremities. She is eagerly awaiting spinal cord stimulator placement surgery scheduled next week. She is scheduled to see supervisor rod placing on Sunday regarding her aspirin usage she is currently on full dose aspirin. To review, following is her previous history. 03/29/23: KELLIE CORTÉS is a 57 year old F here today for a followup on her low back. She states that she has seen Dr Madden and had a trail of a pain sti mulator which was wonderful . It took away most of her pain. Due to Dr Madden having difficulty with one of the probes, he wanted a spine surgeon to do the procedure. Patient notes that she is taking norco twice daily. Kellie is here today for consideration of surgical paddle lead placement for spinal cord stimulation. And it has been seen by Dr. Leigh in the past for lumbar disc degeneration for which she was deemed to be not a surgical candidate. She was then seen by Dr. Madden who tried the spinal cord stimulator trial which gave her near complete relief of her chronic low back pain. Because of the difficulty placing the trial, decision was made that she obtain an open paddle lead placement and she was referred here. Her pain is in the lower back and often radiates to the left worse than right lower extremities. She has been treated through multiple modalities including pain medications. She had had multiple surgeries in the past but no spine surgeries. She has a history of breast cancer for which she underwent wide local resection. She did not need chemotherapy or radiation. She is on full aspirin because of a clotting disorder. 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 Ortho Exam General General: Yes no acute distress Neurologic: Yes alert and Yes oriented x3 Spine SPINE TESTING CERVICAL THORACIC LUMBAR Musculoskeletal Strength 0=absent - 5=normal Details: Examination of the spine shows no previous scars. Tenderness noticed paraspinally lower lumbar spine. Neurologic evaluation of lower extremity shows 5 x 5 power in all muscles normal sensations in all dermatomes. Coding Level of Care Code Off vis,est,level 3 Diagnoses Chronic bilateral low back pain with left-sided sciatica M54.42; G89.29 Back pain location: low back pain Chronicity: chronic Back pain laterality: bilateral Sciatica presence: with sciatica Sciatica laterality: sciatica of left side DDD (degenerative disc disease), lumbosacral M51.37 Time Spent (min) 35 Assessment and Plan Assessment and Plan (1) Back pain: Status: Acute Qualifiers: Back pain location: low back pain Chronicity: chronic Back pain laterality: bilateral Sciatica presence: with sciatica Sciatica laterality: sciatica of left side Qualified Code(s): M54.42 - Lumbago with sciatica, left side; G89.29 - Other chronic pain (2) DDD (degenerative disc disease), lumbosacral: Status: Acute Plan I again reviewed her x-rays and MRI of lumbar spine. These show sacralized L5 transitional lumbosacral anatomy. L4-5 disc shows disc degeneration without significant stenosis. Thoracic spine x-rays were obtained in the clinic to help with surgical planning. On x-ray she has normal AP lateral alignment. No obvious bony abnormality seen. Patient requests surgical placement of paddle lead through an open approach in the thoracic spine. Per Dr. Madden's note, the tip of the trial stimulator went up to the T8 level. I will try and obtain procedure images from Dr. Madden's office. Patient will undergo PCP clearance prior to surgery. She will need to be off of the aspirin or at least reduce to baby aspirin prior to surgery. Surgery will involve thoracic laminotomy versus laminectomy with placement of surgical paddle leads and pulse generator in the lumbar paraspinal region. I would prefer patient stays off of her aspirin perioperatively to reduce bleeding complications. Patient was in agreement. I went over all risk benefits and alternatives. The risks of the procedure include but are not limited to infection, bleeding, hematoma formation, spinal cord injury, need for further procedures, persistent pain, DVT, pulmonary embolism, cardiopulmonary event. Patient understands and agrees to proceed with surgery. Consent was signed.
[2023-04-24] MEDS: Clindamycin 900 MG/50 ML BAG 75 MG IV (12:20)
--- NOTE | 2023-04-24 14:17 | OP.PCM_ITS ---
Report of Operation Date of Procedure: 04/24/23 Description of Surgical Findings:: Preoperative diagnosis: Chronic back pain with successful spinal cord stimulator trial Postoperative diagnosis: Chronic back pain with successful spinal cord stimulator trial Name of procedure: T9-10 laminectomy, spinal cord stimulator permanent lead placement at T8 and implantable pulse generator placement in left lumbar region CPT 29779, 40021 Anesthesia: Gen. endotracheal Estimated blood loss: 30 mL Complications: None Instrumentation used: Darnell Lamitrode Tripole paddle lead and Eterna implantable pulse generator. Indications: The patient is a pleasant 58-year-old lady who presented to us with symptoms of chronic low back pain. Patient was treated with a spinal cord stimulator trial by pain management which successfully gave him excellent pain relief. Patient requested surgical placement of permanent lead and pulse generator of the spinal cord stimulator. All risks and benefits of the procedure were explained to the patient. The risks include but are not limited to infection, bleeding, injury to nerves and vessels, need for further procedures, worsening lumbar pathology with potential neurologic symptoms, persistent pain, technical issues with spinal cord stimulator, hematoma, migration of lead, skin impingement from subcutaneous pulse generator, worsening deformity, DVT, pulmonary embolism, cardiopulmonary event etc. patient understands all the risks and benefits and agrees to the procedure. Procedure: The patient was identified in the preoperative suite using unique patient identifiers. Skin was marked consent was taken and all questions were answered. The patient was then brought back to the operative room and a timeout was performed. General endotracheal anesthesia was given. Intraoperative neuro monitoring leads were applied. The patient was carefully positioned prone on a standard OR table with a Marc frame. Back was prepped and draped in usual fashion. X-rays were performed to identify level of incision. A posterior midline incision was carried out. Bovie was utilized to go down to the spinous processes. Subperiosteal dissection over the lamina was performed. A Racheal clamp was then placed on the left presumed T10 transverse process & T9 inferior lamina, and C-arm AP view was taken. This confirmed the level by counting up from last rib and also confirmed on lateral view. T9 spinous process was removed with the help of large rongeur. Bur was utilized to thin down a rectangular portion of the lamina. Upgoing curettes were utilized to carefully remove ligamentum flavum piecemeal to adequately expose posterior epidural space. The trial passer instrument was passed and confirmed on C-arm to reach the top of T8 vertebra on AP view. Darnell Lamitrode Tripole paddle lead was then passed underneath the T9 lamina superiorly to reach the T8 vertebra on AP view. This wa s then tested using Darnell representatives stimulation equipment. #1 Prolene was passed through T10 interspinous process and the paddle was fixated. Another silk suture was utilized to suture the remaining leads to the deep fascia with a loop. Tunneling instrument was used to create a subcutaneous tunnel from a transverse incision placed in the left lumbar region. This allowed the leads to be passed and tunneled through into the lower wound. These leads were then connected to the implantable pulse generator (IPG). The leads were tested again to confirm stimulation. The IPG was then implanted into a subcutaneous pocket less than 2 cm from the surface in the left lumbar region. Thorough irrigation was given in both wounds. Hemostasis was achieved utilizing FloSeal. Closure of both wounds was done in layers with 0 Vicryl interrupted for the deep fascia, 2-0 Vicryl for subcutaneous tissue and 4-0 Monocryl for skin. Steri-Strips was applied and dressed with 4 x 4 gauze and Tegaderm. the patient was then woken up from anesthesia. Patient was taken to PACU for monitoring in stable condition. The patient tolerated the procedure and no complications occurred. Blood loss was 30 ml. Darnell instrumentation was utilized. No dural tear was identified intra-operatively. I was scrubbed for the entire procedure and performed the surgery myself. Admit VTE Documentation VTE Mechan Device Prophylaxis: SCD's Procedures Musculoskeletal [id number]: Other Procedure See Report
[2023-04-24 15:02] LABS: Bedside Glucose 139 mg/dL (74-106)
[2023-04-24] MEDS: oxyCODONE 5 MG Tablet PO (15:35)
== END 2023-04-24 17:14 | disposition home or self-care (01) ==
LOC: SDC 09:58 → AC 09:59
PROVIDERS: Anesthesiology; PCP Student in an Organized Health Care Education/Training Program; Referring Provider Orthopaedic Surgery Orthopaedic Surgery of the Spine; Visit Provider Orthopaedic Surgery Orthopaedic Surgery of the Spine
PROC: (CPT 63030; principal; 2023-04-24 11:00)
DX: Z45.42 Encounter for adjustment and management of neurostimulator (principal); M54.42 Lumbago with sciatica, left side; E78.5 Hyperlipidemia, unspecified; G89.29 Other chronic pain; Z79.82 Long term (current) use of aspirin; Z79.899 Other long term (current) drug therapy; Z86.73 Personal history of transient ischemic attack (TIA), and cerebral infarction without residual deficits; M51.37 Other intervertebral disc degeneration, lumbosacral region
CPT/HCPCS: 63685; 63655; 36415; 72070; 76000; 80048; 82962; 83735; 85025; 86703; 86706; 86708; 86803; 86850; 86900; 86901; 87081; 93005; C1778; J7120; J2405; J3475

== ENCOUNTER → 2023-06-04 | Outpatient (CLI) | payer MEDICARE, MEDICAID, SELFPAY ==
--- NOTE | 2023-06-04 08:30 | RAD_ITS ---
INDICATION: LEFT KNEE PAIN EXAMINATION/TECHNIQUE: X-RAY - LEFT XR Knee 1 or 2 Views 2 VIEWS COMPARISON: No relevant prior comparison study available FINDINGS: SOFT TISSUES: No soft tissue swelling or gas. No radiopaque foreign body. BONES/JOINTS: No acute fracture or subluxation.. Normal alignment. Preservation of the joint space.. No sclerotic or destructive changes observed. RAD/Knee 1 or 2 Views IMPRESSION: 1. No evidence fracture, malalignment or focal bony or joint space abnormality. Electronically Signed: Fernando Nicole MD at 23:43 EDT ,
--- NOTE | 2023-06-04 08:30 | RAD_ITS ---
INDICATION: RIGHT KNEE PAIN EXAMINATION/TECHNIQUE: X-RAY - RIGHT XR Knee 1 or 2 Views 2 VIEWS COMPARISON: No relevant prior comparison study available FINDINGS: SOFT TISSUES: No soft tissue swelling or gas. No radiopaque foreign body. BONES/JOINTS: No acute fracture or subluxation.. Normal alignment. Preservation of the joint space.. No sclerotic or destructive changes observed. RAD/Knee 1 or 2 Views IMPRESSION: 1. No evidence fracture, malalignment or focal bony or joint space abnormality. Electronically Signed: Fernando Nicole MD at 23:42 EDT ,
== END | disposition home or self-care (01) ==
PROVIDERS: PCP Student in an Organized Health Care Education/Training Program; Referring Provider Anesthesiology Pain Medicine; Visit Provider Anesthesiology Pain Medicine
DX: M25.562 Pain in left knee (principal); M25.561 Pain in right knee
CPT/HCPCS: 73560

== ENCOUNTER → 2023-09-20 | Outpatient (CLI) | payer MEDICARE, MEDICAID, SELFPAY ==
[2023-09-20 20:07] LABS: Amphetamine Urine VISTA NEGATIVE (<1000 ng/mL); Barbiturate Urine VISTA NEGATIVE (< 200 ng/mL); Benzodiazepine Urine VISTA NEGATIVE (< 200 ng/mL); Cocaine Urine VISTA NEGATIVE (< 300 ng/mL); Ecstacy Urine VISTA NEGATIVE (< 500 ng/mL); Methadone Urine VISTA NEGATIVE (< 300 ng/mL); PCP Urine VISTA NEGATIVE (< 25 ng/mL); THC Urine VISTA NEGATIVE (< 50 ng/mL); Vista UDS pH Range 6
== END | disposition home or self-care (01) ==
PROVIDERS: PCP Student in an Organized Health Care Education/Training Program; Visit Provider Anesthesiology Pain Medicine
DX: F11.20 Opioid dependence, uncomplicated (principal)
CPT/HCPCS: 80307

== ENCOUNTER → 2023-10-31 | Outpatient (CLI) | payer MEDICARE, MEDICAID, SELFPAY ==
[2023-10-31 12:45] LABS: CRP 7.24 mg/L (0.0-3.0)
[2023-11-03 10:42] LABS: Endomysial Antibody IgA Negative (Negative); Immunoglobulin A 134 mg/dL (87-352); t-Transglutaminase IgA <2 U/mL (0-3)
== END | disposition home or self-care (01) ==
PROVIDERS: PCP Student in an Organized Health Care Education/Training Program; Referring Provider Internal Medicine Gastroenterology; Visit Provider Internal Medicine Gastroenterology
DX: R19.7 Diarrhea, unspecified (principal)
CPT/HCPCS: 36415; 82784; 83516; 86140; 86255

== ENCOUNTER → 2023-11-05 | Outpatient (CLI) | payer MEDICARE, MEDICAID, SELFPAY ==
[2023-11-17 00:07] LABS: Calprotectin, Stool 102 ug/g (0-120); Fats, Neutral Normal (.); Fats, Total Normal (.)
== END | disposition home or self-care (01) ==
PROVIDERS: PCP Student in an Organized Health Care Education/Training Program; Referring Provider Internal Medicine Gastroenterology; Visit Provider Internal Medicine Gastroenterology
DX: R19.7 Diarrhea, unspecified (principal)
CPT/HCPCS: 82705; 83993

== ENCOUNTER 2023-11-08 17:44 | Emergency (ER) | payer MEDICARE, MEDICAID, SELFPAY ==
[2023-11-08] VITALS (7 sets, daily range): BP systolic 108–152; BP diastolic 58–78; PULSE 64–89; RESP 14–28; TEMP 36.4–36.9; O2SAT 96–98; BMI 38.0
--- NOTE | 2023-11-08 18:12 | EKG12_ITS ---
Test Reason : DYSRHYTHMIA Blood Pressure : / mmHG Vent. Rate : 081 BPM Atrial Rate : 081 BPM P-R Int : 158 ms QRS Dur : 080 ms QT Int : 374 ms P-R-T Axes : 030 005 015 degrees QTc Int : 434 ms Normal sinus rhythm with sinus arrhythmia Normal ECG Confirmed by Luca Rubio ([id number]), publications editor [facility] ([id number]) on 11/12/2023 9:10:34 AM Referred By: Confirmed By:Luca Rubio
--- NOTE | 2023-11-08 18:13 | EX.ED.DYSGE1 ---
HPI History of Present Illness Chief Complaint: Abn Labs Detail of Chief Complaint: Not feeling well the last 2 to 3 weeks. General malaise. Informant: patient and spouse/S.O. Onset/Context/Timing Onset: Weeks Context: Gradual Onset Timing: Continuous Current Severity: Mild Maximum Severity: Mild Narrative Narrative: 58-year-old female history of ulcerative colitis and chronic kidney disease. Schizoaffective disorder. States that she has been feeling over the last 2 to 3 weeks. Generally weak. She has had bloody diarrhea which she has had before in the past. Saw her primary care physician yesterday who did labs. And reportedly had a positive blood culture sent in the emergency department today. She denies any fever. She denies any vomiting. She denies any cough. Patient is on daily Macrobid to prevent chronic UTIs. Prior similar symptoms: No Recent Illness/Hospitalization: No PFSH PFSH Medical History Wears glasses Post-menopausal Depression Anxiety Thyroid disease Bladder disease History of renal disease Migraine headache Antiphospholipid antibody syndrome Stroke History of hiatal hernia Non-smoker Leg cramps History of pain when walking History of echocardiogram History of stress test Cardiology follow-up encounter Tachycardia Tardive dyskinesia Cancer Schizo affective schizophrenia Rheumatoid arthritis Chronic pain GERD (gastroesophageal reflux disease) BiPAP (biphasic positive airway pressure) dependence Arthritis Asthma Hyperlipidemia IBS (irritable bowel syndrome) Breast cancer Home Medications ?Medication ?Instructions ?Recorded ?Last Taken ?Type albuterol sulfate 90 mcg/actuation 2 puff inhalation Q6H PRN PRN 12/04/15 Unknown History aerosol inhaler (Ventolin HFA) Shortness Of Breath naphazoline 0.025 %-pheniramine 1 drp OP PRN PRN allergies 09/15/16 Unknown History 0.3 % eye drops (Naphcon-A) modafinil 100 mg tablet (Provigil) 150 mg PO DAILY 11/21/20 01/20/21 History verapamil 120 mg tablet 120 mg PO BID 11/21/20 04/24/23 History melatonin 10 mg tablet 10 mg PO QHS 01/20/21 01/19/21 History potassium chloride 10 mEq 20 meq PO BID 01/20/21 01/20/21 History capsule,extended release acetaminophen 325 mg tablet 650 mg (2 x 325 mg) PO Q6H PRN PRN 01/25/21 Unknown Rx (Tylenol) Pain 1-10 Or Fever #0 tabs anastrozole 1 mg tablet 1 mg PO DAILY 09/20/22 Unknown History aspirin 325 mg tablet,delayed 325 mg PO DAILY 09/20/22 04/19/23 History release cholecalciferol (vitamin D3) 250 500 mcg PO DAILY 09/20/22 Unknown History mcg (10,000 unit) capsule cyclobenzaprine 10 mg tablet 10 mg PO BID 09/20/22 Unknown History denosumab 60 mg/mL subcutaneous 60 mg subcut [id number] 09/20/22 Unknown History syringe (Prolia) oxybutynin chloride 10 mg 10 mg PO DAILY 03/29/23 04/24/23 History tablet,extended release 24 hr coenzyme Q10 100 mg capsule 200 mg PO DAILY 04/13/23 Unknown History (CoQ-10) nitrofurantoin macrocrystal 50 mg 50 mg PO QHS 04/13/23 Unknown History capsule omeprazole 40 mg capsule,delayed 40 mg PO DAILY 04/13/23 04/24/23 History release vitamin B12 1,000 mcg-folic acid 2 mark sublingual DAILY 04/13/23 Unknown History 400 mcg sublingual lozenge Lactobacillus acidophilus 250 100 mmu cells PO DAILY 11/08/23 Unknown History million cell capsule (Probiotic Acidophilus) cholestyramine-aspartame 4 gram 1 ea PO PRN 11/08/23 Unknown History oral powder (Prevalite) clonazepam 1 mg disintegrating 1 mg PO QHS PRN 11/08/23 Unknown History tablet deutetrabenazine 12 mg 24 mg PO BID 11/08/23 Unknown History tablet,extended release 24 hr (Austedo XR) ezetimibe 10 mg tablet 10 mg PO DAILY 11/08/23 Unknown History hydroxyzine pamoate 25 mg capsule 25 mg PO Q6H PRN itching 11/08/23 Unknown History (Vistaril) iloperidone 6 mg tablet (Fanapt) 6 mg PO BID 11/08/23 Unknown History lamotrigine 25 mg tablet (Lamictal) 75 mg PO DAILY 11/08/23 Unknown History levothyroxine 50 mcg tablet 50 mcg PO DAILY 11/08/23 Unknown History multivitamin with minerals-folic 2 tab PO DAILY 11/08/23 Unknown History acid 200 mcg chewable tablet (Women's Multivitamin Gummies) ondansetron 4 mg disintegrating 4 mg PO Q8H PRN PRN nausea and 11/08/23 Unknown History tablet vomiting rifaximin 550 mg tablet (Xifaxan) 550 mg PO TID 11/08/23 Unknown History tramadol 50 mg tablet 50 mg PO TID 11/08/23 Unknown History vilazodone 40 mg tablet (Viibryd) 40 mg PO DAILY 11/08/23 Unknown History Allergy/AdvReac Type Severity Reaction Status Date / Time cephalexin (From Keflex) Allergy Mild Itching Verified 11/08/23 17:45 banana Allergy Hives Verified 11/08/23 17:45 brompheniramine (From Allergy Hives Verified 11/08/23 17:45 Dimetapp (brompheniramine-PPA)) cefuroxime Allergy Rash Verified 11/08/23 17:45 kiwi Allergy Hives Verified 11/08/23 17:45 latex Allergy Anaphylaxis Verified 11/08/23 17:45 moxifloxacin HCl (From Allergy Hives Verified 11/08/23 17:45 Avelox) peach Allergy Hives Verified 11/08/23 17:45 phenylpropanolamine (From Allergy Hives Verified 11/08/23 17:45 Dimetapp (brompheniramine-PPA)) red dye Allergy Angioedema Verified 11/08/23 17:45 shellfish derived Allergy Anaphylaxis Verified 11/08/23 17:45 strawberry Allergy Hives Verified 11/08/23 17:45 Sulfa (Sulfonamide Allergy Rash Verified 11/08/23 17:45 Antibiotics) tetanus and diphtheria Allergy Anaphylaxis Verified 11/08/23 17:45 toxoids (tetanus & diphtheria toxoids) tetracycline Allergy Rash Verified 11/08/23 17:45 adhesive tape AdvReac Rash Verified 11/08/23 17:45 amoxicillin trihydrate (From AdvReac Nausea Verified 11/08/23 17:45 Augmentin) chlorpheniramine AdvReac Unknown Verified 11/08/23 17:45 doxycycline AdvReac Nausea Verified 11/08/23 17:45 eszopiclone (From Lunesta) AdvReac Unknown Verified 11/08/23 17:45 fluticasone (From Flonase) AdvReac Unknown Verified 11/08/23 17:45 paroxetine (From Paxil) AdvReac Nausea Verified 11/08/23 17:45 peanut AdvReac Nausea Verified 11/08/23 17:45 potassium clavulanate (From AdvReac Nausea Verified 11/08/23 17:45 Augmentin) procainamide AdvReac Unknown Verified 11/08/23 17:45 Family History Other Cancer Surgical History Hx of bilateral oophorectomy History of lithotripsy History of knee surgery History of cholecystectomy History of hysterectomy Social History household members: spouse housing: house Smoking Status: Never smoker alcohol intake: current alcohol intake frequency: other substance use type: does not use ROS ROS ED ROS Narrative Generalized malaise. Bloody diarrhea. Constitutional Constitutional ED: Denies chills or fever(s) Eyes Eyes: Denies blurry vision ENT ENT ED: Denies ear pain Cardiovascular Cardiovascular: Denies chest pain Respiratory/Chest Respiratory/Chest: Denies cough or dyspnea Gastrointestinal Gastrointestinal: Reports diarrhea; Denies abdominal pain, constipation, melena, nausea or vomiting Genitourinary Genitourinary ED: Denies dysuria or hematuria Musculoskeletal Musculoskeletal: Denies arthralgias or back pain Integumentary Denies abscess or Abrasions Neurologic Neurologic: Denies headache(s) Psychiatric Psychiatric: Denies anxiety or depression Endocrine Endocrinology: Denies cold intolerance Hematologic/Lymphatic Hematologic/Lymphatic: Reports none Allergic/Immunologic Allergic/Immunologic ED: Denies mouth swelling, tongue swelling or urticaria EXAM Physical Exam Narrative Exam Narrative: Well-appearing 58-year-old female here vital signs are stable afebrile. She does not look septic toxic or in any distress. H EENT exam unremarkable. Moist mucous members. Neck nontender no lymphadenopathy. Lungs clear to auscultation bilaterally. Heart regular rhythm no murmur. Chest wall ribs nontender. Abdomen soft nontender. Moving all 4 extremities. Nontender no edema. No rashes. No petechiae purpura. No cellulitis. Back nontender. Old prior well-healed thoracic back scar. Has reportedly a stimulator. Nontender. No discharge. Neurologically she is awake alert no focal motor deficits. Const Vital Signs: 11/08/23 17:46 11/08/23 17:49 11/08/23 18:39 Temperature 97.6 F L 98.4 F Temperature Source Temporal Oral Pulse Rate 89 64 Respiratory Rate 18 16 Respiratory Effort Normal Respiratory Pattern Normal Blood Pressure 146/76 H 118/62 Blood Pressure Mean 99 80 Pulse Ox 97 98 Oxygen Delivery Method Room Air Room Air 11/08/23 18:49 11/08/23 19:00 11/08/23 20:00 Temperature 98.2 F 98.3 F 98.1 F Temperature Source Oral Oral Oral Pulse Rate 71 83 81 Respiratory Rate 16 28 H 14 Respiratory Effort Respiratory Pattern Blood Pressure 111/64 117/58 L 152/77 H Blood Pressure Mean 79 77 102 Pulse Ox 98 97 97 Oxygen Delivery Method Room Air Room Air Room Air Positive well nourished and well developed; Negative for cachectic, contractures or unkempt General Appearance ED: well developed and NAD; Negative for unkempt, cachectic, contractures, cyanotic, diaphoretic or pallor Nutritional Appearance: Negative for cachectic HEENT Reports moist mucous membranes; Denies dry mucous membranes Negative for trauma or tenderness Mouth ED: No dry mucous membranes Mouth: No dry mucous membranes Eyes PERRL and EOMs intact bilaterally Neck no lymphadenopathy, supple and no JVD General: Negative for tenderness Chest Wall inspection of chest normal and palpation of chest normal Chest: Negative for other Resp normal respiratory effort and clear to auscultation bilaterally Effort and Inspection: Negative for retractions Auscultation: Negative for rales, rhonchi, wheezes or diminished lung sounds Cardio regular rate, regular rhythm, S1 normal heart sound, S2 normal heart sound and no murmurs Palpation: Negative for palpable S3 or palpable S4 Rate: Negative for bradycardia or tachycardic Rhythm: Negative for abnormal rhythm GI normal to inspection, nondistended, normoactive bowel sounds, non-tender, non-distended and no masses Inspection: Negative for abdominal distention Auscultation: normoactive bowel sounds Palpation: soft; Negative for tender, guarding or rebound tenderness present Back/Spine no CVA tenderness General Back: Negative for CVA tenderness Cervical Spine: Negative for cervical spine tenderness Thoracic Spine / Upper Back: Negative for thoracic spinal tenderness or paraspinal muscle tenderness Lumbar Spine / Lower Back: Negative for lumbar spinal tenderness Extremity normal to inspection General Extremety ED: Negative for edema or tenderness General Extremity: Negative for edema Neuro oriented x3 and CN's II-XII intact bilaterally Sensorium / Orientation: alert; Negative for orientation impaired, lethargic or stuporous Motor Exam: strength 5/5 throughout Psych mental status grossly normal Appearance: Negative for unkempt Attitude: No agitated Mood & Affect: Negative for depressed, anxious or tearful Skin no rashes or lesions noted, no wounds and skin turgor normal General Skin Exam: Negative for elasticity normal, jaundice or pallor Lesions: No lesion noted Rashes: No rashes noted Trauma: Negative for abrasion Wounds: Negative for wounds noted MDM MDM MDM Narrative Medical decision making narrative: 58-year-old female has not felt well for 2 to 3 weeks with bloody diarrhea. History of ulcerative colitis. Reportedly had a positive blood culture yesterday from her primary care physician's office. Exam is benign. Screening labs to be obtained. Awaiting labs from the primary care physician's office. Repeat exam patient is doing well at 8:52 PM. Vital signs stable. I retook an oral temperature was 98.1. Exams unchanged. I went over all the lab test with the patient and her . I have the primary care physician on page. Other than a single positive blood culture from outside labs is really nothing remarkable today on her labs. She has chronic anemia. Chronic renal disease. There is no signs of acute infection. I spoke to the primary care physician on-call for the patient's physician. She is also comfortable with patient being discharged home. A repeat blood culture was drawn on my labs tonight. They will follow that up. Also follow-up the patient to ensure she is improving tomorrow. We are going to hold off on any antibiotics at this time. The initial blood culture may be a contaminant. History & Record Review Discussion w/independent historian: Patient Additional record(s) reviewed:: Prior inpatient record, Prior outpatient record, Prior ED visit and Prior labs Lab Data Attestation: I reviewed the patient's lab results. Lab results narrative: CBC shows a white count 5.6. H&H 11.9 and 38. Platelets 299. Electrolytes show gap 9. BUN of 18 creatinine 1.5. Glucose 112. Lactic acids 1.7. Liver enzymes unremarkable on alkaline phosphatase 137. UA negative. No nitrites white or red cells. No bacteria. Chest x-ray no acute process. Labs are consistent with prior labs. Labs: Laboratory Results - last 24 hr 11/08/23 11/08/23 11/08/23 18:07 19:10 19:55 WBC 5.6 RBC 4.36 Hgb 11.9 L Hct 38.5 MCV 88.3 MCH 27.3 MCHC 30.9 L RDW Std Deviation 46.2 H RDW Coeff of Maria Ines 14.3 Plt Count 299 MPV 9.2 Immature Gran % (Auto) 0.400 Neut % (Auto) 66.0 Lymph % (Auto) 21.0 Addison % (Auto) 10.5 H Eos % (Auto) 1.6 Baso % (Auto) 0.5 Absolute Neuts (auto) 3.7 Absolute Lymphs (auto) 1.18 Nucleated RBC % 0 Sodium 140 Potassium 4.0 Chloride 104 Carbon Dioxide 27.0 Anion Gap 9 BUN 18 Creatinine 1.50 H Estim Creat Clear Calc 46.54 Est GFR (MDRD) Af Amer 46 L Est GFR (MDRD) Non-Af 38 L BUN/Creatinine Ratio 12.0 Glucose 112 H Lactic Acid Cancelled 1.7 Calcium 9.5 Total Bilirubin 0.20 AST 17 ALT 25 Alkaline Phosphatase 137 H Total Protein 7.5 Albumin 3.7 Globulin 3.8 Albumin/Globulin Ratio 1.0 Urine Color Yellow Urine Clarity Clear Urine pH 7.0 Ur Specific [place] 1.010 Urine Protein Negative Urine Glucose (UA) Normal Urine Ketones Negative Urine Occult Blood Negative Urine Nitrite Negative Urine Bilirubin Negative Urine Urobilinogen Normal Ur Leukocyte Esterase 25 H Urine RBC 0 SEEN Urine WBC 0-5 SEEN Ur Squamous Epith Cells 0 SEEN Urine Bacteria 0 SEEN Urine Mucus 0 SEEN Radiography Chest X-Ray - ED: 2 View, Read by ED Physician, Read by Radiologist, Heart, Lungs, Mediastinum, Bony Structures, No Acute Disease and Chronic Changes Diagnostic Testing: Clinical Impression(s) from Imaging Studies Chest X-Ray 11/08/23 18:25 IMPRESSION: No radiographic evidence of acute cardiopulmonary disease. Electronically Signed: Ralf Torres DO at 19:02 EDT Reading Location ID and State: [facility] / [place] Tel [phone], Service support , Chest x-ray, 2 views, AP and lateral, interpreted both by myself and radiologist shows no acute abnormality. Normal cardiac silhouette. Normal lung nix. Rhythm Strip Rhythm Strip: Sinus Rhythm Rate: 81 Ectopy: None EKG Initial EKG: Attestation: I personally reviewed and interpreted this EKG as follows: Interpretation: Sinus Rhythm and No Acute Injury Pattern Comments: Normal sinus rhythm rate 81 no acute signs of [place] nor ischemia nor dysrhythmia. Discharge Plan Triage Chief Complaint: Abn Labs ED Provider: Hemal Lomas Dx/Rx/DC Orders Clinical Impression: Bacteremia, Chronic kidney disease, Bloody diarrhea, Chronic anemia Instructions: ED Diarrhea, Unknown Cause Prescriptions: No Action cyclobenzaprine 10 mg tablet 10 mg PO BID anastrozole 1 mg tablet 1 mg PO DAILY Prolia 60 mg/mL syringe 60 mg subcut [id number] Patient Comments: 1 more dose due 11/2023 cholecalciferol (vitamin D3) 250 mcg (10,000 unit) capsule 500 mcg PO DAILY aspirin 325 mg tablet,delayed release (DR/EC) 325 mg PO DAILY oxybutynin chloride 10 mg tablet extended release 24hr 10 mg PO DAILY Patient Comments: take 1 tablet by mouth once daily albuterol sulfate [Ventolin HFA] 1 INHALER inhaler 2 puff inhalation Q6H PRN PRN (Reason: Shortness Of Breath) Patient Comments: shortness of breath Naphcon-A 15 ML drops 1 drp OP PRN PRN (Reason: allergies) verapamil 120 mg Tablet 120 mg PO BID modafinil [Provigil] 100 mg Tablet 150 mg PO DAILY potassium chloride 10 mEq capsule, extended release 20 meq PO BID Patient Comments: START WITH 2 capsules by mouth twice a day , THEN INCREASE TO three times a day melatonin 10 mg Tablet 10 mg PO QHS acetaminophen [Tylenol] 325 mg Tablet 650 mg PO Q6H PRN PRN (Reason: Pain 1-10 Or Fever) Qty: 0 0RF omeprazole 40 mg capsule,delayed release(DR/EC) 40 mg PO DAILY Patient Comments: take 1 capsule by mouth once daily before meals vitamin Q17-yfxrs acid 1,000-400 mcg lozenge 2 mark sublingual DAILY coenzyme Q10 [CoQ-10] 100 mg capsule 200 mg PO DAILY nitrofurantoin macrocrystal 50 mg capsule 50 mg PO QHS Patient Comments: take 1 capsule by mouth at bedtime Xifaxan 550 mg tablet 550 mg PO TID clonazepam 1 mg tablet,disintegrating 1 mg PO QHS PRN lamotrigine [Lamictal] 25 mg tablet 75 mg PO DAILY Austedo XR 12 mg tablet extended release 24 hr 24 mg PO BID levothyroxine 50 mcg tablet 50 mcg PO DAILY ezetimibe 10 mg tablet 10 mg PO DAILY vilazodone [Viibryd] 40 mg tablet 40 mg PO DAILY Rx Instructions: must administer with a meal/food Fanapt 6 mg tablet 6 mg PO BID tramadol 50 mg tablet 50 mg PO TID Probiotic Acidophilus 250 million cell capsule 100 mmu cells PO DAILY multivit with min-folic acid [Women's Multivitamin Gummies] 200 mcg tablet,chewable 2 tab PO DAILY ondansetron 4 mg tablet,disintegrating 4 mg PO Q8H PRN PRN (Reason: nausea and vomiting) Prevalite 4 gram powder 1 ea PO PRN hydroxyzine pamoate [Vistaril] 25 mg capsule 25 mg PO Q6H PRN (Reason: itching) Primary Care Provider: Rell Sullivan Referrals: Rell Sullivan DO [Primary Care Provider] - 1 Day (Call her office tomorrow morning for follow-up. I spoke to the physician on-call darryn.) Activity Restrictions/Additional Instructions: Your labs do not show anything bad tonight. There is no obvious source of infection. The initial blood culture may have or may not be a contaminant. We sent another blood culture tonight. If that is positive we will follow-up with you. I spoke to the physician on-call for your primary care physician darryn. They want you to follow-up with Dr. Sullivan tomorrow. Call the office. Print Language: Syriac Disposition Disposition: Home, Self Care
--- NOTE | 2023-11-08 18:25 | RAD_ITS ---
INDICATION: weakness EXAMINATION/TECHNIQUE: X-RAY - XR Chest 2 Views COMPARISON: FINDINGS: LINES/DEVICES: None. LUNGS: No consolidation, edema or effusion. No pneumothorax. MEDIASTINUM AND CARDIOVASCULAR STRUCTURES: Cardiac silhouette not enlarged. Central airways and mediastinal contour are unremarkable. BONES AND SOFT TISSUES: Unremarkable. Similar nodules are noted in the midthoracic vertebral column. RAD/Chest PA and Lateral IMPRESSION: No radiographic evidence of acute cardiopulmonary disease. Electronically Signed: Ralf Torres DO at 19:02 EDT ,
[2023-11-08 18:33] LABS: Absolute Lymphocyte Count 1.18 X10^3/uL (0.83-4.51); Absolute Neutrophil Count 3.7 X10^3/uL (2.0-7.7); Basophil# 0.03 X10^3/uL; Basophil% 0.5 % (0-1); Eosinophil# 0.09 X10^3/uL; Eosinophils% 1.6 % (0-5); Hematocrit 38.5 % (37-47); Hemoglobin 11.9 g/dL (12.0-15.0); Lymphocyte # 1.18 X10^3/ul (0.83-4.51); Mean Corp Hgb Conc 30.9 g/dL (32-36); Mean Corpuscular Hgb 27.3 pg (27.0-32.0); Mean Corpuscular Volume 88.3 fL (81-99); Mean Platelet Vol. 9.2 fl (6.2-12.0); Monocyte# 0.59 X10^3/uL; Monocyte% 10.5 % (0-10); NRBC Flagged by Analyzer 0 % (0-5); Neutrophil # 3.71 X10^3/uL (2.7-7.7); Platelet Count 299 K/mm3 (150-450); RBC Distribution Width CV 14.3 % (11.6-14.6); RBC Distribution Width SD 46.2 fl (35.1-43.9); Red Blood Count 4.36 M/mm3 (4.2-5.4); White Blood Count 5.6 K/mm3 (4.4-11.0)
[2023-11-08 18:50] LABS: AST(SGOT) 17 U/L (15-37); Alanine Aminotransfer ALT/SGPT 25 U/L (13-56); Albumin, Serum 3.7 g/dL (3.2-5.0); Alkaline Phosphatase 137 U/L (45-117); Anion Gap 9 (5-15); BUN 18 mg/dL (7-18); Calcium,Total 9.5 mg/dL (8.5-10.1); Chloride 104 mmol/L (98-107); EST Glomerular Filtration Rate 38 mL/min (>60); Est Glom Filt Rate - Afr Amer 46 mL/min (>60); Estimated Creatinine Clearance 46.54 ml/min; Globulin 3.8 g/dL (2.2-4.2); Glucose 112 mg/dL (74-106); Protein, Total 7.5 g/dL (6.4-8.2); Sodium Level 140 mmol/L (136-145)
[2023-11-08 19:29] LABS: Bacteria 0 SEEN /hpf (None Seen); Mucous, Urine 0 SEEN /hpf (<or=2+); Red Blood Cells-Urine 0 SEEN /hpf (0-5); Squamous Epithelial Cells - UA 0 SEEN /hpf (5-10)
[2023-11-08 19:33] LABS: Color, Urine Yellow (Yellow); Glucose, Dipstick Normal (Normal); Ketone-Dipstick Negative (Negative); Leukocyte Esterase-Dipstick 25 /ul (Negative); Nitrite-Dipstick Negative (Negative); Occult Blood-Urine Negative /ul (Negative); Protein-Dipstick Negative (Negative); Urine Bilirubin Dipstick Negative (Negative); Urine Clarity Clear (Clear); Urine Urobilinogen Normal (Normal)
[2023-11-08 19:42] LABS: White Blood Cells 0-5 SEEN /hpf (0-5)
[2023-11-08 20:29] LABS: Lactic Acid 1.7 mmol/L (0.4-1.9)
== END 2023-11-08 21:16 | disposition home or self-care (01) ==
PROVIDERS: Emergency Provider Emergency Medicine; PCP Student in an Organized Health Care Education/Training Program; Visit Provider Emergency Medicine
DX: R78.81 Bacteremia (principal); F25.9 Schizoaffective disorder, unspecified; R19.7 Diarrhea, unspecified; N18.9 Chronic kidney disease, unspecified; E78.5 Hyperlipidemia, unspecified; D64.9 Anemia, unspecified; R53.81 Other malaise; Z86.73 Personal history of transient ischemic attack (TIA), and cerebral infarction without residual deficits; Z85.3 Personal history of malignant neoplasm of breast; R00.0 Tachycardia, unspecified; Z79.899 Other long term (current) drug therapy; F41.9 Anxiety disorder, unspecified; K21.9 Gastro-esophageal reflux disease without esophagitis; F32.A Depression, unspecified; Z90.722 Acquired absence of ovaries, bilateral; Z90.49 Acquired absence of other specified parts of digestive tract; Z90.710 Acquired absence of both cervix and uterus
CPT/HCPCS: 71046; 80053; 81001; 83605; 85025; 87040; 93005; 99283; A4216

== ENCOUNTER 2024-01-31 14:00 | Outpatient (RCR) | payer MEDICARE, MEDICAID, SELFPAY ==
--- NOTE | 2023-07-30 10:57 | HP.PTEVAL ---
Patient's Visit Information Visit Information Visit Information: KELLIE CORTÉS is a 58 year old F referred to Physical Therapy by Dr. Rell Sullivan DO with a diagnosis of B knee pain. Date of Evaluation: 07/30/23 Physical Therapist: Christiano Zavala, PT, ATC Visit Plan Frequency: 2-3x /Week Duration: 4-6 Weeks Plan: Aquatic therapy consisting of B LE strengthening, stretching, and core stab ex's Subjective Subjective: Pt reports she has had B knee pain for several years. Pt notes she had severe LBP in the past. Once she had a back stimulator placed in her, she began to realize how sore her knees were. Pt reports she has had x-rays which revealed no significant findings. 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 Pt reports she lives in a basement apartment, and has to negotiate stairs daily. Pt reports she is able to reciprocate stairs while ascending them, but has to descend one step at a time. Pt also notes she is unable to stand for a long period of time secondary to her B knee pain. Pt reports her goal is to become stronger so that she is able to do more without having so much pain. No sleep difficulty at this time secondary to pain. 4/10 pain while sitting here at rest, 10/10 pain at worst (standing while washing her dishes, and descending stairs) Pain B knee pain: Pain Intensity (Out of 10): 4 Pain Intensity Range: 10 Objective Objective: Neuro: B LE sensation is WNL to light touch. Tu.49 sec ROM: R knee 0-10-90 degrees ; L knee 0-10-100 degrees MMT: R knee flex= 23, ext= 12 #F; L knee flex= 18, ext= 11 #F Gait: Pt is able to ambulate 170 feet until needing to rest secondary to pain Balance/Special Test Scores Lower Extremity Functional Score: 34 Goals Goal 1:: Decrease B knee pain x 50% to aid with ambulation Goal Time Frame: 4-6 Weeks Goal 2:: Pt will be able to ambulate 1000 feet without taking breaks to aid with community ambulation Goal Time Frame: 4-6 Weeks Goal 3:: Pt will perform the tug test in under 10 seconds to aid with movement efficiency Goal Time Frame: 4-6 Weeks Goal 4:: I with HEP Goal Time Frame: 4-6 Weeks Rehabilitation Potential Physical Therapy Diagnosis: Pt has B knee pain, weakness, and intolerance for prolonged ambulation secondary to degenerative changes in B knees Rehabilitation Potential: Good Anticipated Interventions Patient/Client Instruction: Educate patient on: Condition and Plan of Care For the Purpose of:: To improve self management Therapeutic Exercise to Include: Strength training, Endurance training, Flexibilty training, In an aquatic setting, Active ROM and Dynamic Lumbar Stabilization For the Purpose of:: To decrease pain, To increase ROM and To improve muscle performance and motor function Text: Thank you for the opportunity to evaluate your patient. For Medicare and Medicare HMO plans, please review the plan of care and approve it. It will need to be FAXED BACK to us at [phone] for Medicare purposes. For Medicare only, by signing this I certify the plan of care. Please let me know if there are questions or concerns regarding this plan of care. Physician Signature: Date:
--- NOTE | 2023-10-19 15:23 | HP.PTREVAL ---
Re-Evaluation Intro: Dr. Rell Sullivan, DO, It has been my pleasure to treat KELLIE CORTÉS over the last 13 visits for B knee pain. Please see the progress note below for an update on the physical therapy plan of care! Subjective Subjective: Doing a lot better ,walking longer distances knee has less pain Seen Dr Cruz yesterday Objective Objective/Function: * Patient has progressed well towards goals with ROM and strength will cont to benefit from skilled PT with goals appropriate and updated* Neuro: Denies paresthesia/tingling Tu.84 sec ROM: R knee 0-5-125 degrees ; L knee 0-8-120 degrees MMT: quads right 22.2 ,16.3 ,hamstring right .14.9 ,14.0 ,hip flexion right 28.5 ,left 28.0 Gait: Reciprocal pattern mild forward posture community distances Plan Plan Plan: Cont Aquatic therapy with BLE ROM ,FLEXABILITY ,STRENGTHENING QUADS/HAMS/HIP ,AND AEROBIC EX'S Balance/Gait/Functional tests Balance/Special Test Scores Lower Extremity Functional Score: 40 Goals Goals Goal 1:: Decrease B knee pain x 60% to aid with ambulation ( new goal) Goal Time Frame: 4-6 Weeks Goal 2:: Pt will be able to ambulate 1000 feet without taking breaks to aid with community ambulation Goal Time Frame: 4-6 Weeks Goal Progress: Progressing Goal 3:: Pt will perform the tug test in under 10 seconds to aid with movement efficiency Goal Time Frame: 4-6 Weeks Goal Progress: Progressing Goal 4:: Patient to improve knee ROM by 5 degrees to improve gait ( new goals) Goal Time Frame: 4-6 Weeks Goal Progress: Progressing Goal 5:: Patient to improve peak force quads/hams by 5-10 # to improve gait( new goals) Anticipated Interventions Anticipated Interventions Patient/Client Instruction: Educate patient on: Condition and Plan of Care For the Purpose of:: To improve self management Therapeutic Exercise to Include: Strength training, Endurance training, Flexibilty training, In an aquatic setting, Active ROM and Dynamic Lumbar Stabilization For the Purpose of:: To decrease pain, To increase ROM and To improve muscle performance and motor function Re-Evaluation Ending Re-evaluation ending: Please do not hesitate to contact me at [phone] by phone or if you have questions or concerns regarding this new plan of care! Sincerely, Declan Ralph, PT, Cert MDT, OCS
--- NOTE | 2023-12-25 13:19 | HP.PTREVAL ---
Re-Evaluation Intro: Dr. Rell Sullivan, DO, It has been my pleasure to treat KELLIE CORTÉS over the last 15 visits for B knee pain. Please see the progress note below for an update on the physical therapy plan of care! Subjective Subjective: Patient has had 3 iron infusion Doing much better Changed insurance Had injections hips helped Objective Objective/Function: POSTURE: mild forward posture Neuro: Denies paresthesia/tingling Tu.50 sec ROM: R knee 0-5-125 degrees ; L knee 0-8-120 degrees MMT: quads right 22.8 ,17.5 ,hamstring right .13.9 ,13.1 ,hip flexion right 27.6 ,left 29.1 Gait: Reciprocal pattern mild forward posture community distances Plan Plan Plan: PT INTERVENTIONS AQUATIC THERAPY WITH BLE ROM ,FLEXABILITY ,STRENGTHENING QUADS/HAMS/HIP ,AND AEROBIC EX'S Balance/Gait/Functional tests Balance/Special Test Scores Lower Extremity Functional Score: 37 Goals Goals Goal 1:: Decrease B knee pain x 60% to aid with ambulation ( new goal) Goal Time Frame: 4-6 Weeks Goal Progress: Progressing Goal 2:: Pt will be able to ambulate 1000 feet without taking breaks to aid with community ambulation Goal Time Frame: 4-6 Weeks Goal Progress: Progressing Goal 3:: Pt will perform the tug test in under 10 seconds to aid with movement efficiency Goal Time Frame: 4-6 Weeks Goal Progress: Progressing Goal 4:: Patient to improve knee ROM by 5 degrees to improve gait ( new goals) Goal Time Frame: 4-6 Weeks Goal Progress: Progressing Goal 5:: Patient to improve peak force quads/hams by 5-10 # to improve gait( new goals) Anticipated Interventions Anticipated Interventions Patient/Client Instruction: Educate patient on: Condition and Plan of Care For the Purpose of:: To improve self management Therapeutic Exercise to Include: Strength training, Endurance training, Flexibilty training, In an aquatic setting, Active ROM and Dynamic Lumbar Stabilization For the Purpose of:: To decrease pain, To increase ROM and To improve muscle performance and motor function Re-Evaluation Ending Re-evaluation ending: Please do not hesitate to contact me at [phone] by phone or if you have questions or concerns regarding this new plan of care! Sincerely, Declan Ralph, PT, Cert MDT, OCS
--- NOTE | 2024-01-22 14:20 | HP.PTREVAL ---
Re-Evaluation Intro: Dr. Rell Sullivan, DO, It has been my pleasure to treat KELLIE CORTÉS over the last 22 visits for B knee pain. Please see the progress note below for an update on the physical therapy plan of care! Subjective Subjective: Patient states water therapy is helping , but implant stimulator not working so back pain is worse Objective Objective/Function: * Patient will continue to benefit from skilled PT to improve strength and ROM for function with goals conts to be appropriate* POSTURE: mild forward posture Neuro: Denies paresthesia/tingling Tu.50 sec ROM: R knee 5-125 degrees ; L knee5-125 degrees MMT: quads right 26.8 ,17.8 ,hamstring right ,16.9 ,16..1 ,hip flexion right 27.6 ,left 29.1 Gait: Reciprocal pattern mild forward posture community distances Plan Plan Plan: PT INTERVENTIONS AQUATIC THERAPY WITH BLE ROM ,FLEXABILITY ,STRENGTHENING QUADS/HAMS/HIP ,AND AEROBIC EX'S Balance/Gait/Functional tests Balance/Special Test Scores Lower Extremity Functional Score: 37 Goals Goals Goal 1:: Decrease B knee pain x 60% to aid with ambulation ( new goal) Goal Time Frame: 4-6 Weeks Goal Progress: Progressing Goal 2:: Pt will be able to ambulate 1000 feet without taking breaks to aid with community ambulation Goal Time Frame: 4-6 Weeks Goal Progress: Progressing Goal 3:: Pt will perform the tug test in under 10 seconds to aid with movement efficiency Goal Time Frame: 4-6 Weeks Goal Progress: Progressing Goal 4:: Patient to improve knee ROM by 5 degrees to improve gait ( new goals) Goal Time Frame: 4-6 Weeks Goal Progress: Progressing Goal 5:: Patient to improve peak force quads/hams by 5-10 # to improve gait( new goals) Anticipated Interventions Anticipated Interventions Patient/Client Instruction: Educate patient on: Condition and Plan of Care For the Purpose of:: To improve self management Therapeutic Exercise to Include: Strength training, Endurance training, Flexibilty training, In an aquatic setting, Active ROM and Dynamic Lumbar Stabilization For the Purpose of:: To decrease pain, To increase ROM and To improve muscle performance and motor function Re-Evaluation Ending Re-evaluation ending: Please do not hesitate to contact me at [phone] by phone or if you have questions or concerns regarding this new plan of care! Sincerely, Declan Ralph, PT, Cert MDT, OCS
== END 2024-01-31 19:00 | disposition home or self-care (01) ==
LOC: PT 14:00
PROVIDERS: PCP Student in an Organized Health Care Education/Training Program; Referring Provider Student in an Organized Health Care Education/Training Program; Visit Provider Student in an Organized Health Care Education/Training Program
DX: M25.561 Pain in right knee (principal); M25.562 Pain in left knee
CPT/HCPCS: 97110; 97113; 97161; 97530

== ENCOUNTER → 2024-03-11 | Outpatient (CLI) | payer MEDICARE, MEDICAID, SELFPAY ==
[2024-03-11 11:30] LABS: Amphetamine Urine VISTA NEGATIVE (<1000 ng/mL); Barbiturate Urine VISTA NEGATIVE (< 200 ng/mL); Benzodiazepine Urine VISTA POSITIVE (< 200 ng/mL); Cocaine Urine VISTA NEGATIVE (< 300 ng/mL); Ecstacy Urine VISTA NEGATIVE (< 500 ng/mL); Methadone Urine VISTA NEGATIVE (< 300 ng/mL); PCP Urine VISTA NEGATIVE (< 25 ng/mL); THC Urine VISTA NEGATIVE (< 50 ng/mL); Vista UDS pH Range 6
== END | disposition home or self-care (01) ==
PROVIDERS: PCP Student in an Organized Health Care Education/Training Program; Referring Provider Anesthesiology Pain Medicine; Visit Provider Anesthesiology Pain Medicine
DX: F11.20 Opioid dependence, uncomplicated (principal)
CPT/HCPCS: 80307

== ENCOUNTER 2024-03-25 14:00 | Outpatient (RCR) | payer MEDICARE, MEDICAID, SELFPAY ==
--- NOTE | 2024-02-22 12:21 | HP.PTREVAL_ITS ---
Re-Evaluation Intro: Dr. Rell Sullivan, DO, It has been my pleasure to treat KELLIE CORTÉS over the last 30 visits for TOM. Please see the progress note below for an update on the physical therapy plan of care! Subjective Subjective: Would like to cont to work on strengthening and balance Objective Objective/Function: * Patient will continue to benefit from skilled PT to improve strength and ROM for function with goals conts to be appropriate* POSTURE: mild forward posture Neuro: Denies paresthesia/tingling Tu.90 sec ROM: R knee 5-125 degrees ; L knee5-125 degrees MMT: quads right 26.2 ,18.8 ,hamstring right ,16.4 ,16..9 ,hip flexion right 24.6 ,left 28..1 Gait: Reciprocal pattern mild forward posture community distances Plan Plan Plan: PT INTERVENTIONS AQUATIC THERAPY WITH BLE ROM ,FLEXABILITY ,STRENGTHENING QUADS/HAMS/HIP ,AND AEROBIC EX'S Balance/Gait/Functional tests Balance/Special Test Scores Lower Extremity Functional Score: 37 TUG Test Time Seconds: 11.9 Tug Test: <20 sec.=mostly independent Goals Goals Goal 1:: Decrease B knee pain x 60% to aid with ambulation ( new goal) Goal Time Frame: 4-6 Weeks Goal Progress: Progressing Goal 2:: Pt will be able to ambulate > 1/2 muilke without taking breaks to aid with community ambulation Goal Progress: Progressing Goal 3:: Pt will perform the tug test in under 10 seconds to aid with movement efficiency Goal Progress: Progressing Goal 4:: Patient to improve knee ROM by 5 degrees to improve gait ( new goals) Goal Time Frame: 4-6 Weeks Goal 5:: Patient to improve peak force quads/hams by 5-10 # to improve gait( new goals) Anticipated Interventions Anticipated Interventions Patient/Client Instruction: Educate patient on: Condition and Plan of Care For the Purpose of:: To decrease pain, To increase ROM, To improve muscle perfo rmance and motor function, To increase tolerance to activity/condition/position, To improve performance and independence with ADL's, To improve ability of physical actions for home/community/work/leisure, To improve health of tissue, To decrease soft tissue restriction, To increase flexibility/ROM, To improve endurance, To improve balance, To reduce risk of recurrence, To improve safety and To improve tolerance to ADL's Therapeutic Exercise to Include: Strength training, Endurance training, Balance training, Postural training, Flexibilty training, In an aquatic setting, Active ROM and Dynamic Lumbar Stabilization For the Purpose of:: To decrease pain, To increase ROM, To improve muscle performance and motor function, To increase tolerance to activity/condition/position, To improve gait and locomotor functions, To improve health of tissue, To decrease soft tissue restriction, To improve endurance, To prevent re-injury and To improve tolerance to ADL's Re-Evaluation Ending Re-evaluation ending: Please do not hesitate to contact me at [phone] by phone or Fax: if you have questions or concerns regarding this new plan of care! Sincerely, Declan Ralph PT, Cert MDT, OCS
--- NOTE | 2024-03-25 14:22 | HP.PTDCSUM ---
Discharge Summary D/C summary: It has been my pleasure to treat KELLIE CORTÉS referred by Dr. Rell Sullivan DO, with the diagnosis of JROMAN for a total of 38 visit(s). Discharge Date: Please see the following information for a summary of their discharge status. Subjective Subjective: Doing alot more energy and moving around and walking longer distances More active around house Pain LB: Pain Intensity (Out of 10): 2 R HIP: Pain Intensity (Out of 10): 2 Overall Improvement % Improvement: 70 Objective Objective/Function: POSTURE: mild forward posture Neuro: Denies paresthesia/tingling Tu.9 ROM: R knee 5-125 degrees ; L knee5-130 degrees MMT: quads right 32.1 ,left 26.9 ,hamstring right ,30.7 ,34.1 ,hip flexion right 24.6 ,left 28..1 Gait: Reciprocal pattern mild forward posture community distances Goals Goal 1:: Decrease B knee pain x 60% to aid with ambulation ( new goal) Goal Progress: Goal Met Goal 2:: Pt will be able to ambulate > 1/2 muilke without taking breaks to aid with community ambulation Goal Progress: Goal Met Goal 3:: Pt will perform the tug test in under 10 seconds to aid with movement efficiency Goal Progress: Goal Met Goal 4:: Patient to improve knee ROM by 5 degrees to improve gait ( new goals) Goal Time Frame: 4-6 Weeks Goal Progress: Goal Met Goal 5:: Patient to improve peak force quads/hams by 5-10 # to improve gait( new goals) Plan Plan: D/C D/C Information d/c sentence: If there are questions or concerns regarding this patient's physical therapy, please feel free to call me at [phone]. Thank you for the referral of this patient. Sincerely, Declan Ralph, PT, Cert MDT, OCS Balance/Gait/Functional tests Balance/Special Test Scores Lower Extremity Functional Score: 50 TUG Test Time Seconds: 10.9 Tug Test: <20 sec.=mostly independent Improvement % Improvement: 70
== END 2024-03-25 15:02 | disposition home or self-care (01) ==
LOC: PT 14:00
PROVIDERS: PCP Student in an Organized Health Care Education/Training Program; Referring Provider Student in an Organized Health Care Education/Training Program; Visit Provider Student in an Organized Health Care Education/Training Program
DX: M25.561 Pain in right knee (principal); M25.562 Pain in left knee
CPT/HCPCS: 97110; 97113; 97530

== ENCOUNTER 2024-06-08 13:17 | Emergency (ER) | payer MEDICARE, MEDICAID, SELFPAY ==
[2024-06-08 13:18] VITALS: BP 154/76; PULSE 103; RESP 16; TEMP 36.4; O2SAT 97; BMI 80.8
--- NOTE | 2024-06-08 13:49 | CT_ITS ---
PROCEDURE: CT abdomen pelvis without IV contrast REASON FOR EXAM: PAIN TECHNIQUE: Multiple contiguous axial images through the abdomen and pelvis were obtained without the administration of intravenous contrast. Two-dimensional coronal and sagittal reformatted images were reconstructed. Low-dose imaging technique was utilized. COMPARISON: 04/04/2021 FINDINGS: Lung bases are clear. Unenhanced liver, spleen, pancreas and adrenal glands are intact. Gallbladder is surgically absent. No significant biliary ductal dilation. Multiple nonobstructing bilateral renal calculi, largest in the superior pole of the left kidney measuring up to 10 mm. No obstructing ureteral calculi or significant hydronephrosis. Stable mild prominence of the left renal pelvis. Urinary bladder demonstrates subtle perivesicular haziness. Uterus is absent. No bowel obstruction, focal bowel wall thickening or significant perienteric inflammation. Normal appendix. No pelvic free fluid. No free air. No abdominal aortic aneurysm or suspicious adenopathy. Superficial soft tissues are intact. No acute osseous abnormality. Spinal stimulator in place. Degenerative changes of the lumbar spine. CT/Abdomen/Pelvis without Cont IMPRESSION: 1. Subtle perivesicular haziness which could relate to mild cystitis. Please c orrelate. 2. Bilateral nephrolithiasis. No obstructing ureteral calculi. Reading Location: [facility]
[2024-06-08] MEDS: 0.9% Normal Saline (1000mL) 1,000 ML 999 ML IV (14:00)
[2024-06-08] MEDS: Ondansetron 4 MG/2 ML Vial IV (14:00)
[2024-06-08] MEDS: Morphine 2 MG/ML Syringe IV (14:01)
[2024-06-08 14:08] LABS: Bacteria 0 SEEN /hpf (None Seen); Mucous, Urine 0 SEEN /hpf (<or=2+); Squamous Epithelial Cells - UA 0 SEEN /hpf (5-10)
[2024-06-08 14:10] LABS: Absolute Lymphocyte Count 1.29 X10^3/uL (0.83-4.51); Absolute Neutrophil Count 2.9 X10^3/uL (2.0-7.7); Basophil# 0.03 X10^3/uL; Basophil% 0.6 % (0-1); Eosinophil# 0.09 X10^3/uL; Eosinophils% 1.9 % (0-5); Hematocrit 39.2 % (37-47); Lymphocyte # 1.29 X10^3/ul (0.83-4.51); Lymphocyte % 26.8 % (19-41); Mean Corp Hgb Conc 33.2 g/dL (32-36); Mean Corpuscular Hgb 30.8 pg (27.0-32.0); Mean Corpuscular Volume 92.9 fL (81-99); Mean Platelet Vol. 8.3 fl (6.2-12.0); Monocyte# 0.41 X10^3/uL; Monocyte% 8.5 % (0-10); NRBC Flagged by Analyzer 0 % (0-5); Neutrophil % 60.3 % (47-70); Platelet Count 264 K/mm3 (150-450); RBC Distribution Width CV 13.5 % (11.6-14.6); RBC Distribution Width SD 46.3 fl (35.1-43.9); Red Blood Count 4.22 M/mm3 (4.2-5.4); White Blood Count 4.8 K/mm3 (4.4-11.0)
[2024-06-08 14:15] LABS: Color, Urine Straw (Yellow); Glucose, Dipstick Normal (Normal); Ketone-Dipstick Negative (Negative); Leukocyte Esterase-Dipstick Negative /ul (Negative); Nitrite-Dipstick Negative (Negative); Occult Blood-Urine 150 /ul (Negative); Protein-Dipstick Negative (Negative); Urine Bilirubin Dipstick Negative (Negative); Urine Clarity Clear (Clear); Urine Urobilinogen Normal (Normal)
--- NOTE | 2024-06-08 14:15 | EDS_ITS ---
HPI <MARGOT Do - Last Filed: 06/08/24 14:59> History of Present Illness Chief Complaint: Complaint Narrative Narrative: Patient is a 59-year-old female with history of neutropenia, history of UTIs, fibromyalgia, kidney stones, depression who [facility] for ongoing dysuria, blood in urine as well as pain to the left flank. Patient states that 6 to 7 days ago, he did follow-up with an urgent care, placed on ciprofloxacin for 5 days. Patient finished her antibiotic however still feels lousy, complaining of fatigue, tiredness as well as pain to the left flank. She states she is still having blood in her urine. She is here for evaluation [facility] <MARGOT Do - Last Filed: 06/08/24 14:59> [facility] Medical History Wears glasses Post-menopausal Depression Anxiety Thyroid disease Bladder disease History of renal disease Migraine headache Antiphospholipid antibody syndrome Stroke History of hiatal hernia Non-smoker Leg cramps History of pain when walking History of echocardiogram History of stress test Cardiology follow-up encounter Tachycardia Tardive dyskinesia Cancer Schizo affective schizophrenia Rheumatoid arthritis Chronic pain GERD (gastroesophageal reflux disease) BiPAP (biphasic positive airway pressure) dependence Arthritis Asthma Hyperlipidemia IBS (irritable bowel syndrome) Breast cancer Home Medications ?Medication ?Instructions ?Recorded ?Last Taken ?Type albuterol sulfate 90 mcg/actuation 2 puff inhalation Q 6H PRN PRN 12/04/15 Unknown History aerosol inhaler (Ventolin HFA) Shortness Of Breath naphazoline 0.025 %-pheniramine 1 drp OP PRN PRN aller gies 09/15/16 Unknown History 0.3 % eye drops (Naphcon-A) modafinil 100 mg tablet (Provigil) 150 mg PO DAILY 01/20/21 History verapamil 120 mg tablet 120 mg PO BID 11/21/2004/24 History melatonin 10 mg tablet 10 mg PO QHS 01/20/21 History potassium chloride 10 mEq 20 meq PO BID 01/20/2101/20 History capsule,extended release acetaminophen 325 mg tablet 650 mg (2 x 325 mg) PO Q6H PRN PRN 01/25/21 Unknown Rx (Tylenol) Pain 1-10 Or Fever #0 tabs anastrozole 1 mg tablet 1 mg PO DAILY 09/20/22 Unkno wn History aspirin 325 mg tablet,delayed 325 mg PO DAILY 09/20/22 04/19/23 History release cholecalciferol (vitamin D3) 250 500 mcg PO DAILY 08/25 11/15 Unknown History mcg (10,000 unit) capsule cyclobenzaprine 10 mg tablet 10 mg PO BID 09/20/22 Unk nown History denosumab 60 mg/mL subcutaneous 60 mg subcut [id number] 09/20/22 Unknown History syringe (Prolia) oxybutynin chloride 10 mg 10 mg PO DAILY 03/29/2303/28 History tablet,extended release 24 hr coenzyme Q10 100 mg capsule 200 mg PO DAILY 04/13/23 U nknown History (CoQ-10) nitrofurantoin macrocrystal 50 mg 50 mg PO QHS 4 Unknown History capsule omeprazole 40 mg capsule,delayed 40 mg PO DAILY 04/24/23 History release vitamin B12 1,000 mcg-folic acid 2 mark sublingual LATHA Y 04/13/23 Unknown History 400 mcg sublingual lozenge Lactobacillus acidophilus 250 100 mmu cells PO DAILY 0 11/08/23 Unknown History million cell capsule (Probiotic Acidophilus) cholestyramine-aspartame 4 gram 1 ea PO PRN 11/08/23 U nknown History oral powder (Prevalite) clonazepam 1 mg disintegrating 1 mg PO QHS PRN 4 Unknown History tablet deutetrabenazine 12 mg 24 mg PO BID 11/08/23 Unknow n History tablet,extended release 24 hr (Austedo XR) ezetimibe 10 mg tablet 10 mg PO DAILY 11/08/23 Unkn own History hydroxyzine pamoate 25 mg capsule 25 mg PO Q6H PRN itc larisa 11/08/23 Unknown History (Vistaril) iloperidone 6 mg tablet (Fanapt) 6 mg PO BID 11/08/23 Unknown History lamotrigine 25 mg tablet (Lamictal) 75 mg PO DAILY Unknown History levothyroxine 50 mcg tablet 50 mcg PO DAILY 11/08/23 U nknown History multivitamin with minerals-folic 2 tab PO DAILY Unknown History acid 200 mcg chewable tablet (Women's Multivitamin Gummies) ondansetron 4 mg disintegrating 4 mg PO Q8H PRN PRN na usea and 11/08/23 Unknown History tablet vomiting rifaximin 550 mg tablet (Xifaxan) 550 mg PO TID Unknown History tramadol 50 mg tablet 50 mg PO TID 11/08/23 Unknow n History vilazodone 40 mg tablet (Viibryd) 40 mg PO DAILY 11/07 Unknown History Allergy/AdvReac Type Severity Reaction Status Date / Time cephalexin (From Keflex) Allergy Mild Itching Verified 06/08/24 13:20 banana Allergy Hives Verified 06/08/24 13:20 brompheniramine (From Allergy Hives Verified 06/08/24 13:20 Dimetapp (brompheniramine-PPA)) cefuroxime Allergy Rash Verified 06/08/24 13:20 kiwi Allergy Hives Verified 06/08/24 13:20 latex Allergy Anaphylaxis Verified 06/08/24 13:20 moxifloxacin HCl (From Allergy Hives Verified 06/08/24 13:20 Avelox) peach Allergy Hives Verified 06/08/24 13:20 phenylpropanolamine (From Allergy Hives Verified 06/08/24 13:20 Dimetapp (brompheniramine-PPA)) red dye Allergy Angioedema Verified 06/08/24 13:20 shellfish derived Allergy Anaphylaxis Verified 06/08/24 13:20 strawberry Allergy Hives Verified 06/08/24 13:20 Sulfa (Sulfonamide Allergy Rash Verified 06/08/24 13:20 Antibiotics) tetanus and diphtheria Allergy Anaphylaxis Verified 06/08/24 13:20 toxoids (tetanus & diphtheria toxoids) tetracycline Allergy Rash Verified 06/08/24 13:20 adhesive tape AdvReac Rash Verified 06/08/24 13:20 amoxicillin trihydrate (From AdvReac Nausea Verified 06/08/24 13:20 Augmentin) chlorpheniramine AdvReac Unknown Verified 06/08/24 13:20 doxycycline AdvReac Nausea Verified 06/08/24 13:20 eszopiclone (From Lunesta) AdvReac Unknown Verified 06/08/24 13:20 fluticasone (From Flonase) AdvReac Unknown Verified 06/08/24 13:20 paroxetine (From Paxil) AdvReac Nausea Verified 06/08/24 13:20 peanut AdvReac Nausea Verified 06/08/24 13:20 potassium clavulanate (From AdvReac Nausea Verified 06/08/24 13:20 Augmentin) procainamide AdvReac Unknown Verified 06/08/24 13:20 Family History Other Cancer Surgical History Hx of bilateral oophorectomy History of lithotripsy History of knee surgery History of cholecystectomy History of hysterectomy Social History household members: spouse housing: house Smoking Status: Never smoker alcohol intake: current alcohol intake frequency: other substance use type: does not use ROS <MARGOT Do - Last Filed: 06/08/24 14:59> ROS ED ROS Narrative Constitutional: Negative for fever, chills, weight loss, weakness Eyes: Negative for vision loss, vision change, double vision ENT: Negative for any sore throat, ear pain, congestion Cardiovascular: Negative for any chest pain, tightness, palpitations Respiratory: Negative for any cough, sputum production, hemoptysis, dyspnea, dyspnea on exertion, orthopnea Gastrointestinal: Negative for any abdominal pain, nausea, vomiting, diarrhea, constipation, blood in stool, blood in vomit : Negative for any retention. Positive for urinary frequency, blood in urine Muscle skeletal: Negative for any neck pain. Positive for left-sided back pain Neurological: Negative for any headache, syncope, dizziness Skin: Negative for any rashes, itching, abrasions, lacerations Psychiatric: Negative for any depression, anxiety, stress, suicidal ideation, homicidal ideation Hematologic: Negative for any excessive bruising, easy bleeding EXAM <MARGOT Do - Last Filed: 06/08/24 14:59> Physical Exam Narrative Exam Narrative: Vital signs reviewed. HEET: Head normocephalic atraumatic, TMs clear bilaterally. Posterior pharynx is clear, moist mucous membranes. Nares clear bilaterally. Neck: Supple with no lymphadenopathy or tenderness. No signs of meningismus. Cardiac: Regular rate and rhythm no murmurs gallops or rubs, equal peripheral pulses bilaterally. Respiratory: Lungs clear to auscultation bilaterally. No chest tenderness. Abdomen: Soft, nontender, nondistended. No abdominal bruit or pulsatile masses. No hepatosplenomegaly Extremities: No peripheral edema, no signs of gross trauma or deformity. Active full range of motion of all extremities. Neuro: Cranial nerves II through XII intact, no focal neurological deficits. Skin: Clean dry and intact with no rash, purpura, petechiae, vesicles or pustules. Backs/flank: Patient did have some left-sided CVA tenderness. No midline spinal tenderness, no deformity. Psych: Normal mood and affect. No SI, HI or acute psychosis. Const Vital Signs: 06/08/24 13:18 Temperature 97.5 F L Temperature Source Oral Pulse Rate 103 H Respiratory Rate 16 Blood Pressure 154/76 H Blood Pressure Mean 102 Pulse Ox 97 Oxygen Delivery Method Room Air Positive well nourished and well developed General Appearance ED: well developed <Dr. Tito Willingham DO - Last Filed: 06/08/24 21:42> Physical Exam Const Vital Signs: 06/08/24 13:18 Temperature 97.5 F L Temperature Source Oral Pulse Rate 103 H Respiratory Rate 16 Blood Pressure 154/76 H Blood Pressure Mean 102 Pulse Ox 97 Oxygen Delivery Method Room Air MDM <MARGOT Do - Last Filed: 06/08/24 14:59> [facility] Lab Data Labs: Laboratory Results - last 24 hr 06/08/24 06/08/24 13:57 13:59 WBC 4.8 RBC 4.22 Hgb 13.0 Hct 39.2 MCV 92.9 MCH 30.8 MCHC 33.2 RDW Std Deviation 46.3 H RDW Coeff of Maria Ines 13.5 Plt Count 264 MPV 8.3 Immature Gran % (Auto) 1.900 H Neut % (Auto) 60.3 Lymph % (Auto) 26.8 [place] % (Auto) 8.5 Eos % (Auto) 1.9 Baso % (Auto) 0.6 Absolute Neuts (auto) 2.9 Absolute Lymphs (auto) 1.29 Nucleated RBC % 0 Sodium 142 Potassium 4.5 Chloride 105 Carbon Dioxide 25.1 Anion Gap 11 BUN 17 Creatinine 1.28 H Estim Creat Clear Calc 87.29 Est GFR (MDRD) Non-Af 48 L BUN/Creatinine Ratio 13.3 Glucose 107 H Lactic Acid 1.6 Calcium 9.3 Total Bilirubin 0.24 AST 23 ALT 17 Alkaline Phosphatase 115 H Total Protein 6.9
--- NOTE | 2024-06-08 14:15 | EX.ED.DYSGE1 ---
HPI <MARGOT Do - Last Filed: 06/08/24 14:59> History of Present Illness Chief Complaint: Complaint Narrative Narrative: Patient is a 59-year-old female with history of neutropenia, history of UTIs, fibromyalgia, kidney stones, depression who presents to [facility] for ongoing dysuria, blood in urine as well as pain to the left flank. Patient states that 6 to 7 days ago, he did follow-up with an urgent care, placed on ciprofloxacin for 5 days. Patient finished her antibiotic however still feels lousy, complaining of fatigue, tiredness as well as pain to the left flank. She states she is still having blood in her urine. She is here for evaluation FOR[facility]LY [facility] <MARGOT Do - Last Filed: 06/08/24 14:59> [facility] Medical History Wears glasses Post-menopausal Depression Anxiety Thyroid disease Bladder disease History of renal disease Migraine headache Antiphospholipid antibody syndrome Stroke History of hiatal hernia Non-smoker Leg cramps History of pain when walking History of echocardiogram History of stress test Cardiology follow-up encounter Tachycardia Tardive dyskinesia Cancer Schizo affective schizophrenia Rheumatoid arthritis Chronic pain GERD (gastroesophageal reflux disease) BiPAP (biphasic positive airway pressure) dependence Arthritis Asthma Hyperlipidemia IBS (irritable bowel syndrome) Breast cancer Home Medications ?Medication ?Instructions ?Recorded ?Last Taken ?Type albuterol sulfate 90 mcg/actuation 2 puff inhalation Q6H PRN PRN 12/04/15 Unknown History aerosol inhaler (Ventolin HFA) Shortness Of Breath naphazoline 0.025 %-pheniramine 1 drp OP PRN PRN allergies 09/15/16 Unknown History 0.3 % eye drops (Naphcon-A) modafinil 100 mg tablet (Provigil) 150 mg PO DAILY 11/21/20 01/20/21 History verapamil 120 mg tablet 120 mg PO BID 11/21/20 04/24/23 History melatonin 10 mg tablet 10 mg PO QHS 01/20/21 01/19/21 History potassium chloride 10 mEq 20 meq PO BID 01/20/21 01/20/21 History capsule,extended release acetaminophen 325 mg tablet 650 mg (2 x 325 mg) PO Q6H PRN PRN 01/25/21 Unknown Rx (Tylenol) Pain 1-10 Or Fever #0 tabs anastrozole 1 mg tablet 1 mg PO DAILY 09/20/22 Unknown History aspirin 325 mg tablet,delayed 325 mg PO DAILY 09/20/22 04/19/23 History release cholecalciferol (vitamin D3) 250 500 mcg PO DAILY 09/20/22 Unknown History mcg (10,000 unit) capsule cyclobenzaprine 10 mg tablet 10 mg PO BID 09/20/22 Unknown History denosumab 60 mg/mL subcutaneous 60 mg subcut [id number] 09/20/22 Unknown History syringe (Prolia) oxybutynin chloride 10 mg 10 mg PO DAILY 03/29/23 04/24/23 History tablet,extended release 24 hr coenzyme Q10 100 mg capsule 200 mg PO DAILY 04/13/23 Unknown History (CoQ-10) nitrofurantoin macrocrystal 50 mg 50 mg PO QHS 04/13/23 Unknown History capsule omeprazole 40 mg capsule,delayed 40 mg PO DAILY 04/13/23 04/24/23 History release vitamin B12 1,000 mcg-folic acid 2 mark sublingual DAILY 04/13/23 Unknown History 400 mcg sublingual lozenge Lactobacillus acidophilus 250 100 mmu cells PO DAILY 11/08/23 Unknown History million cell capsule (Probiotic Acidophilus) cholestyramine-aspartame 4 gram 1 ea PO PRN 11/08/23 Unknown History oral powder (Prevalite) clonazepam 1 mg disintegrating 1 mg PO QHS PRN 11/08/23 Unknown History tablet deutetrabenazine 12 mg 24 mg PO BID 11/08/23 Unknown History tablet,extended release 24 hr (Austedo XR) ezetimibe 10 mg tablet 10 mg PO DAILY 11/08/23 Unknown History hydroxyzine pamoate 25 mg capsule 25 mg PO Q6H PRN itching 11/08/23 Unknown History (Vistaril) iloperidone 6 mg tablet (Fanapt) 6 mg PO BID 11/08/23 Unknown History lamotrigine 25 mg tablet (Lamictal) 75 mg PO DAILY 11/08/23 Unknown History levothyroxine 50 mcg tablet 50 mcg PO DAILY 11/08/23 Unknown History multivitamin with minerals-folic 2 tab PO DAILY 11/08/23 Unknown History acid 200 mcg chewable tablet (Women's Multivitamin Gummies) ondansetron 4 mg disintegrating 4 mg PO Q8H PRN PRN nausea and 11/08/23 Unknown History tablet vomiting rifaximin 550 mg tablet (Xifaxan) 550 mg PO TID 11/08/23 Unknown History tramadol 50 mg tablet 50 mg PO TID 11/08/23 Unknown History vilazodone 40 mg tablet (Viibryd) 40 mg PO DAILY 11/08/23 Unknown History Allergy/AdvReac Type Severity Reaction Status Date / Time cephalexin (From Keflex) Allergy Mild Itching Verified 06/08/24 13:20 banana Allergy Hives Verified 06/08/24 13:20 brompheniramine (From Allergy Hives Verified 06/08/24 13:20 Dimetapp (brompheniramine-PPA)) cefuroxime Allergy Rash Verified 06/08/24 13:20 kiwi Allergy Hives Verified 06/08/24 13:20 latex Allergy Anaphylaxis Verified 06/08/24 13:20 moxifloxacin HCl (From Allergy Hives Verified 06/08/24 13:20 Avelox) peach Allergy Hives Verified 06/08/24 13:20 phenylpropanolamine (From Allergy Hives Verified 06/08/24 13:20 Dimetapp (brompheniramine-PPA)) red dye Allergy Angioedema Verified 06/08/24 13:20 shellfish derived Allergy Anaphylaxis Verified 06/08/24 13:20 strawberry Allergy Hives Verified 06/08/24 13:20 Sulfa (Sulfonamide Allergy Rash Verified 06/08/24 13:20 Antibiotics) tetanus and diphtheria Allergy Anaphylaxis Verified 06/08/24 13:20 toxoids (tetanus & diphtheria toxoids) tetracycline Allergy Rash Verified 06/08/24 13:20 adhesive tape AdvReac Rash Verified 06/08/24 13:20 amoxicillin trihydrate (From AdvReac Nausea Verified 06/08/24 13:20 Augmentin) chlorpheniramine AdvReac Unknown Verified 06/08/24 13:20 doxycycline AdvReac Nausea Verified 06/08/24 13:20 eszopiclone (From Lunesta) AdvReac Unknown Verified 06/08/24 13:20 fluticasone (From Flonase) AdvReac Unknown Verified 06/08/24 13:20 paroxetine (From Paxil) AdvReac Nausea Verified 06/08/24 13:20 peanut AdvReac Nausea Verified 06/08/24 13:20 potassium clavulanate (From AdvReac Nausea Verified 06/08/24 13:20 Augmentin) procainamide AdvReac Unknown Verified 06/08/24 13:20 Family History Other Cancer Surgical History Hx of bilateral oophorectomy History of lithotripsy History of knee surgery History of cholecystectomy History of hysterectomy Social History household members: spouse housing: house Smoking Status: Never smoker alcohol intake: current alcohol intake frequency: other substance use type: does not use ROS <NAVDEEP DoC - Last Filed: 06/08/24 14:59> ROS ED ROS Narrative Constitutional: Negative for fever, chills, weight loss, weakness Eyes: Negative for vision loss, vision change, double vision ENT: Negative for any sore throat, ear pain, congestion Cardiovascular: Negative for any chest pain, tightness, palpitations Respiratory: Negative for any cough, sputum production, hemoptysis, dyspnea, dyspnea on exertion, orthopnea Gastrointestinal: Negative for any abdominal pain, nausea, vomiting, diarrhea, constipation, blood in stool, blood in vomit : Negative for any retention. Positive for urinary frequency, blood in urine Muscle skeletal: Negative for any neck pain. Positive for left-sided back pain Neurological: Negative for any headache, syncope, dizziness Skin: Negative for any rashes, itching, abrasions, lacerations Psychiatric: Negative for any depression, anxiety, stress, suicidal ideation, homicidal ideation Hematologic: Negative for any excessive bruising, easy bleeding EXAM <NAVDEEP DoC - Last Filed: 06/08/24 14:59> Physical Exam Narrative Exam Narrative: Vital signs reviewed. HEET: Head normocephalic atraumatic, TMs clear bilaterally. Posterior pharynx is clear, moist mucous membranes. Nares clear bilaterally. Neck: Supple with no lymphadenopathy or tenderness. No signs of meningismus. Cardiac: Regular rate and rhythm no murmurs gallops or rubs, equal peripheral pulses bilaterally. Respiratory: Lungs clear to auscultation bilaterally. No chest tenderness. Abdomen: Soft, nontender, nondistended. No abdominal bruit or pulsatile masses. No hepatosplenomegaly Extremities: No peripheral edema, no signs of gross trauma or deformity. Active full range of motion of all extremities. Neuro: Cranial nerves II through XII intact, no focal neurological deficits. Skin: Clean dry and intact with no rash, purpura, petechiae, vesicles or pustules. Backs/flank: Patient did have some left-sided CVA tenderness. No midline spinal tenderness, no deformity. Psych: Normal mood and affect. No SI, HI or acute psychosis. Const Vital Signs: 06/08/24 13:18 Temperature 97.5 F L Temperature Source Oral Pulse Rate 103 H Respiratory Rate 16 Blood Pressure 154/76 H Blood Pressure Mean 102 Pulse Ox 97 Oxygen Delivery Method Room Air Positive well nourished and well developed General Appearance ED: well developed <Dr. Tito Willingham, DO - Last Filed: 06/08/24 21:42> Physical Exam Const Vital Signs: 06/08/24 13:18 Temperature 97.5 F L Temperature Source Oral Pulse Rate 103 H Respiratory Rate 16 Blood Pressure 154/76 H Blood Pressure Mean 102 Pulse Ox 97 Oxygen Delivery Method Room Air MDM <MARGOT Do - Last Filed: 06/08/24 14:59> MDM Lab Data Labs: Laboratory Results - last 24 hr 06/08/24 06/08/24 13:57 13:59 WBC 4.8 RBC 4.22 Hgb 13.0 Hct 39.2 MCV 92.9 MCH 30.8 MCHC 33.2 RDW Std Deviation 46.3 H RDW Coeff of Maria Ines 13.5 Plt Count 264 MPV 8.3 Immature Gran % (Auto) 1.900 H Neut % (Auto) 60.3 Lymph % (Auto) 26.8 Barrow % (Auto) 8.5 Eos % (Auto) 1.9 Baso % (Auto) 0.6 Absolute Neuts (auto) 2.9 Absolute Lymphs (auto) 1.29 Nucleated RBC % 0 Sodium 142 Potassium 4.5 Chloride 105 Carbon Dioxide 25.1 Anion Gap 11 BUN 17 Creatinine 1.28 H Estim Creat Clear Calc 87.29 Est GFR (MDRD) Non-Af 48 L BUN/Creatinine Ratio 13.3 Glucose 107 H Lactic Acid 1.6 Calcium 9.3 Total Bilirubin 0.24 AST 23 ALT 17 Alkaline Phosphatase 115 H Total Protein 6.9 Albumin 4.0 Globulin 3.0 Albumin/Globulin Ratio 1.3 Lipase 25 Urine Color Straw Urine Clarity Clear Urine pH 8.0 Ur Specific [place] 1.010 Urine Protein Negative Urine Glucose (UA) Normal Urine Ketones Negative Urine Occult Blood 150 H Urine Nitrite Negative Urine Bilirubin Negative Urine Urobilinogen Normal Ur Leukocyte Esterase Negative Urine RBC 5-10 SEEN Urine WBC 0-5 SEEN Ur Squamous Epith Cells 0 SEEN Urine Bacteria 0 SEEN Urine Mucus 0 SEEN Radiography Diagnostic Testing: Clinical Impression(s) from Imaging Studies Abdomen/Pelvis CT 06/08/24 13:49 IMPRESSION: 1. Subtle perivesicular haziness which could relate to mild cystitis. Please correlate. 2. Bilateral nephrolithiasis. No obstructing ureteral calculi. Reading Location: [facility] Treatment and Re-Evaluation :: Differential diagnosis includes however is not limited to: Obstructing uropathy, infected kidney stone, cystitis, pyelonephritis, muscle skeletal pain Patient appears generally well, vital signs are stable, patient is nontoxic-appearing. Presenting to the [facility] for ongoing urinary frequency, blood in urine, left-sided flank pain. Patient will receive basic laboratory values including lactic acid, urinalysis, as well as a CT scan of the abdomen pelvis without contrast. All radiologic examinations were read, reviewed by the emergency department attending. From these reads, a plan of care will be put in place. IV fluids, Zofran and morphine will be given. Patient will need to be reevaluated. Patient's laboratory values showed normal CBC, patient's chemistries show stable creatinine 1.28, lactic acid negative, lipase negative. Urinalysis was negative for any infection, it did show 5-10 red blood cells with 150 occult blood. No signs of infection. CT scan shows subtle perivesicular haziness which could relate to mild cystitis. Bilateral nephrolithiasis however no obstructing ureteral calculi. Secondary to this finding, deeply the patient stable for discharge. No antibiotics were given. Patient was able to pass a p.o. challenge. She is happy with the news, she states she will follow-up outpatient. All questions answered, stable for discharge <Dr. Tito Willingham, DO - Last Filed: 06/08/24 21:42> MDM MDM Narrative Medical decision making narrative: Supervisory Physician Note Patient was seen and examined with the Advanced Practice Provider. Nursing notes and vital signs have been reviewed. Pertinent old records have been reviewed. I agree with the essential elements of the SATISH's history, physical exam, assessment, and plan. The differential diagnosis and management options were discussed with the SATISH. I participated in determining and agree with the management, procedures, final impression and disposition as documented. See changes noted by me. Please see addendum or separate note for any additional details. 59-year-old female with history of UTIs, nephrolithiasis, CKD, fibromyalgia presents for evaluation of dysuria, hematuria, and left flank pain. Patient states she was recently diagnosed with a UTI and treated with ciprofloxacin. She finished her antibiotics however still endorsing symptoms. 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 CBC unremarkable without leukocytosis or anemia. CMP with creatinine of 1.28. Patient has CKD. Her previous creatinines was 1.4/1.5. No transaminitis. Lipase unremarkable. Lactic acid unremarkable. UA positive for blood but negative for UTI. Patient's urinary tract infection has resolved with the ciprofloxacin. CT abdomen pelvis shows subtle perivesicular haziness which could relate to mild cystitis. Please correlate. Again, patient was just treated appropriately for UTI and urine shows resolution of infection. Patient has bilateral nephrolithiasis without urolithiasis. Patient was p.o. challenged in our emergency department and did well. She was updated of the results and felt comfortable discharging home. Return precautions were explained. She was told to follow-up with her urologist for the blood in her urine. She follows with Dr. Moreno. She confirmed understanding of plan. Impression: 1. Dysuria with recent UTI 2. Hematuria Lab Data Labs: Laboratory Results - last 24 hr 06/08/24 06/08/24 13:57 13:59 WBC 4.8 RBC 4.22 Hgb 13.0 Hct 39.2 MCV 92.9 MCH 30.8 MCHC 33.2 RDW Std Deviation 46.3 H RDW Coeff of Maria Ines 13.5 Plt Count 264 MPV 8.3 Immature Gran % (Auto) 1.900 H Neut % (Auto) 60.3 Lymph % (Auto) 26.8 [place] % (Auto) 8.5 Eos % (Auto) 1.9 Baso % (Auto) 0.6 Absolute Neuts (auto) 2.9 Absolute Lymphs (auto) 1.29 Nucleated RBC % 0 Sodium 142 Potassium 4.5 Chloride 105 Carbon Dioxide 25.1 Anion Gap 11 BUN 17 Creatinine 1.28 H Estim Creat Clear Calc 87.29 Est GFR (MDRD) Non-Af 48 L BUN/Creatinine Ratio 13.3 Glucose 107 H Lactic Acid 1.6 Calcium 9.3 Total Bilirubin 0.24 AST 23 ALT 17 Alkaline Phosphatase 115 H Total Protein 6.9 Albumin 4.0 Globulin 3.0 Albumin/Globulin Ratio 1.3 Lipase 25 Urine Color Straw Urine Clarity Clear Urine pH 8.0 Ur Specific [place] 1.010 Urine Protein Negative Urine Glucose (UA) Normal Urine Ketones Negative Urine Occult Blood 150 H Urine Nitrite Negative Urine Bilirubin Negative Urine Urobilinogen Normal Ur Leukocyte Esterase Negative Urine RBC 5-10 SEEN Urine WBC 0-5 SEEN Ur Squamous Epith Cells 0 SEEN Urine Bacteria 0 SEEN Urine Mucus 0 SEEN Radiography Diagnostic Testing: Clinical Impression(s) from Imaging Studies Abdomen/Pelvis CT 06/08/24 13:49 IMPRESSION: 1. Subtle perivesicular haziness which could relate to mild cystitis. Please correlate. 2. Bilateral nephrolithiasis. No obstructing ureteral calculi. Reading Location: [facility] Discharge Plan Triage Chief Complaint: Complaint ED Midlevel Provider: Allan Nichols ED Provider: Tito Willingham Dx/Rx/DC Orders Clinical Impression: Dysuria, Flank pain Instructions: ED Dysuria, Uncertain Cause (Adult), ED Flank Pain, Uncertain Cause Prescriptions: No Action cyclobenzaprine 10 mg tablet 10 mg PO BID anastrozole 1 mg tablet 1 mg PO DAILY Prolia 60 mg/mL syringe 60 mg subcut [id number] Patient Comments: 1 more dose due 11/2023 cholecalciferol (vitamin D3) 250 mcg (10,000 unit) capsule 500 mcg PO DAILY aspirin 325 mg tablet,delayed release (DR/EC) 325 mg PO DAILY oxybutynin chloride 10 mg tablet extended release 24hr 10 mg PO DAILY Patient Comments: take 1 tablet by mouth once daily albuterol sulfate [Ventolin HFA] 1 INHALER inhaler 2 puff inhalation Q6H PRN PRN (Reason: Shortness Of Breath) Patient Comments: shortness of breath Naphcon-A 15 ML drops 1 drp OP PRN PRN (Reason: allergies) verapamil 120 mg Tablet 120 mg PO BID modafinil [Provigil] 100 mg Tablet 150 mg PO DAILY potassium chloride 10 mEq capsule, extended release 20 meq PO BID Patient Comments: START WITH 2 capsules by mouth twice a day , THEN INCREASE TO three times a day melatonin 10 mg Tablet 10 mg PO QHS acetaminophen [Tylenol] 325 mg Tablet 650 mg PO Q6H PRN PRN (Reason: Pain 1-10 Or Fever) Qty: 0 0RF omeprazole 40 mg capsule,delayed release(DR/EC) 40 mg PO DAILY Patient Comments: take 1 capsule by mouth once daily before meals vitamin [id number] 1,000-400 mcg lozenge 2 mark sublingual DAILY coenzyme Q10 [CoQ-10] 100 mg capsule 200 mg PO DAILY nitrofurantoin macrocrystal 50 mg capsule 50 mg PO QHS Patient Comments: take 1 capsule by mouth at bedtime Xifaxan 550 mg tablet 550 mg PO TID clonazepam 1 mg tablet,disintegrating 1 mg PO QHS PRN lamotrigine [Lamictal] 25 mg tablet 75 mg PO DAILY Austedo XR 12 mg tablet extended release 24 hr 24 mg PO BID levothyroxine 50 mcg tablet 50 mcg PO DAILY ezetimibe 10 mg tablet 10 mg PO DAILY vilazodone [Viibryd] 40 mg tablet 40 mg PO DAILY Rx Instructions: must administer with a meal/food Fanapt 6 mg tablet 6 mg PO BID tramadol 50 mg tablet 50 mg PO TID Probiotic Acidophilus 250 million cell capsule 100 mmu cells PO DAILY multivit with min-folic acid [Women's Multivitamin Gummies] 200 mcg tablet,chewable 2 tab PO DAILY ondansetron 4 mg tablet,disintegrating 4 mg PO Q8H PRN PRN (Reason: nausea and vomiting) Prevalite 4 gram powder 1 ea PO PRN hydroxyzine pamoate [Vistaril] 25 mg capsule 25 mg PO Q6H PRN (Reason: itching) Primary Care Provider: Rell Sullivan Referrals: Rell Sullivan DO [Primary Care Provider] - Activity Restrictions/Additional Instructions: Please continue to follow-up outpatient Print Language: Surinamese Disposition Disposition: Home, Self Care Discharge Date/Time: 06/08/24 15:07
[2024-06-08 14:24] LABS: Red Blood Cells-Urine 5-10 SEEN /hpf (0-5); White Blood Cells 0-5 SEEN /hpf (0-5)
[2024-06-08 14:25] LABS: ALB/GLOB Ratio 1.3 RATIO (0.9-2.4); AST(SGOT) 23 U/L (<=31); Alanine Aminotransfer ALT/SGPT 17 U/L (<=34); Alkaline Phosphatase 115 U/L (35-104); Anion Gap 11 (5-15); BUN 17 mg/dL (4-19); BUN/Creat Ratio 13.3 RATIO (10-20); Calcium,Total 9.3 mg/dL (7.6-11.0); Carbon Dioxide 25.1 mmol/L (21.0-32.0); Chloride 105 mmol/L (98-108); Creatinine, Serum 1.28 mg/dL (0.70-1.20); EST Glomerular Filtration Rate 48 (>60); Estimated Creatinine Clearance 87.29 ml/min (50-250); Glucose 107 mg/dL (70-99); Lactic Acid 1.6 mmol/L (0.0-2.0); Lipase 25 U/L (13-75); Potassium 4.5 mmol/L (3.3-5.1); Protein, Total 6.9 g/dL (5.9-8.4); Sodium Level 142 mmol/L (133-145); Total Bilirubin 0.24 mg/dL (0.00-1.30)
== END 2024-06-08 15:07 | disposition home or self-care (01) ==
PROVIDERS: Nurse Practitioner; Emergency Provider Surgery; PCP Student in an Organized Health Care Education/Training Program; Referring Provider Surgery; Visit Provider Surgery
DX: R30.0 Dysuria (principal); R31.9 Hematuria, unspecified; R10.9 Unspecified abdominal pain; E78.5 Hyperlipidemia, unspecified; M79.7 Fibromyalgia; Z79.82 Long term (current) use of aspirin; Z79.890 Hormone replacement therapy; Z79.899 Other long term (current) drug therapy; Z87.442 Personal history of urinary calculi; Z87.440 Personal history of urinary (tract) infections
CPT/HCPCS: 74176; 80053; 81001; 83605; 83690; 85025; 96361; 96374; 96375; 99283; J2405

== ENCOUNTER 2024-12-31 05:57 | Day surgery (SDC) | payer MEDICARE, MEDICAID, SELFPAY ==
--- NOTE | 2024-12-25 11:40 | EKG12_ITS ---
Test Reason : PREOP Blood Pressure : */* mmHG Vent. Rate : 84 BPM Atrial Rate : 84 BPM P-R Int : 166 ms QRS Dur : 82 ms QT Int : 372 ms P-R-T Axes : 19 11 37 degrees QTcB Int : 439 ms Normal sinus rhythm Normal ECG Confirmed by Luca Rubio ([id number]), website/blog editor BARBARA ODONNELL ([id number]) on 12/26/2024 7:22:01 AM Referred By: Hayes Browne Confirmed By: Luca Rubio
[2024-12-25 13:00] LABS: Hematocrit 40.0 % (37-47); Hemoglobin 13.4 g/dL (12.0-15.0); Immature Granulocytes Count 0.040 X10^3/uL (0.0-0.0); Mean Corp Hgb Conc 33.5 g/dL (32-36); Mean Corpuscular Volume 91.7 fL (81-99); Mean Platelet Vol. 8.7 fl (6.2-12.0); NRBC Flagged by Analyzer 0 % (0-5); Platelet Count 321 K/mm3 (150-450); RBC Distribution Width CV 13.2 % (11.6-14.6); RBC Distribution Width SD 44.5 fl (35.1-43.9); Red Blood Count 4.36 M/mm3 (4.2-5.4); White Blood Count 5.8 K/mm3 (4.4-11.0)
[2024-12-25 13:50] LABS: Magnesium 2.2 mg/dL (1.5-2.2)
[2024-12-25 13:59] LABS: Anion Gap 15 (5-15); BUN 22 mg/dL (4-19); BUN/Creat Ratio 13.6 RATIO (10-20); Calcium,Total 10.1 mg/dL (7.6-11.0); Carbon Dioxide 24.2 mmol/L (21.0-32.0); Chloride 102 mmol/L (98-108); Glucose 109 mg/dL (70-99); Potassium 4.2 mmol/L (3.3-5.1)
--- NOTE | 2024-12-25 16:03 | PAT.ANE_ITS ---
Pre-Assessment Diagnosis/Proposed Procedure Planned Operative Procedure(s): REVISION SPINAL CORD STIMULATOR PADDLE LEAD RMOVAL AND REPLACEMENT POSS REMOVAL AND REPLACMENT OF PULSE GENERATOR Anesthesia History Anesthesia History - coke drawer: Anesthesia History - coke drawer Hx Hospitalization No 12/18/24 15:26 Any Problems With Anesthesia No 12/18/24 15:26 Cholinesterase deficiency No 12/18/24 15:26 You/Your Family Experience No 12/18/24 15:26 fever (hyperthermia) with Relationship Recent Exposure to Contagious No 04/24/23 10:24 Disease Does patient have nerve Yes: SPINAL CORD STIM NOT 12/18/24 15:26 stimulator WORKING Patient instructed to have device shut off --Does patient have Pacemaker or ICD? When Was Last Pacemaker Check QUESTION #4 FULL TEXT: You/Your Family Experience fever (hyperthermia) with Anesthesia Last Oral Intake Last Oral intake: Last Oral Intake NPO since Meds taken in AM with sips of water? Meds patient instructed to take am of surgery PONV PONV - coke drawer: PONV - coke drawer Female Yes 12/18/24 15:26 HX of Motion Sickness No 12/18/24 15:26 HX of N/V After Surgery No 12/18/24 15:26 Non-Smoker Yes 12/18/24 15:26 Duration of Surgery greater Yes 12/18/24 15:26 than 60 minutes Number of Risk Factors 3 12/18/24 15:26 PONV Score Moderate Risk 12/18/24 15:26 Height & Weight Height & Weight: Anesthesia: Height & Weight Height 5 ft 4 in 10/17/24 13:09 Respiratory Assessment Respiratory Assessment - coke drawer: Respiratory Tract Infection Hx - coke drawer Hx Respiratory Tract Infection Yes: DAY 7 OF COVID 12/18/24 15:26 STOP Sleep Apnea STOP Sleep Apnea - coke drawer: STOP Sleep Apnea - coke drawer Hx Hypertension No 12/18/24 15:26 Hx Sleep Apnea Yes 12/18/24 15:26 CPAP No 12/18/24 15:26 BIPAP Yes 12/18/24 15:26 Do you snore loudly (louder than talking or can be heard Do you often feel tired/ fatigued/ sleepy during daytime? Has anyone observed you stop breathing during sleep? STOP Results Positive 12/18/24 15:26 QUESTION #5 FULL TEXT : Do you snore loudly (louder than talking or can be heard through closed doors)? Tobacco Use History Tobacco Use History - coke drawer: Tobacco Use History - coke drawer Tobacco Use Smoking Status Never smoker 12/18/24 15:26 Hx Tobacco Use No 12/18/24 15:26 Years Smoking Packs Smoked per Day Smoking Cessation Date was within the last 15 years Hx Smoking Cessation Date Hx Smoking Cessation Counseling Hematologic Medial History Hematologic Hx - coke drawer: Hematologic Medical Hx - learning technologist Hx of Blood Transfusion Yes 12/18/24 15:26 Hx of Transfusion in last 3 No 12/18/24 15:26 Months Date of Last Transfusion (if within last 3 months) Ever experience any problems No 12/18/24 15:26 with transfusion(s)? Specify any problems Hx of Preganancy in last 3 No 12/18/24 15:26 Months Nurse Filling Out Transfusion DSCHRIBER 12/18/24 15:26 & Questions: Date: 12/18/24 12/18/24 15:26 Time: :12/18/24 15:26 Patient unable to answer at this time (ie. confused, unrespo /Reproduction History /Reproductive History - coke drawer: /Reproductive Hx- coke drawer Hx Now No 12/18/24 15:26 Gestational Age (in weeks): EDC: Hx Hx Para Hx Section SAB No 12/18/24 15:26 PFSH Medical History Shortness of breath on exertion Pulmonary embolism Wears glasses Post-menopausal Depression Anxiety Thyroid disease Bladder disease History of renal disease Migraine headache Antiphospholipid antibody syndrome Stroke History of hiatal hernia Non-smoker History of pain when walking History of echocardiogram History of stress test Cardiology follow-up encounter Tachycardia Tardive dyskinesia Cancer Schizo affective schizophrenia Rheumatoid arthritis Chronic pain GERD (gastroesophageal reflux disease) BiPAP (biphasic positive airway pressure) dependence Arthritis Asthma Hyperlipidemia IBS (irritable bowel syndrome) Breast cancer Home Medications ?Medication ?Instructions ?Recorded ?Last Taken ?Type albuterol sulfate 90 mcg/actuation 2 puff inhalation Q 6H PRN PRN 12/04/15 Unknown History aerosol inhaler (Ventolin HFA) Shortness Of Breath naphazoline 0.025 %-pheniramine 1 drp OP PRN PRN aller gies 09/15/16 Unknown History 0.3 % eye drops (Naphcon-A) modafinil 100 mg tablet (Provigil) 150 mg PO DAILY 01/20/21 History verapamil 120 mg tablet 120 mg PO BID 11/21/2004/24 History acetaminophen 325 mg tablet 650 mg (2 x 325 mg) PO Q6H PRN PRN 01/25/21 Unknown Rx (Tylenol) Pain 1-10 Or Fever #0 tabs anastrozole 1 mg tablet 1 mg PO DAILY 09/20/22 Unkno wn History cholecalciferol (vitamin D3) 250 500 mcg PO DAILY 08/25 11/15 Unknown History mcg (10,000 unit) capsule cyclobenzaprine 10 mg tablet 10 mg PO BID 09/20/22 Unk nown History denosumab 60 mg/mL subcutaneous 60 mg subcut [id number] 09/20/22 Unknown History syringe (Prolia) oxybutynin chloride 10 mg 10 mg PO DAILY 03/29/2303/28 History tablet,extended release 24 hr coenzyme Q10 100 mg capsule 200 mg PO DAILY 04/13/23 U nknown History (CoQ-10) nitrofurantoin macrocrystal 50 mg 50 mg PO QHS 4 Unknown History capsule omeprazole 40 mg capsule,delayed 40 mg PO DAILY 04/24/23 History release Lactobacillus acidophilus 250 100 mmu cells PO DAILY 0 11/08/23 Unknown History million cell capsule (Probiotic Acidophilus) cholestyramine-aspartame 4 gram 1 ea PO PRN 11/08/23 U nknown History oral powder (Prevalite) clonazepam 1 mg disintegrating 1 mg PO QHS PRN 4 Unknown History tablet deutetrabenazine 12 mg 24 mg PO BID 11/08/23 Unknow n History tablet,extended release 24 hr (Austedo XR) ezetimibe 10 mg tablet 10 mg PO DAILY 11/08/23 Unkn own History hydroxyzine pamoate 25 mg capsule 25 mg PO Q6H PRN itc larisa 11/08/23 Unknown History (Vistaril) iloperidone 6 mg tablet (Fanapt) 6 mg PO BID 11/08/23 Unknown History lamotrigine 25 mg tablet (Lamictal) 75 mg PO DAILY Unknown History levothyroxine 50 mcg tablet 50 mcg PO DAILY 11/08/23 U nknown History multivitamin with minerals-folic 2 tab PO DAILY Unknown History acid 200 mcg chewable tablet (Women's Multivitamin Gummies) ondansetron 4 mg disintegrating 4 mg PO Q8H PRN PRN na usea and 11/08/23 Unknown History tablet vomiting tramadol 50 mg tablet 50 mg PO 4X/DAY 11/08/23 Unk nown History vilazodone 40 mg tablet (Viibryd) 40 mg PO DAILY 11/07 Unknown History fenofibrate 160 mg tablet 160 mg PO QDAY 10/17/24 Unkn own History magnesium oxide 400 mg (241.3 mg 400 mg PO BID 5 Unknown History magnesium) tablet potassium citrate 10 mEq (1,080 20 meq PO BID 10/17/24 Unknown History mg) tablet,extended release rosuvastatin 20 mg tablet 20 mg PO QHS 10/17/24 Unknow n History warfarin 2 mg tablet (Jantoven) 2 mg PO SUMOWETHFRSA 0 10/17/24 Unknown History warfarin 2 mg tablet (Jantoven) 4 mg PO TU 12/18/24 Un known History Allergy/AdvReac Type Severity Reaction Status Date / Time cephalexin (From Keflex) Allergy Mild Itching Verified 12/25/24 13:05 banana Allergy Hives Verified 12/25/24 13:05 brompheniramine (From Allergy Hives Verified 12/25/24 13:05 Dimetapp (brompheniramine-PPA)) cefuroxime Allergy Rash Verified 12/25/24 13:05 kiwi Allergy Hives Verified 12/25/24 13:05 latex Allergy Anaphylaxis Verified 12/25/24 13:05 moxifloxacin HCl (From Allergy Hives Verified 12/25/24 13:05 Avelox) peach Allergy Hives Verified 12/25/24 13:05 phenylpropanolamine (From Allergy Hives Verified 12/25/24 13:05 Dimetapp (brompheniramine-PPA)) red dye Allergy Angioedema Verified 12/25/24 13:05 shellfish derived Allergy Anaphylaxis Verified 12/25/24 13:05 strawberry Allergy Hives Verified 12/25/24 13:05 Sulfa (Sulfonamide Allergy Rash Verified 12/25/24 13:05 Antibiotics) tetanus and diphtheria Allergy Anaphylaxis Verified 12/25/24 13:05 toxoids (tetanus & diphtheria toxoids) tetracycline Allergy Rash Verified 12/25/24 13:05 adhesive tape AdvReac Rash Verified 12/25/24 13:05 amoxicillin trihydrate (From AdvReac Nausea Verified 12/25/24 13:05 Augmentin) chlorpheniramine AdvReac Unknown Verified 12/25/24 13:05 doxycycline AdvReac Nausea Verified 12/25/24 13:05 eszopiclone (From Lunesta) AdvReac Unknown Verified 12/25/24 13:05 fluticasone (From Flonase) AdvReac Unknown Verified 12/25/24 13:05 paroxetine (From Paxil) AdvReac Nausea Verified 12/25/24 13:05 peanut AdvReac Nausea Verified 12/25/24 13:05 potassium clavulanate (From AdvReac Nausea Verified 12/25/24 13:05 Augmentin) procainamide AdvReac Unknown Verified 12/25/24 13:05 Family History Other Cancer Surgical History Hx of laminectomy Hx of bilateral oophorectomy History of lithotripsy History of knee surgery History of cholecystectomy History of hysterectomy Social History household members: spouse housing: house Smoking Status: Never smoker alcohol intake: current alcohol intake frequency: other substance use type: does not use Audit: Pertinent Findings Pertinent Findings EKG Perinent findings: December 25, 2024. Normal sinus rhythm. Compared to EKG of November 08, 2023 there is no significant change. Stress test pertinent findings: September 18, 2023. Unremarkable stress test?negative for inducible ischemia. No evidence of infarction. EF of 55 to 60%. Echo (EF%) pertinent findings: July 26, 2022. EF of 55 to 60%. No aortic stenosis. Consult pertinent findings: December 12, 2024. Dr. Lane. 1. Antiphospholipid syndrome-patient is on Coumadin and had a recent PE on May 2024. 2. Chronic diastolic heart failure-euvolemic. Continue current management. 3. Coronary artery calcification seen on CT scan. This was not a coronary CTA. 4. Hypertension-continue current therapy. 5. Preop evaluation-patient was on Coumadin for hypercoagulable state. Suggest bridging with Lovenox prior to procedure Recommendation Anesthesia Recommendation Anesthesia recommendation: OPTIMIZED for anesthesia
[2024-12-31] VITALS (15 sets, daily range): BP systolic 134–152; BP diastolic 73–95; PULSE 84–108; RESP 16–18; TEMP 36.1–36.7; O2SAT 92–100; BMI 38.9
[2024-12-31] MEDS: Magnesium 1 GM over 15 mins IV (06:30)
[2024-12-31] MEDS: Lactated Ringers 1,000 ML 15 ML IV (06:48)
--- NOTE | 2024-12-31 06:53 | PCM.PRE.AN2 ---
ASA Classification* ASA Classification ASA Classification: 3 Assessment & Plan Anesthesia* Anesthesia Assessment Anesthesia Assessment: Discussed sedation and/or anesthesia options, risks, benefits, and alternatives with patient/parents/legal guardian/POA. Questions invited. The patient/parents/legal guardian/POA seems to understand and agrees to proceed with anesthesia plan. Reviewed the physical assessment, medical history, allergy history and patient home medications list prior to surgery/procedure/anesthetic and documented any changes. Performed airway and anesthesia risk assessments. Anesthesia Type Anesthesia Type: General History Source History Obtained from:: Patient and Chart Anesthesia Focused Assessment* Temperature: 98.0 F Pulse Rate: 84 Blood Pressure: 134/73 Respiratory Rate: 18 Pulse Ox: 96 Oxygen Delivery Method: Room Air Airway Assessment Mouth opens: >3 cm Mallampati Score: II Teeth Condition: Missing (Seems like poor dentition with cavities) Neck Range of motion (ROM): Limited ROM Labs Anesthesia Preop lab: CBC WBC, (4.4-11.0) 5.8 K/mm3 12/25/24, 12: RBC, (4.2-5.4) 4.36 M/mm3 12/25/24, 12:11 Hgb, (12.0-15.0) 13.4 g/dL 12/25/24, 12: Hct, (37-47) 40.0 % 12/25/24, 12:11 Plt Count, (150-450) 321 K/mm3 12/25/24, 12:11 CHEMISTRY Potassium, (3.3-5.1) 4.2 mmol/L 12/25/24, 12:11 Sodium, (133-145) 142 mmol/L 12/25/24, 12:11 Magnesium, (1.5-2.2) 2.2 mg/dL 12/25/24, 12:11 Phosphorus, (2.5-4.9) 2.1 mg/dL L 02/23/15, 12:19 BUN, (4-19) 22 mg/dL H 12/25/24, 12:11 Creatinine, (0.70-1.20) 1.60 mg/dL H 12/25/24, 12:11 Glucose, (70-99) 109 mg/dL H 12/25/24, 12:11 POC Glucose, (74-106) 139 mg/dL H 04/24/23, 10:27 TSH, (0.300-4.200) 0.857 uIU/mL 12/25/24, 12:11 COAG Pre-Assessment Diagnosis/Proposed Procedure Planned Operative Procedure(s): REVISION SPINAL CORD STIMULATOR PADDLE LEAD RMOVAL AND REPLACEMENT POSS REMOVAL AND REPLACMENT OF PULSE GENERATOR Anesthesia History 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 When Was Last Pacemaker Check QUESTION #4 FULL TEXT: You/Your Family Experience fever (hyperthermia) with Anesthesia Last Oral Intake Last Oral intake: Last Oral Intake NPO since 04:15 12/31/24 06:42 Meds taken in AM with sips of Yes 12/31/24 06:42 water? Meds patient instructed to SEE MED REC 12/31/24 06:42 take am of surgery PONV PONV - field agronomist: PONV - field agronomist Female Yes 12/18/24 15:26 HX of Motion Sickness No 12/18/24 15:26 HX of N/V After Surgery No 12/18/24 15:26 Non-Smoker Yes 12/18/24 15:26 Duration of Surgery greater Yes 12/18/24 15:26 than 60 minutes Number of Risk Factors 3 12/18/24 15:26 PONV Score Moderate Risk 12/18/24 15:26 Height & Weight Height & Weight: Anesthesia: Height & Weight Height 5 ft 4 in 12/31/24 06:42 Weight: 103 kg 12/31/24 06:42 Body Mass Index (BMI) 38.9 12/31/24 06:42 Respiratory Assessment Respiratory Assessment - field agronomist: Respiratory Tract Infection Hx - field agronomist Hx Respiratory Tract Infection Yes: DAY 7 OF COVID 12/18/24 15:26 STOP Sleep Apnea STOP Sleep Apnea - field agronomist: STOP Sleep Apnea - field agronomist Hx Hypertension No 12/18/24 15:26 Hx Sleep Apnea Yes 12/18/24 15:26 CPAP No 12/18/24 15:26 BIPAP Yes 12/18/24 15:26 Do you snore loudly (louder than talking or can be heard Do you often feel tired/ fatigued/ sleepy during daytime? Has anyone observed you stop breathing during sleep? STOP Results Positive 12/18/24 15:26 QUESTION #5 FULL TEXT : Do you snore loudly (louder than talking or can be heard through closed doors)? 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 Specify any problems Hx of Preganancy in last 3 No 12/18/24 15:26 Months Nurse Filling Out Transfusion DSCHRIBER 12/18/24 15:26 & Questions: Date: 12/18/24 12/18/24 15:26 Time: 15:28 12/18/24 15:26 Patient unable to answer at this time (ie. confused, unrespo /Reproduction History /Reproductive History - field agronomist: /Reproductive Hx- field agronomist Hx Now No 12/18/24 15:26 Gestational Age (in weeks): EDC: Hx Hx Para Hx Section SAB No 12/18/24 15:26 Active Medications Active Medications: Current Medications Generic Name Dose Route Start Last Admin Trade Name Freq PRN Reason Stop Dose Admin Acetaminophen 1,000 mg 12/31/24 07:30 12/31/24 06:48 Acetaminophen 500 Mg Tablet PO 12/31/24 07:31 1,000 mg PREOP ONE Administration Clindamycin Phosphate 900 mg in 50 mls @ 75 mls/hr 12/31/24 07:30 Cleocin IV 12/31/24 08:09 INTRAOP ONE Tranexamic Acid 1,000 mg/ 110 mls @ 440 mls/hr 12/31/24 07:30 Sodium Chloride IV 12/31/24 07:44 INTRAOP ONE Tranexamic Acid 1,000 mg/ 110 mls @ 440 mls/hr 12/31/24 07:30 Sodium Chloride IV 12/31/24 07:44 INTRAOP ONE Magnesium Sulfate 1 gm/ 102 mls @ 408 mls/hr 12/31/24 07:30 12/31/24 06:30 Dextrose IV 12/31/24 07:44 408 mls/hr PREOP ONE Administration Lactated Ringer's 1,000 mls @ 15 mls/hr 12/31/24 06:15 12/31/24 06:48 IV 15 mls/hr .Q48H CHRISTINA Administration Insulin Human Lispro 1 - 6 unit 12/31/24 07:30 Insulin Lispro 100 Unit/Ml Insuln.Pen SC 12/31/24 13:30 Q4H PRN PRN BG>/= 180, SEE PROTOCOL Protocol PFSH Medical History MRSA (methicillin resistant staph aureus) culture positive Shortness of breath on exertion Pulmonary embolism Wears glasses Post-menopausal Depression Anxiety Thyroid disease Bladder disease History of renal disease Migraine headache Antiphospholipid antibody syndrome Stroke History of hiatal hernia Non-smoker History of pain when walking History of echocardiogram History of stress test Cardiology follow-up encounter Tachycardia Tardive dyskinesia Cancer Schizo affective schizophrenia Rheumatoid arthritis Chronic pain GERD (gastroesophageal reflux disease) BiPAP (biphasic positive airway pressure) dependence Arthritis Asthma Hyperlipidemia IBS (irritable bowel syndrome) Breast cancer Home Medications ?Medication ?Instructions ?Recorded ?Last Taken ?Type albuterol sulfate 90 mcg/actuation 2 puff inhalation Q6H PRN PRN 12/04/15 Unknown History aerosol inhaler (Ventolin HFA) Shortness Of Breath naphazoline 0.025 %-pheniramine 1 drp OP PRN PRN allergies 09/15/16 Unknown History 0.3 % eye drops (Naphcon-A) modafinil 100 mg tablet (Provigil) 150 mg PO DAILY 11/21/20 01/20/21 History verapamil 120 mg tablet 120 mg PO BID 11/21/20 12/31/24 04:15 History acetaminophen 325 mg tablet 650 mg (2 x 325 mg) PO Q6H PRN PRN 01/25/21 Unknown Rx (Tylenol) Pain 1-10 Or Fever #0 tabs anastrozole 1 mg tablet 1 mg PO DAILY 09/20/22 Unknown History cholecalciferol (vitamin D3) 250 500 mcg PO DAILY 09/20/22 Unknown History mcg (10,000 unit) capsule cyclobenzaprine 10 mg tablet 10 mg PO BID 09/20/22 Unknown History denosumab 60 mg/mL subcutaneous 60 mg subcut [id number] 09/20/22 Unknown History syringe (Prolia) oxybutynin chloride 10 mg 10 mg PO DAILY 03/29/23 04/24/23 History tablet,extended release 24 hr coenzyme Q10 100 mg capsule 200 mg PO DAILY 04/13/23 Unknown History (CoQ-10) nitrofurantoin macrocrystal 50 mg 50 mg PO QHS 04/13/23 Unknown History capsule omeprazole 40 mg capsule,delayed 40 mg PO DAILY 04/13/23 12/30/24 22:00 History release Lactobacillus acidophilus 250 100 mmu cells PO DAILY 11/08/23 Unknown History million cell capsule (Probiotic Acidophilus) cholestyramine-aspartame 4 gram 1 ea PO PRN 11/08/23 Unknown History oral powder (Prevalite) clonazepam 1 mg disintegrating 1 mg PO QHS PRN 11/08/23 Unknown History tablet deutetrabenazine 12 mg 24 mg PO BID 11/08/23 12/31/24 04:15 History tablet,extended release 24 hr (Austedo XR) ezetimibe 10 mg tablet 10 mg PO DAILY 11/08/23 Unknown History hydroxyzine pamoate 25 mg capsule 25 mg PO Q6H PRN itching 11/08/23 Unknown History (Vistaril) iloperidone 6 mg tablet (Fanapt) 6 mg PO BID 11/08/23 12/31/24 04:15 History lamotrigine 25 mg tablet (Lamictal) 75 mg PO DAILY 11/08/23 12/31/24 04:15 History levothyroxine 50 mcg tablet 50 mcg PO DAILY 11/08/23 12/31/24 04:15 History multivitamin with minerals-folic 2 tab PO DAILY 11/08/23 Unknown History acid 200 mcg chewable tablet (Women's Multivitamin Gummies) ondansetron 4 mg disintegrating 4 mg PO Q8H PRN PRN nausea and 11/08/23 Unknown History tablet vomiting tramadol 50 mg tablet 50 mg PO 4X/DAY 11/08/23 Unknown History vilazodone 40 mg tablet (Viibryd) 40 mg PO DAILY 11/08/23 Unknown History fenofibrate 160 mg tablet 160 mg PO QDAY 10/17/24 Unknown History magnesium oxide 400 mg (241.3 mg 400 mg PO BID 10/17/24 Unknown History magnesium) tablet potassium citrate 10 mEq (1,080 20 meq PO BID 10/17/24 Unknown History mg) tablet,extended release rosuvastatin 20 mg tablet 20 mg PO QHS 10/17/24 Unknown History warfarin 2 mg tablet (Jantoven) 2 mg PO SUMOWETHFRSA 10/17/24 12/25/24 History warfarin 2 mg tablet (Jantoven) 4 mg PO TU 12/18/24 Unknown History Allergy/AdvReac Type Severity Reaction Status Date / Time NSAIDS (Non-Steroidal Allergy Intermediate KIDNEY Verified 12/31/24 06:37 Anti-Inflamma LEVELS ELEVATE cephalexin (From Keflex) Allergy Mild Itching Verified 12/31/24 06:37 banana Allergy Hives Verified 12/31/24 06:37 brompheniramine (From Allergy Hives Verified 12/31/24 06:37 Dimetapp (brompheniramine-PPA)) cefuroxime Allergy Rash Verified 12/31/24 06:37 kiwi Allergy Hives Verified 12/31/24 06:37 latex Allergy Anaphylaxis Verified 12/31/24 06:37 moxifloxacin HCl (From Allergy Hives Verified 12/31/24 06:37 Avelox) peach Allergy Hives Verified 12/31/24 06:37 phenylpropanolamine (From Allergy Hives Verified 12/31/24 06:37 Dimetapp (brompheniramine-PPA)) red dye Allergy Angioedema Verified 12/31/24 06:37 shellfish derived Allergy Anaphylaxis Verified 12/31/24 06:37 strawberry Allergy Hives Verified 12/31/24 06:37 Sulfa (Sulfonamide Allergy Rash Verified 12/31/24 06:37 Antibiotics) tetanus and diphtheria Allergy Anaphylaxis Verified 12/31/24 06:37 toxoids (tetanus & diphtheria toxoids) tetracycline Allergy Rash Verified 12/31/24 06:37 adhesive tape AdvReac Rash Verified 12/31/24 06:37 amoxicillin trihydrate (From AdvReac Nausea Verified 12/31/24 06:37 Augmentin) chlorpheniramine AdvReac Unknown Verified 12/31/24 06:37 doxycycline AdvReac Nausea Verified 12/31/24 06:37 eszopiclone (From Lunesta) AdvReac Unknown Verified 12/31/24 06:37 fluticasone (From Flonase) AdvReac Unknown Verified 12/31/24 06:37 paroxetine (From Paxil) AdvReac Nausea Verified 12/31/24 06:37 peanut AdvReac Nausea Verified 12/31/24 06:37 potassium clavulanate (From AdvReac Nausea Verified 12/31/24 06:37 Augmentin) procainamide AdvReac Unknown Verified 12/31/24 06:37 Family History Other Cancer Surgical History Hx of laminectomy Hx of bilateral oophorectomy History of lithotripsy History of knee surgery History of cholecystectomy History of hysterectomy Social History household members: spouse housing: house Smoking Status: Never smoker alcohol intake: current alcohol intake frequency: other substance use type: does not use Review of Systems (Anesthesia) ROS Narrative System reviewed and no additional complaints, except as documented.
--- NOTE | 2024-12-31 07:00 | RAD_ITS ---
EXAM: XR Lumbosacral Spine Flexion/Extension Only, 2 or 3 Views CLINICAL INDICATION: REVISION SPINAL CORD STIMULATOR TECHNIQUE: Lateral flexion/extension views of the lumbar spine and sacrum. COMPARISON: No relevant prior studies available. FINDINGS: A total of 2 fluoroscopic spot images were obtained. Total fluoroscopy time 5.2 seconds. Total radiation dose 1.43 mGy. RAD/Spine 1 View Any Level IMPRESSION: Fluoroscopic guidance was used intraoperatively. Please refer to the operative note for further details. Reading Location: [id number]
--- NOTE | 2024-12-31 07:45 | PCM.HP.BLA ---
History and Physical MR#: [id number] Acct: [id number] Name: KELLIE CORTÉS Rep #: [id number] : 1965 Provider: Dr. Hayes Browne MD Age/Sex: 59/F [place] [facility] [place] Status: Signed Intake Vital Signs 10/17/2512:09 Height 5 ft 4 in Weight: 226 lb 8 oz BMI 38.8 Intake Visit Reasons: SCS Chief Complaint: Lumbar Spine - Spinal Stim Accompanied by: Self Is patient in pain?: Yes (low back, b/l hip, BLE) Pain scale (1-10): 8 Allergies cephalexin (From Keflex) Allergy (Mild, Verified 12/25/24 13:05) Itching banana Allergy (Verified 12/25/24 13:05) Hives brompheniramine (From Dimetapp (brompheniramine-PPA)) Allergy (Verified 12/25/24 13:05) Hives cefuroxime Allergy (Verified 12/25/24 13:05) Rash kiwi Allergy (Verified 12/25/24 13:05) Hives latex Allergy (Verified 12/25/24 13:05) Anaphylaxis moxifloxacin HCl (From Avelox) Allergy (Verified 12/25/24 13:05) Hives peach Allergy (Verified 12/25/24 13:05) Hives phenylpropanolamine (From Dimetapp (brompheniramine-PPA)) Allergy (Verified 12/25/24 13:05) Hives red dye Allergy (Verified 12/25/24 13:05) Angioedema shellfish derived Allergy (Verified 12/25/24 13:05) Anaphylaxis strawberry Allergy (Verified 12/25/24 13:05) Hives Sulfa (Sulfonamide Antibiotics) Allergy (Verified 12/25/24 13:05) Rash tetanus and diphtheria toxoids (tetanus & diphtheria toxoids) Allergy (Verified 12/25/24 13:05) Anaphylaxis tetracycline Allergy (Verified 12/25/24 13:05) Rash adhesive tape Adverse Reaction (Verified 12/25/24 13:05) Rash amoxicillin trihydrate (From Augmentin) Adverse Reaction (Verified 12/25/24 13:05) Nausea chlorpheniramine Adverse Reaction (Verified 12/25/24 13:05) Unknown doxycycline Adverse Reaction (Verified 12/25/24 13:05) Nausea eszopiclone (From Lunesta) Adverse Reaction (Verified 12/25/24 13:05) Unknown fluticasone (From Flonase) Adverse Reaction (Verified 12/25/24 13:05) Unknown paroxetine (From Paxil) Adverse Reaction (Verified 12/25/24 13:05) Nausea peanut Adverse Reaction (Verified 12/25/24 13:05) Nausea potassium clavulanate (From Augmentin) Adverse Reaction (Verified 12/25/24 13:05) Nausea procainamide Adverse Reaction (Verified 12/25/24 13:05) Unknown Medications ?Medication ?Instructions ?Recorded ?Confirmed ?Type albuterol sulfate 90 mcg/actuation 2 puff inhalation Q6H PRN PRN 12/04/15 12/25/24 History aerosol inhaler (Ventolin HFA) Shortness Of Breath naphazoline 0.025 %-pheniramine 1 drp OP PRN PRN allergies 09/15/16 12/25/24 History 0.3 % eye drops (Naphcon-A) modafinil 100 mg tablet (Provigil) 150 mg PO DAILY 11/21/20 12/25/24 History verapamil 120 mg tablet 120 mg PO BID 11/21/20 12/25/24 History acetaminophen 325 mg tablet 650 mg (2 x 325 mg) PO Q6H PRN PRN 01/25/21 12/25/24 Rx (Tylenol) Pain 1-10 Or Fever #0 tabs anastrozole 1 mg tablet 1 mg PO DAILY 09/20/22 12/25/24 History cholecalciferol (vitamin D3) 250 500 mcg PO DAILY 09/20/22 12/25/24 History mcg (10,000 unit) capsule cyclobenzaprine 10 mg tablet 10 mg PO BID 09/20/22 12/25/24 History denosumab 60 mg/mL subcutaneous 60 mg subcut [id number] 09/20/22 12/25/24 History syringe (Prolia) oxybutynin chloride 10 mg 10 mg PO DAILY 03/29/23 12/25/24 History tablet,extended release 24 hr coenzyme Q10 100 mg capsule 200 mg PO DAILY 04/13/23 12/25/24 History (CoQ-10) nitrofurantoin macrocrystal 50 mg 50 mg PO QHS 04/13/23 12/25/24 History capsule omeprazole 40 mg capsule,delayed 40 mg PO DAILY 04/13/23 12/25/24 History release Lactobacillus acidophilus 250 100 mmu cells PO DAILY 11/08/23 12/25/24 History million cell capsule (Probiotic Acidophilus) cholestyramine-aspartame 4 gram 1 ea PO PRN 11/08/23 12/25/24 History oral powder (Prevalite) clonazepam 1 mg disintegrating 1 mg PO QHS PRN 11/08/23 12/25/24 History tablet deutetrabenazine 12 mg 24 mg PO BID 11/08/23 12/25/24 History tablet,extended release 24 hr (Austedo XR) ezetimibe 10 mg tablet 10 mg PO DAILY 11/08/23 12/25/24 History hydroxyzine pamoate 25 mg capsule 25 mg PO Q6H PRN itching 11/08/23 12/25/24 History (Vistaril) iloperidone 6 mg tablet (Fanapt) 6 mg PO BID 11/08/23 12/25/24 History lamotrigine 25 mg tablet (Lamictal) 75 mg PO DAILY 11/08/23 12/25/24 History levothyroxine 50 mcg tablet 50 mcg PO DAILY 11/08/23 12/25/24 History multivitamin with minerals-folic 2 tab PO DAILY 11/08/23 12/25/24 History acid 200 mcg chewable tablet (Women's Multivitamin Gummies) ondansetron 4 mg disintegrating 4 mg PO Q8H PRN PRN nausea and 11/08/23 12/25/24 History tablet vomiting tramadol 50 mg tablet 50 mg PO 4X/DAY 11/08/23 12/25/24 History vilazodone 40 mg tablet (Viibryd) 40 mg PO DAILY 11/08/23 12/25/24 History fenofibrate 160 mg tablet 160 mg PO QDAY 10/17/24 12/25/24 History magnesium oxide 400 mg (241.3 mg 400 mg PO BID 10/17/24 12/25/24 History magnesium) tablet potassium citrate 10 mEq (1,080 20 meq PO BID 10/17/24 12/25/24 History mg) tablet,extended release rosuvastatin 20 mg tablet 20 mg PO QHS 10/17/24 12/25/24 History warfarin 2 mg tablet (Jantoven) 2 mg PO SUMOWETHFRSA 10/17/24 12/25/24 History warfarin 2 mg tablet (Jantoven) 4 mg PO TU 12/18/24 12/25/24 History PFSH Medical History Shortness of breath on exertion Pulmonary embolism Wears glasses Post-menopausal Depression Anxiety Thyroid disease Bladder disease History of renal disease Migraine headache Antiphospholipid antibody syndrome Stroke History of hiatal hernia Non-smoker History of pain when walking History of echocardiogram History of stress test Cardiology follow-up encounter Tachycardia Tardive dyskinesia Cancer Schizo affective schizophrenia Rheumatoid arthritis Chronic pain GERD (gastroesophageal reflux disease) BiPAP (biphasic positive airway pressure) dependence Arthritis Asthma Hyperlipidemia IBS (irritable bowel syndrome) Breast cancer Surgical History Hx of laminectomy Hx of bilateral oophorectomy History of lithotripsy History of knee surgery History of cholecystectomy History of hysterectomy Family History Other Cancer Social History household members: spouse housing: house Smoking Status: Never smoker alcohol intake: current alcohol intake frequency: other substance use type: does not use HPI SCS Details: This documentation accurately reflects the service provided and the decisions made by me, Dr. Hayes Browne MD 12/25/24 1300. Part of today?s visit was documented by [ ], acting as scribe. KELLIE CORTÉS is a 59 year old F here today for pre-op education. Reports Richard gave warfarin hold instructions. Low back pain continues unchanged. Reports fell during recent COVID without new injuries. Pre-op instructions given. The patient is a 59-year-old female presenting with complications related to her spinal cord stimulator. She experienced a fall on her right side, which did not result in any head injury but caused bruising on her leg and arm. The fall occurred during a period when she was unaware of her COVID-19 infection. The patient has a history of COVID-19 infection, which was identified retrospectively. She is currently on anticoagulation therapy, which is being managed in coordination with her chemical processing equipment repairer and the medication clinic. Adjustments to her anticoagulation regimen are planned around her upcoming surgical procedure. The patient reports an unusual case of spinal cord stimulator lead entanglement, possibly due to standing by the jets of a pool. The battery of the stimulator is located on the right side and is not rotating under the skin. There is consideration to reposition the battery lower to prevent future entanglement and ensure stability. - Musculoskeletal: Reports fall with right-sided impact, denies head injury. - Cardiovascular: Denies chest pain or palpitations. - Respiratory: Denies dyspnea or cough. Attestation: Documentation on this patient encounter was supported using ambient scribe technology/ voice AI technology. The patient consented to recording for the purpose of documenting the encounter. Provider reviewed content of the generated note prior to signature. HPI 10/17/24 lumbar spine pain. Patient states the spinal stimulator is giving her issues and it gradually stopped working but it has been at least 6 months. She states the right side does not work at all and the left side doesn't work very much. She is thinking something happened while she was in aquatic therapy. She states at the end you research instructor front of the jet and they are thinking the jet may have damaged it. Dr. Madden took a look and they determined it is not damaged with any cracks or tears. The pain she continues to experience is in the lumbar spine. She has been taking tramadol and Tylenol for the pain. She denies any pain in the legs. She states she does have mild numbness in the legs but denies any tingling. She states she had an injection in July but believes it was for the hip. She denies any recent injections into the back. She does not have diabetes. She is currently on Coumadin. The patient is a 59-year-old female presenting with back pain and issues related to her spinal cord stimulator. The back pain has persisted for seven to eight months, associated with the malfunction of her spinal cord stimulator, which failed to provide adequate stimulation to her right leg. The patient has a longstanding history of antiphospholipid syndrome, diagnosed at 16, managed with anticoagulation therapy. She suffered a pulmonary embolism in May, treated with Coumadin, and reported shortness of breath as a symptom, with no evidence of leg clots. Ortho Exam General General: Yes no acute distress Neurologic: Yes alert and Yes oriented x3 Psychologic: Yes reasonable and appropriate Exam Narrative - Musculoskeletal: Examination of the back, including palpation and assessment of the lead and battery placement. - Neurological: Assessment of leg strength and movement. Lower extremity shows 5 x 5 strength. Coding Level of Care Code Off vis,est,level 4 Diagnoses Malfunction of spinal cord stimulator, initial encounter T85.192A Encounter type: initial encounter Chronic bilateral low back pain with right-sided sciatica G89.29; M54.41 Back pain laterality: bilateral Back pain location: low back pain Sciatica laterality: sciatica of right side Sciatica presence: with sciatica Time Spent (min) 35 Assessment and Plan Assessment and Plan (1) Spinal cord stimulator dysfunction: Status: Acute Qualifiers: Encounter type: initial encounter Qualified Code(s): T85.192A - Other mechanical complication of implanted electronic neurostimulator of spinal cord electrode (lead), initial encounter (2) Chronic back pain: Status: Chronic Qualifiers: Back pain laterality: bilateral Back pain location: low back pain Sciatica laterality: sciatica of right side Sciatica presence: with sciatica Qualified Code(s): G89.29 - Other chronic pain; M54.41 - Lumbago with sciatica, right side Plan 1. Spinal cord stimulator lead entanglement - Surgical intervention is planned to reposition the battery lower to prevent future entanglement and ensure stability. - The procedure will involve opening the previous incision, removing the old lead, and placing a new lead connected to the battery in a lower position. - The patient will be monitored for bleeding and infection post-operatively, especially due to her anticoagulation therapy. 2. Anticoagulation therapy - The patient is on anticoagulation therapy, which will be paused prior to surgery and resumed 48 hours post-operatively to minimize bleeding risks. - Coordination with her chemical processing equipment repairer and medication clinic is ongoing to manage her anticoagulation regimen effectively. - Bring your medications to the hospital, as some may not be available there. - Follow the anticoagulation plan as discussed with your chemical processing equipment repairer and medication clinic. - Monitor for any signs of infection or unusual bleeding after surgery and report them immediately. The x-rays show that the leads are still attached but they are coiled up acutely in the upper lumbar region. Discussed the imaging findings as well as the findings of the [employer] software sales representative showing that the spinal cord stimulator is not functioning and no stimulation is being provided. It is unclear as to why the lead wires coiled up in that fashion. The only incident that the patient can report are the jets from pool therapy onto lower back 7-8 months ago after which her stimulator started malfunctioning. Patient had good relief of her pain symptoms from the stimulator until that point. The paddle lead will need to be removed and replaced through revision thoracic laminectomy. The pulse generator may be able to be salvaged, but will need to be explored surgically for attachment of new lead wires. Discussed this procedure in detail and explained the risks, benefits and alternatives. The risks of surgery include bleeding, infection, hematoma, DVT, pulmonary embolism, persistent pain. Explained in detail the procedure of the paddle lead placement. Discussed post-surgery restrictions such as no bending, lifting, or twisting. Answered all questions to the patient?s satisfaction. Patient understands and agrees to proceed with surgery. Consent was signed. All questions answered. Patient in agreement of plan.
[2024-12-31] MEDS: Lactated Ringers 1,000 ML 1000 ML IV (08:06)
[2024-12-31] MEDS: Lidocaine 1% (5 ml sdv) 5 ML Vial 10 ML IV (08:13)
[2024-12-31] MEDS: fentaNYL 100 MCG/2 ML Ampul 200 MCG IV (09:53)
[2024-12-31] MEDS: TRANEXAMIC ACID 1,000 MG/10 ML ML 2000 MG IV (09:57)
--- NOTE | 2024-12-31 10:41 | OP.PCM_ITS ---
Procedures Musculoskeletal [id number]-29xxx: Other Procedure See Report Operative Report (Standard) Operative Information Date of Procedure: 12/31/24 Pre-Operative Diagnosis: Malfunctioning spinal cord stimulator Post-Operative Diagnosis: Same Surgery/Procedure Performed: Revision open placement through laminectomy of spinal cord stimulator paddle lead, revision pulse generator site straw hat presser: Yes Traffic Court Referee: Sasha Carlisle Tasks completed by surgery assistant: Closing, Removing tissue, Hemostasis: Electrocautery and Retracting Type of Anesthesia: General RN Documented Start/Stop Times: Operation Date: 12/31/24 08:00 Case Time Into Pre-Op 12/31/24 06:09 Out of Pre-Op 12/31/24 08:02 Anesthesia Start 12/31/24 08:10 Into Room 12/31/24 08:10 Procedure Start 12/31/24 08:43 Procedure End 12/31/24 10:30 Procedure Start Time: 08:43 Procedure Stop Time: 10:30 Select all DRAINS/GRAFTS/IMPLANTS that apply: Implanted device Implanted device details: Darnell Tricentrus paddle lead, reused Eterna IPG Estimated Blood Loss: 20 cc Specimen collected: No Description of surgery: Preoperative diagnosis: Chronic back pain with malfunctioning spinal cord stimulator Postoperative diagnosis: Same Name of procedure: T9-10 revision laminectomy, spinal cord stimulator paddle lead removal and replacement at T8, revision of implantable pulse generator site in left lumbar region [id number], [id number] Anesthesia: Gen. endotracheal Estimated blood loss: 20 mL Complications: None Instrumentation used: Darnell Lamitrode Tricentrus paddle lead (new) and reused Eterna implantable pulse generator. Indications: The patient is a pleasant 59 who presented to us with symptoms of chronic low back pain. She was treated with a successful spinal cord stimulator trial by pain management and later a permanent paddle lead placement in 2023 which successfully gave her excellent pain relief. However a year later she started having poor results and the stimulator stopped working about 2 months ago. X-ray showed spiraling and kinking of the wires possibly damaging the. Patient requested revision surgical placement of permanent lead and pulse generator of the spinal cord stimulator as she had had great improvement when she had a working stimulator. All risks and benefits of the procedure were explained to the patient. The risks include but are not limited to infection, bleeding, injury to nerves and vessels, need for further procedures, worsening lumbar pathology with potential neurologic symptoms, persistent pain, technical issues with spinal cord stimulator, hematoma, migration of lead, skin impingement from subcutaneous pulse generator, worsening deformity, DVT, pulmonary embolism, cardiopulmonary event etc. patient understands all the risks and benefits and agrees to the procedure. Procedure: The patient was identified in the preoperative suite using unique patient identifiers. Skin was marked consent was taken and all questions were answered. The patient was then brought back to the operative room and a timeout was performed. General endotracheal anesthesia was given. Intraoperative neuro monitoring leads were applied. The patient was carefully positioned prone on a standard OR table with a Marc frame. Back was prepped and draped in usual fashion. X-rays were performed to identify level of incision. A posterior midline incision was carried out over the previous midline scar. Bovie was utilized to go down to the spinous processes. Subperiosteal dissection over the lamina was performed. The previous paddle lead wire and the Prolene anchor was identified and was released from the fascia. The wire was then traced into the interlaminar space. Soft tissue att achments of the wire were released. Kerrison was used to remove any scarred flavum remnants. The paddle lead was then carefully pulled out from the epidural space. A new Darnell Lamitrode Tricentrus paddle lead of same dimensions was then passed underneath the T9 lamina superiorly to reach the T8 vertebra, confirmed on AP view. This was then tested using Darnell representatives stimulation equipment as well as with neuromonitoring. #1 Prolene was passed through T10 interspinous process and the paddle was fixated with the help of anchors. The left lumbar region and posterolateral incision scar was then opened through the same scar. Previous IPG was delivered out of the wound and disconnected from the old wires. All the wires were removed from the thoracic incision. Tunneling instrument was used to create a subcutaneous tunnel from a transverse incision placed in the left lumbar region. This allowed the leads to be passed and tunneled through into the lower wound. These leads were then connected to the older implantable pulse generator (IPG). The leads were tested again to confirm stimulation. Decision was then made to reuse the older IPG. The wires were then tagged with #1 Prolene to the deep fascia in the gluteal region with the help of anchors. Excess wire was coiled in the deeper tissues. The IPG was then implanted into the older subcutaneous pocket less than 2 cm f rom the surface in the left lumbar region. Thorough irrigation was given in both wounds. Hemostasis was achieved utilizing FloSeal. Closure of both wounds was done in layers with 0 Vicryl interrupted for the deep fascia, 2-0 Vicryl for subcutaneous tissue and cari for skin, dressed with 4 x 4 gauze and Tegaderm. the patient was then woken up from anesthesia. Patient was taken to PACU for monitoring in stable condition. The patient tolerated the procedure and no complications occurred. Blood loss was 20 ml. Darnell instrumentation was utilized. Neuromonitoring was utilized and the potentials remained at baseline throughout the case. No dural tear was identified intra-operatively. I was scrubbed for the entire procedure and performed the surgery myself. Long Goods Drier Sasha Carlisle PA-C. My physician clinical medical assistant was a vital part of this case. They were important in appropriate retraction during the case, and protection of soft tissues during the procedure. Their intimate knowledge of the case and my steps aided in safe and expedient completion of the procedure as well as appropriate position of the patient during the surgery. They were also vital in assisting with closure under my direct supervision. Surgical Findings: See operative note Complications Complications: No
--- NOTE | 2024-12-31 10:51 | PCM.POST.ANE ---
Anesthesia: Postop Eval I Current Vital Signs Temperature: 97 F Pulse Rate: 100 Blood Pressure: 147/74 Respiratory Rate: 16 Pulse Ox: 100 Oxygen Delivery Method: Simple Mask Oxygen Flow Rate (L/min): 6 Assessment Airway patent: Yes Spontaneous unlabored respirations: Yes Mental status: Awake and Calm nausea: No Vomiting: No Anesthesia Complication: No Fluid Hydration Crystalloid volume administer (ml): 1,000 Total IV fluid infused: 1,000 Progress Note Anesthesia document: Postop Eval 1 completed: Yes
--- NOTE | 2024-12-31 12:31 | POSTOPAN2_ITS ---
Anesthesia Postop Eval I Sum Postop Eval Completion status Anesthesia document: Postop Eval 1 completed: Yes Anesthesia Postop Eval I Summary Anesthesia Postop Eval I Summary: Anesthesia Postop Eval I: Assessment Summary Airway patent Yes 12/31/24 10:51 ART HISTORY [email or web address].[email or web address] Spontaneous unlabored Yes 12/31/24 10:51 ART HISTORY PROFESSOR.EMILY respirations Mental status Awake,Calm 12/31/24 10:51 ART HISTORY PROFESSOR.TYLOROBY nausea No 12/31/24 10:51 ART HISTORY PROFESSOR.TYLOROBCedric Vomiting No 12/31/24 10:51 ART HISTORY PROFESSOR.TYLOROBCedric Anesthesia Postop Eval I: Fluid Summary Crystalloid volume administer 1,000 12/31/24 10:51 ART HISTORY PROFESSOR.SKOBY (ml) Colloids volume administered ( ml) Blood Product volume administered (ml) Total IV fluid infused 1,000 12/31/24 10:51 ART HISTORY PROFESSOR.EMILY Anesthesia Postop Eval I: Summary Notes Anesthesia Complication No 12/31/24 10:51 ART HISTORY PROFESSOR.EMILY Anesthesia Complication Comment: Post-operative progress note Anesthesia: Postop Eval II Evaluation Mental status: Awake and Calm Pain Level: 1 nausea: No Vomiting: No Complications Anesthesia Complication: No
--- NOTE | 2024-12-31 12:31 | PCM.POSTANE2 ---
Anesthesia Postop Eval I Sum Postop Eval Completion status Anesthesia document: Postop Eval 1 completed: Yes Anesthesia Postop Eval I Summary Anesthesia Postop Eval I Summary: Anesthesia Postop Eval I: Assessment Summary Airway patent Yes 12/31/24 10:51 DIAGNOSTICS TECH.SKOBY Spontaneous unlabored Yes 12/31/24 10:51 DIAGNOSTICS TECH.EMILY respirations Mental status Awake,Calm 12/31/24 10:51 DIAGNOSTICS TECH.TYLOROBY nausea No 12/31/24 10:51 DIAGNOSTICS TECH.TYLOROBCedric Vomiting No 12/31/24 10:51 DIAGNOSTICS TECH.TYLOROBCedric Anesthesia Postop Eval I: Fluid Summary Crystalloid volume administer 1,000 12/31/24 10:51 DIAGNOSTICS TECH.SKOBY (ml) Colloids volume administered ( ml) Blood Product volume administered (ml) Total IV fluid infused 1,000 12/31/24 10:51 DIAGNOSTICS TECH.EMILY Anesthesia Postop Eval I: Summary Notes Anesthesia Complication No 12/31/24 10:51 DIAGNOSTICS TECH.EMILY Anesthesia Complication Comment: Post-operative progress note Anesthesia: Postop Eval II Evaluation Mental status: Awake and Calm Pain Level: 1 nausea: No Vomiting: No Complications Anesthesia Complication: No
[2024-12-31] MEDS: HYDROcodone Bitartrate/Apap 5/325 Tablet PO (12:56)
--- NOTE | 2024-12-31 13:08 | SUR.PHASEII ---
UPPER BACK DRESSING CHANGED WITH GAUZE AND LARGE TELFA OPSITE.
== END 2024-12-31 14:06 | disposition home or self-care (01) ==
LOC: SDC 05:58 → AC 05:58
PROVIDERS: Anesthesiology; PCP Student in an Organized Health Care Education/Training Program; Referring Provider Orthopaedic Surgery Orthopaedic Surgery of the Spine; Visit Provider Orthopaedic Surgery Orthopaedic Surgery of the Spine
PROC: (CPT 63655; principal; 2024-12-31 07:30)
DX: T85.192A Other mechanical complication of implanted electronic neurostimulator of spinal cord electrode (lead), initial encounter (principal); F25.9 Schizoaffective disorder, unspecified; G89.29 Other chronic pain; K21.9 Gastro-esophageal reflux disease without esophagitis; M54.41 Lumbago with sciatica, right side; Z96.82 Presence of neurostimulator; E78.5 Hyperlipidemia, unspecified; F32.A Depression, unspecified; F41.9 Anxiety disorder, unspecified; Z79.899 Other long term (current) drug therapy; Z86.711 Personal history of pulmonary embolism; Z86.73 Personal history of transient ischemic attack (TIA), and cerebral infarction without residual deficits; W01.0XXA Fall on same level from slipping, tripping and stumbling without subsequent striking against object, initial encounter
CPT/HCPCS: 63688; 63664; 00300; 36415; 72020; 76000; 80048; 83036; 83735; 84443; 85025; 86850; 86900; 86901; 87077; 87081; 93005; C1778; J2405; J3475

== ENCOUNTER 2025-02-11 15:00 | Outpatient (RCR) | payer MEDICARE, MEDICAID, SELFPAY ==
--- NOTE | 2024-12-05 12:34 | HP.PTEVAL_ITS ---
Patient's Visit Information Visit Information Visit Information: KELLIE CORTÉS is a 59 year old F referred to Physical Therapy by Dr. Rell Sullivan DO with a diagnosis of weakness. Date of Evaluation: 12/05/24 Physical Therapist: Ang Swartz, DPT, OCS, CSCS Visit Plan Frequency: 2x /Week Duration: 3 Weeks Plan: 2x/week for 4-6 in aquatic therapy for: core adn UE and le strength program to I. Work on lumbar extension adn posture and general fatigue level. Pt to have stimulator fixed in early December Subjective Subjective: Back has gotten bad as stimulator stopped working. Gets it fixed jan 04. It was keeping her pain down. LBP 11/02 since stimulator quit 6 weeks ago. 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 Can do dishes for 5 minutes then she has to sit duee to pain and fatigue. Does the laundry but fatigues. Basic ADLs: all I, steps are tiring but able. Not employed , disabled from kidneys. Sleep is OK. Exercises: not lately, likes to walk and has recumbent bike. Is watching TV and reading. Pain LBP: Pain Intensity (Out of 10): 8 Pain Intensity Range: 8 Objective Objective: LB AROM ext centrally painful, R SB min painful, L SB Ok, flexion OK. posture is flexed full spine adn diminished lordosis.Kyphotic thoracic spine. Hunched over gait pattern with forward shoulders and head adn FW leean. I gait. Transfers with UE I. Bed transfer slow but I. UE adn LE AROM WFL but weak and labored to move. Tightness present in HS and hip flexors to -30 90/90 test and 0 ext at hips. - slump and - SLR. reflexes 1/3 B patella adn achilles Sensation LE WNL to gross light touch B strength hips 3, knees 3+, ankles 3+, no myotomal problems. UE strength 3+. Balance/Special Test Scores Functional Gait Assessment Score: 25 % Disability: 16.6700 Lower Extremity Functional Score: 29 TUG Test Time Seconds: 12 30 Second Chair Rise Test Seconds: 9 Goals Goal 1:: 12 on 30 SSTS to show improveed strength Goal Time Frame: 4-6 Weeks Goal 2:: Pt pain in LB 2/10 at worst and 75% better. Goal Time Frame: 4-6 Weeks Goal 3:: I appropriate HEP strength in pool to work to I after stimulator fix. Goal Time Frame: 4-6 Weeks Goal 4:: stand 15 minutes without increased pain Goal Time Frame: 4-6 Weeks Goal 5:: 40 LEF to improve fucnitonal mobility. Rehabilitation Potential Physical Therapy Diagnosis: weakness and sedentarism limiting comfortable function and QOL. Rehabilitation Potential: Fair Anticipated Interventions Patient/Client Instruction: Educate patient on: Condition and Plan of Care For the Purpose of:: To decrease pain, To increase ROM, To improve nutrient delivery to tissue, To increase tolerance to activity/condition/position and To improve gait and locomotor functions Therapeutic Exercise to Include: Strength training, Postural training, Flexibilty training, In an aquatic setting, Passive ROM and Active ROM For the Purpose of:: To decrease pain, To increase ROM, To improve nutrient d elivery to tissue, To increase tolerance to activity/condition/position, To improve ability of physical actions for home/community/work/leisure and To improve gait and locomotor functions Text: Thank you for the opportunity to evaluate your patient. For Medicare and Medicare HMO plans, please review the plan of care and approve it. It will need to be FAXED BACK to us at [phone] for Medicare purposes. For Medicare only, by signing this I certify the plan of care. Please let me know if there are questions or concerns regarding this plan of care. Physician Signature: Date:
--- NOTE | 2025-02-11 15:24 | HP.PTREVAL_ITS ---
Re-Evaluation Intro: Dr. Rell Sullivan, DO, It has been my pleasure to treat KELLIE CORTÉS over the last 5 visits for weakness. Please see the progress note below for an update on the physical therapy plan of care! Subjective Subjective: Nt feling any stronger but had setbacks with surgry to repair TENS implanted and Covid. Still feels lik balance is off. No falls but almost a fw times catching self on chair. Legs just dont hold her. Seems to be early in am. daigle tart weight loss shot next week. No HEP other than reecumbent for 10 min daily.Daigle tart 2x/day Objective Objective/Function: FGA +1, +2 on 30 SSTS. Improving adn pain in LB is beetter with fixed stimulator All unmet goals still appropriate with fair prognosis as previous POC interrupted with surgery whcih is healed now. Plan Plan Plan: Reinitat POC 2x/week for 4 weeks hoping for more conisstency in water for LE strength core strength, conditioning and work to I pool program via [employer] with list and I sink ex with pics. Balance/Gait/Functional tests Balance/Special Test Scores Functional Gait Assessment Score: 26 % Disability: 13.3400 Lower Extremity Functional Score: 29 TUG Test Time Seconds: 12 Tug Test: <20 sec.=mostly independent 30 Second Chair Rise Test Seconds: 11 Goals Goals Goal 1:: 12 on 30 SSTS to show improveed strength Goal Time Frame: 4-6 Weeks Goal Progress: Progressing Goal 2:: Pt pain in LB 2/10 at worst and 75% better. Goal Time Frame: 4-6 Weeks Goal Progress: Goal Met Goal 3:: I appropriate HEP strength in pool to work to I after stimulator fix. Goal Time Frame: 4-6 Weeks Goal Progress: approp Goal 4:: stand 15 minutes without increased pain Goal Time Frame: 4-6 Weeks Goal Progress: 10 minutes, legs get weak Goal 5:: 40 LEF to improve fucnitonal mobility. Goal Progress: approp Anticipated Interventions Anticipated Interventions Patient/Client Instruction: Educate patient on: Condition and Plan of Care For the Purpose of:: To decrease pain, To increase ROM, To improve nutrient delivery to tissue, To increase tolerance to activity/condition/position and To improve gait and locomotor functions Therapeutic Exercise to Include: Strength training, Postural training, Flexibilty training, In an aquatic setting, Passive ROM and Active ROM For the Purpose of:: To decrease pain, To increase ROM, To improve nutrient delivery to tissue, To increase tolerance to activity/condition/position, To improve ability of physical actions for home/community/work/leisure and To improve gait and locomotor functions Re-Evaluation Ending Re-evaluation ending: Please do not hesitate to contact me at [phone] by phone or if you have questions or concerns regarding this new plan of care! Sincerely, Ang Swartz, DPT, OCS, CSCS
--- NOTE | 2025-04-17 10:27 | HP.PTDCNRP_ITS ---
Patient Information Patient Information: KELLIE CORTÉS was seen in my office for initial evaluation on 12/05/24. The following Plan of Care was established for this patient: POC Established Initial Frequency: 2x /Week Initial Duration: 3 Weeks Anticipated Interventions Patient/Client Instruction: Educate patient on: Condition and Plan of Care For the Purpose of:: To decrease pain, To increase ROM, To improve nutrient delivery to tissue, To increase tolerance to activity/condition/position and To improve gait and locomotor functions Therapeutic Exercise to Include: Strength training, Postural training, Flexibilty training, In an aquatic setting, Passive ROM and Active ROM For the Purpose of:: To decrease pain, To increase ROM, To improve nutrient delivery to tissue, To increase tolerance to activity/condition/position, To improve ability of physical actions for home/community/work/leisure and To im prove gait and locomotor functions Last Seen Last Seen: This patient was last seen in our office 02/11/25. Pertinent comments regarding their Physical therapy will appear below: Pt seen 5 visists of POC and was 50% better. was to resume POC but did not attend any further visits. It has been over 2 months and I will discontinue from my care. At this point I will be discontinuing this patient from physical therapy. I would be happy to see this patient again in the future if found appropriate by the physician. Thank you! Ang Swartz, DPT, OCS, CSCS Balance/Gait/Functional tests Balance/Special Test Scores Functional Gait Assessment Score: 26 % Disability: 13.3400 Lower Extremity Functional Score: 29 TUG Test Time Seconds: 12 Tug Test: <20 sec.=mostly independent 30 Second Chair Rise Test Seconds: 11
== END 2025-02-11 19:00 | disposition home or self-care (01) ==
LOC: PT 15:00
PROVIDERS: PCP Student in an Organized Health Care Education/Training Program; Referring Provider Student in an Organized Health Care Education/Training Program; Visit Provider Student in an Organized Health Care Education/Training Program
DX: I50.32 Chronic diastolic (congestive) heart failure (principal); M08.00 Unspecified juvenile rheumatoid arthritis of unspecified site; R53.1 Weakness
CPT/HCPCS: 97113; 97161; 97164

== ENCOUNTER 2025-03-12 09:44 | Day surgery (SDC) | payer MEDICARE, MEDICAID, SELFPAY ==
--- NOTE | 2025-03-03 12:14 | EKG12_ITS ---
Test Reason : REV OF PULSE GENERAT Blood Pressure : */* mmHG Vent. Rate : 103 BPM Atrial Rate : 103 BPM P-R Int : 156 ms QRS Dur : 84 ms QT Int : 342 ms P-R-T Axes : 25 51 1 degrees QTcB Int : 448 ms Sinus tachycardia Inferior infarct , age undetermined Abnormal ECG Confirmed by Gary Amaya ([id number]), editor in chief [facility] ([id number]) on 03/04/2025 11:37:51 AM Referred By: Hayes Browne Confirmed By: Gary Amaya
[2025-03-03 12:44] LABS: Hematocrit 38.8 % (37-47); Hemoglobin 12.7 g/dL (12.0-15.0); Immature Granulocytes Count 0.030 X10^3/uL (0.0-0.0); Mean Corp Hgb Conc 32.7 g/dL (32-36); Mean Corpuscular Volume 92.6 fL (81-99); Mean Platelet Vol. 8.6 fl (6.2-12.0); NRBC Flagged by Analyzer 0 % (0-5); Platelet Count 287 K/mm3 (150-450); RBC Distribution Width CV 12.7 % (11.6-14.6); RBC Distribution Width SD 42.9 fl (35.1-43.9); Red Blood Count 4.19 M/mm3 (4.2-5.4); White Blood Count 6.0 K/mm3 (4.4-11.0)
[2025-03-03 13:11] LABS: Anion Gap 11 (5-15); BUN 21 mg/dL (4-19); BUN/Creat Ratio 15.1 RATIO (10-20); Calcium,Total 9.4 mg/dL (7.6-11.0); Carbon Dioxide 26.1 mmol/L (21.0-32.0); Chloride 103 mmol/L (98-108); Glucose 133 mg/dL (70-99); Potassium 4.3 mmol/L (3.3-5.1)
--- NOTE | 2025-03-03 16:45 | PAT.ANE_ITS ---
Pre-Assessment Diagnosis/Proposed Procedure Planned Operative Procedure(s): (N/A) Revision of internal pulse generator Anesthesia History Anesthesia History - site foreman: Anesthesia History - site foreman Hx Hospitalization Yes: 05/2024 PULMONARY 03/02/25 09:29 EMBOLISM Any Problems With Anesthesia No 03/02/25 09:29 Cholinesterase deficiency No 03/02/25 09:29 You/Your Family Experience No 03/02/25 09:29 fever (hyperthermia) with Relationship Recent Exposure to Contagious No 12/31/24 06:42 Disease Does patient have nerve Yes 03/02/25 09:29 stimulator Patient instructed to have device shut off --Does patient have Pacemaker or ICD? When Was Last Pacemaker Check QUESTION #4 FULL TEXT: You/Your Family Experience fever (hyperthermia) with Anesthesia Last Oral Intake Last Oral intake: Last Oral Intake NPO since Meds taken in AM with sips of water? Meds patient instructed to take am of surgery PONV PONV - site foreman: PONV - site foreman Female Yes 03/02/25 09:29 HX of Motion Sickness No 03/02/25 09:29 HX of N/V After Surgery No 03/02/25 09:29 Non-Smoker Yes 03/02/25 09:29 Duration of Surgery greater Yes 03/02/25 09:29 than 60 minutes Number of Risk Factors 3 03/02/25 09:29 PONV Score Moderate Risk 03/02/25 09:29 Height & Weight Height & Weight: Anesthesia: Height & Weight Height 5 ft 4 in 02/16/25 13:02 Respiratory Assessment Respiratory Assessment - site foreman: Respiratory Tract Infection Hx - site foreman Hx Respiratory Tract Infection No 03/02/25 09:29 STOP Sleep Apnea STOP Sleep Apnea - site foreman: STOP Sleep Apnea - site foreman Hx Hypertension No 03/02/25 09:29 Hx Sleep Apnea Yes 03/02/25 09:29 CPAP No 03/02/25 09:29 BIPAP Yes 03/02/25 09:29 Do you snore loudly (louder than talking or can be heard Do you often feel tired/ fatigued/ sleepy during daytime? Has anyone observed you stop breathing during sleep? STOP Results Positive 03/02/25 09:29 QUESTION #5 FULL TEXT : Do you snore loudly (louder than talking or can be heard through closed doors)? Tobacco Use History Tobacco Use History - site foreman: Tobacco Use History - site foreman Tobacco Use Smoking Status Never smoker 03/02/25 09:29 Hx Tobacco Use No 03/02/25 09:29 Years Smoking Packs Smoked per Day Smoking Cessation Date was within the last 15 years Hx Smoking Cessation Date Hx Smoking Cessation Counseling Hematologic Medial History Hematologic Hx - site foreman: Hematologic Medical Hx - draw end hand Hx of Blood Transfusion Yes 03/02/25 09:29 Hx of Transfusion in last 3 No 03/02/25 09:29 Months Date of Last Transfusion (if within last 3 months) Ever experience any problems No 03/02/25 09:29 with transfusion(s)? Specify any problems Hx of Preganancy in last 3 No 03/02/25 09:29 Months Nurse Filling Out Transfusion SHARON 03/02/25 09:29 & Questions: Date: 03/02/25 03/02/25 09:29 Time: 09:32 03/02/25 09:29 Patient unable to answer at this time (ie. confused, unrespo /Reproduction History /Reproductive History - site foreman: /Reproductive Hx- site foreman Hx Now No 03/02/25 09:29 Gestational Age (in weeks): EDC: Hx Hx Para Hx Section SAB No 03/02/25 09:29 Does the father of the baby or his family experience fever w Father of the baby Malignant Hypertension history comment [facility] Medical History (Updated 03/02/25 @ 09:43 by Unique German) High cholesterol Easy bruising History of pulmonary embolism Blood disorder Dietary restriction History of IBS Gastric reflux History of tachycardia Obesity (BMI 30-39.9) MRSA (methicillin resistant staph aureus) culture positive Shortness of breath on exertion Pulmonary embolism Wears glasses Post-menopausal Depression Anxiety Thyroid disease Bladder disease History of renal disease Migraine headache Antiphospholipid antibody syndrome Stroke History of hiatal hernia Non-smoker History of pain when walking History of echocardiogram History of stress test Cardiology follow-up encounter Tachycardia Tardive dyskinesia Cancer Schizo affective schizophrenia Rheumatoid arthritis Chronic pain GERD (gastroesophageal reflux disease) BiPAP (biphasic positive airway pressure) dependence Arthritis Asthma Hyperlipidemia IBS (irritable bowel syndrome) Breast cancer Home Medications ?Medication ?Instructions ?Recorded ?Last Taken ?Type albuterol sulfate 90 mcg/actuation 2 puff inhalation Q 6H PRN PRN 12/04/15 Unknown History aerosol inhaler (Ventolin HFA) Shortness Of Breath naphazoline 0.025 %-pheniramine 1 drp OP BID PRN PRN a llergies 09/15/16 Unknown History 0.3 % eye drops (Naphcon-A) modafinil 100 mg tablet (Provigil) 150 mg PO DAILY DAY TIME SLEEPINESS 11/21/20 01/20/21 History verapamil 120 mg tablet 120 mg PO BID TACHYCARDIA 12/31/24 04:15 History acetaminophen 325 mg tablet 650 mg (2 x 325 mg) PO Q6H PRN PRN 01/25/21 Unknown Rx (Tylenol) Pain 1-10 Or Fever #0 tabs anastrozole 1 mg tablet 1 mg PO DAILY HORMONE REPLAC EMENT 09/20/22 Unknown History FOR BREAST CA cholecalciferol (vitamin D3) 250 500 mcg PO DAILY SUPP LEMENT 09/20/22 Unknown History mcg (10,000 unit) capsule cyclobenzaprine 10 mg tablet 10 mg PO BID MUSCLE SPASM S 09/20/22 Unknown History denosumab 60 mg/mL subcutaneous 60 mg subcut [id number] 09/20/22 02/26/25 History syringe (Prolia) oxybutynin chloride 10 mg 10 mg PO DAILY OAB 03/29/23 04/24/23 History tablet,extended release 24 hr coenzyme Q10 100 mg capsule 200 mg PO DAILY SUPPLEMENT 04/13/23 Unknown History (CoQ-10) nitrofurantoin macrocrystal 50 mg 50 mg PO QHS 4 Unknown History capsule omeprazole 40 mg capsule,delayed 40 mg PO DAILY 12/30/24 22:00 History release Lactobacillus acidophilus 250 100 mmu cells PO DAILY 0 11/08/23 Unknown History million cell capsule (Probiotic Acidophilus) cholestyramine-aspartame 4 gram 1 ea PO PRN PRN LOOSE STOOLS 11/08/23 Unknown History oral powder (Prevalite) clonazepam 1 mg disintegrating 1 mg PO QHS PRN PRN sle ep 11/08/23 Unknown History tablet deutetrabenazine 12 mg 24 mg PO BID tardive dyskine syed 11/08/23 12/31/24 04:15 History tablet,extended release 24 hr (Austedo XR) ezetimibe 10 mg tablet 10 mg PO DAILY CHOLESTEROL 0 11/08/23 Unknown History hydroxyzine pamoate 25 mg capsule 25 mg PO Q6H PRN itc larisa 11/08/23 Unknown History (Vistaril) iloperidone 6 mg tablet (Fanapt) 6 mg PO BID ANTIPSYCH OTIC 11/08/23 12/31/24 04:15 History lamotrigine 25 mg tablet (Lamictal) 75 mg PO DAILY 12/31/24 04:15 History levothyroxine 50 mcg tablet 50 mcg PO DAILY THYROID 12/31/24 04:15 History multivitamin with minerals-folic 2 tab PO DAILY SUPPLE MENT 11/08/23 Unknown History acid 200 mcg chewable tablet (Women's Multivitamin Gummies) ondansetron 4 mg disintegrating 4 mg PO Q8H PRN PRN na usea and 11/08/23 Unknown History tablet vomiting tramadol 50 mg tablet 50 mg PO TID PAIN 11/08/23 U nknown History vilazodone 40 mg tablet (Viibryd) 40 mg PO DAILY 11/07 Unknown History fenofibrate 160 mg tablet 160 mg PO QDAY HLD 10/17/24 Unknown History magnesium oxide 400 mg (241.3 mg 400 mg PO BID 5 Unknown History magnesium) tablet potassium citrate 10 mEq (1,080 20 meq PO BID 10/17/24 Unknown History mg) tablet,extended release rosuvastatin 20 mg tablet 20 mg PO QHS HLD 10/17/24 Un known History warfarin 2 mg tablet (Jantoven) 2 mg PO SUMOWETHFRSA 0 10/17/24 12/25/24 History warfarin 2 mg tablet (Jantoven) 4 mg PO TU 12/18/24 Un known History enoxaparin 100 mg/mL subcutaneous 100 mg subcut Q12.TC U 03/02/25 Unknown History syringe Allergy/AdvReac Type Severity Reaction Status Date / Time NSAIDS (Non-Steroidal Allergy Intermediate KIDNEY Verified 03/02/25 09:13 Anti-Inflamma LEVELS ELEVATE cephalexin (From Keflex) Allergy Mild Itching Verified 03/02/25 09:13 banana Allergy Hives Verified 03/02/25 09:13 brompheniramine (From Allergy Hives Verified 03/02/25 09:13 Dimetapp (brompheniramine-PPA)) cefuroxime Allergy Rash Verified 03/02/25 09:13 kiwi Allergy Hives Verified 03/02/25 09:13 latex Allergy Anaphylaxis Verified 03/02/25 09:13 moxifloxacin HCl (From Allergy Hives Verified 03/02/25 09:13 Avelox) peach Allergy Hives Verified 03/02/25 09:13 phenylpropanolamine (From Allergy Hives Verified 03/02/25 09:13 Dimetapp (brompheniramine-PPA)) red dye Allergy Angioedema Verified 03/02/25 09:13 shellfish derived Allergy Anaphylaxis Verified 03/02/25 09:13 strawberry Allergy Hives Verified 03/02/25 09:13 Sulfa (Sulfonamide Allergy Rash Verified 03/02/25 09:13 Antibiotics) tetanus and diphtheria Allergy Anaphylaxis Verified 03/02/25 09:13 toxoids (tetanus & diphtheria toxoids) tetracycline Allergy Rash Verified 03/02/25 09:13 adhesive tape AdvReac Rash Verified 03/02/25 09:13 amoxicillin trihydrate (From AdvReac Nausea Verified 03/02/25 09:13 Augmentin) chlorpheniramine AdvReac Unknown Verified 03/02/25 09:13 doxycycline AdvReac Nausea Verified 03/02/25 09:13 eszopiclone (From Lunesta) AdvReac Unknown Verified 03/02/25 09:13 fluticasone (From Flonase) AdvReac Unknown Verified 03/02/25 09:13 paroxetine (From Paxil) AdvReac Nausea Verified 03/02/25 09:13 peanut AdvReac Nausea Verified 03/02/25 09:13 potassium clavulanate (From AdvReac Nausea Verified 03/02/25 09:13 Augmentin) procainamide AdvReac Unknown Verified 03/02/25 09:13 Family History Other Cancer Surgical History (Updated 03/02/25 @ 09:43 by Unique German) History of parathyroidectomy History of surgery Hx of laminectomy Hx of bilateral oophorectomy History of lithotripsy History of knee surgery History of cholecystectomy History of hysterectomy Social History household members: spouse housing: house Smoking Status: Never smoker alcohol intake: current alcohol intake frequency: other substance use type: does not use Audit: Pertinent Findings Pertinent Findings EKG Perinent findings: EKG January 04, 2025. Normal sinus rhythm. Recommendation Anesthesia Recommendation Anesthesia recommendation: OPTIMIZED for anesthesia
--- NOTE | 2025-03-03 16:53 | PAT.ANESEVAL ---
Pre-Assessment Diagnosis/Proposed Procedure Planned Operative Procedure(s): (N/A) Revision of internal pulse generator Anesthesia History Anesthesia History - food safety director: Anesthesia History - food safety director Hx Hospitalization Yes: 05/2024 PULMONARY 03/02/25 09:29 EMBOLISM Any Problems With Anesthesia No 03/02/25 09:29 Cholinesterase deficiency No 03/02/25 09:29 You/Your Family Experience No 03/02/25 09:29 fever (hyperthermia) with Relationship Recent Exposure to Contagious No 12/31/24 06:42 Disease Does patient have nerve Yes 03/02/25 09:29 stimulator Patient instructed to have device shut off --Does patient have Pacemaker or ICD? When Was Last Pacemaker Check QUESTION #4 FULL TEXT: You/Your Family Experience fever (hyperthermia) with Anesthesia Last Oral Intake Last Oral intake: Last Oral Intake NPO since Meds taken in AM with sips of water? Meds patient instructed to take am of surgery PONV PONV - food safety director: PONV - food safety director Female Yes 03/02/25 09:29 HX of Motion Sickness No 03/02/25 09:29 HX of N/V After Surgery No 03/02/25 09:29 Non-Smoker Yes 03/02/25 09:29 Duration of Surgery greater Yes 03/02/25 09:29 than 60 minutes Number of Risk Factors 3 03/02/25 09:29 PONV Score Moderate Risk 03/02/25 09:29 Height & Weight Height & Weight: Anesthesia: Height & Weight Height 5 ft 4 in 02/16/25 13:02 Respiratory Assessment Respiratory Assessment - food safety director: Respiratory Tract Infection Hx - food safety director Hx Respiratory Tract Infection No 03/02/25 09:29 STOP Sleep Apnea STOP Sleep Apnea - food safety director: STOP Sleep Apnea - food safety director Hx Hypertension No 03/02/25 09:29 Hx Sleep Apnea Yes 03/02/25 09:29 CPAP No 03/02/25 09:29 BIPAP Yes 03/02/25 09:29 Do you snore loudly (louder than talking or can be heard Do you often feel tired/ fatigued/ sleepy during daytime? Has anyone observed you stop breathing during sleep? STOP Results Positive 03/02/25 09:29 QUESTION #5 FULL TEXT : Do you snore loudly (louder than talking or can be heard through closed doors)? Tobacco Use History Tobacco Use History - food safety director: Tobacco Use History - food safety director Tobacco Use Smoking Status Never smoker 03/02/25 09:29 Hx Tobacco Use No 03/02/25 09:29 Years Smoking Packs Smoked per Day Smoking Cessation Date was within the last 15 years Hx Smoking Cessation Date Hx Smoking Cessation Counseling Hematologic Medial History Hematologic Hx - food safety director: Hematologic Medical Hx - billing auditor Hx of Blood Transfusion Yes 03/02/25 09:29 Hx of Transfusion in last 3 No 03/02/25 09:29 Months Date of Last Transfusion (if within last 3 months) Ever experience any problems No 03/02/25 09:29 with transfusion(s)? Specify any problems Hx of Preganancy in last 3 No 03/02/25 09:29 Months Nurse Filling Out Transfusion SHARON 03/02/25 09:29 & Questions: Date: 03/02/25 03/02/25 09:29 Time: 09:32 03/02/25 09:29 Patient unable to answer at this time (ie. confused, unrespo /Reproduction History /Reproductive History - food safety director: /Reproductive Hx- food safety director Hx Now No 03/02/25 09:29 Gestational Age (in weeks): EDC: Hx Hx Para Hx Section SAB No 03/02/25 09:29 Does the father of the baby or his family experience fever w Father of the baby Malignant Hypertension history comment [facility] Medical History (Updated 03/02/25 @ 09:43 by Unique German) High cholesterol Easy bruising History of pulmonary embolism Blood disorder Dietary restriction History of IBS Gastric reflux History of tachycardia Obesity (BMI 30-39.9) MRSA (methicillin resistant staph aureus) culture positive Shortness of breath on exertion Pulmonary embolism Wears glasses Post-menopausal Depression Anxiety Thyroid disease Bladder disease History of renal disease Migraine headache Antiphospholipid antibody syndrome Stroke History of hiatal hernia Non-smoker History of pain when walking History of echocardiogram History of stress test Cardiology follow-up encounter Tachycardia Tardive dyskinesia Cancer Schizo affective schizophrenia Rheumatoid arthritis Chronic pain GERD (gastroesophageal reflux disease) BiPAP (biphasic positive airway pressure) dependence Arthritis Asthma Hyperlipidemia IBS (irritable bowel syndrome) Breast cancer Home Medications ?Medication ?Instructions ?Recorded ?Last Taken ?Type albuterol sulfate 90 mcg/actuation 2 puff inhalation Q6H PRN PRN 12/04/15 Unknown History aerosol inhaler (Ventolin HFA) Shortness Of Breath naphazoline 0.025 %-pheniramine 1 drp OP BID PRN PRN allergies 09/15/16 Unknown History 0.3 % eye drops (Naphcon-A) modafinil 100 mg tablet (Provigil) 150 mg PO DAILY DAYTIME SLEEPINESS 11/21/20 01/20/21 History verapamil 120 mg tablet 120 mg PO BID TACHYCARDIA 11/21/20 12/31/24 04:15 History acetaminophen 325 mg tablet 650 mg (2 x 325 mg) PO Q6H PRN PRN 01/25/21 Unknown Rx (Tylenol) Pain 1-10 Or Fever #0 tabs anastrozole 1 mg tablet 1 mg PO DAILY HORMONE REPLACEMENT 09/20/22 Unknown History FOR BREAST CA cholecalciferol (vitamin D3) 250 500 mcg PO DAILY SUPPLEMENT 09/20/22 Unknown History mcg (10,000 unit) capsule cyclobenzaprine 10 mg tablet 10 mg PO BID MUSCLE SPASMS 09/20/22 Unknown History denosumab 60 mg/mL subcutaneous 60 mg subcut [id number] 09/20/22 02/26/25 History syringe (Prolia) oxybutynin chloride 10 mg 10 mg PO DAILY OAB 03/29/23 04/24/23 History tablet,extended release 24 hr coenzyme Q10 100 mg capsule 200 mg PO DAILY SUPPLEMENT 04/13/23 Unknown History (CoQ-10) nitrofurantoin macrocrystal 50 mg 50 mg PO QHS 04/13/23 Unknown History capsule omeprazole 40 mg capsule,delayed 40 mg PO DAILY 04/13/23 12/30/24 22:00 History release Lactobacillus acidophilus 250 100 mmu cells PO DAILY 11/08/23 Unknown History million cell capsule (Probiotic Acidophilus) cholestyramine-aspartame 4 gram 1 ea PO PRN PRN LOOSE STOOLS 11/08/23 Unknown History oral powder (Prevalite) clonazepam 1 mg disintegrating 1 mg PO QHS PRN PRN sleep 11/08/23 Unknown History tablet deutetrabenazine 12 mg 24 mg PO BID tardive dyskinesia 11/08/23 12/31/24 04:15 History tablet,extended release 24 hr (Austedo XR) ezetimibe 10 mg tablet 10 mg PO DAILY CHOLESTEROL 11/08/23 Unknown History hydroxyzine pamoate 25 mg capsule 25 mg PO Q6H PRN itching 11/08/23 Unknown History (Vistaril) iloperidone 6 mg tablet (Fanapt) 6 mg PO BID ANTIPSYCHOTIC 11/08/23 12/31/24 04:15 History lamotrigine 25 mg tablet (Lamictal) 75 mg PO DAILY 11/08/23 12/31/24 04:15 History levothyroxine 50 mcg tablet 50 mcg PO DAILY THYROID 11/08/23 12/31/24 04:15 History multivitamin with minerals-folic 2 tab PO DAILY SUPPLEMENT 11/08/23 Unknown History acid 200 mcg chewable tablet (Women's Multivitamin Gummies) ondansetron 4 mg disintegrating 4 mg PO Q8H PRN PRN nausea and 11/08/23 Unknown History tablet vomiting tramadol 50 mg tablet 50 mg PO TID PAIN 11/08/23 Unknown History vilazodone 40 mg tablet (Viibryd) 40 mg PO DAILY 11/08/23 Unknown History fenofibrate 160 mg tablet 160 mg PO QDAY HLD 10/17/24 Unknown History magnesium oxide 400 mg (241.3 mg 400 mg PO BID 10/17/24 Unknown History magnesium) tablet potassium citrate 10 mEq (1,080 20 meq PO BID 10/17/24 Unknown History mg) tablet,extended release rosuvastatin 20 mg tablet 20 mg PO QHS HLD 10/17/24 Unknown History warfarin 2 mg tablet (Jantoven) 2 mg PO SUMOWETHFRSA 10/17/24 12/25/24 History warfarin 2 mg tablet (Jantoven) 4 mg PO TU 12/18/24 Unknown History enoxaparin 100 mg/mL subcutaneous 100 mg subcut Q12.TCU 03/02/25 Unknown History syringe Allergy/AdvReac Type Severity Reaction Status Date / Time NSAIDS (Non-Steroidal Allergy Intermediate KIDNEY Verified 03/02/25 09:13 Anti-Inflamma LEVELS ELEVATE cephalexin (From Keflex) Allergy Mild Itching Verified 03/02/25 09:13 banana Allergy Hives Verified 03/02/25 09:13 brompheniramine (From Allergy Hives Verified 03/02/25 09:13 Dimetapp (brompheniramine-PPA)) cefuroxime Allergy Rash Verified 03/02/25 09:13 kiwi Allergy Hives Verified 03/02/25 09:13 latex Allergy Anaphylaxis Verified 03/02/25 09:13 moxifloxacin HCl (From Allergy Hives Verified 03/02/25 09:13 Avelox) peach Allergy Hives Verified 03/02/25 09:13 phenylpropanolamine (From Allergy Hives Verified 03/02/25 09:13 Dimetapp (brompheniramine-PPA)) red dye Allergy Angioedema Verified 03/02/25 09:13 shellfish derived Allergy Anaphylaxis Verified 03/02/25 09:13 strawberry Allergy Hives Verified 03/02/25 09:13 Sulfa (Sulfonamide Allergy Rash Verified 03/02/25 09:13 Antibiotics) tetanus and diphtheria Allergy Anaphylaxis Verified 03/02/25 09:13 toxoids (tetanus & diphtheria toxoids) tetracycline Allergy Rash Verified 03/02/25 09:13 adhesive tape AdvReac Rash Verified 03/02/25 09:13 amoxicillin trihydrate (From AdvReac Nausea Verified 03/02/25 09:13 Augmentin) chlorpheniramine AdvReac Unknown Verified 03/02/25 09:13 doxycycline AdvReac Nausea Verified 03/02/25 09:13 eszopiclone (From Lunesta) AdvReac Unknown Verified 03/02/25 09:13 fluticasone (From Flonase) AdvReac Unknown Verified 03/02/25 09:13 paroxetine (From Paxil) AdvReac Nausea Verified 03/02/25 09:13 peanut AdvReac Nausea Verified 03/02/25 09:13 potassium clavulanate (From AdvReac Nausea Verified 03/02/25 09:13 Augmentin) procainamide AdvReac Unknown Verified 03/02/25 09:13 Family History Other Cancer Surgical History (Updated 03/02/25 @ 09:43 by Unique German) History of parathyroidectomy History of surgery Hx of laminectomy Hx of bilateral oophorectomy History of lithotripsy History of knee surgery History of cholecystectomy History of hysterectomy Social History household members: spouse housing: house Smoking Status: Never smoker alcohol intake: current alcohol intake frequency: other substance use type: does not use Audit: Pertinent Findings HISTORY of Pertinent Findings History of Pertinent Findings: EKG Pertinent Findings EKG Perinent findings EKG January 04, 2025. 03/03/25 16:47 Normal sinus rhythm. Recommendation Anesthesia Recommendation Anesthesia recommendation: OPTIMIZED for anesthesia
[2025-03-03 18:38] LABS: Magnesium 2.1 mg/dL (1.5-2.2)
[2025-03-12] VITALS (14 sets, daily range): BP systolic 118–157; BP diastolic 62–75; PULSE 75–105; RESP 14–16; TEMP 36.3–36.6; O2SAT 91–97; BMI 39.5
[2025-03-12] MEDS: Lactated Ringers 1,000 ML 15 ML IV (10:00)
--- NOTE | 2025-03-12 10:40 | PCM.HP.BLA ---
History and Physical MR#: [id number] Acct: [id number] Name: KELLIE CORTÉS Rep #: [id number] : 1965 Provider: HARRISON Oconnell Age/Sex: 59/F Location: [facility] [email or web address] Status: Signed Intake Vital Signs 12/31/2505:42 02/16/2513:02 Height 5 ft 4 in 5 ft 4 in Weight: 225 lb BMI 38.6 Intake Visit Reasons: SCS Chief Complaint: 4 Week Post-Op Accompanied by: Is patient in pain?: Yes Pain scale (1-10): 2 Allergies NSAIDS (Non-Steroidal Anti-Inflamma Allergy (Intermediate, Verified 02/16/25 13:05) KIDNEY LEVELS ELEVATE cephalexin (From Keflex) Allergy (Mild, Verified 02/16/25 13:05) Itching banana Allergy (Verified 02/16/25 13:05) Hives brompheniramine (From Dimetapp (brompheniramine-PPA)) Allergy (Verified 02/16/25 13:05) Hives cefuroxime Allergy (Verified 02/16/25 13:05) Rash kiwi Allergy (Verified 02/16/25 13:05) Hives latex Allergy (Verified 02/16/25 13:05) Anaphylaxis moxifloxacin HCl (From Avelox) Allergy (Verified 02/16/25 13:05) Hives peach Allergy (Verified 02/16/25 13:05) Hives phenylpropanolamine (From Dimetapp (brompheniramine-PPA)) Allergy (Verified 02/16/25 13:05) Hives red dye Allergy (Verified 02/16/25 13:05) Angioedema shellfish derived Allergy (Verified 02/16/25 13:05) Anaphylaxis strawberry Allergy (Verified 02/16/25 13:05) Hives Sulfa (Sulfonamide Antibiotics) Allergy (Verified 02/16/25 13:05) Rash tetanus and diphtheria toxoids (tetanus & diphtheria toxoids) Allergy (Verified 02/16/25 13:05) Anaphylaxis tetracycline Allergy (Verified 02/16/25 13:05) Rash adhesive tape Adverse Reaction (Verified 02/16/25 13:05) Rash amoxicillin trihydrate (From Augmentin) Adverse Reaction (Verified 02/16/25 13:05) Nausea chlorpheniramine Adverse Reaction (Verified 02/16/25 13:05) Unknown doxycycline Adverse Reaction (Verified 02/16/25 13:05) Nausea eszopiclone (From Lunesta) Adverse Reaction (Verified 02/16/25 13:05) Unknown fluticasone (From Flonase) Adverse Reaction (Verified 02/16/25 13:05) Unknown paroxetine (From Paxil) Adverse Reaction (Verified 02/16/25 13:05) Nausea peanut Adverse Reaction (Verified 02/16/25 13:05) Nausea potassium clavulanate (From Augmentin) Adverse Reaction (Verified 02/16/25 13:05) Nausea procainamide Adverse Reaction (Verified 02/16/25 13:05) Unknown Medications ?Medication ?Instructions ?Recorded ?Confirmed ?Type albuterol sulfate 90 mcg/actuation 2 puff inhalation Q6H PRN PRN 12/04/15 02/16/25 History aerosol inhaler (Ventolin HFA) Shortness Of Breath naphazoline 0.025 %-pheniramine 1 drp OP PRN PRN allergies 09/15/16 02/16/25 History 0.3 % eye drops (Naphcon-A) modafinil 100 mg tablet (Provigil) 150 mg PO DAILY 11/21/20 02/16/25 History verapamil 120 mg tablet 120 mg PO BID 11/21/20 02/16/25 History acetaminophen 325 mg tablet 650 mg (2 x 325 mg) PO Q6H PRN PRN 01/25/21 02/16/25 Rx (Tylenol) Pain 1-10 Or Fever #0 tabs anastrozole 1 mg tablet 1 mg PO DAILY 09/20/22 02/16/25 History cholecalciferol (vitamin D3) 250 500 mcg PO DAILY 09/20/22 02/16/25 History mcg (10,000 unit) capsule cyclobenzaprine 10 mg tablet 10 mg PO BID 09/20/22 02/16/25 History denosumab 60 mg/mL subcutaneous 60 mg subcut [id number] 09/20/22 02/16/25 History syringe (Prolia) oxybutynin chloride 10 mg 10 mg PO DAILY 03/29/23 02/16/25 History tablet,extended release 24 hr coenzyme Q10 100 mg capsule 200 mg PO DAILY 04/13/23 02/16/25 History (CoQ-10) nitrofurantoin macrocrystal 50 mg 50 mg PO QHS 04/13/23 02/16/25 History capsule omeprazole 40 mg capsule,delayed 40 mg PO DAILY 04/13/23 02/16/25 History release Lactobacillus acidophilus 250 100 mmu cells PO DAILY 11/08/23 02/16/25 History million cell capsule (Probiotic Acidophilus) cholestyramine-aspartame 4 gram 1 ea PO PRN 11/08/23 02/16/25 History oral powder (Prevalite) clonazepam 1 mg disintegrating 1 mg PO QHS PRN 11/08/23 02/16/25 History tablet deutetrabenazine 12 mg 24 mg PO BID 11/08/23 02/16/25 History tablet,extended release 24 hr (Austedo XR) ezetimibe 10 mg tablet 10 mg PO DAILY 11/08/23 02/16/25 History hydroxyzine pamoate 25 mg capsule 25 mg PO Q6H PRN itching 11/08/23 02/16/25 History (Vistaril) iloperidone 6 mg tablet (Fanapt) 6 mg PO BID 11/08/23 02/16/25 History lamotrigine 25 mg tablet (Lamictal) 75 mg PO DAILY 11/08/23 02/16/25 History levothyroxine 50 mcg tablet 50 mcg PO DAILY 11/08/23 02/16/25 History multivitamin with minerals-folic 2 tab PO DAILY 11/08/23 02/16/25 History acid 200 mcg chewable tablet (Women's Multivitamin Gummies) ondansetron 4 mg disintegrating 4 mg PO Q8H PRN PRN nausea and 11/08/23 02/16/25 History tablet vomiting tramadol 50 mg tablet 50 mg PO 4X/DAY 11/08/23 02/16/25 History vilazodone 40 mg tablet (Viibryd) 40 mg PO DAILY 11/08/23 02/16/25 History fenofibrate 160 mg tablet 160 mg PO QDAY 10/17/24 02/16/25 History magnesium oxide 400 mg (241.3 mg 400 mg PO BID 10/17/24 02/16/25 History magnesium) tablet potassium citrate 10 mEq (1,080 20 meq PO BID 10/17/24 02/16/25 History mg) tablet,extended release rosuvastatin 20 mg tablet 20 mg PO QHS 10/17/24 02/16/25 History warfarin 2 mg tablet (Jantoven) 2 mg PO SUMOWETHFRSA 10/17/24 02/16/25 History Held on 12/31/24. Instructions: Resume on 01/02/25. warfarin 2 mg tablet (Jantoven) 4 mg PO TU 12/18/24 02/16/25 History Held on 12/31/24. Instructions: Resume on 01/02/25. clindamycin HCl 300 mg capsule 600 mg (2 x 300 mg) PO BID #12 caps 12/31/24 02/16/25 Rx (Cleocin HCl) Have you fallen in the past year?: Yes PFSH Medical History Obesity (BMI 30-39.9) MRSA (methicillin resistant staph aureus) culture positive Shortness of breath on exertion Pulmonary embolism Wears glasses Post-menopausal Depression Anxiety Thyroid disease Bladder disease History of renal disease Migraine headache Antiphospholipid antibody syndrome Stroke History of hiatal hernia Non-smoker History of pain when walking History of echocardiogram History of stress test Cardiology follow-up encounter Tachycardia Tardive dyskinesia Cancer Schizo affective schizophrenia Rheumatoid arthritis Chronic pain GERD (gastroesophageal reflux disease) BiPAP (biphasic positive airway pressure) dependence Arthritis Asthma Hyperlipidemia IBS (irritable bowel syndrome) Breast cancer Surgical History Hx of laminectomy Hx of bilateral oophorectomy History of lithotripsy History of knee surgery History of cholecystectomy History of hysterectomy Family History Other Cancer Social History household members: spouse housing: house Smoking Status: Never smoker alcohol intake: current alcohol intake frequency: other substance use type: does not use HPI SCS Details: This documentation accurately reflects the service provided and the decisions made by , HARRISON Oconnell 02/16/25 1302. Part of today?s visit was documented by Bird Bermudez MA, acting as scribe. KELLIE CORTÉS is a 59 year old F here today for 4 week post op. She states that the stimulator itself is going good. The marguerite issue that she was having at her prior appointment has been resolved and the stimulator has been working and giving relief. The stimulator is working well for her. She will be starting water physical therapy this coming Sunday. Patient reports that the stimulator battery continues to stay mobile within the pocket. Says that she can feel it rotating especially when she is bending over. This causes increased pain when she is sitting or laying down. She is not able to lay flat due to the positioning of the spinal cord stimulator battery. Ortho Exam General General: Yes no acute distress Neurologic: Yes alert and Yes oriented x3 Spine SPINE TESTING CERVICAL THORACIC LUMBAR Musculoskeletal Strength 0=absent - 5=normal Details: Battery device observed to be rotating within its pocket, causing pain and irritation. Incision well healed and dry. No tenting of skin at the battery incision. Lower extremity shows 5 of 5 strength. Coding Level of Care Code Global Post Op Diagnoses Status post insertion of spinal cord stimulator Z96.89 Additional Codes Intake - Is patient in pain?: Yes (1125F) Assessment and Plan Assessment and Plan (1) Status post insertion of spinal cord stimulator: Status: Acute Orders: Orders Lumbar Spine 2 or 3 Views Today Z96.89 - Presence of other specified functional implants Thoracic Spine 2 Views Today Z96.89 - Presence of other specified functional implants Plan Obtained and reviewed thoracic and lumbar x-rays today in the clinic. Independent interpretation of the x-rays was performed. - Imaging: X-ray shows good position of the paddle lead, likely battery device rotation within pocket. Explained imaging findings in detail. Case discussed with Dr. Browne. At this time due to the fact that the patient continues to have rotation of the battery within the pocket which is uncomfortable and has made it difficult for her to sleep due to increased pain while sleeping, the patient wishes to proceed with surgical intervention to help hold the battery pack down so it does not rotate. The patient had a revision of her spinal cord stimulator because the wire was coiling which was making it not connect. Patient says that the stimulator itself has been working and has been giving her pain relief. However the rotating battery in the pocket is uncomfortable for her. She wishes to proceed with surgical intervention to prevent this rotation. Patient takes warfarin, she will have to stop this for the surgery. She also says that she was going to start taking Wegovy which is a GLP-1 weight loss medication. Discussed with her that she should not start this medication until after we give her a date and time for the surgery. She cannot have a GLP-1 within a week of the surgery. Patient understands. Patient is in agreement to the plan.
[2025-03-12] MEDS: Magnesium 1 GM over 15 mins IV (10:57)
--- NOTE | 2025-03-12 11:10 | PCM.PRE.AN2 ---
ASA Classification* ASA Classification ASA Classification: 3 Assessment & Plan Anesthesia* Anesthesia Assessment Anesthesia Assessment: Discussed sedation and/or anesthesia options, risks, benefits, and alternatives with patient/parents/legal guardian/POA. Questions invited. The patient/parents/legal guardian/POA seems to understand and agrees to proceed with anesthesia plan. Reviewed the physical assessment, medical history, allergy history and patient home medications list prior to surgery/procedure/anesthetic and documented any changes. Performed airway and anesthesia risk assessments. Anesthesia Type Anesthesia Type: General History Source History Obtained from:: Patient and Chart Anesthesia Focused Assessment* Temperature: 97.8 F Pulse Rate: 82 Blood Pressure: 129/68 Respiratory Rate: 16 Pulse Ox: 97 Oxygen Delivery Method: Room Air Airway Assessment Mouth opens: >3 cm Mallampati Score: II Teeth Condition: Chipped/Broken Neck Range of motion (ROM): Limited ROM Labs Anesthesia Preop lab: CBC WBC, (4.4-11.0) 6.0 K/mm3 03/03/25, 12: RBC, (4.2-5.4) 4.19 M/mm3 L 03/03/25, 12: Hgb, (12.0-15.0) 12.7 g/dL 03/03/25, 12: Hct, (37-47) 38.8 % 03/03/25, 12: Plt Count, (150-450) 287 K/mm3 03/03/25, 12: CHEMISTRY Potassium, (3.3-5.1) 4.3 mmol/L 03/03/25, 12: Sodium, (133-145) 140 mmol/L 03/03/25, 12: Magnesium, (1.5-2.2) 2.1 mg/dL 03/03/25, 17:03 Phosphorus, (2.5-4.9) 2.1 mg/dL L 02/23/15, 12: BUN, (4-19) 21 mg/dL H 03/03/25, 12: Creatinine, (0.70-1.20) 1.36 mg/dL H 03/03/25, 12: Glucose, (70-99) 133 mg/dL H 03/03/25, 12: POC Glucose, (74-106) 139 mg/dL H 04/24/23, 10:27 TSH, (0.300-4.200) 0.857 uIU/mL 12/25/24, 12:11 COAG Pre-Assessment Diagnosis/Proposed Procedure Planned Operative Procedure(s): (N/A) Revision of internal pulse generator Anesthesia History Anesthesia History - manager support: Anesthesia History - manager support Hx Hospitalization Yes: 05/2024 PULMONARY 03/02/25 09:29 EMBOLISM Any Problems With Anesthesia No 03/02/25 09:29 Cholinesterase deficiency No 03/02/25 09:29 You/Your Family Experience No 03/02/25 09:29 fever (hyperthermia) with Relationship Recent Exposure to Contagious No 03/12/25 10:16 Disease Does patient have nerve Yes 03/02/25 09:29 stimulator Patient instructed to have device shut off --Does patient have Pacemaker No 03/12/25 10:16 or ICD? When Was Last Pacemaker Check QUESTION #4 FULL TEXT: You/Your Family Experience fever (hyperthermia) with Anesthesia Last Oral Intake Last Oral intake: Last Oral Intake NPO since 06:00 03/12/25 10:16 Meds taken in AM with sips of Yes 03/12/25 10:16 water? Meds patient instructed to take am of surgery PONV PONV - manager support: PONV - manager support Female Yes 03/02/25 09:29 HX of Motion Sickness No 03/02/25 09:29 HX of N/V After Surgery No 03/02/25 09:29 Non-Smoker Yes 03/02/25 09:29 Duration of Surgery greater Yes 03/02/25 09:29 than 60 minutes Number of Risk Factors 3 03/02/25 09:29 PONV Score Moderate Risk 03/02/25 09:29 Height & Weight Height & Weight: Anesthesia: Height & Weight Height 5 ft 4 in 03/12/25 10:16 Weight: 104.6 kg 03/12/25 10:16 Body Mass Index (BMI) 39.5 03/12/25 10:16 Respiratory Assessment Respiratory Assessment - manager support: Respiratory Tract Infection Hx - manager support Hx Respiratory Tract Infection No 03/02/25 09:29 STOP Sleep Apnea STOP Sleep Apnea - manager support: STOP Sleep Apnea - manager support Hx Hypertension No 03/02/25 09:29 Hx Sleep Apnea Yes 03/02/25 09:29 CPAP No 03/02/25 09:29 BIPAP Yes 03/02/25 09:29 Do you snore loudly (louder than talking or can be heard Do you often feel tired/ fatigued/ sleepy during daytime? Has anyone observed you stop breathing during sleep? STOP Results Positive 03/02/25 09:29 QUESTION #5 FULL TEXT : Do you snore loudly (louder than talking or can be heard through closed doors)? 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 confused, unrespo /Reproduction History /Reproductive History - manager support: /Reproductive Hx- manager support Hx Now No 03/02/25 09:29 Gestational Age (in weeks): EDC: Hx Hx Para Hx Section SAB No 03/02/25 09:29 Does the father of the baby or his family experience fever w Father of the baby Malignant Hypertension history comment Active Medications Active Medications: Current Medications Generic Name Dose Route Start Last Admin Trade Name Freq PRN Reason Stop Dose Admin Acetaminophen 1,000 mg 03/12/25 11:45 03/12/25 10:56 Acetaminophen 500 Mg Tablet PO 03/12/25 11:46 1,000 mg PREOP ONE Administration Tranexamic Acid 1,000 mg/ 110 mls @ 440 mls/hr 03/12/25 11:45 Sodium Chloride IV 03/12/25 11:59 INTRAOP ONE Tranexamic Acid 1,000 mg/ 110 mls @ 440 mls/hr 03/12/25 11:45 Sodium Chloride IV 03/12/25 11:59 INTRAOP ONE Magnesium Sulfate 1 gm/ 102 mls @ 408 mls/hr 03/12/25 11:45 Dextrose IV 03/12/25 11:59 PREOP ONE Lactated Ringer's 1,000 mls @ 15 mls/hr 03/12/25 10:00 03/12/25 10:00 IV 15 mls/hr .Q48H CHRISTINA Administration Insulin Human Lispro 1 - 6 unit 03/12/25 11:45 Insulin Lispro 100 Unit/Ml Insuln.Pen SC 03/12/25 17:45 Q4H PRN PRN BG>/= 180, SEE PROTOCOL Protocol PFSH Medical History High cholesterol Easy bruising History of pulmonary embolism Blood disorder Dietary restriction History of IBS Gastric reflux History of tachycardia Obesity (BMI 30-39.9) MRSA (methicillin resistant staph aureus) culture positive Shortness of breath on exertion Pulmonary embolism Wears glasses Post-menopausal Depression Anxiety Thyroid disease Bladder disease History of renal disease Migraine headache Antiphospholipid antibody syndrome Stroke History of hiatal hernia Non-smoker History of pain when walking History of echocardiogram History of stress test Cardiology follow-up encounter Tachycardia Tardive dyskinesia Cancer Schizo affective schizophrenia Rheumatoid arthritis Chronic pain GERD (gastroesophageal reflux disease) BiPAP (biphasic positive airway pressure) dependence Arthritis Asthma Hyperlipidemia IBS (irritable bowel syndrome) Breast cancer Home Medications ?Medication ?Instructions ?Recorded ?Last Taken ?Type albuterol sulfate 90 mcg/actuation 2 puff inhalation Q6H PRN PRN 12/04/15 Unknown History aerosol inhaler (Ventolin HFA) Shortness Of Breath naphazoline 0.025 %-pheniramine 1 drp OP BID PRN PRN allergies 09/15/16 Unknown History 0.3 % eye drops (Naphcon-A) modafinil 100 mg tablet (Provigil) 150 mg PO DAILY DAYTIME SLEEPINESS 11/21/20 01/20/21 History verapamil 120 mg tablet 120 mg PO BID TACHYCARDIA 11/21/20 03/12/25 06:00 History acetaminophen 325 mg tablet 650 mg (2 x 325 mg) PO Q6H PRN PRN 01/25/21 Unknown Rx (Tylenol) Pain 1-10 Or Fever #0 tabs anastrozole 1 mg tablet 1 mg PO DAILY HORMONE REPLACEMENT 09/20/22 Unknown History FOR BREAST CA cholecalciferol (vitamin D3) 250 500 mcg PO DAILY SUPPLEMENT 09/20/22 Unknown History mcg (10,000 unit) capsule cyclobenzaprine 10 mg tablet 10 mg PO BID MUSCLE SPASMS 09/20/22 Unknown History denosumab 60 mg/mL subcutaneous 60 mg subcut [id number] 09/20/22 02/26/25 History syringe (Prolia) oxybutynin chloride 10 mg 10 mg PO DAILY OAB 03/29/23 03/12/25 06:00 History tablet,extended release 24 hr coenzyme Q10 100 mg capsule 200 mg PO DAILY SUPPLEMENT 04/13/23 Unknown History (CoQ-10) nitrofurantoin macrocrystal 50 mg 50 mg PO QHS 04/13/23 Unknown History capsule omeprazole 40 mg capsule,delayed 40 mg PO DAILY 04/13/23 03/12/25 06:00 History release Lactobacillus acidophilus 250 100 mmu cells PO DAILY 11/08/23 Unknown History million cell capsule (Probiotic Acidophilus) cholestyramine-aspartame 4 gram 1 ea PO PRN PRN LOOSE STOOLS 11/08/23 Unknown History oral powder (Prevalite) clonazepam 1 mg disintegrating 1 mg PO QHS PRN PRN sleep 11/08/23 Unknown History tablet deutetrabenazine 12 mg 24 mg PO BID tardive dyskinesia 11/08/23 03/12/25 06:00 History tablet,extended release 24 hr (Austedo XR) ezetimibe 10 mg tablet 10 mg PO DAILY CHOLESTEROL 11/08/23 Unknown History hydroxyzine pamoate 25 mg capsule 25 mg PO Q6H PRN itching 11/08/23 Unknown History (Vistaril) iloperidone 6 mg tablet (Fanapt) 6 mg PO BID ANTIPSYCHOTIC 11/08/23 03/12/25 06:00 History lamotrigine 25 mg tablet (Lamictal) 75 mg PO DAILY 11/08/23 12/31/24 04:15 History levothyroxine 50 mcg tablet 50 mcg PO DAILY THYROID 11/08/23 03/12/25 06:12 History multivitamin with minerals-folic 2 tab PO DAILY SUPPLEMENT 11/08/23 Unknown History acid 200 mcg chewable tablet (Women's Multivitamin Gummies) ondansetron 4 mg disintegrating 4 mg PO Q8H PRN PRN nausea and 11/08/23 Unknown History tablet vomiting tramadol 50 mg tablet 50 mg PO TID PAIN 11/08/23 Unknown History vilazodone 40 mg tablet (Viibryd) 40 mg PO DAILY 11/08/23 Unknown History fenofibrate 160 mg tablet 160 mg PO QDAY HLD 10/17/24 Unknown History magnesium oxide 400 mg (241.3 mg 400 mg PO BID 10/17/24 Unknown History magnesium) tablet potassium citrate 10 mEq (1,080 20 meq PO BID 10/17/24 Unknown History mg) tablet,extended release rosuvastatin 20 mg tablet 20 mg PO QHS HLD 10/17/24 Unknown History warfarin 2 mg tablet (Jantoven) 2 mg PO SUMOWETHFRSA 10/17/24 03/07/25 History warfarin 2 mg tablet (Jantoven) 4 mg PO TU 12/18/24 03/07/25 History enoxaparin 100 mg/mL subcutaneous 100 mg subcut Q12.TCU 03/02/25 03/10/25 History syringe Allergy/AdvReac Type Severity Reaction Status Date / Time NSAIDS (Non-Steroidal Allergy Intermediate KIDNEY Verified 03/02/25 09:13 Anti-Inflamma LEVELS ELEVATE cephalexin (From Keflex) Allergy Mild Itching Verified 03/02/25 09:13 banana Allergy Hives Verified 03/02/25 09:13 brompheniramine (From Allergy Hives Verified 03/02/25 09:13 Dimetapp (brompheniramine-PPA)) cefuroxime Allergy Rash Verified 03/02/25 09:13 kiwi Allergy Hives Verified 03/02/25 09:13 latex Allergy Anaphylaxis Verified 03/02/25 09:13 moxifloxacin HCl (From Allergy Hives Verified 03/02/25 09:13 Avelox) peach Allergy Hives Verified 03/02/25 09:13 phenylpropanolamine (From Allergy Hives Verified 03/02/25 09:13 Dimetapp (brompheniramine-PPA)) red dye Allergy Angioedema Verified 03/02/25 09:13 shellfish derived Allergy Anaphylaxis Verified 03/02/25 09:13 strawberry Allergy Hives Verified 03/02/25 09:13 Sulfa (Sulfonamide Allergy Rash Verified 03/02/25 09:13 Antibiotics) tetanus and diphtheria Allergy Anaphylaxis Verified 03/02/25 09:13 toxoids (tetanus & diphtheria toxoids) tetracycline Allergy Rash Verified 03/02/25 09:13 adhesive tape AdvReac Rash Verified 03/02/25 09:13 amoxicillin trihydrate (From AdvReac Nausea Verified 03/02/25 09:13 Augmentin) chlorpheniramine AdvReac Unknown Verified 03/02/25 09:13 doxycycline AdvReac Nausea Verified 03/02/25 09:13 eszopiclone (From Lunesta) AdvReac Unknown Verified 03/02/25 09:13 fluticasone (From Flonase) AdvReac Unknown Verified 03/02/25 09:13 paroxetine (From Paxil) AdvReac Nausea Verified 03/02/25 09:13 peanut AdvReac Nausea Verified 03/02/25 09:13 potassium clavulanate (From AdvReac Nausea Verified 03/02/25 09:13 Augmentin) procainamide AdvReac Unknown Verified 03/02/25 09:13 Family History Other Cancer Surgical History History of parathyroidectomy History of surgery Hx of laminectomy Hx of bilateral oophorectomy History of lithotripsy History of knee surgery History of cholecystectomy History of hysterectomy Social History household members: spouse housing: house Smoking Status: Never smoker alcohol intake: current alcohol intake frequency: other substance use type: does not use Review of Systems (Anesthesia) ROS Narrative System reviewed and no additional complaints, except as documented.
[2025-03-12] MEDS: fentaNYL 100 MCG/2 ML Ampul IV (11:29)
[2025-03-12] MEDS: Lidocaine 1% (5 ml sdv) 5 ML Vial IV (11:29)
[2025-03-12] MEDS: TRANEXAMIC ACID 1,000 MG/10 ML ML 2000 MG IV (12:09)
--- NOTE | 2025-03-12 12:19 | PCM.OPRPT ---
Procedures Musculoskeletal [id number]: Other Procedure See Report Operative Report (Standard) Operative Information Date of Procedure: 03/12/25 Pre-Operative Diagnosis: Chronic back pain, prominent internal pulse generator for spinal cord stimulator Post-Operative Diagnosis: Same Surgery/Procedure Performed: Revision internal pulse generator for spinal cord stimulator with new pocket creation house officer: Yes Tobacco Drier Operator: Sasha Carlisle Tasks completed by financial sales assistant: Closing, Hemostasis: Electrocautery and Retracting Type of Anesthesia: General RN Documented Start/Stop Times: Operation Date: 03/12/25 11:45 Case Time Into Pre-Op 03/12/25 09:55 Anesthesia Start 03/12/25 11:24 Into Room 03/12/25 11:24 Procedure Start 03/12/25 11:48 Procedure Start Time: 11:48 Procedure Stop Time: 12:22 Select all DRAINS/GRAFTS/IMPLANTS that apply: None Estimated Blood Loss: 5 cc Specimen collected: No Description of surgery: Preoperative diagnosis: Chronic back pain, prominent internal pulse generator for spinal cord stimulator Postoperative diagnosis: Same Name of procedure: Revision internal pulse generator for spinal cord stimulator with new pocket creation, [id number] Anesthesia: Gen. endotracheal Estimated blood loss: 5 mL Complications: None Indications: The patient is a pleasant 59-year-old lady who presented to us with symptoms of chronic low back pain. She underwent revision spinal cord stimulator placement in December, however developed prominence at the site of the spinal cord stimulator battery, interim pulse generator. The IPG was flipping within the pocket, prominent and tenting the skin. Patient requested revision of the pocket. Discussed risk benefits and alternatives. The risks include but are not limited to infection, bleeding, injury to nerves and vessels, need for further procedures, worsening lumbar pathology with potential neurologic symptoms, persistent pain, technical issues with spinal cord stimulator, hematoma, migration of lead, skin impingement from subcutaneous pulse generator, worsening deformity, DVT, pulmonary embolism, cardiopulmonary event etc. patient understands all the risks and benefits and agrees to the procedure. Procedure: The patient was identified in the preoperative suite using unique patient identifiers. Skin was marked consent was taken and all questions were answered. The patient was then brought back to the operative room and a timeout was performed. General endotracheal anesthesia was given. Intraoperative neuro monitoring leads were applied. The patient was carefully positioned prone on a standard OR table with gel rolls. Back was prepped and draped in usual fashion. Incision was made over the prior incisional scar at the area of the left gluteal region on the IPG. The IPG was delivered out of the skin. The previous deeper pocket was freshened and the capsule was excised. Hemostasis was achieved. Irrigation was performed with normal saline as well as Irrisept. A deep pocket was closed down with 0 Vicryl. A new pocket superiorly from the incision was developed about half inch deep to the skin. The IPG was then implanted into this new subcutaneous pocket less than 2 cm from the surface in the left lumbar region. Thorough irrigation was given. Hemostasis was achieved. The Darnell rep was able to confirm adequate functioning of the IPG and spinal cord stimulator. Closure was done in layers with 0 Vicryl interrupted for the deep subcutaneous tissue, 2-0 Vicryl for subcutaneous tissue and 4-0 Monocryl for skin. Dermabond was applied and dressed with 4 x 4 gauze and Tegaderm. the patient was then woken up from anesthesia. Patient was taken to PACU for monitoring in stable condition. The patient tolerated the procedure and no complications occurred. Blood loss was 5 ml. Darnell IPG was re-utilized. I was scrubbed for the entire procedure and performed the surgery myself. Turntable Operator Sasha Carlisle PA-C. My physician players assistant was a vital part of this case. They were important in appropriate retraction during the case, and protection of soft tissues during the procedure. Their intimate knowledge of the case and my steps aided in safe and expedient completion of the procedure as well as appropriate position of the patient during the surgery. They were also vital in assisting with closure under my direct supervision. Surgical Findings: See operative note Complications Complications: No
--- NOTE | 2025-03-12 12:31 | PCM.POST.ANE ---
Anesthesia: Postop Eval I Current Vital Signs Temperature: 98 F Pulse Rate: 105 Blood Pressure: 154/75 Respiratory Rate: 16 Pulse Ox: 94 Oxygen Delivery Method: Room Air Assessment Airway patent: Yes Spontaneous unlabored respirations: Yes Mental status: Awake and Calm nausea: No Vomiting: No Anesthesia Complication: No Fluid Hydration Crystalloid volume administer (ml): 900 Total IV fluid infused: 900 Progress Note Anesthesia document: Postop Eval 1 completed: Yes
--- NOTE | 2025-03-12 14:44 | POSTOPAN2_ITS ---
Anesthesia Postop Eval I Sum Postop Eval Completion status Anesthesia document: Postop Eval 1 completed: Yes Anesthesia Postop Eval I Summary Anesthesia Postop Eval I Summary: Anesthesia Postop Eval I: Assessment Summary Airway patent Yes 03/12/25 12:31 ACID OPERATOR.[email or web address] Spontaneous unlabored Yes 03/12/25 12:31 ACID OPERATOR.MDOT respirations Mental status Awake,Calm 03/12/25 12:31 ACID OPERATOR.MDOT nausea No 03/12/25 12:31 ACID OPERATOR.MDOT Vomiting No 03/12/25 12:31 ACID OPERATOR.MDOT Anesthesia Postop Eval I: Fluid Summary Crystalloid volume administer 900 03/12/25 12:31 ACID OPERATOR.MDOT (ml) Colloids volume administered ( ml) Blood Product volume administered (ml) Total IV fluid infused 900 03/12/25 12:31 ACID OPERATOR.MDOT Anesthesia Postop Eval I: Summary Notes Anesthesia Complication No 03/12/25 12:31 ACID OPERATOR.MDOT Anesthesia Complication Comment: Post-operative progress note Anesthesia: Postop Eval II Evaluation Mental status: Awake and Calm Pain Level: 1 nausea: No Vomiting: No Complications Anesthesia Complication: No
--- NOTE | 2025-03-12 14:44 | PCM.POSTANE2 ---
Anesthesia Postop Eval I Sum Postop Eval Completion status Anesthesia document: Postop Eval 1 completed: Yes Anesthesia Postop Eval I Summary Anesthesia Postop Eval I Summary: Anesthesia Postop Eval I: Assessment Summary Airway patent Yes 03/12/25 12:31 OPERATIONAL REVIEW SERGEANT.MDOT Spontaneous unlabored Yes 03/12/25 12:31 OPERATIONAL REVIEW SERGEANT.MDOT respirations Mental status Awake,Calm 03/12/25 12:31 OPERATIONAL REVIEW SERGEANT.MDOT nausea No 03/12/25 12:31 OPERATIONAL REVIEW SERGEANT.MDOT Vomiting No 03/12/25 12:31 OPERATIONAL REVIEW SERGEANT.MDOT Anesthesia Postop Eval I: Fluid Summary Crystalloid volume administer 900 03/12/25 12:31 OPERATIONAL REVIEW SERGEANT.MDOT (ml) Colloids volume administered ( ml) Blood Product volume administered (ml) Total IV fluid infused 900 03/12/25 12:31 OPERATIONAL REVIEW SERGEANT.MDOT Anesthesia Postop Eval I: Summary Notes Anesthesia Complication No 03/12/25 12:31 OPERATIONAL REVIEW SERGEANT.MDOT Anesthesia Complication Comment: Post-operative progress note Anesthesia: Postop Eval II Evaluation Mental status: Awake and Calm Pain Level: 1 nausea: No Vomiting: No Complications Anesthesia Complication: No
== END 2025-03-12 16:39 | disposition home or self-care (01) ==
LOC: SDC 09:45 → AC 09:45
PROVIDERS: Anesthesiology; PCP Student in an Organized Health Care Education/Training Program; Referring Provider Orthopaedic Surgery Orthopaedic Surgery of the Spine; Visit Provider Orthopaedic Surgery Orthopaedic Surgery of the Spine
PROC: (CPT 63655; principal; 2025-03-12 11:15)
DX: Z45.42 Encounter for adjustment and management of neurostimulator (principal); M54.50 Low back pain, unspecified; G89.29 Other chronic pain; Z96.82 Presence of neurostimulator; Z79.01 Long term (current) use of anticoagulants; Z79.891 Long term (current) use of opiate analgesic; Z79.899 Other long term (current) drug therapy; Z86.711 Personal history of pulmonary embolism
CPT/HCPCS: 63688; 00300; 36415; 80048; 82962; 83036; 83735; 85025; 86850; 86900; 86901; 87077; 87081; 93005; J2405; J3475